=== PATIENT | male | born 1940 | race Caucasian/White ===

== ENCOUNTER 2018-11-21 16:23 | Emergency (ER) | payer OTHER, SELFPAY ==
[2018-11-21] VITALS (7 sets, daily range): BP systolic 103–122; BP diastolic 65–91; PULSE 83–91; RESP 13–21; O2SAT 95–100; BMI 36.1
--- NOTE | 2018-11-21 17:16 | DI.RAD.S_ITS ---
PROCEDURE: XR CHEST 1V INDICATIONS: Shortness of breath, when lays down TECHNIQUE: One view of the chest was acquired. COMPARISON: [facility], , CHEST 2 VIEW, 01/31/2018, 13:15. FINDINGS: Surgical changes and devices: None. Lungs and pleura: Increased pulmonary vascularity is present. There is trace blunting of the costophrenic angles bilaterally, right greater than left. Mediastinum: Mediastinal contours appear normal. Heart size is normal. Bones and chest wall: No suspicious bony lesions. Overlying soft tissues appear unremarkable. IMPRESSION: Increased vascularity with trace effusions most consistent with edema. Dictated by: Maria D Carrillo M.D. on 11/21/2018 at 17:51 Approved by: Maria D Carrillo M.D. on 11/21/2018 at 17:51
[2018-11-21 17:21] LABS: Add Manual Diff / Slide Review NO; Basophils Absolute Auto 100 /uL (0-100); Basophils Percent Auto 0.9 % (0-2); Eosinophils Absolute Auto 500 /uL (0-450); Eosinophils Percent Auto 5.4 % (2-4); Hematocrit 39.8 % (41-53); Hemoglobin 12.9 g/dL (13.5-17.5); Lymphocytes Absolute Auto 1500 /uL (1100-4500); Lymphocytes Percent Auto 17.6 % (25-40); Mean Corpuscular HGB Conc 32.5 % (30-36); Mean Corpuscular Hemoglobin 25.6 PG (26-34); Mean Corpuscular Volume 78.8 fL (80-100); Monocytes Absolute Auto 800 /uL (0-900); Monocytes Percent Auto 9.5 % (3-14); Neutrophils Absolute Auto 5600 /uL (1500-7000); Neutrophils Percent Auto 66.6 % (50-75); Platelet Count 497 X10^3/uL (150-400); Red Blood Cell Count 5.05 X10^6/uL (4.5-5.9); Red Cell Distribution Width 16.2 % (11.6-14.8); White Blood Cell Count 8.4 X10^3/uL (4.5-11.0)
[2018-11-21 17:26] LABS: HEMOLYSIS < 15 (0-50)
[2018-11-21 17:27] LABS: Alanine Aminotransferase 30 IU/L (21-72); Albumin 3.5 g/dL (3.5-5.0); Albumin Globulin Ratio 1.1 (1.0-2.8); Alkaline Phosphatase 85 U/L (38-126); Aspartate Aminotransferase 20 IU/L (17-59); BUN Creatinine Ratio 17.5 (6-22); Bilirubin Total 1.9 mg/dL (0.2-1.3); Blood Urea Nitrogen 14 mg/dL (9-20); Calcium 8.7 mg/dL (8.4-10.2); Carbon Dioxide 29 mmol/L (22-32); Chloride 97 mmol/L (98-107); Creatine Kinase < 20 U/L (55-170); Estimated Glomerular Filt Rate > 60.0 mL/min (>60); Globulin 3.3 g/dL (1.7-4.1); Glucose 127 mg/dL (80-110); Lipase 29 U/L (23-300); Sodium 137 mmol/L (137-145); Total Protein 6.8 g/dL (6.3-8.2)
[2018-11-21 17:40] LABS: Troponin I < 0.012 ng/mL (0.01-0.034)
[2018-11-21 18:00] LABS: B Type Natriuretic Peptide < 100 (<100)
--- NOTE | 2018-11-21 18:15 | ED.CHESTPAIN ---
HPI - Chest Pain General Chief Complaint: Chest Pain Stated Complaint: SOB Time Seen by Provider: 11/21/18 17:16 Source: patient Mode of arrival: ambulatory Limitations: no limitations History of Present Illness HPI narrative: 78-year-old male here for evaluation of shortness of breath. He states that he has had symptoms for the past month. Does not describe any chest discomfort. States that he has had a productive cough. Does have a history of COPD but is not on home oxygen. He reported that he had an extensive workup in [place] several weeks ago. Is not on any Lasix. No fevers. States that most of his symptoms come with exerting himself. States he cannot climb a flight of stairs without becoming short of breath. He can walk from room to room in his house without any problems. He states that he can walk out to the mailbox without any problems. Sleeps on 1 pillow at night. Related Data Home Medications Medication Instructions Recorded Confirmed albuterol sulfate [Ventolin HFA] 1 puff INHALATION PRN PRN 11/21/18 11/21/18 methotrexate sodium 1 dose PO DIRECTED 11/21/18 11/21/18 prednisone 10 mg PO DAILY 11/21/18 11/21/18 testosterone cypionate 200 mg IM QMONTH 11/21/18 11/21/18 [Depo-Testosterone] Previous Rx's Medication Instructions Recorded albuterol sulfate 3 ml INH Q6H PRN #100 ea 01/31/18 fluticasone [Flovent HFA] 1 puff INH BID #1 inh 01/31/18 furosemide 20 mg PO DAILY #14 tab 11/21/18 Allergies Allergy/AdvReac Type Severity Reaction Status Date / Time cephalexin [From KEFLEX] Allergy Intermediate Nausea, Verified 11/21/18 16:45 Vomiting, and Stomach Cramps Review of Systems Constitutional Denies fever(s) and Denies headache(s) ENT Ears, Nose, Mouth, and Throat: Denies headache(s) Cardiovascular Denies chest pain, Denies rapid heart rate, Denies palpitations, Reports dyspnea, Reports dyspnea on exertion and Denies orthopnea Respiratory Reports chest congestion, Reports dyspnea, Reports dyspnea on exertion and Denies wheezing Gastrointestinal Gastrointestinal: Denies abdominal pain Genitourinary Denies dysuria Musculoskeletal Denies myalgias and Denies arthralgias Integumentary/Breasts Denies rash Neurologic Denies headache(s) Endocrine Denies palpitations Hematologic/Lymphatic Comments: Not on anticoagulation Allergic/Immunologic Denies wheezing PFSH Medical History COPD (chronic obstructive pulmonary disease) (Acute) Surgical History Status post cholecystectomy Social History Smoking Status: Former smoker Exam Initial Vital Signs Initial Vital Signs: Vital Signs Pulse Rate 91 H 11/21/18 16:39 Respiratory Rate 21 11/21/18 16:39 Blood Pressure 116/91 H 11/21/18 16:39 Pulse Oximetry 95 11/21/18 16:39 Const General: cooperative, healthy appearing, comfortable, well developed, well groomed and No acute distress Orientation: alert, awake and oriented x3 Resp Effort & Inspection: normal respiratory effort Auscultation: clear to auscultation bilaterally Cardio Rate: regular rate Rhythm: regular rhythm GI Inspection: non-distended Palpation: soft Skin Lesions: no lesions Rashes: no rashes Neuro General: alert, awake and oriented x3 Cognition: normal cognition Speech: speech normal Motor: muscle tone normal throughout Extrem General: normal to inspection and capillary refill normal Psych Appearance: grossly normal and well kempt Course Orders Ordered: ED Orders 11/21/18 18:53 CT angio chest PE protocol Stat Vital Signs - 8 hr 11/21/18 19:00 11/21/18 19:30 Pulse Rate 83 84 Respiratory Rate 14 15 Blood Pressure [Right Arm] 122/67 112/65 Pulse Oximetry 96 96 MDM - Chest Pain Lab Data Attestation: I reviewed the patient's lab results. Result diagrams: 11/21/18 16:54 11/21/18 16:54 Lab Results 11/21/18 11/21/18 Range/Units 16:54 16:54 WBC 8.4 (4.5-11.0) X10^3/uL RBC 5.05 (4.5-5.9) X10^6/uL Hgb 12.9 L (13.5-17.5) g/dL Hct 39.8 L (41-53) % MCV 78.8 L (80-100) fL MCH 25.6 L (26-34) PG MCHC 32.5 (30-36) % RDW 16.2 H (11.6-14.8) % Plt Count 497 H (150-400) X10^3/uL Neut % (Auto) 66.6 (50-75) % Lymph % (Auto) 17.6 L (25-40) % Elliott % (Auto) 9.5 (3-14) % Eos % (Auto) 5.4 H (2-4) % Baso % (Auto) 0.9 (0-2) % Neut # (Auto) 5600 (0732-4619) /uL Lymph # (Auto) 1500 (2430-4422) /uL Elliott # (Auto) 800 (0-900) /uL Eos # (Auto) 500 H (0-450) /uL Baso # (Auto) 100 (0-100) /uL Sodium 137 (137-145) mmol/L Potassium 4.0 (3.4-5.1) mmol/L Chloride 97 L (98-107) mmol/L Carbon Dioxide 29 (22-32) mmol/L BUN 14 (9-20) mg/dL Creatinine 0.80 (0.66-1.25) mg/dL Estimated GFR > 60.0 (>60) mL/min BUN/Creatinine Ratio 17.5 (6-22) Glucose 127 H (80-110) mg/dL Calcium 8.7 (8.4-10.2) mg/dL Total Bilirubin 1.9 H (0.2-1.3) mg/dL AST 20 (17-59) IU/L ALT 30 (21-72) IU/L Alkaline Phosphatase 85 (38-126) U/L Total Creatine Kinase < 20 L (55-170) U/L CK-MB (CK-2) TNP CK-MB (CK-2) Rel Index TNP Troponin I < 0.012 (0.01-0.034) ng/mL B-Natriuretic Peptide < 100 (<100) Total Protein 6.8 (6.3-8.2) g/dL Albumin 3.5 (3.5-5.0) g/dL Globulin 3.3 (1.7-4.1) g/dL Albumin/Globulin Ratio 1.1 (1.0-2.8) Lipase 29 (23-300) U/L Imaging Data Chest x-ray: Radiologist's impression: PROCEDURE: XR CHEST 1V INDICATIONS: Shortness of breath, when lays down TECHNIQUE: One view of the chest was acquired. COMPARISON: [facility], CR, CHEST 2 VIEW, 01/31/2018, 13:15. FINDINGS: Surgical changes and devices: None. Lungs and pleura: Increased pulmonary vascularity is present. There is trace blunting of the costophrenic angles bilaterally, right greater than left. Mediastinum: Mediastinal contours appear normal. Heart size is normal. Bones and chest wall: No suspicious bony lesions. Overlying soft tissues appear unremarkable. IMPRESSION: Increased vascularity with trace effusions most consistent with edema. Dictated by: Maria D Carrillo M.D. on 11/21/2018 at 17:51 Approved by: Maria D Carrillo M.D. on 11/21/2018 at 17:51 CT scan - chest: Radiologist's impression: ROCEDURE: CT ANGIO CHEST PE PROTOCOL INDICATIONS: Chest pain, shortness of breath, tachycardia TECHNIQUE: After the administration of intravenous contrast, 2 mm thick sections acquired from the pulmonary apices to the posterior costophrenic angles. 3-dimensional maximum intensity projection (MIP) coronal and sagittal reformats were then acquired through the thorax. For radiation dose reduction, the following was used: automated exposure control, adjustment of mA and/or kV according to patient size. COMPARISON: [facility], CT, THORAX WITHOUT CONTRAST, 11/15/2012, 7:50. FINDINGS: Image quality: Excellent. Pulmonary arteries: Pulmonary arteries are normal in size, and demonstrate no intraluminal filling defects to suggest central pulmonary embolism. Lungs and pleura: Minimal right effusion with dependent changes. Mediastinum: Heart size is normal, without pericardial effusion. Right anterior paratracheal lymph node is measured at 12 mm, compared to 8 mm in 2013. Thoracic aorta is normal in caliber and enhancement. Esophagus is normal in caliber, without hiatal hernia. Bones and chest wall: No suspicious bony lesions. Ribs and thoracic spine appear intact throughout. Thyroid gland is unremarkable. No axillary or supraclavicular adenopathy. Abdomen: Visualized upper abdominal solid organs appear normal in the early arterial phase of enhancement. IMPRESSION: 1. No pulmonary embolus. 2. Minimal effusion with dependent changes in the right lower lobe. 3. Mild distal esophageal thickening with hiatal hernia. Recommend correlation any potential symptoms of esophagitis. Dictated by: Maria D Carrillo M.D. on 11/21/2018 at 19:17 Approved by: Maria D Carrillo M.D. on 11/21/2018 at 19:20 ECG Data Attestation: I personally reviewed and interpreted this ECG as follows: Prior ECG tracings: not available for review Interpretation: Sinus rhythm Ventricular rate of 91 Normal QRS Normal QTC Normal axis No ST T wave changes MDM Narrative Medical decision making narrative: Chest x-ray is unremarkable. CT scan of chest is unremarkable. Patient has been having symptoms over the past month. His troponin was negative. There is some concern about potential fluid overload. Chest x-ray does show some signs of potential edema. He does have some lower extremity swelling is also having a productive cough. Clinically is not in heart failure. Doubt ACS given his history and physical exam and presentation and lab results. Will send him home with a course of Lasix see if this does not improve his symptoms. Will have him call his primary care doctor for a follow-up. He was given return precautions. He expressed understanding and agreement with plan. Discharge Plan Departure Patient Disposition: Home Clinical Impression: Atypical chest pain, Shortness of breath Discharge Date/Time: 11/21/18 19:45 Interventions: ED Discharge Assessment Last Done: 11/21/18 20:13 Instructions: DI for Atypical Chest Pain, DI for Shortness of Breath Activity Restrictions/Additional Instructions: Recommend you take the Lasix as directed. Call your primary care doctor tomorrow to schedule a follow-up visit. Return to the emergency department for any new or worsening symptoms Prescriptions: New furosemide 20 mg tablet 20 mg PO DAILY Qty: 14 RF: 0 No Action albuterol sulfate 2.5 MG/3 ML solution for nebulization 3 ml INH Q6H PRNQty: 100 RF: 0 fluticasone [Flovent HFA] 12 GM HFA aerosol inhaler 1 puff INH BID Qty: 1 RF: 2 albuterol sulfate [Ventolin HFA] 90 mcg/actuation HFA aerosol inhaler 1 puff Inhalation PRN PRN (Reason: Shortness Of Breath) RF: 0 methotrexate sodium 2.5 mg tablet 1 dose PO DIRECTED RF: 0 prednisone 10 mg tablet 10 mg PO DAILY RF: 0 testosterone cypionate [Depo-Testosterone] 200 mg/mL oil 200 mg IM QMONTH RF: 0
--- NOTE | 2018-11-21 18:53 | DI.CT.S_ITS ---
PROCEDURE: CT ANGIO CHEST PE PROTOCOL INDICATIONS: Chest pain, shortness of breath, tachycardia TECHNIQUE: After the administration of intravenous contrast, 2 mm thick sections acquired from the pulmonary apices to the posterior costophrenic angles. 3-dimensional maximum intensity projection (MIP) coronal and sagittal reformats were then acquired through the thorax. For radiation dose reduction, the following was used: automated exposure control, adjustment of mA and/or kV according to patient size. COMPARISON: [facility], CT, THORAX WITHOUT CONTRAST, 11/15/2012, 7:50. FINDINGS: Image quality: Excellent. Pulmonary arteries: Pulmonary arteries are normal in size, and demonstrate no intraluminal filling defects to suggest central pulmonary embolism. Lungs and pleura: Minimal right effusion with dependent changes. Mediastinum: Heart size is normal, without pericardial effusion. Right anterior paratracheal lymph node is measured at 12 mm, compared to 8 mm in 2013. Thoracic aorta is normal in caliber and enhancement. Esophagus is normal in caliber, without hiatal hernia. Bones and chest wall: No suspicious bony lesions. Ribs and thoracic spine appear intact throughout. Thyroid gland is unremarkable. No axillary or supraclavicular adenopathy. Abdomen: Visualized upper abdominal solid organs appear normal in the early arterial phase of enhancement. IMPRESSION: 1. No pulmonary embolus. 2. Minimal effusion with dependent changes in the right lower lobe. 3. Mild distal esophageal thickening with hiatal hernia. Recommend correlation any potential symptoms of esophagitis. Dictated by: Maria D Carrillo M.D. on 11/21/2018 at 19:17 Approved by: Maria D Carrillo M.D. on 11/21/2018 at 19:20
== END 2018-11-21 19:45 | disposition home or self-care (01) ==
PROVIDERS: Emergency Medicine; Emergency Provider Emergency Medicine; PCP Family Medicine
DX: R07.89 Other chest pain (principal); R06.02 Shortness of breath
CPT/HCPCS: 36591; 71045; 71275; 80053; 82550; 83690; 83880; 84484; 85025; 99284; 99285; Q9967

== ENCOUNTER 2019-02-15 08:11 | Day surgery (SDC) | payer OTHER, SELFPAY ==
--- NOTE | 2019-02-11 09:52 | PM.PREOP ---
Pre-operative Note Interval Note History & Physical reviewed/Exam performed by Physician: Yes Changes to H&P: No
--- NOTE | 2019-02-11 09:52 | PM.OP.1 ---
Operative Date/Time/Diagnoses Date of procedure: 02/15/19 Time of procedure: 09:45 Procedure & Clinicians Procedure: Preoperative diagnoses: 1. Complex surgery with use of capsular dye. 2. Mature or advanced nuclear sclerotic and cortical cataract with poor visibility of the anterior capsule increasing surgical risks of complications. 3. Steroid dependent bronchitis recently. 4. Ptyergium previously removed with corneal scarring. Postoperative diagnoses: 1. Complex surgery with use of capsular dye and placement of a posterior chamber intraocular lens implant. Surgeon: Beverly Choudhury MD Complications: none Specimen: None Implant: [id number]+21.0 Blood loss: None Anesthesia: Retrobulbar with monitored standby. Description of procedure: Dictated by: Beverly Choudhury MD Copy to: [facility] Post operative diagnoses: 1. Cataract removed with use of capsular dye with placement of a posterior chamber intraocular lens. Procedure: Phacoemulsification with posterior chamber intraocular lens implant Surgeon: Beverly Choudhury MD Blood loss: None Anesthesia: Retrobulbar with monitored standby Description of procedure: Patient has presented with decreased vision due to cataract which is affecting activities of daily living. The patient wants surgery to improve vision. He has a mature cataract requiring capsular dye to improve red reflex visibility. He has previously previously postponed to health issues his in family. The patient was taken to the operating room and given IV sedation. A retrobulbar block consisting of 6 cc of 2% xylocaine without epinephrine mixed half and half with 0.5% Marcaine with 1 cc of hyaluronidase added is placed between the medial and lateral 1/3 of the inferior orbital rim. Lid akinesia is obtain with 1% xylocaine with epinephrine infiltrated along the lid margin. The eye is manually massaged for 30 sec, prepped using Betadine solution, and draped in the usual sterile fashion. Temporal approach was made, a 1 mm side-port incision was performed 90 degrees from the planned corneal wound. Phenylephrine 1.5% mixed with 1% xylocaine 0.2 cc was placed into the anterior chamber. An air bubble was placed and Visudyne dye was placed to improve visibility of the anterior capsule. The dye was irrigated out to reduce bubbles. Viscoat followed by Healon was then placed. A 2.6 mm clear incision with a 2.6 mm blade was placed. A 360 degree capsulorrhexis style capsulotomy was then performed with a cystitome needle on a Healon. Hydrodelineation and hydrodissection were performed. The phacoemulsification unit is introduced, and sculpting used to groove the central lens. It is then removed in chopping mode. Epi nucleus is removed with epinuclear mode and irrigation aspiration was used to remove the peripheral cortex. The posterior capsule is polished. The intraocular lens is selected, inspected, power confirmed, and placed in the posterior chamber. The pupil was constricted with Miostat. The wound was stromally hydrated and tested for leaks, there was none and was left sutureless. Vigamox 0.1 cc was placed into the anterior chamber. Kenalog 0.2 cc was placed in the superior subconjunctival space. A drop of antibiotic and was placed and the eye was patched and shielded. The patient was stable and returned to the recovery room in excellent condition. Dictated by: Beverly Choudhury MD Copy to: [facility]
[2019-02-15 08:53] VITALS: BP 130/80; PULSE 81; RESP 16; TEMP 36.3; O2SAT 98
[2019-02-15 08:54] VITALS: BMI 43.0
[2019-02-15] MEDS: PROPARACAINE 0.5% OPHTH SOL 2 DROPS EYE-OP (08:55)
[2019-02-15] MEDS: CATARACT EYE COMPOUND (10 DROPS/SYRINGE) 3 DROPS EYE-OP (09:00)
--- NOTE | 2019-02-15 09:39 | SUR.OPER ---
Supine on eye stretcher, head on extension cradle secured with tape. Arms tucked at sides with blanket. Pillow under knees.
[2019-02-15] MEDS: PHENYLEPHRINE/LIDOCAINE VIAL (OR) 0.2 ML EYE-OP (10:25)
[2019-02-15] MEDS: TRIAMCINOLONE 50 MG/5 ML VIAL INJ (10:26)
[2019-02-15] MEDS: MOXIFLOXACIN OPHTH DROPS 3 ML BOTTLE 2 DROPS INJ (10:26)
[2019-02-15] MEDS: CHONDROIDTIN/SOD HYALURONATE 1.05 ML SYRINGE INTRAOCULA (10:27)
[2019-02-15] MEDS: BALANCED SALT IRRIG SOLN NO.2 15 ML IRR (10:27)
[2019-02-15] MEDS: NEOMYCIN/POLY/DEX OPHTH OINT 1 APPLIC EYE-RIGHT (10:28)
[2019-02-15] MEDS: HYALURONATE SODIUM 10 MG/ML SYRINGE INJ (10:28)
[2019-02-15] MEDS: CARBACHOL 1.5 ML VIAL INJ (10:28)
[2019-02-15] MEDS: TRYPAN BLUE 0.5 ML SYRINGE INJ (10:29)
[2019-02-15] MEDS: OFLOXACIN 0.3% OPHTH 5 ML 2 DROPS EYE-RIGHT (10:29)
[2019-02-15] MEDS: BALANCED SALT IRRIG SOLN NO.2 500 ML, EPINEPHrine 1 MG IRR (10:30)
[2019-02-15] MEDS: LIDOCAINE 1% W/EPI INJ 20 ML INJ (10:30)
[2019-02-15] MEDS: LIDOCAINE 2% 4 ML, BUPIVACAINE 0.5% (PF) 4 ML, HYALURONIDASE 150 UNIT INJ (10:31)
[2019-02-15 11:02] VITALS: BP 123/72; PULSE 67; RESP 15; TEMP 36.5; O2SAT 94
== END 2019-02-15 11:15 | disposition home or self-care (01) ==
LOC: OR 08:12
PROVIDERS: PCP Student in an Organized Health Care Education/Training Program; Visit Provider Ophthalmology
PROC: (CPT 66982; principal; 2019-02-15 09:45)
DX: H25.811 Combined forms of age-related cataract, right eye (principal)
CPT/HCPCS: 66982; J0171; J2704; J3301; J3470

== ENCOUNTER 2019-04-05 13:43 | Day surgery (SDC) | payer OTHER, SELFPAY ==
--- NOTE | 2019-02-25 12:12 | PM.PREOP ---
Pre-operative Note Interval Note History & Physical reviewed/Exam performed by Physician: Yes Changes to H&P: No
--- NOTE | 2019-02-25 12:12 | PM.OP.1 ---
Procedure & Clinicians Procedure: Preoperative diagnoses: 1. Complex surgery with use of capsular dye. 2. Mature or advanced nuclear sclerotic and cortical cataract with poor visibility of the anterior capsule increasing surgical risks of complications. 3. Corneal dystrophy. Postoperative diagnoses: 1. Complex surgery with use of capsular dye and placement of a posterior chamber intraocular lens implant. Surgeon: Beverly Choudhury MD Complications: none Specimen: None Implant: [id number]+21.0 Blood loss: None Anesthesia: Retrobulbar with monitored standby. Description of procedure: Dictated by: Beverly Choudhury MD Copy to: [facility] Post operative diagnoses: 1. Cataract removed with use of capsular dye with placement of a posterior chamber intraocular lens. Procedure: Phacoemulsification with posterior chamber intraocular lens implant Surgeon: Beverly Choudhury MD Blood loss: None Anesthesia: Retrobulbar with monitored standby Description of procedure: Patient has presented with decreased vision due to cataract which is affecting activities of daily living. The patient wants surgery to improve vision. The patient was taken to the operating room and given IV sedation. A retrobulbar block consisting of 6 cc of 2% xylocaine without epinephrine mixed half and half with 0.5% Marcaine with 1 cc of hyaluronidase added is placed between the medial and lateral 1/3 of the inferior orbital rim. Lid akinesia is obtain with 1% xylocaine with epinephrine infiltrated along the lid margin. The eye is manually massaged for 30 sec, prepped using Betadine solution, and draped in the usual sterile fashion. Temporal approach was made, a 1 mm side-port incision was performed 90 degrees from the planned corneal wound. Phenylephrine 1.5% mixed with 1% xylocaine 0.2 cc was placed into the anterior chamber. An air bubble was placed and Visudyne dye was placed to improve visibility of the anterior capsule. The dye was irrigated out to reduce bubbles. Viscoat followed by Rodolfo was then placed. A 2.6 mm clear incision with a 2.6 mm blade was placed. A 360 degree capsulorrhexis style capsulotomy was then performed with a cystitome needle on a Pressgramon. Hydrodelineation and hydrodissection were performed. The phacoemulsification unit is introduced, and sculpting used to groove the central lens. It is then removed in chopping mode. Epi nucleus is removed with epinuclear mode and irrigation aspiration was used to remove the peripheral cortex. The posterior capsule is polished. The intraocular lens is selected, inspected, power confirmed, and placed in the posterior chamber. The pupil was constricted with Miostat. The wound was stromally hydrated and tested for leaks, there was none and was left sutureless. Vigamox 0.1 cc was placed into the anterior chamber. Kenalog 0.2 cc was placed in the superior subconjunctival space. A drop of antibiotic and was placed and the eye was patched and shielded. The patient was stable and returned to the recovery room in excellent condition. Dictated by: Beverly Choudhury MD Copy to: [facility]
--- NOTE | 2019-04-02 12:14 | PM.PREOP ---
Pre-operative Note Interval Note History & Physical reviewed/Exam performed by Physician: Yes Changes to H&P: No
--- NOTE | 2019-04-02 12:19 | P.OP_ITS ---
Operative Date/Time/Diagnoses Date of procedure: 04/05/19 Time of procedure: 15:15 Procedure & Clinicians Procedure: Preoperative diagnoses: 1. Complex left surgery with use of capsular dye and a MiLOOP. 2. Mature or advanced nuclear sclerotic and cortical cataract with poor visibility of the anterior capsule increasing surgical risks of complications. 3. Corneal dystrophy. Postoperative diagnoses: 1. Complex surgery with use of capsular dye and placement of a posterior chamber intraocular lens implant with use of MiLOOP.. Surgeon: Beverly Choudhury MD Complications: none Specimen: None Implant: [id number]+21.0 Blood loss: None Anesthesia: Retrobulbar with monitored standby. Description of procedure: Dictated by: Beverly Choudhury MD Copy to: [facility] Post operative diagnoses: 1. Cataract removed with use of capsular dye and MiLOOP with placement of a posterior chamber intraocular lens. Procedure: Phacoemulsification with posterior chamber intraocular lens implant Surgeon: Beverly Choudhury MD Blood loss: None Anesthesia: Retrobulbar with monitored standby Description of procedure: Patient has presented with decreased vision due to cataract which is affecting activities of daily living. The patient wants chatterjee rgery to improve vision. The patient was taken to the operating room and given IV sedation. A retrobulbar block consisting of 6 cc of 2% xylocaine without epinephrine mixed half and half with 0.5% Marcaine with 1 cc of hyaluronidase added is placed between the medial and lateral 1/3 of the inferior orbital rim. Lid akinesia is obtain with 1% xylocaine with epinephrine infiltrated along the lid margin. The eye is manually massaged for 30 sec, prepped using Betadine solution, and draped in the usual sterile fashion. Temporal approach was made, a 1 mm side-port incision was performed 90 degrees from the planned corneal wound. Phenylephrine 1.5% mixed with 1% xylocaine 0.2 cc was placed into the anterior chamber. An air bubble was placed and Visudyne dye was placed to improve visibility of the anterior capsule. The dye was irrigated out to reduce bubbles. Viscoat followed by Healon was then placed. A 2.6 mm clear incision with a 2.6 mm blade was placed. A 360 degree capsulorrhexis style capsulotomy was then performed with a cystitome needle on a Healon. Hydrodelineation and hydrodissection were performed. The MiLOOP device was inspected and placed in the anterior chamber in the neutral position.It was then hooked around the lens nucleus under the capsulorrhexis to the right side and rotated into position. The lens nucleus was then hem-dissected, rotated, dissected again and the device then removed from the. The phacoemulsification unit is introduced and used to emulsify the central lens. It is then removed in chopping mode. Epi nucleus is removed with epinuclear mode and irrigation aspiration was used to remove the peripheral cortex. The posterior capsule is polished. The intraocular lens is selected, inspected, power confirmed, and placed in the posterior chamber. The pupil was constricted with Miostat. The wound was stromally hydrated and tested for leaks, there was none and was left sutureless. Vigamox 0.1 cc was placed into the anterior chamber. Kenalog 0.2 cc was placed in the superior subconjunctival space. A drop of antibiotic and was placed and the eye was patched and shielded. The patient was stable and returned to the recovery room in excellent condition. Dictated by: Beverly Choudhury MD Copy to: [facility]
[2019-04-05] MEDS: PROPARACAINE 0.5% OPHTH SOL 2 DROPS EYE-OP (15:05)
[2019-04-05 15:08] VITALS: BMI 27.3
[2019-04-05] MEDS: CATARACT EYE COMPOUND (10 DROPS/SYRINGE) 3 DROPS EYE-OP (15:15)
[2019-04-05 15:26] VITALS: BP 133/81; PULSE 70; RESP 12; TEMP 36.6; O2SAT 99
[2019-04-05] MEDS: LIDOCAINE 1% W/EPI INJ 20 ML INJ (16:39)
[2019-04-05] MEDS: LIDOCAINE 2% 4 ML, BUPIVACAINE 0.5% (PF) 4 ML, HYALURONIDASE 150 UNIT INJ (16:39)
[2019-04-05] MEDS: TRIAMCINOLONE 50 MG/5 ML VIAL INJ (16:40)
[2019-04-05] MEDS: MOXIFLOXACIN OPHTH DROPS 3 ML BOTTLE 2 DROPS INJ (16:40)
[2019-04-05] MEDS: PHENYLEPHRINE/LIDOCAINE VIAL (OR) 0.2 ML EYE-OP (16:40)
[2019-04-05] MEDS: CARBACHOL 1.5 ML VIAL INJ (16:41)
[2019-04-05] MEDS: HYALURONATE SODIUM 10 MG/ML SYRINGE INJ (16:41)
[2019-04-05] MEDS: TRYPAN BLUE 0.5 ML SYRINGE INJ (16:41)
[2019-04-05] MEDS: BALANCED SALT IRRIG SOLN NO.2 15 ML IRR (16:41)
[2019-04-05] MEDS: NEOMYCIN/POLY/DEX OPHTH OINT 1 APPLIC EYE-LEFT (16:41)
[2019-04-05] MEDS: OFLOXACIN 0.3% OPHTH 5 ML 2 DROPS EYE-LEFT (16:41)
[2019-04-05] MEDS: CHONDROIDTIN/SOD HYALURONATE 1.05 ML SYRINGE INTRAOCULA (16:41)
[2019-04-05] MEDS: BALANCED SALT IRRIG SOLN NO.2 500 ML, EPINEPHrine 1 MG IRR (16:42)
[2019-04-05 17:15] VITALS: BP 131/80; PULSE 70; RESP 16; TEMP 36.3; O2SAT 99
== END 2019-04-05 17:25 | disposition home or self-care (01) ==
LOC: OR 13:45
PROVIDERS: PCP Student in an Organized Health Care Education/Training Program; Visit Provider Ophthalmology
PROC: (CPT 66982; principal; 2019-04-05 15:15)
DX: H25.812 Combined forms of age-related cataract, left eye (principal); H18.50 Unspecified hereditary corneal dystrophies
CPT/HCPCS: 66982; J0171; J2704; J3301; J3470

== ENCOUNTER → 2021-04-16 09:12 | Outpatient (CLI) | payer OTHER, SELFPAY ==
[2021-04-16 10:30] LABS: COVID19 -Nasal RAPID Negative (Negative)
--- NOTE | 2021-04-23 11:46 | PM.PFT.1 ---
Pulmonary Function Test Referral & Results Date Patient Seen: 04/16/21 Requesting provider: Mitchell Buchanan Results: The spirometry demonstrates an FVC of 2.57 L which is 65% of predicted. The FEV1 was measured at 1.54 L which is 55% of predicted. The FEV1/FVC ratio was 60 which is 83% of predicted. Following the administration of bronchodilator there was a 10% improvement in FEV1 and a 35% improvement in FEF 25-75%. Lung volumes show an SVC of 2.98 L which is 69% of predicted. The diffusing capacity was measured at 21.68 which is 69% of predicted. No hemoglobin value was provided, so no correction for potential anemia could be made, if appropriate. The maximum voluntary ventilation was reduced Interpretation: This study demonstrates moderately severe obstructive lung disease based on reduction FEV1. There is some limited evidence of benefit following bronchodilator, based on improvement although mild in FEV1 and FEF 25-75% There is also a mild reduction in lung volumes suggesting restrictive lung disease as well There is also reduction diffusing capacity suggesting element of disease at the capillary alveolar level Clinical correlation suggested
== END ==
PROVIDERS: PCP Internal Medicine; Referring Provider Internal Medicine; Visit Provider Internal Medicine
DX: R06.02 Shortness of breath (principal); Z79.899 Other long term (current) drug therapy; Z20.822 Contact with and (suspected) exposure to COVID-19; Z87.891 Personal history of nicotine dependence
CPT/HCPCS: 87635; 94060; 94726; 94729; C9803

== ENCOUNTER → 2021-06-10 11:29 | Outpatient (CLI) | payer OTHER, SELFPAY ==
[2021-06-14 19:39] LABS: Percent Free Testosterone 3.32 % (1.50-4.20); Testosterone Free 6.26 ng/dL (5.00-21.00); Testosterone Total 188.6 ng/dL (264.0-916.0)
== END ==
PROVIDERS: PCP Internal Medicine; Referring Provider Internal Medicine; Visit Provider Internal Medicine
DX: E29.1 Testicular hypofunction (principal)
CPT/HCPCS: 36415; 84402; 84403

== ENCOUNTER → 2021-08-26 12:43 | Outpatient (CLI) | payer OTHER, SELFPAY ==
[2021-08-26 13:14] LABS: COVID19 -Nasal RAPID Negative (Negative)
== END ==
PROVIDERS: PCP Internal Medicine; Referring Provider Nurse Practitioner Family; Visit Provider Nurse Practitioner Family
DX: R05.9 Cough, unspecified (principal); R06.02 Shortness of breath
CPT/HCPCS: 87635

== ENCOUNTER → 2021-08-26 13:15 | Outpatient (CLI) | payer OTHER, SELFPAY ==
--- NOTE | 2021-08-26 13:16 | DI.RAD.S_ITS ---
PROCEDURE: XR CHEST 2V INDICATIONS: copd exacerbation TECHNIQUE: 2 views of the chest were acquired. COMPARISON: [facility], CR, XR CHEST 1V, 11/21/2018, 17:39. FINDINGS: Surgical changes and devices: None. Lungs and pleura: Lungs are clear. Chronic diffuse interstitial prominence. No pleural effusions or pneumothorax. Chronic blunting of the right lateral costophrenic angle. Mediastinum: Mediastinal contours are normal. Heart size is normal. Aorta is tortuous and unfolded. Bones and chest wall: No suspicious bony abnormalities. Soft tissues appear unremarkable. IMPRESSION: Chronic interstitial prominence. No evidence acute pulmonary process. Dictated by: Riccardo Gimenez M.D. on 08/26/2021 at 15:00 Approved by: Riccardo Gimenez M.D. on 08/26/2021 at 15:13
== END ==
PROVIDERS: PCP Internal Medicine; Referring Provider Nurse Practitioner Family; Visit Provider Nurse Practitioner Family
DX: J44.1 Chronic obstructive pulmonary disease with (acute) exacerbation (principal); R05.9 Cough, unspecified; R06.02 Shortness of breath
CPT/HCPCS: 71046; 87635

== ENCOUNTER → 2021-09-10 15:22 | Outpatient (CLI) | payer OTHER, SELFPAY ==
--- NOTE | 2021-09-10 15:22 | DI.ECHO.S_ITS ---
[facility]---------+ [facility] +---------+ : : [address] : : : : [id number] : : : : Phone: [phone]+ Echocardiogram Report + + :Name: KURTIS PIERCE Study Date: 09/10/2021 Height: 69 in : :[facility] ReadingLocation: Weight: 217 lb : : Gender: Male BSA: 2.1 m2 : :: 1940 Age: 81 yrs BP: 107/73 mmHg: :Reason For Study: CARDIOMYOPATHY : :Ordering Physician: AMEENA, : :MAYLIN Performed By: Etelvina Wagner : :Referring: MAYLIN SILVERIO : + + Interpretation Summary 1) Normal left ventricular thickness, size, wall motion, and systolic function (EF 55-60%). 2) Mildly enlarged right ventricle with normal function. 3) There is mild to moderate tricuspid regurgitation. 4) The right ventricular systolic pressure is estimated to be at least 42 mmHg based on an estimated right atrial pressure of 8 mm Hg. 5) No prior Echo available for comparison. Procedure: A two-dimensional transthoracic echocardiogram with color flow and Doppler was performed. The study quality was technically adequate. There is no prior echocardiogram noted for this patient. The patient was in sinus rhythm with heart rates between 76-85 bpm during the exam. Left Ventricle: The left ventricle is normal in size and wall thickness. The ejection fraction is estimated to be 55-60%. Left ventricular systolic function appears normal without focal wall motion abnormalities. Right Ventricle: The right ventricle is mildly dilated. The right ventricular systolic function is normal. Atria: The left atrial size is normal. Right atrial size is normal. There is no Doppler evidence for an interatrial shunt. Mitral Valve: There is mild mitral annular calcification. The mitral valve leaflets are mildly calcified. There is mild mitral regurgitation. Aortic Valve: The aortic valve is trileaflet. The aortic valve opens well. There is no aortic valve stenosis. No aortic regurgitation is present. Tricuspid Valve: The tricuspid valve leaflets are thin and pliable. There is mild to moderate tricuspid regurgitation. The right ventricular systolic pressure is estimated to be at least 42 mmHg based on an estimated right atrial pressure of 8 mm Hg. Pulmonic Valve: The pulmonic valve leaflets are thin and pliable; valve motion is normal. There is mild pulmonic regurgitation. Great Vessels: The aortic root is normal size. The ascending aorta could not be visualized. The IVC is of normal diameter and collapses less than 50% with a sniff. This suggests a right atrial pressure of 8 mm Hg. Pericardium/ Pleura There is no pericardial effusion. There is no pleural effusion. MMode/2D Measurements & Calculations LVIDd: 5.2 cm LVOT diam: 2.0 cm LVIDs: 3.5 cm Ao root diam: 3.7 cm FS: 32.5 % asc Aorta Diam: 3.1 cm IVSd: 1.2 cm LVPWd: 0.99 cm LV maradiaga. diameter/BSA (cm/m^2): 2.4 LV sys. diameter/BSA (cm/m^2): 1.6 LA A2 area: 21.5 cm2 RA long axis: 5.3 cm LA A4 area: 17.3 cm2 RA area: 14.2 cm2 LA length (vol): 5.1 cm RA vol: 32.5 ml LA vol: 61.4 ml RA : 15.2 ml/m2 LA vol index: 28.7 ml/m2 IVC diam: 2.0 cm RVD1 (basal): 4.1 cm TAPSE: 1.9 cm Doppler Measurements & Calculations Ao V2 max: 127.4 cm/sec LVOT Max Bennett: 83.0 cm/sec Ao V2 mean: 85.2 cm/sec LV V1 max P.8 mmHg Ao max P.5 mmHg LV V1 VTI: 17.7 cm Ao mean P.2 mmHg EMILY(I,D): 2.5 cm2 Ao V2 VTI: 22.4 cm EMILY(V,D): 2.0 cm2 sev ratio: 0.79 EMILY indexed to BSA (cm^2/m^2): 1.1 MV E max bennett: 72.1 cm/sec TR max bennett: 290.9 cm/sec MV A max bennett: 72.5 cm/sec TR max P.8 mmHg MV E/A: 0.99 PA V2 max: 88.0 cm/sec Med Peak E' Bennett: 4.6 cm/sec PA V2 mean: 58.5 cm/sec E/E' med: 15.7 PA mean P.5 mmHg Lat Peak E' Bennett: 12.3 cm/sec PA pr(Accel): 55.0 mmHg E/E' lat: 5.9 E/e' average: 10.8 MV dec time: 0.23 sec SV(LVOT): 54.9 ml Reading Physician:04:25 PM
== END ==
PROVIDERS: PCP Internal Medicine; Referring Provider Internal Medicine Cardiovascular Disease; Visit Provider Internal Medicine Cardiovascular Disease
DX: I42.9 Cardiomyopathy, unspecified (principal); I08.1 Rheumatic disorders of both mitral and tricuspid valves
CPT/HCPCS: 93306

== ENCOUNTER → 2021-12-01 10:31 | Outpatient (CLI) | payer OTHER, SELFPAY ==
[2021-12-01 11:28] LABS: BUN Creatinine Ratio 10.8 (6-22); Blood Urea Nitrogen 8 mg/dL (9-20); Calcium 8.2 mg/dL (8.4-10.2); Carbon Dioxide 31 mmol/L (22-32); Chloride 105 mmol/L (98-107); Estimated Glomerular Filt Rate > 60.0 mL/min (>60); Glucose 85 mg/dL (80-110); HEMOLYSIS < 15 (0-50); Magnesium 1.2 mg/dL (1.6-2.3); Potassium 3.2 mmol/L (3.4-5.1); Sodium 138 mmol/L (137-145)
== END ==
PROVIDERS: PCP Internal Medicine; Referring Provider Internal Medicine; Visit Provider Internal Medicine
DX: I10 Essential (primary) hypertension (principal)
CPT/HCPCS: 36415; 80048; 83735

== ENCOUNTER → 2022-02-23 14:37 | Outpatient (CLI) | payer OTHER, SELFPAY ==
[2022-02-23 16:43] LABS: BUN Creatinine Ratio 12.2 (6-22); Blood Urea Nitrogen 9 mg/dL (9-20); Calcium 7.7 mg/dL (8.4-10.2); Carbon Dioxide 27 mmol/L (22-32); Chloride 107 mmol/L (98-107); Estimated Glomerular Filt Rate > 60 mL/min (>60); Glucose 97 mg/dL (80-110); HEMOLYSIS < 15 (0-50); Magnesium 1.4 mg/dL (1.6-2.3); Potassium 3.4 mmol/L (3.4-5.1); Sodium 137 mmol/L (137-145)
== END ==
PROVIDERS: PCP Internal Medicine; Referring Provider Internal Medicine Cardiovascular Disease; Visit Provider Internal Medicine Cardiovascular Disease
DX: I48.19 Other persistent atrial fibrillation (principal)
CPT/HCPCS: 36415; 80048; 83735

== ENCOUNTER → 2022-06-19 12:36 | Outpatient (CLI) | payer OTHER, SELFPAY ==
[2022-06-19 13:59] LABS: Add Manual Diff / Slide Review NO; Basophils Absolute Auto 0 /uL (0-100); Basophils Percent Auto 0.6 % (0-2); Eosinophils Absolute Auto 300 /uL (0-450); Eosinophils Percent Auto 4.1 % (2-4); Hematocrit 32.8 % (41-53); Hemoglobin 10.8 g/dL (13.5-17.5); Lymphocytes Absolute Auto 1800 /uL (1100-4500); Lymphocytes Percent Auto 26.8 % (25-40); Mean Corpuscular HGB Conc 33.1 % (30-36); Mean Corpuscular Volume 84.5 fL (80-100); Monocytes Absolute Auto 100 /uL (0-900); Neutrophils Absolute Auto 4500 /uL (1500-7000); Neutrophils Percent Auto 66.5 % (50-75); Platelet Count 403 X10^3/uL (150-400); Red Blood Cell Count 3.88 X10^6/uL (4.5-5.9); White Blood Cell Count 6.8 X10^3/uL (4.5-11.0)
[2022-06-19 14:44] LABS: Erythrocyte Sedimentation Rate 31 MM/HR (0-15)
[2022-06-19 15:43] LABS: Alanine Aminotransferase 36 IU/L (<50); Albumin Globulin Ratio 1.2 (1.0-2.8); Alkaline Phosphatase 65 U/L (38-126); Aspartate Aminotransferase 61 IU/L (17-59); BUN Creatinine Ratio 20.8 (6-22); Blood Urea Nitrogen 16 mg/dL (9-20); C-Reactive Protein Quant 2.2 mg/dL (<1.0); Calcium 8.2 mg/dL (8.4-10.2); Carbon Dioxide 31 mmol/L (22-32); Chloride 103 mmol/L (98-107); Estimated Glomerular Filt Rate > 60 mL/min (>60); Globulin 2.6 g/dL (1.7-4.1); Glucose 81 mg/dL (80-110); HEMOLYSIS < 15 (0-50); Potassium 4.4 mmol/L (3.4-5.1); Sodium 136 mmol/L (137-145); Total Protein 5.6 g/dL (6.3-8.2)
[2022-06-25 18:23] LABS: Vitamin D 25 Hydroxy (D3) 17.8 ng/mL (30.0-100.0)
== END ==
PROVIDERS: PCP Internal Medicine; Referring Provider Internal Medicine Rheumatology; Visit Provider Internal Medicine Rheumatology
DX: M05.79 Rheumatoid arthritis with rheumatoid factor of multiple sites without organ or systems involvement (principal); M81.8 Other osteoporosis without current pathological fracture
CPT/HCPCS: 36415; 80053; 82306; 83520; 85025; 85651; 86140

== ENCOUNTER → 2022-07-02 16:05 | Outpatient (CLI) | payer OTHER, SELFPAY ==
[2022-07-02 16:51] LABS: HEMOLYSIS < 15 (0-50); Iron 30 ug/dL (49-181)
[2022-07-02 16:53] LABS: Lactate Dehydrogenase 381 U/L (313-618)
[2022-07-02 17:03] LABS: Percent Iron Saturation 11 % (20-50); Total Iron Binding Capacity 280 ug/dL (261-462); Transferrin 200 mg/dL (206-381)
[2022-07-02 17:23] LABS: TSH w/ Reflex to FT4 0.62 uIU/mL (0.47-4.68)
[2022-07-02 17:26] LABS: Reticulocyte Count, Percent 1.2 % (0.9-2.6)
[2022-07-02 17:27] LABS: Red Blood Cell Count 3.93 X10^6/uL (4.5-5.9)
[2022-07-02 17:28] LABS: Ferritin 130 ng/mL (18-464)
[2022-07-02 17:41] LABS: Hematocrit 33.1 % (41-53); Mean Corpuscular HGB Conc 33.4 % (30-36); Mean Corpuscular Hemoglobin 28.1 PG (26-34); Mean Corpuscular Volume 84.2 fL (80-100); Platelet Count 415 X10^3/uL (150-400); Red Cell Distribution Width 16.9 % (11.6-14.8); White Blood Cell Count 7.1 X10^3/uL (4.5-11.0)
[2022-07-02 17:59] LABS: Folate 8.9 ng/mL (2.76-20.0); Vitamin B12 350 pg/mL (239-931)
[2022-07-02 18:55] LABS: Neutrophils Absolute Manual 6390 /uL (3000-5900); Total Cells Counted 100
[2022-07-02 18:56] LABS: RBC Morphology Normal Morphology
[2022-07-03 08:20] LABS: Haptoglobin 215 mg/dL (34-355)
== END ==
PROVIDERS: PCP Internal Medicine; Referring Provider Internal Medicine; Visit Provider Internal Medicine
DX: D64.9 Anemia, unspecified (principal); I10 Essential (primary) hypertension
CPT/HCPCS: 36415; 82607; 82728; 82746; 83010; 83540; 83550; 83615; 84443; 85025; 85045

== ENCOUNTER → 2022-10-21 09:43 | Outpatient (CLI) | payer OTHER, SELFPAY ==
[2022-10-21 10:44] LABS: COVID19 -Nasal RAPID Negative (Negative)
== END ==
PROVIDERS: PCP Internal Medicine; Visit Provider Surgery
DX: Z01.812 Encounter for preprocedural laboratory examination (principal); Z20.822 Contact with and (suspected) exposure to COVID-19
CPT/HCPCS: 87635; C9803

== ENCOUNTER 2022-10-22 13:28 | Day surgery (SDC) | payer OTHER, SELFPAY ==
--- NOTE | 2022-10-22 | PATH_ITS ---
[facility] Accession Number: [id number] . 01 Material submitted: . stomach - ANTRUM . 01 Diagnosis: Antrum, Biopsy: Gastric antral mucosa with mild chronic inflammation. Negative for Helicobacter organisms by immunohistochemistry. Negative for intestinal metaplasia. Negative for dysplasia or malignancy. MRV 10/28/2022 1301 Local . 01 Electronically signed: . Houston Chappell MD, PhD, Pathologist NPI- [id number] . 01 Gross description: . The specimen is received in formalin labeled with the patient's name, , and antrum and consists of two irregular joseph soft tissue fragments, ranging from 0.3 to 0.4 cm in greatest dimension. Submitted entirely in cassette A1. ([id number]) /[facility] 10/23/2022 1715 Local . 01 Microscopic: . An immunohistochemical stain was performed to evaluate for Helicobacter organisms and is negative. The control stain showed appropriate reactivity. . * This test was developed and its performance characteristics determined by [facility]. It has not been cleared or approved by the U.S. Food and Drug Administration. The FDA has determined that such clearance or approval is not necessary. This test is used for clinical purposes. It should not be regarded as investigational or for research. . 01 Pathologist provided ICD-10: D64.9, K29.70 . 01 CPT . 831156, H36842 Specimen Comment: A courtesy copy of this report has been sent to [phone] Performed at: 01 [facility] [address] [place] [address] [address] [facility] [place], [place], [place] [id number] MD Donis Chester MD Phone: [phone]
[2022-10-22] MEDS: LACTATED RINGERS 1,000 ML 42 ML IV (15:49)
[2022-10-22 16:02] VITALS: BP 133/75; PULSE 67; RESP 18; TEMP 36.6; O2SAT 99; BMI 26.6
--- NOTE | 2022-10-22 17:01 | PM.HP.1 ---
History of Present Illness History of Present Illness Date Patient Seen: 10/22/22 Time Patient Seen: 17:01 Chief complaint: COLONOSCOPY & EGD W/POSS BX'S Narrative: Maicol is here for his EGD and colonoscopy. Please see the office note from July for details. Patient History Medical History Atrial fibrillation Cardiomyopathy Chronic fatigue (11/23/17) COPD (chronic obstructive pulmonary disease) Essential hypertension Mild persistent asthma without complication (11/22/15) Peripheral edema Postherpetic neuralgia (05/20/17) Primary osteoarthritis of both knees (11/22/15) Pulmonary nodule Rheumatoid arthritis involving multiple sites (07/28/17) Testosterone deficiency in male Surgical History S/P cataract extraction Status post cholecystectomy Family & Social History Family History Father Asthma Mother Diabetes mellitus Social History: household members spouse lives independently Yes Tobacco & Substance use: Tobacco type cigarettes Smoking Status Former smoker alcohol intake current alcohol intake frequency 3 or more drinks per day Substance Use Type does not use Meds Home Medications and Allergies Home Medications Medication Instructions Recorded Confirmed Type Disabled Parking #1 05/05/21 09/18/22 Rx apixaban 5 mg tablet 5 mg PO BID #180 tabs 05/05/21 10/22/22 Rx losartan 25 mg tablet 25 mg PO DAILY #90 tabs 05/05/21 10/22/22 Rx spacer for inhaled meds #1 ea 05/05/21 09/18/22 Rx methotrexate sodium 2.5 mg tablet 2.5 mg PO DAILY 06/10/21 10/22/22 History albuterol sulfate 2.5 mg/3 mL 2.5 mg (3 mL) continuous 09/29/21 10/22/22 Rx (0.083 %) solution for nebulization nebulization Q6H PRN Dyspnea #90 mL Spacer #1 ea 10/15/21 09/18/22 Rx fluticasone propionate 110 2 puff inhalation BID #2 ea 11/10/21 10/22/22 Rx mcg/actuation HFA aerosol inhaler (Flovent HFA) furosemide 20 mg tablet 20 - 40 mg PO DAILY #180 tabs 12/01/21 10/22/22 Rx magnesium oxide 500 mg tablet 500 mg PO DAILY #90 tabs 12/01/21 10/22/22 Rx potassium chloride 20 mEq 20 meq PO BID #180 tabs 12/01/21 10/22/22 Rx tablet,extended release spironolactone 25 mg tablet 25 mg PO DAILY 03/02/22 10/22/22 History testosterone cypionate 200 mg/mL 300 mg (1.5 mL) IM Q4W #10 mL 05/22/22 10/22/22 Rx intramuscular oil (Depo-Testosterone) alendronate 70 mg tablet 70 mg PO QWEEK 06/19/22 10/22/22 History meloxicam 7.5 mg tablet 7.5 mg PO DAILY PRN back pain #30 06/19/22 10/22/22 Rx tabs sodium sul 1.479 gram-potas ch See Rx Instructions PO PER PKG DIR 07/23/22 10/22/22 Rx 0.188 gram-magnes sul 0.225 gram #24 tabs tablet (Sutab) albuterol sulfate 90 mcg/actuation 2 inh inhalation Q4-6H PRN 09/18/22 10/22/22 Rx aerosol inhaler (Ventolin HFA) shortness of breath or wheezing #25.5 grams metoprolol succinate 100 mg 100 mg PO DAILY 09/18/22 10/22/22 History tablet,extended release 24 hr prednisone 10 mg tablet 10 mg PO DAILY #20 tabs 09/18/22 10/22/22 Rx sildenafil 100 mg tablet 50 - 100 mg PO DAILY PRN sexual 09/18/22 10/22/22 Rx activity #10 tabs Exam Vital Signs (past 8 hours): - 10/22/22 16:02 Temperature 97.8 F Pulse Rate 67 Respiratory Rate 18 Blood Pressure 133/75 Pulse Oximetry 99 Oxygen Delivery Method Room Air Oxygen Delivery Method Room Air Const General: No acute distress Assessment & Plan Assessment and plan (1) Anemia: Qualifiers: Anemia type: unspecified type Qualified Code(s): D64.9 - Anemia, unspecified Status: Acute Plan We reviewed the risks and benefits of EGD and colonoscopy and he would like to proceed. Time Spent With Patient Critical Care time: I spent a total of [] minutes of critical care time on this patient's care today; this time is exclusive of procedural time.
--- NOTE | 2022-10-22 17:41 | P.OP.EGD&C_ITS ---
Operative Date/Time/Diagnoses Date of procedure: 10/22/22 Time of procedure: 17:41 Pre-op diagnosis: Anemia Post-op diagnosis: same Procedure & Clinicians Study performed: EGD and colonoscopy Same procedure as scheduled: Yes Surgeon: Lalo Richardson Procedure Notes Procedure in detail: Surgeon: Lalo Richardson MD Anesthesia: Dr. Melo Procedure in detail: A timeout was performed. A bite blocked was placed and monitors were attached to the patient. The patient was positioned in a left la teral decubitus position. Sedation was administered by Dr. Melo. Once the patient was sedated the endoscope was inserted through the bite block and passed through the esophagus and stomach and into the duodenum. The duodenum appeared normal. The duodenal bulb appeared normal. We then withdrew the scope into the stomach. There was some mild antritis and random biopsies were taken from the antrum. The endoscope was retroflexed and no abnormalities were seen. The endoscope was straightned and withdrawn into the esophagus. No further abnormalities were seen. Findings: Mild antritis Next we repositioned the patient for a colonoscopy. A digital rectal exam was performed and was normal. The colonoscope was inserted and advanced to the cecum. The appendiceal orifice was identified and photographed. The scope was slowly withdrawn over greater than 6 minutes. No abnormalities were seen. The scope was retroflexed in the rectum and some dilated hemorrhoidal veins were noted but no abnormalities were seen. Findings: Normal colon EBL: 0 Scope withdrawal time: 6 minutes Sedation minutes: 25 minutes Post-procedure Disposition: PACU
[2022-10-22 17:47] VITALS: BP 95/60; PULSE 67; RESP 24; TEMP 36.2; O2SAT 97
[2022-10-22 17:51] VITALS: BP 110/67; PULSE 60; RESP 18; O2SAT 97
[2022-10-22 17:56] VITALS: BP 124/77; PULSE 58; RESP 11; O2SAT 97
[2022-10-22 18:07] VITALS: BP 144/70; PULSE 61; RESP 12; O2SAT 97
== END 2022-10-22 18:16 | disposition home or self-care (01) ==
PROVIDERS: PCP Internal Medicine; Referring Provider Surgery; Visit Provider Surgery
PROC: 0DJ08ZZ Inspection of Upper Intestinal Tract, Via Natural or Artificial Opening Endoscopic (ICD-10-PCS; CPT 43235; principal; 2022-10-22 15:15)
PROC: 0DJD8ZZ Inspection of Lower Intestinal Tract, Via Natural or Artificial Opening Endoscopic (ICD-10-PCS; CPT 45378; 2022-10-22 15:15)
DX: D64.9 Anemia, unspecified (principal); K29.50 Unspecified chronic gastritis without bleeding
CPT/HCPCS: 43239; 45378

== ENCOUNTER 2023-05-04 07:51 | Day surgery (SDC) | payer OTHER, SELFPAY ==
[2023-04-26 11:10] VITALS: BMI 28.9
[2023-05-04 08:20] VITALS: BP 144/82; PULSE 20; RESP 16; TEMP 36.7; O2SAT 98; BMI 28.9
[2023-05-04] MEDS: LACTATED RINGERS 1,000 ML 42 ML IV (08:35)
[2023-05-04] MEDS: ALBUTEROL/IPRATROPIUM 3 ML AMPUL INH (08:35)
--- NOTE | 2023-05-04 08:48 | PM.PREOP ---
Pre-operative Note COVID-19 COVID-19 status: Not tested Interval Note History & Physical reviewed/Exam performed by Physician: Yes Changes to H&P: No ASA Class (for procedural sedation): III
[2023-05-04] MEDS: CEFAZOLIN 2 GM/100 ML PREMIX 100 ML IV (09:30)
--- NOTE | 2023-05-04 09:51 | SUR.OPER ---
Supine on padded OR bed, head on pillow, arms padded and tucked at sides, legs uncrossed, safety belt at thigh, tape over blanket over lower legs .
[2023-05-04] MEDS: BUPIVACAINE 0.5% (PF) 30 ML, EPINEPHrine 0.15 MG INJ (10:04)
[2023-05-04] MEDS: LIDOCAINE 1% 20 ML INJ (10:05)
--- NOTE | 2023-05-04 11:29 | PM.OP.1 ---
Operative Date/Time/Diagnoses Date of procedure: 05/04/23 Time of procedure: 11:29 Pre-op diagnosis: Bilateral inguinal hernia Post-op diagnosis: same Procedure & Clinicians Procedure: Laparoscopic bilateral inguinal hernia repair with mesh Same procedure as scheduled: Yes Surgeon: Lalo Richardson Senior Technical Support Analyst: Dillan Langley Anesthesia Type: General Operative Notes Procedure in detail: The patient was given preoperative antibiotics. The patient was brought to the operating room, placed on the table in the supine position with the arms tucked and general anesthesia was induced. The abdomen was prepped and draped in the usual fashion. A time-out was performed. A 1 cm supraumbilical incision was created and dissection was carried down to the fascia. The fascia was scored transversely with cautery. A Peon clamp was used to silva the peritoneum. The Kodi port was placed and the abdomen was insufflated to 15 mmHg. The camera was inserted, there was no evidence of any injury from the entry. 5 mm ports were placed under direct vision in the mid left and mid right abdomen. The patient was positioned in steep Trendelenburg. Inspection demonstrated a large right direct defect and a small left direct defect. We started on the right side. We created a right peritoneal flap. The peritoneum was dissected off the right cord structures. A large Bard mesh was brought in and placed over the defect with the medial edge against Raymond's ligament. The direct space and the indirect space were both covered by the mesh with plenty of overlap. We then closed the peritoneal flap with a running 3-0 barbed suture. Next we turned our attention to the left side. The peritoneum was dissected off the left cord structures demonstrating a medium-sized direct defect. A large left Bard mesh was brought in and placed over the defect with the medial edge against Raymond's ligament. We then closed the peritoneal flap with a running 3-0 barbed suture. We took one last look around the abdomen and saw no other abnormalities. The suture was removed and accounted for. The 5 mm ports were removed under direct vision. The abdomen was desufflated. The Kodi port was removed. Additional local was injected into the fascia and the infraumbilical fascial incision was closed with 2 interrupted 0 Vicryl sutures. The skin incisions were closed with 4 Monocryl, Steri-Strips and Band-Aids. EBL: 10 mL Post-operative Condition: stable Disposition: PACU
[2023-05-04 11:34] VITALS: BP 136/75; PULSE 71; RESP 22; TEMP 36.9; O2SAT 96
[2023-05-04 11:37] VITALS: BP 138/76; PULSE 72; RESP 13; TEMP 36.9; O2SAT 96
[2023-05-04] MEDS: ONDANSETRON 4 MG/2 ML INJ IV (11:40)
[2023-05-04 11:42] VITALS: BP 138/76; PULSE 69; RESP 15; TEMP 37; O2SAT 96
[2023-05-04 11:49] VITALS: BP 145/81; PULSE 67; RESP 12; TEMP 36.9; O2SAT 96
[2023-05-04 11:54] VITALS: BP 124/75; PULSE 67; RESP 12; TEMP 36.9; O2SAT 96
[2023-05-04] MEDS: OXYCODONE IR 5 MG TABLET PO (12:03)
== END 2023-05-04 12:28 | disposition home or self-care (01) ==
PROVIDERS: PCP Internal Medicine; Referring Provider Surgery; Visit Provider Surgery
PROC: 0YQ64ZZ Repair Left Inguinal Region, Percutaneous Endoscopic Approach (ICD-10-PCS; CPT 49650; principal; 2023-05-04 09:45)
DX: K40.20 Bilateral inguinal hernia, without obstruction or gangrene, not specified as recurrent (principal)
CPT/HCPCS: 49650; J0171; J0690; J1100; J2405; J2704; J3010

== ENCOUNTER → 2023-06-24 07:54 | Outpatient (CLI) | payer OTHER, SELFPAY ==
--- NOTE | 2023-06-24 | DI.ECHO.S_ITS ---
[facility]---------+ [facility] +---------+ : : [address] : : : : [id number] : : : : Phone: [phone]---------+ Echocardiogram Report + + :Name: KURTIS PIERCE Study Date: 06/24/2023 Height: 69 in : :[facility] ReadingLocation: Weight: 186 lb : : Gender: Male BSA: 2.0 m2 : :: 1940 Age: 83 yrs BP: 122/69 mmHg: :Reason For Study: Cardiomyopathy : :Ordering Physician: AMEENA, : :MAYLIN Performed By: Naheed Hedrick : :Referring: MAYLIN SILVERIO : + + Interpretation Summary 1) Normal left ventricular thickness, size, wall motion, and systolic function (EF 55-60%). 2) The right ventricle is normal in size and function. 3) There is mild to moderate tricuspid regurgitation. 4) The right ventricular systolic pressure is estimated to be at least 34 mmHg based on an estimated right atrial pressure of 3 mm Hg. 5) Compared to the Echo done 09/10/2021, no significant change. Procedure: A two-dimensional transthoracic echocardiogram with color flow and Doppler was performed. The study quality was technically adequate. Comparison is made with the echocardiogram of 09/10/2021. The patient was in normal sinus rhythm during the exam. Left Ventricle: The left ventricle is normal in size. Left ventricular wall thickness is normal. The ejection fraction is estimated to be 55-60%. Left ventricular systolic function appears normal without focal wall motion abnormalities. Diastolic parameters suggest a relaxation abnormality of the left ventricle, consistent with probable normal filling pressures. Right Ventricle: The right ventricle is normal in size and function. Atria: The left atrium is severely dilated. Right atrial size is normal. There is no Doppler evidence for an interatrial shunt. Mitral Valve: The mitral valve leaflets appear mildly thickened, but open well. There is no mitral valve stenosis. There is trace mitral regurgitation. Aortic Valve: The aortic valve is trileaflet. The aortic valve opens well. There is mild aortic valve sclerosis. There is no aortic valve stenosis. No aortic regurgitation is present. Tricuspid Valve: The tricuspid valve is normal. There is no tricuspid stenosis. There is mild to moderate tricuspid regurgitation. The right ventricular systolic pressure is estimated to be at least 34 mmHg based on an estimated right atrial pressure of 3 mm Hg. Pulmonic Valve: The pulmonic valve is not well visualized. There is no pulmonic valvular stenosis. There is trace pulmonic regurgitation. Great Vessels: The aortic root is normal size. The ascending aorta is normal in size. The pulmonary artery is normal size. The IVC is of normal diameter and collapses greater than 50% with a sniff. This suggests a low right atrial pressure of 3 mm Hg. Pericardium/ Pleura There is no pericardial effusion. There is no pleural effusion. MMode/2D Measurements & Calculations LVIDd: 4.7 cm LVOT diam: 2.0 cm LVIDs: 3.8 cm Ao root diam: 3.2 cm FS: 19.1 % asc Aorta Diam: 3.4 cm IVSd: 1.1 cm LVPWd: 1.0 cm LV maradiaga. diameter/BSA (cm/m^2): 2.3 LV sys. diameter/BSA (cm/m^2): 1.9 LA A2 area: 22.3 cm2 RA long axis: 5.7 cm LA A4 area: 24.8 cm2 RA area: 18.1 cm2 LA length (vol): 5.8 cm RA vol: 49.0 ml LA vol: 80.9 ml RA : 24.5 ml/m2 LA vol index: 40.4 ml/m2 RVD1 (basal): 3.5 cm LVLs ap4: 5.8 cm LVLd ap2: 7.0 cm TAPSE_phl: 2.3 cm LVLs ap2: 5.4 cm Doppler Measurements & Calculations Ao V2 max: 150.8 cm/sec LVOT Max Bennett: 105.2 cm/sec Ao V2 mean: 105.8 cm/sec LV V1 max P.4 mmHg Ao max P.0 mmHg LV V1 VTI: 22.2 cm Ao mean P.0 mmHg EMILY(I,D): 2.1 cm2 Ao V2 VTI: 33.2 cm EMILY(V,D): 2.2 cm2 sev ratio: 0.67 EMILY indexed to BSA (cm^2/m^2): 1.0 MV E max bennett: 109.0 cm/sec TR max bennett: 278.2 cm/sec MV A max bennett: 78.1 cm/sec TR max P.0 mmHg MV E/A: 1.4 PA V2 max: 96.0 cm/sec Med Peak E' Bennett: 7.1 cm/sec PA V2 mean: 66.1 cm/sec E/E' med: 15.4 PA mean P.0 mmHg Lat Peak E' Bennett: 13.0 cm/sec PA pr(Accel): 38.5 mmHg E/E' lat: 8.4 E/e' average: 11.9 MV dec time: 0.18 sec SV(LVOT): 69.7 ml AV VR_phl: 0.70 EMILY(VTI)/BSA_phl: 1.1 Reading Physician:12:12 PM
== END ==
PROVIDERS: PCP Internal Medicine; Referring Provider Internal Medicine Cardiovascular Disease; Visit Provider Internal Medicine Cardiovascular Disease
DX: I08.2 Rheumatic disorders of both aortic and tricuspid valves (principal); I42.9 Cardiomyopathy, unspecified
CPT/HCPCS: 93306

== ENCOUNTER 2023-08-02 14:00 | Emergency (ER) | payer OTHER, SELFPAY ==
[2023-08-02 14:23] VITALS: BP 139/75; PULSE 110; RESP 12; TEMP 36.2; O2SAT 97; BMI 31.0
--- NOTE | 2023-08-02 14:27 | DI.RAD.S_ITS ---
PROCEDURE: XR RIBS RT MIN 3V W CXR 1V INDICATIONS: felt crunch on right side. Pain SOB. Wednesday TECHNIQUE: 2 views of the right ribs were acquired, along with a single view chest. COMPARISON: None. FINDINGS: Surgical changes and devices: None. Bones and chest wall: Minimally displaced right posterior lateral 3rd or 4th rib fracture is seen best seen on oblique view. No other fracture No suspicious bony lesions. Overlying soft tissues appear unremarkable. Lungs and pleura: No pleural effusions or pneumothorax. Contusion involving lateral periphery of right upper to midlung field is seen. Mediastinum: Mediastinal contours appear normal. Heart size is normal. IMPRESSION: Minimally displaced right posterior lateral 3rd or 4th rib fracture with adjacent right upper lobe contusion. No pleural effusion or pneumothorax. Dictated by: Clifford Garcia M.D. on 08/02/2023 at 15:29 Approved by: Clifford Garcia M.D. on 08/02/2023 at 15:31
--- NOTE | 2023-08-02 16:31 | DI.CT.S_ITS ---
PROCEDURE: CT CHEST WO CON INDICATIONS: rib fractures TECHNIQUE: Noncontrast 5 mm thick sections acquired from the pulmonary apices to the posterior costophrenic angles. 1 mm lung window, 5 mm thick coronal and sagittal and 7 mm axial MIP reformats were then acquired. For radiation dose reduction, the following was used: automated exposure control, adjustment of mA and/or kV according to patient size. COMPARISON: [facility], CT, CT ANGIO CHEST, 07/08/2022, 15:49. [facility], CT, CT CHEST WITHOUT CONTRAST, 07/21/2021, 16:54. [facility], CR, XR RIBS RT MIN 3V W CXR 1V, 08/02/2023, 14:41. [facility], CT, CT ANGIO CHEST PE, 01/07/2021, 7:19. FINDINGS: Image quality: Excellent. Lungs and pleura: Mild areas of patchy opacity can be seen throughout the lungs, which is overall worst involving the left upper lobe posteriorly, adjacent to the oblique fissure, as on series 3, image 102. No pleural effusions or pneumothorax. Central and peripheral airways are patent and normal in caliber. Mediastinum: Heart size is normal. No pericardial effusion. Mild coronary artery calcification is seen. No mediastinal adenopathy by size criteria. Thoracic aorta and central pulmonary arteries are normal in size. Esophagus is normal in caliber. There is a small hiatal hernia. Bones and chest wall: In this patient with this given history, scrutiny is given to right-sided rib fractures. No displaced rib fractures are seen on either side. levels of anterior wedge deformity seen, including vertebral plana at the T8 level. These fractures are unchanged compared to the 07/08/2022 examination. No new fractures are seen. Accentuated thoracic kyphosis is seen. No suspicious bony lesions. No axillary or supraclavicular adenopathy by size criteria. Thyroid gland demonstrates no significant noncontrast abnormality. Abdomen: Calcified granulomas can be seen within the spleen. Cholecystectomy clips are seen. The visualized portions of the upper abdominal structures are otherwise unremarkable for imaging technique. IMPRESSION: Right-sided rib fractures are not confirmed by CT. No rib fractures can be seen elsewhere. Mild areas of patchy infiltrate can be seen, which is worst involving the left upper lobe. Infection is suspected. Please consider a follow-up noncontrast chest CT in 6-12 weeks to assure resolution. Additional findings: Stable thoracic spine anterior wedge deformities, with T8 vertebral plana Mild coronary artery calcification Small hiatal hernia Prior granulomatous exposure. Cholecystectomy Dictated by: Terry Jiang M.D. on 08/02/2023 at 16:04 Approved by: Terry Jiang M.D. on 08/02/2023 at 16:10
[2023-08-02 17:23] VITALS: BP 108/63; PULSE 86; RESP 20; O2SAT 98
--- NOTE | 2023-08-02 17:25 | PC.NURSE ---
Wednesday pt was leaning over in motorized grocery cart to cotton picker something he dropped. States I felt a crunch and a pop. Points to right side lower ribs. Pain increased with inspiration. History of COPD/Afib.
[2023-08-02 17:30] VITALS: PULSE 89; O2SAT 97
--- NOTE | 2023-08-02 17:51 | ED.CHESTPAIN ---
HPI - Chest Pain General Chief Complaint: Chest Pain Stated Complaint: R rib inj, SOB take thinners Time Seen by Provider: 08/02/23 17:27 Source: patient Mode of arrival: Ambulatory Limitations: no limitations History of Present Illness HPI narrative: 83-year-old male who is here for evaluation of injury to his right left-sided ribs. He states he was sitting in a chair. He bent over to pick something up off the ground where he stated that he heard and felt cracking on his right side. He states this occurred several days ago. Since that time he is had discomfort with taking big deep breaths. No fevers. He does have history of COPD. Not on home oxygen. He does take blood thinners. No other injuries from the event. Related Data Home Medications Medication Instructions Recorded Confirmed methotrexate sodium 2.5 mg tablet 2.5 mg PO DAILY 06/10/21 07/19/23 spironolactone 25 mg tablet 25 mg PO DAILY 03/02/22 07/19/23 alendronate 70 mg tablet 70 mg PO QWEEK 06/19/22 07/19/23 metoprolol succinate 100 mg 100 mg PO DAILY 09/18/22 07/19/23 tablet,extended release 24 hr gabapentin 100 mg capsule 100 mg PO 3XD 07/19/23 07/19/23 Previous Rx's Medication Instructions Recorded Disabled Parking #1 ea 05/05/21 apixaban 5 mg tablet 5 mg PO BID #180 tabs 05/05/21 losartan 25 mg tablet 25 mg PO DAILY #90 tabs 05/05/21 spacer for inhaled meds #1 ea 05/05/21 Spacer #1 ea 10/15/21 magnesium oxide 500 mg tablet 500 mg PO DAILY #90 tabs 12/01/21 albuterol sulfate 90 mcg/actuation 2 inh inhalation Q4-6H PRN 09/18/22 aerosol inhaler (Ventolin HFA) shortness of breath or wheezing #25.5 grams sildenafil 100 mg tablet 50 - 100 mg PO DAILY PRN sexual 03/22/23 activity #10 tabs albuterol sulfate 2.5 mg/3 mL 2.5 mg (3 mL) continuous 07/19/23 (0.083 %) solution for nebulization nebulization Q6H PRN Dyspnea #90 mL fluticasone fur. 100 mcg-umeclid 1 inh inhalation DAILY #60 ea 07/19/23 62.5 mcg-vilant 25 mcg inhalat.powder (Trelegy Ellipta) prednisone 20 mg tablet 40 mg PO DAILY #60 tabs 07/19/23 testosterone cypionate 200 mg/mL 300 mg (1.5 mL) IM Q4W #10 mL 07/19/23 intramuscular oil (Depo-Testosterone) hydrocodone 5 mg-acetaminophen 325 1 tab PO Q4-6H PRN pain #14 tabs 08/02/23 mg tablet Allergies Allergy/AdvReac Type Severity Reaction Status Date / Time No Known Drug Allergies Allergy Verified 08/02/23 14:27 Review of Systems Constitutional Constitutional: Reports system reviewed and no additional complaints, except as documented Cardiovascular Cardiovascular: Reports system reviewed and no additional complaints, except as documented Respiratory Respiratory: Reports system reviewed and no additional complaints, except as documented Integumentary/Breasts Skin/Breast: Reports system reviewed and no additional complaints, except as documented Hematologic/Lymphatic On Anticoagulants: Yes Patient History Medical History Atrial fibrillation Cardiomyopathy Chronic fatigue (11/23/17) COPD (chronic obstructive pulmonary disease) Essential hypertension History of COVID-19 (10/2020) Mild persistent asthma without complication (11/22/15) Peripheral edema Postherpetic neuralgia (05/20/17) Primary osteoarthritis of both knees (11/22/15) Pulmonary nodule Rheumatoid arthritis involving multiple sites (07/28/17) Right inguinal hernia Testosterone deficiency in male Surgical History Hx of colonoscopy (10/22/22) Hx of knee surgery (10/2015) S/P cataract extraction Status post cholecystectomy Family History Father Asthma Mother Diabetes mellitus Social History marital status: household members: spouse lives independently: Yes occupational status: previously employed Smoking Status: Former smoker alcohol intake: current substance use type: does not use Smoking Status: Former smoker alcohol intake frequency: 3 or more drinks per day Substance Use Type: does not use Exam Initial Vital Signs Initial Vital Signs: Vital Signs Temperature 97.1 F L 08/02/23 14:23 Pulse Rate 110 H 08/02/23 14:23 Respiratory Rate 12 08/02/23 14:23 Blood Pressure 139/75 08/02/23 14:23 Pulse Oximetry 97 08/02/23 14:23 Oxygen Delivery Method Room Air 08/02/23 14:23 Chest Other: Discomfort right-sided lower ribs Resp Other: No respiratory distress but does have wheezing. Not hypoxic. Cardio Rate: regular rate Rhythm: regular rhythm Neuro General: patient alert, patient awake and moves all extremities Course Orders Ordered: ED Orders 08/02/23 14:27 XR ribs RT min 3V w CXR1V Stat 08/02/23 16:31 CT chest wo con Stat Discontinued Medications Hydrocodone Bitart/Acetaminophen (Hydrocodone/Acet 5/325 Tablet) 1 tab PO NOW ONE Stop: 08/02/23 18:00 Last Admin: 08/02/23 18:07 Dose: 1 tab Documented By: NAHUM Vital Signs Vital signs: Vital Signs - 8 hr 08/02/23 14:23 08/02/23 17:23 08/02/23 17:30 Temperature 97.1 F L Pulse Rate 110 H 86 89 Respiratory Rate 12 20 Blood Pressure 139/75 108/63 Pulse Oximetry 97 98 97 Oxygen Delivery Method Room Air Room Air Room Air 08/02/23 18:00 08/02/23 18:19 Temperature Pulse Rate 73 73 Respiratory Rate 16 Blood Pressure 119/65 Pulse Oximetry 97 Oxygen Delivery Method Room Air MDM - Chest Pain Imaging Data Chest x-ray: Radiologist's Impression: PROCEDURE:? XR RIBS RT MIN 3V W CXR 1V ? INDICATIONS:? felt crunch on right side. Pain SOB. Wednesday ? TECHNIQUE:? 2 views of the right ribs were acquired, along with a single view chest.? ? COMPARISON:? None. ? FINDINGS:? ? Surgical changes and devices:? None.? ? Bones and chest wall:? Minimally displaced right posterior lateral 3rd or 4th rib fracture is seen best seen on oblique view.? No other fracture No suspicious bony lesions.? Overlying soft tissues appear unremarkable.? ? Lungs and pleura:? No pleural effusions or pneumothorax.? Contusion involving lateral periphery of right upper to midlung field is seen. ? Mediastinum:? Mediastinal contours appear normal.? Heart size is normal.? ? IMPRESSION:? Minimally displaced right posterior lateral 3rd or 4th rib fracture with adjacent right upper lobe contusion.? No pleural effusion or pneumothorax.? CT scan - chest: Radiologist's Impression: PROCEDURE:? CT CHEST WO CON ? INDICATIONS:? rib fractures ? TECHNIQUE: Noncontrast 5 mm thick sections acquired from the pulmonary apices to the posterior costophrenic angles.? 1 mm lung window, 5 mm thick coronal and sagittal and 7 mm axial MIP reformats were then acquired.? For radiation dose reduction, the following was used:? automated exposure control, adjustment of mA and/or kV according to patient size.? ? COMPARISON:? [facility], CT, CT ANGIO CHEST, 07/08/2022, 15:49.? [facility], CT, CT CHEST WITHOUT CONTRAST, 07/21/2021, 16:54.? [facility], CR, XR RIBS RT MIN 3V W CXR 1V, 08/02/2023, 14:41.? [facility], CT, CT ANGIO CHEST PE, 01/07/2021, 7:19. ? FINDINGS:? Image quality:? Excellent.? ? Lungs and pleura:? Mild areas of patchy opacity can be seen throughout the lungs, which is overall worst involving the left upper lobe posteriorly, adjacent to the oblique fissure, as on series 3, image 102.? No pleural effusions or pneumothorax.? Central and peripheral airways are patent and normal in caliber.? ? Mediastinum:? Heart size is normal.? No pericardial effusion.? Mild coronary artery calcification is seen.? No mediastinal adenopathy by size criteria.? Thoracic aorta and central pulmonary arteries are normal in size.? Esophagus is normal in caliber.? There is a small hiatal hernia.? ? Bones and chest wall:? In this patient with this given history, scrutiny is given to right-sided rib fractures.? No displaced rib fractures are seen on either side. ? levels of anterior wedge deformity seen, including vertebral plana at the T8 level.? These fractures are unchanged compared to the 07/08/2022 examination.? No new fractures are seen.? Accentuated thoracic kyphosis is seen. ? No suspicious bony lesions.? No axillary or supraclavicular adenopathy by size criteria.? Thyroid gland demonstrates no significant noncontrast abnormality.? ? Abdomen:? Calcified granulomas can be seen within the spleen. Cholecystectomy clips are seen.? The visualized portions of the upper abdominal structures are otherwise unremarkable for imaging technique. ? ? IMPRESSION:? Right-sided rib fractures are not confirmed by CT.? No rib fractures can be seen elsewhere. ? Mild areas of patchy infiltrate can be seen, which is worst involving the left upper lobe.? Infection is suspected.? Please consider a follow-up noncontrast chest CT in 6-12 weeks to assure resolution. ? Additional findings:? Stable thoracic spine anterior wedge deformities, with T8 vertebral plana Mild coronary artery calcification Small hiatal hernia Prior granulomatous exposure.? Cholecystectomy MDM Narrative Medical decision making narrative: Patient does have what appears to be a rib fracture and potentially pulmonary contusion on the chest x-ray. Given his age and the potential for pulmonary contusion to CT scan was ordered. There were no rib fractures or pulmonary contusion noted on the CT scan. I did discuss this with the patient. He is wheezing but does have history of COPD. He is home nebulizers. He is not hypoxic. I discussed the findings of the CT scan and the x-ray with the patient. There was no indication for antibiotics. No indication for admission in the hospital. Will send home with pain control. He was given return precautions. He expressed understanding and agreement. Discharge Plan Departure Patient Disposition: Home Clinical Impression: Contusion of rib on right side Instructions: DI for Rib Contusion Activity Restrictions/Additional Instructions: There were no fractures noted on the x-rays in the underlying lung is relatively unremarkable. I do recommend that you use the pain medicine as needed. Be sure that you are occasionally taking deep breaths. Return to the emergency department for new or worsening symptoms. Prescriptions: New hydrocodone-acetaminophen 5-325 mg tablet 1 tab PO Q4-6H PRN (Reason: pain) Qty: 14 0RF No Action (DME) Spacer See Rx Instructions .Route .MEDSUPPLY Qty: 1 0RF Rx Instructions: As directed, use with Metered Dose Inhaler magnesium oxide 500 mg tablet 500 mg PO DAILY Qty: 90 3RF (DME) Disabled Parking See Rx Instructions .ROUTE .MEDSUPPLY Qty: 1 0RF Rx Instructions: Patient qualifies for disabled parking as per the attached form. apixaban 5 mg tablet 5 mg PO BID Qty: 180 1RF losartan 25 mg tablet 25 mg PO DAILY Qty: 90 1RF (DME) spacer for inhaled meds See Rx Instructions .Route .MEDSUPPLY Qty: 1 0RF Rx Instructions: As directed spironolactone 25 mg tablet 25 mg PO DAILY alendronate 70 mg tablet 70 mg PO QWEEK sildenafil 100 mg tablet 50 - 100 mg PO DAILY PRN (Reason: sexual activity) Qty: 10 4RF Rx Instructions: administer 30 minutes to 4 hours before activity gabapentin 100 mg capsule 100 mg PO 3XD Trelegy Ellipta 100-62.5-25 mcg blister with device 1 inh inhalation DAILY Qty: 60 3RF testosterone cypionate [Depo-Testosterone] 200 mg/mL oil 300 mg IM Q4W Qty: 10 2RF albuterol sulfate 2.5 mg /3 mL (0.083 %) solution for nebulization 2.5 mg continuous nebulization Q6H PRN (Reason: Dyspnea) Qty: 90 1RF prednisone 20 mg tablet 40 mg PO DAILY Qty: 60 0RF Rx Instructions: or as directed by physician methotrexate sodium 2.5 mg tablet 2.5 mg PO DAILY metoprolol succinate 100 mg tablet extended release 24 hr 100 mg PO DAILY albuterol sulfate [Ventolin HFA] 90 mcg/actuation HFA aerosol inhaler 2 inh inhalation Q4-6H PRN (Reason: shortness of breath or wheezing) Qty: 25.5 3RF Referrals: Mitchell Buchanan MD [Primary Care Provider] - Stand Alone Forms: Patient Portal/API
[2023-08-02 18:00] VITALS: PULSE 73
[2023-08-02] MEDS: HYDROCODONE/ACET 5/325 TABLET 1 TAB PO (18:07)
[2023-08-02 18:19] VITALS: BP 119/65; PULSE 73; RESP 16; O2SAT 97
== END 2023-08-02 18:20 | disposition home or self-care (01) ==
PROVIDERS: Emergency Provider Emergency Medicine; PCP Internal Medicine
DX: S20.211A Contusion of right front wall of thorax, initial encounter (principal); X58.XXXA Exposure to other specified factors, initial encounter; Z79.899 Other long term (current) drug therapy
CPT/HCPCS: 71101; 71250; 99284

== ENCOUNTER 2023-08-17 16:21 | Inpatient (IN) | payer MEDICARE, OTHER, SELFPAY ==
[2023-08-17] VITALS (10 sets, daily range): BP systolic 109–153; BP diastolic 73–77; PULSE 82–119; RESP 14–22; TEMP 36.3–36.6; O2SAT 95–99; BMI 32.5
--- NOTE | 2023-08-17 16:45 | DI.RAD.S_ITS ---
PROCEDURE: XR CHEST 1V INDICATIONS: Shortness of breath TECHNIQUE: One view of the chest was acquired. COMPARISON: [facility], CR, XR CHEST 2V, 08/26/2021, 13:19. FINDINGS: Surgical changes and devices: Dental appliance. Lungs and pleura: Low lung volumes. Chronic patchy left lower and right lateral mid lung opacities. No new dense consolidation, effusion, or pneumothorax. Mediastinum: Stable cardiomediastinal contour given low lung volumes. This includes tortuous and probably ectatic thoracic aorta. Bones and chest wall: No suspicious bony lesions. Overlying soft tissues appear unremarkable. IMPRESSION: No acute cardiopulmonary disease. Dictated by: Conchita Escamilla M.D. on 08/17/2023 at 17:41 Approved by: Conchita Escamilla M.D. on 08/17/2023 at 17:42
[2023-08-17 17:22] LABS: INR 1.2 (0.9-1.3); Prothrombin Time 13.9 SECONDS (10.1-12.7)
[2023-08-17 17:31] LABS: Add Manual Diff / Slide Review NO; Basophils Absolute Auto 0 /uL (0-100); Basophils Percent Auto 0.2 % (0-2); Eosinophils Absolute Auto 0 /uL (0-450); Eosinophils Percent Auto 0.1 % (2-4); Hematocrit 40.5 % (41-53); Hemoglobin 13.3 g/dL (13.5-17.5); Lymphocytes Absolute Auto 700 /uL (1100-4500); Lymphocytes Percent Auto 7.1 % (25-40); Mean Corpuscular HGB Conc 32.8 % (30-36); Mean Corpuscular Hemoglobin 27.4 PG (26-34); Mean Corpuscular Volume 83.6 fL (80-100); Monocytes Absolute Auto 200 /uL (0-900); Monocytes Percent Auto 2.4 % (3-14); Neutrophils Absolute Auto 9200 /uL (1500-7000); Neutrophils Percent Auto 90.2 % (50-75); Platelet Count 247 X10^3/uL (150-400); Red Blood Cell Count 4.84 X10^6/uL (4.5-5.9); White Blood Cell Count 10.2 X10^3/uL (4.5-11.0)
[2023-08-17 17:42] LABS: Alanine Aminotransferase 43 IU/L (<50); Albumin 3.6 g/dL (3.5-5.0); Albumin Globulin Ratio 1.3 (1.0-2.8); Alkaline Phosphatase 87 U/L (38-126); Aspartate Aminotransferase 28 IU/L (17-59); BUN Creatinine Ratio 29.6 (6-22); Bilirubin Total 1.5 mg/dL (0.2-1.3); Blood Urea Nitrogen 24 mg/dL (9-20); Calcium 8.8 mg/dL (8.4-10.2); Carbon Dioxide 28 mmol/L (22-32); Chloride 95 mmol/L (98-107); Estimated Glomerular Filt Rate > 60 mL/min (>60); Globulin 2.8 g/dL (1.7-4.1); Glucose 172 mg/dL (80-110); HEMOLYSIS 26 (0-50); Potassium 4.3 mmol/L (3.4-5.1); Sodium 134 mmol/L (137-145); Total Protein 6.4 g/dL (6.3-8.2)
[2023-08-17 17:43] LABS: Lactate (Lactic Acid) 4.4 mmol/L (0.7-2.1)
[2023-08-17 17:53] LABS: NT-proBNP (BNP-Adult 18+) 1760 pg/mL (<450); Troponin I < 0.012 ng/mL (0.01-0.034)
[2023-08-17] MEDS: SODIUM CHLORIDE 0.9% 1,000 ML 1000 ML IV (18:00)
--- NOTE | 2023-08-17 18:02 | ED.EXTPRO ---
HPI - Extremity Problem General Chief complaint: Extremity Problem,Nontraumatic Stated complaint: leg and feet swelling, hard knot RLQ Time Seen by Provider: 08/17/23 18:02 Source: patient Mode of arrival: Ambulatory History of Present Illness HPI Narrative: This is an 83-year-old male with history of atrial fibrillation on Eliquis, COPD, rheumatoid arthritis, hypertension, dyslipidemia with complaint of lower extremity leg swelling that is significantly worse than anything he is had before as well as redness, swelling and pain in the right inguinal and abdominal area approximately 2 months after a hernia repair in that area. Patient denies fevers or chills. He has noted increasing shortness of breath, he states no chest pain or pressure, no nausea or vomiting he states he is stooling fine states he is having difficulty with urination he is able to dribble out small amounts and feels like he eventually empties his bladder but has difficulty he is noted that issue since he had his hernia repair. He had bilateral inguinal hernia repair. He is noticed a rash increasing over the past 2 or 3 days initially just in the crease of the pannus and now extending down towards the leg. Patient states he has had swelling in his legs but not to this degree. He states other surgeries are partial knee surgery bilateral hernia repair at the same time no prior cardiac stents or interventions. No known drug allergies. Quit tobacco 50 years ago, 1 alcoholic drinks monthly, no recreational drugs. His primary care is Dr. Buchanan. His director of product development is Dr. Silverio. He does note Dr. Slater stopped some of his water pills recently but states he is had a lot of medication adjustments he is not sure what all of them are. Related Data Home Medications Medication Instructions Recorded Confirmed methotrexate sodium 2.5 mg tablet 2.5 mg PO DAILY 06/10/21 08/17/23 spironolactone 25 mg tablet 25 mg PO DAILY 03/02/22 07/19/23 alendronate 70 mg tablet 70 mg PO QWEEK 06/19/22 08/17/23 metoprolol succinate 100 mg 100 mg PO DAILY 09/18/22 08/17/23 tablet,extended release 24 hr gabapentin 100 mg capsule 100 mg PO 3XD PRN Back Pain 07/19/23 08/17/23 hydrocodone 5 mg-acetaminophen 325 1 tab PO Q6H PRN pain 08/17/23 08/17/23 mg tablet magnesium oxide 500 mg tablet 400 mg PO BID 08/17/23 08/17/23 Previous Rx's Medication Instructions Recorded Disabled Parking #1 ea 05/05/21 apixaban 5 mg tablet 5 mg PO BID #180 tabs 05/05/21 losartan 25 mg tablet 25 mg PO DAILY #90 tabs 05/05/21 spacer for inhaled meds #1 ea 05/05/21 Spacer #1 ea 10/15/21 albuterol sulfate 90 mcg/actuation 2 inh inhalation Q4-6H PRN 09/18/22 aerosol inhaler (Ventolin HFA) shortness of breath or wheezing #25.5 grams sildenafil 100 mg tablet 50 - 100 mg (0.5 - 1 x 100 mg) PO 03/22/23 DAILY PRN sexual activity #10 tabs albuterol sulfate 2.5 mg/3 mL 2.5 mg (3 mL) continuous 07/19/23 (0.083 %) solution for nebulization nebulization Q6H PRN Dyspnea #90 mL fluticasone fur. 100 mcg-umeclid 1 inh inhalation DAILY #60 ea 07/19/23 62.5 mcg-vilant 25 mcg inhalat.powder (Trelegy Ellipta) prednisone 20 mg tablet 40 mg (2 x 20 mg) PO DAILY #60 tabs 07/19/23 testosterone cypionate 200 mg/mL 300 mg (1.5 mL) IM Q4W #10 mL 07/19/23 intramuscular oil (Depo-Testosterone) Allergies Allergy/AdvReac Type Severity Reaction Status Date / Time No Known Drug Allergies Allergy Verified 08/17/23 21:15 Review of Systems Review of Systems ROS Unobtainable: All systems reviewed & are unremarkable except as noted in HPI and below Patient History Medical History History of COVID-19 (10/2020) Right inguinal hernia Peripheral edema Testosterone deficiency in male Pulmonary nodule Cardiomyopathy Essential hypertension Atrial fibrillation COPD (chronic obstructive pulmonary disease) Chronic fatigue (11/23/17) Rheumatoid arthritis involving multiple sites (07/28/17) Postherpetic neuralgia (05/20/17) Primary osteoarthritis of both knees (11/22/15) Mild persistent asthma without complication (11/22/15) Surgical History Hx of knee surgery (10/2015) Hx of colonoscopy (10/22/22) S/P cataract extraction Status post cholecystectomy Family History Father Asthma Mother Diabetes mellitus Social History marital status: household members: spouse lives independently: Yes occupational status: previously employed Smoking Status: Former smoker alcohol intake: current substance use type: does not use Smoking Status: Former smoker alcohol intake frequency: 3 or more drinks per day Substance Use Type: does not use Exam Narrative Exam Narrative: GENERAL: Alert and oriented x three, elderly male in mild distress. HEENT: Head normocephalic, atraumatic, EOMI, pupils reactive, face symmetric, moist mucous membranes NECK: Supple, full range of motion CARDIOVASCULAR: Regular rate and rhythm without murmurs, rubs or gallops. No JVD. Patient has 2+ pitting edema bilateral lower extremities. RESPIRATORY: Breath sounds equal bilaterally, no crackles, rales or rhonchi. Patient has some mild wheezes bilateral bases. No tachypnea accessory muscle use. ABDOMEN: Soft, mild abdominal tenderness on the right, patient has more fullness on the right lower quadrant and he has erythema extending from the upper pannus across the pannus bilaterally and down over the right thigh. Measures approximately 10 cm in size. No fullness or palpable mass or hernia is appreciated. Normoactive bowel sounds all 4 quadrants. No guarding or rebound, rigidity, no mass : No CVA tenderness EXTREMITIES: Normal range of motion, no clubbing or edema. Neurovascularly intact NEUROLOGICAL: Cranial nerves II through XII grossly intact. Moving all extremities SKIN: Warm, dry, no petechiae, no rashes or lesions. Initial Vital Signs Initial Vital Signs: Vital Signs Temperature 97.8 F 08/17/23 16:39 Pulse Rate 118 H 08/17/23 16:39 Respiratory Rate 20 08/17/23 16:39 Blood Pressure 153/77 H 08/17/23 16:39 Pulse Oximetry 98 08/17/23 16:39 Oxygen Delivery Method Room Air 08/17/23 16:39 Course Orders Ordered: ED Orders 08/17/23 19:50 UA Complete [Urinalysis and Microscopic] Stat Acetaminophen (Acetaminophen 325 Mg Tablet) 650 mg PO Q6H PRN PRN Reason: Fever/Mild Pain (1-3) Hydrocodone Bitart/Acetaminophen (Hydrocodone/Acet 5/325 Tablet) 1 tab PO Q6HR PRN PRN Reason: Pain, Moderate (4-6) Last Admin: 08/18/23 00:25 Dose: 1 tab Documented By: STEPHEN Albuterol (Albuterol 2.5 Mg/3 Ml Neb (Adult)) 2.5 mg INH [id number] PRN PRN Reason: Dyspnea Clindamycin Phosphate (Cleocin) 900 mg in 50 mls @ 50 mls/hr IV Q8H JOMAR Magnesium Oxide (Magnesium Oxide 400 Mg Tablet) 400 mg PO BID JOMAR Nystatin (Nystatin Cream 30 Gm) 1 applic TOP TID JOMAR Last Admin: 08/18/23 00:00 Dose: Not Given Documented By: STEPHEN Discontinued Medications Albuterol (Albuterol 2.5 Mg/3 Ml Neb (Adult)) 2.5 mg INH RTQ4HR PRN PRN Reason: Shortness Of Breath Furosemide (Furosemide 20 Mg/2 Ml Vial) 20 mg IV NOW ONE Stop: 08/17/23 23:24 Last Admin: 08/17/23 23:59 Dose: 20 mg Documented By: STEPHEN Sodium Chloride (Normal Saline 0.9%) 1,000 mls @ 1,000 mls/hr IV BOLUS ONE Stop: 08/17/23 18:45 Last Infusion: 08/17/23 18:43 Dose: Infused Documented By: Admin: 08/17/23 18:00 Dose: 1,000 mls/hr Documented By: DAMARIS Clindamycin Phosphate (Cleocin) 900 mg in 50 mls @ 50 mls/hr IV NOW ONE Stop: 08/17/23 19:20 Last Infusion: 08/17/23 20:25 Dose: Infused Documented By: Admin: 08/17/23 18:49 Dose: 50 mls/hr Documented By: DAMARIS Vital Signs Vital signs: Vital Signs - 8 hr 08/17/23 16:39 08/17/23 18:50 08/17/23 18:51 Temperature 97.8 F Pulse Rate 118 H 83 85 Pulse Rate [Bilateral Posterior Tibial] Respiratory Rate 20 Blood Pressure 153/77 H Pulse Oximetry 98 97 95 Oxygen Delivery Method Room Air 08/17/23 18:51 08/17/23 19:00 08/17/23 19:00 Temperature Pulse Rate 96 H Pulse Rate [Bilateral Posterior Tibial] 82 Respiratory Rate 14 Blood Pressure 115/74 Pulse Oximetry 95 Oxygen Delivery Method Room Air 08/17/23 19:00 08/17/23 19:30 08/17/23 19:30 Temperature Pulse Rate 90 Pulse Rate [Bilateral Posterior Tibial] Respiratory Rate Blood Pressure 115/73 109/73 Pulse Oximetry 99 Oxygen Delivery Method Room Air 08/17/23 20:00 Temperature Pulse Rate 119 H Pulse Rate [Bilateral Posterior Tibial] Respiratory Rate 22 Blood Pressure Pulse Oximetry 97 Oxygen Delivery Method Room Air MDM - Extremity (Nontraumatic) Lab Data 08/17/23 17:04 08/17/23 17:04 Labs: Lab Results 08/17/23 08/17/23 08/17/23 Range/Units 17:04 19:30 19:50 WBC 10.2 (4.5-11.0) X10^3/uL RBC 4.84 (4.5-5.9) X10^6/uL Hgb 13.3 L (13.5-17.5) g/dL Hct 40.5 L (41-53) % MCV 83.6 (80-100) fL MCH 27.4 (26-34) PG MCHC 32.8 (30-36) % RDW 18.0 H (11.6-14.8) % Plt Count 247 (150-400) X10^3/uL Neut % (Auto) 90.2 H (50-75) % Lymph % (Auto) 7.1 L (25-40) % [place] % (Auto) 2.4 L (3-14) % Eos % (Auto) 0.1 L (2-4) % Baso % (Auto) 0.2 (0-2) % Neut # (Auto) 9200 H (1756-5166) /uL Lymph # (Auto) 700 L (0735-4709) /uL [place] # (Auto) 200 (0-900) /uL Eos # (Auto) 0 (0-450) /uL Baso # (Auto) 0 (0-100) /uL PT 13.9 H (10.1-12.7) SECONDS INR 1.2 (0.9-1.3) Sodium 134 L (137-145) mmol/L Potassium 4.3 (3.4-5.1) mmol/L Chloride 95 L (98-107) mmol/L Carbon Dioxide 28 (22-32) mmol/L BUN 24 H (9-20) mg/dL Creatinine 0.81 (0.66-1.25) mg/dL Estimated GFR > 60 (>60) mL/min BUN/Creatinine Ratio 29.6 H (6-22) Glucose 172 H (80-110) mg/dL Lactate 4.4 H* 2.3 H (0.7-2.1) mmol/L Calcium 8.8 (8.4-10.2) mg/dL Total Bilirubin 1.5 H (0.2-1.3) mg/dL AST 28 (17-59) IU/L ALT 43 (<50) IU/L Alkaline Phosphatase 87 (38-126) U/L Troponin I < 0.012 (0.01-0.034) ng/mL NT-Pro-B Natriuret Pep 1760 H (<450) pg/mL Total Protein 6.4 (6.3-8.2) g/dL Albumin 3.6 (3.5-5.0) g/dL Globulin 2.8 (1.7-4.1) g/dL Albumin/Globulin Ratio 1.3 (1.0-2.8) Procalcitonin 0.05 (<0.5) ng/mL Urine Color Yellow Urine Appearance Clear Urine pH 6.5 (4.5-8.0) Ur Specific [place] 1.010 (1.000-1.035) Urine Protein Negative (Negative) Urine Glucose (UA) Negative (Negative) g/dL Urine Ketones Negative (NEGATIVE) Urine Occult Blood Negative (Negative) Urine Nitrate Negative (Negative) Urine Bilirubin Negative (NEGATIVE) Urine Urobilinogen 0.2 (0.2) E.U./dL Ur Leukocyte Esterase Negative (NEGATIVE) Urine RBC 0-1/hpf (0-5/HPF) Urine WBC None seen (0-5/HPF) Ur Squamous Epith Cells 0-1 /hpf (0-5/HPF) Urine Bacteria None seen (None) Ur Culture Indicated? Cult not indicated Imaging Data Chest x-ray: Radiologist's Impression: Blayne Hopkins?(Don)??83??M??1940 ? Allergy/Adv: No Known Drug Allergies (More??) Close Abdomen/Pelvis CT 08/17/23 Chest X-Ray (Signed) Conchita Escamilla - 08/17/[address] (Signed) Terry Jiang - 08/02/23 Ribs X-Ray (Signed) Clifford Garcia - 08/02/23 Echocardiogram Ultrasound (Signed) Ronan Silverio - 06/24/23 Echocardiogram Ultrasound (Signed) Ronan Silverio - 09/10/21 Chest X-Ray (Signed) Cezar Gimenezderic - 08/26/21 DI Result CC 05/08/21 PFT Result 04/16/21 Chest CTA (Signed) Carrillo,Maria D - 11/21/18 Chest X-Ray (Signed) Carrillo,Maria D - 11/21/18 Launch?Image [address] [address] XRay Report Signed Patient: Blayne Hopkins MR#: [id number] : 1940 Acct:[id number] Age/Sex: 83 / M Date of Service: 08/17/23 Loc: ED Accession Number: [id number] Procedure: XR chest 1V Ordering Provider: Michael Randolph MD PROCEDURE: XR CHEST 1V INDICATIONS: Shortness of breath TECHNIQUE: One view of the chest was acquired. COMPARISON: [facility], , XR CHEST 2V, 08/26/2021, 13:19. FINDINGS: Surgical changes and devices: Dental appliance. Lungs and pleura: Low lung volumes. Chronic patchy left lower and right lateral mid lung opacities. No new dense consolidation, effusion, or pneumothorax. Mediastinum: Stable cardiomediastinal contour given low lung volumes. This includes tortuous and probably ectatic thoracic aorta. Bones and chest wall: No suspicious bony lesions. Overlying soft tissues appear unremarkable. IMPRESSION: No acute cardiopulmonary disease. Dictated by: Conchita Escamilla M.D. on 08/17/2023 at 17:41 Approved by: Conchita Escamilla M.D. on 08/17/2023 at 17:42 CT scan - abdomen/pelvis: Radiologist's Impression: Close Abdomen/Pelvis CT (Signed) Conchita Escamilla 08/17/23 Chest X-Ray (Signed) Hieu Escamillaistin - 08/17/23 Launch?[address] [address] [address] Scan Report Signed Patient: Blayne Hopkins MR#: [id number] : 1940 Acct:[id number] Age/Sex: 83 / M Date of Service: 08/17/23 Loc: ED Accession Number: [id number] Procedure: CT abdomen pelvis w con Ordering Provider: Michael Randolph MD PROCEDURE: CT ABDOMEN PELVIS W CON INDICATIONS: recent , hernia surgery, hard enlarged area, bilat edema TECHNIQUE: After the administration of intravenous contrast, axial sections acquired from the lung bases to the pubic symphysis. Coronal and sagittal reformats were performed. For radiation dose reduction, the following was used: automated exposure control, adjustment of mA and/or kV according to patient size. COMPARISON: None. FINDINGS: Image quality: Excellent. Lung bases: Minor bibasilar fibrotic changes and platelike right mid lung atelectasis. Heart: Mild cardiomegaly. ABDOMEN: Liver: No mass. Gallbladder: Surgically absent. Biliary ducts: Nondilated. Pancreas: Within normal limits. No ductal dilatation. Spleen: Normal size. Several calcified granulomas. Adrenal Glands: No nodules. Kidneys and Ureters: Symmetric enhancement. No nephrolithiasis or hydronephrosis. No hydroureter. Stomach and Bowel: The stomach contains ingested material. There are several air-fluid filled duodenal diverticula arising from the 2nd and 3rd portions. Small bowel loops are normal caliber. There is mild wall thickening of the distal ileum circumferentially. The appendix is not seen. Peritoneum: No abnormal intraperitoneal fluid. No free air. Ventral Wall: Tiny fat containing umbilical hernia. Abdominal Nodes: No retroperitoneal or mesenteric adenopathy by size criteria. Vessels: Aorta and inferior vena cava are normal in size. Heavy abdominal aortic atherosclerotic calcification. PELVIS: Pelvic Organs: Normal size prostate gland and seminal vesicles. Bladder: Normal. Pelvic Nodes: No enlarged lymph nodes or suspicious pelvic masses. Miscellaneous: No inguinal hernias. There is skin thickening and moderate subcutaneous edema over the pannus. No underlying subcutaneous fluid collections. Bones: There is a severe compression fracture of T8, previously present. There are no acute bone abnormalities. IMPRESSION: 1. Tiny fat containing umbilical hernia. No evidence of inflammation. 2. Cellulitis and subcutaneous edema pelvic the lower abdominal pannus. No evidence of underlying hematoma or recurrent inguinal hernia. 3. Incidental note of segmental distal ileal wall thickening. Correlate with history of inflammatory bowel disease. Dictated by: Conchita Escamilla M.D. on 08/17/2023 at 19:43 Approved by: Conchita Escamilla M.D. on 08/17/2023 at 19:51 ECG Data Attestation EKG: I personally reviewed and interpreted this ECG as follows: Prior ECG tracings: available for review Interpretation: AFib with rate of 112 QRS is 72 QTC [address]. No acute ST elevation or depression noted. No acute ST segment changes. MDM Narrative Medical decision making narrative: 83-year-old male with sudden worsening of lower extremity swelling, patient has some changes consistent with CHF but BNP is mildly elevated. He is not having any tachypnea or respiratory distress. He also notes a hard knot in his right lower quadrant is a month or 2 out from inguinal hernia repair. He has pretty significant cellulitis in that area tracking across with his pannus and down onto his leg. Patient states it has been worsening over the last several days. He does not meet septic criteria but has been tachycardic he does have atrial fibrillation, he is not been hypotensive he does not have an elevated white count but does have positive procalcitonin. Troponin is negative. Electrolytes are appropriate renal functions appropriate BUN 24, lactate was 4.4 came down to 2.3 with a small fluid bolus bilirubin slightly elevated at 1.5. Discussed with patient admission for possible CHF exacerbation as well as cellulitis of the right groin and the wound appears intact on examination. Patient was covered dose of clindamycin for MRSA coverage. Spoke with Dr. Leroy, accepts for admission. CHF with cellulitic component. Patient does not quite meet septic criteria but was tachycardic, does have a positive procalcitonin. Did not give a 30 cc/kilos bolus as patient has clear CHF changes physically on examination with quite a bit of swelling in his extremities. Held off on Lasix at this time while continuing to monitor. Discharge Plan Departure Patient Disposition: Admitted As Inpatient Clinical Impression: Cellulitis of groin, right, CHF (congestive heart failure) Admit Date/Time: 10/10/23 20:26 Admit Provider: Keira Leroy
--- NOTE | 2023-08-17 18:05 | DI.CT.S_ITS ---
PROCEDURE: CT ABDOMEN PELVIS W CON INDICATIONS: recent , hernia surgery, hard enlarged area, bilat edema TECHNIQUE: After the administration of intravenous contrast, axial sections acquired from the lung bases to the pubic symphysis. Coronal and sagittal reformats were performed. For radiation dose reduction, the following was used: automated exposure control, adjustment of mA and/or kV according to patient size. COMPARISON: None. FINDINGS: Image quality: Excellent. Lung bases: Minor bibasilar fibrotic changes and platelike right mid lung atelectasis. Heart: Mild cardiomegaly. ABDOMEN: Liver: No mass. Gallbladder: Surgically absent. Biliary ducts: Nondilated. Pancreas: Within normal limits. No ductal dilatation. Spleen: Normal size. Several calcified granulomas. Adrenal Glands: No nodules. Kidneys and Ureters: Symmetric enhancement. No nephrolithiasis or hydronephrosis. No hydroureter. Stomach and Bowel: The stomach contains ingested material. There are several air-fluid filled duodenal diverticula arising from the 2nd and 3rd portions. Small bowel loops are normal caliber. There is mild wall thickening of the distal ileum circumferentially. The appendix is not seen. Peritoneum: No abnormal intraperitoneal fluid. No free air. Ventral Wall: Tiny fat containing umbilical hernia. Abdominal Nodes: No retroperitoneal or mesenteric adenopathy by size criteria. Vessels: Aorta and inferior vena cava are normal in size. Heavy abdominal aortic atherosclerotic calcification. PELVIS: Pelvic Organs: Normal size prostate gland and seminal vesicles. Bladder: Normal. Pelvic Nodes: No enlarged lymph nodes or suspicious pelvic masses. Miscellaneous: No inguinal hernias. There is skin thickening and moderate subcutaneous edema over the pannus. No underlying subcutaneous fluid collections. Bones: There is a severe compression fracture of T8, previously present. There are no acute bone abnormalities. IMPRESSION: 1. Tiny fat containing umbilical hernia. No evidence of inflammation. 2. Cellulitis and subcutaneous edema pelvic the lower abdominal pannus. No evidence of underlying hematoma or recurrent inguinal hernia. 3. Incidental note of segmental distal ileal wall thickening. Correlate with history of inflammatory bowel disease. Dictated by: Conchita Escamilla M.D. on 08/17/2023 at 19:43 Approved by: Conchita Escamilla M.D. on 08/17/2023 at 19:51
[2023-08-17 18:23] LABS: Procalcitonin 0.05 ng/mL (<0.5)
[2023-08-17] MEDS: CLINDAMYCIN 900 MG/50 ML PIGGYBACK 50 MG IV (18:49)
--- NOTE | 2023-08-17 19:01 | PC.NURSE ---
Pt w/ recent hernia surgery. Now c/o right groin swelling and pain. Exam reveals ++ redness / warmth, cellulitis like areas. Bilateral lower extremity edema, new for patient. BS clear and equal. denies sob. Able to speak in full sentences.
[2023-08-17 19:10] LABS: Reflexed Lactate in 2 Hours Y
[2023-08-17 19:51] LABS: Lactate 2HR (Lactic Acid Rflx) 2.3 mmol/L (0.7-2.1)
[2023-08-17 20:09] LABS: Appearance Urine UA CLEAR; Bilirubin Urine UA NEGATIVE (NEGATIVE); Color Urine UA YELLOW; Glucose Urine UA NEGATIVE (Negative); Ketones Urine UA NEGATIVE (NEGATIVE); Leukocyte Esterase Urine UA NEGATIVE (NEGATIVE); Nitrite Urine UA NEGATIVE (Negative); Occult Blood Urine UA NEGATIVE (Negative); Protein Urine UA NEGATIVE (Negative); Urobilinogen Urine UA 0.2 E.U./dL (0.2); pH Urine UA 6.5 (4.5-8.0)
[2023-08-17 20:16] LABS: Bacteria Urine None Seen; RBC Urine 0-1/HPF (0-5/HPF); Squamous Epithelial Cell Urine 0-1 /HPF (0-5/HPF); WBC Urine None Seen (0-5/HPF)
[2023-08-17 20:17] LABS: Culture Indicated Urine Cult Not Indicated
[2023-08-17] MEDS: FUROSEMIDE 20 MG/2 ML VIAL IV (23:59)
[2023-08-18] MEDS: HYDROCODONE/ACET 5/325 TABLET 1 TAB PO ×3 (00:25→19:16)
--- NOTE | 2023-08-18 03:08 | PC.ADMIT ---
[email or web address] [facility] Admission Note: Patient admitted to AC unit from ED at 21:27 via wheelchair. Alert and oriented x 4, able to make needs known. Patient oriented to room and shown how to use call light. Bed in low and locked position, call light within reach, bed alarm on. The patient,Blayne Hopkins,83 y/o, was given written information regarding hospital policies, unit procedures and contact persons. Patient's smoking status: Former smoker. Vital Signs - 8 hr 08/17/23 19:30 08/17/23 19:30 08/17/23 20:00 Temperature Pulse Rate 90 119 H Respiratory Rate 22 Blood Pressure 109/73 Pulse Oximetry 99 97 Oxygen Delivery Method Room Air Room Air 08/17/23 20:30 08/17/23 20:36 08/17/23 21:00 Temperature Pulse Rate 116 H 112 H Respiratory Rate 22 22 Blood Pressure Pulse Oximetry 96 96 Oxygen Delivery Method Room Air Room Air 08/17/23 21:19 08/17/23 21:50 Temperature 97.3 F L Pulse Rate 104 H Respiratory Rate 18 Blood Pressure 111/77 111/75 Pulse Oximetry 98 Oxygen Delivery Method
[2023-08-18] MEDS: CLINDAMYCIN 900 MG/50 ML PIGGYBACK 50 MG IV ×3 (04:57→20:42)
[2023-08-18 06:23] LABS: Add Manual Diff / Slide Review NO; Basophils Absolute Auto 100 /uL (0-100); Basophils Percent Auto 0.7 % (0-2); Eosinophils Absolute Auto 200 /uL (0-450); Eosinophils Percent Auto 2.4 % (2-4); Hematocrit 37.3 % (41-53); Hemoglobin 12.3 g/dL (13.5-17.5); Lymphocytes Absolute Auto 2100 /uL (1100-4500); Lymphocytes Percent Auto 23.6 % (25-40); Mean Corpuscular HGB Conc 33.1 % (30-36); Mean Corpuscular Hemoglobin 27.3 PG (26-34); Mean Corpuscular Volume 82.6 fL (80-100); Monocytes Absolute Auto 800 /uL (0-900); Neutrophils Absolute Auto 5800 /uL (1500-7000); Neutrophils Percent Auto 64.3 % (50-75); Platelet Count 280 X10^3/uL (150-400); Red Blood Cell Count 4.52 X10^6/uL (4.5-5.9); Red Cell Distribution Width 17.8 % (11.6-14.8); White Blood Cell Count 8.9 X10^3/uL (4.5-11.0)
[2023-08-18 06:46] LABS: NT-proBNP (BNP-Adult 18+) 2430 pg/mL (<450)
[2023-08-18 06:52] LABS: Alanine Aminotransferase 37 IU/L (<50); Albumin Globulin Ratio 1.3 (1.0-2.8); Alkaline Phosphatase 76 U/L (38-126); Aspartate Aminotransferase 21 IU/L (17-59); BUN Creatinine Ratio 32.9 (6-22); Blood Urea Nitrogen 24 mg/dL (9-20); Calcium 8.6 mg/dL (8.4-10.2); Carbon Dioxide 30 mmol/L (22-32); Chloride 100 mmol/L (98-107); Estimated Glomerular Filt Rate > 60 mL/min (>60); Globulin 2.3 g/dL (1.7-4.1); Glucose 99 mg/dL (80-110); HEMOLYSIS 18 (0-50); Sodium 134 mmol/L (137-145); Total Protein 5.3 g/dL (6.3-8.2)
[2023-08-18 07:53] VITALS: BP 112/76; PULSE 77; RESP 18; TEMP 36.4; O2SAT 94
--- NOTE | 2023-08-18 07:56 | PM.HP.1 ---
History of Present Illness History of Present Illness Date Patient Seen: 08/18/23 Time Patient Seen: 07:56 Chief complaint: leg and feet swelling, hard knot RLQ Narrative: 83-year-old male with a history of congestive heart failure chronic COPD atrial fibrillation on anticoagulation hypertension rheumatoid arthritis and recent hernia repair. Patient has BMI of 32 and he is obese and has a pannus on his abdomen. Patient has noticed increasing redness and hardness to his lower abdomen and pannus area over the last week or so. Progressively got worse painful and swollen. He is also had increasing lower extremity edema and swelling for the past few months but has progressively gotten worse he says his feet look like elephant feet. Patient states she is also noticed some difficulty with breathing over the past few weeks. He has been seeing Dr. Buchanan and had an appointment where he is diagnosed with COPD exacerbation started on steroids and an antibiotic. Says usually that helps can kick things but this case it really did not do much. He does have a history of atrial fibrillation cardiomyopathy heart failure. Patient's BNP is elevated here in the hospital echocardiogram early this year shows normal systolic ejection fraction. Patient was evaluated in the emergency department had CT scan done laboratory testing and an x-ray. Was diagnosed with cellulitis lower extremity edema he had an elevated lactate normal white blood cell count normal procalcitonin. Patient on exam says he is doing well. He has been up to the bathroom he says he has been urinating a lot. He is complaining of significant lower extremity edema. He also is complaining of redness to his abdomen with the significant tenderness. He has not had fevers his vital signs have been stable overnight. [facility] Medical History History of COVID-19 (10/2020) Right inguinal hernia Peripheral edema Testosterone deficiency in male Pulmonary nodule Cardiomyopathy Essential hypertension Atrial fibrillation COPD (chronic obstructive pulmonary disease) Chronic fatigue (11/23/17) Rheumatoid arthritis involving multiple sites (07/28/17) Postherpetic neuralgia (05/20/17) Primary osteoarthritis of both knees (11/22/15) Mild persistent asthma without complication (11/22/15) Surgical History Hx of knee surgery (10/2015) Hx of colonoscopy (10/22/22) S/P cataract extraction Status post cholecystectomy Family History Father Asthma Mother Diabetes mellitus Social History marital status: household members: spouse lives independently: Yes occupational status: previously employed Smoking Status: Former smoker alcohol intake: current substance use type: does not use Meds Home Medications and Allergies Home Medications Medication Instructions Recorded Confirmed Type Disabled Parking #1 ea 05/05/21 08/18/23 Rx apixaban 5 mg tablet 5 mg PO BID #180 tabs 05/05/21 08/17/23 Rx losartan 25 mg tablet 25 mg PO DAILY #90 tabs 05/05/21 08/17/23 Rx spacer for inhaled meds #1 ea 05/05/21 08/18/23 Rx methotrexate sodium 2.5 mg tablet 2.5 mg PO DAILY 06/10/21 08/17/23 History Spacer #1 ea 10/15/21 08/18/23 Rx spironolactone 25 mg tablet 25 mg PO DAILY 03/02/22 08/18/23 History alendronate 70 mg tablet 70 mg PO QWEEK 06/19/22 08/17/23 History albuterol sulfate 90 mcg/actuation 2 inh inhalation Q4-6H PRN 09/18/22 08/17/23 Rx aerosol inhaler (Ventolin HFA) shortness of breath or wheezing #25.5 grams metoprolol succinate 100 mg 100 mg PO DAILY 09/18/22 08/17/23 History tablet,extended release 24 hr sildenafil 100 mg tablet 50 - 100 mg (0.5 - 1 x 100 mg) PO 03/22/23 08/18/23 Rx DAILY PRN sexual activity #10 tabs albuterol sulfate 2.5 mg/3 mL 2.5 mg (3 mL) continuous 07/19/23 08/17/23 Rx (0.083 %) solution for nebulization nebulization Q6H PRN Dyspnea #90 mL fluticasone fur. 100 mcg-umeclid 1 inh inhalation DAILY #60 ea 07/19/23 08/18/23 Rx 62.5 mcg-vilant 25 mcg inhalat.powder (Trelegy Ellipta) gabapentin 100 mg capsule 100 mg PO 3XD PRN Back Pain 07/19/23 08/17/23 History prednisone 20 mg tablet 40 mg (2 x 20 mg) PO DAILY #60 tabs 07/19/23 08/17/23 Rx testosterone cypionate 200 mg/mL 300 mg (1.5 mL) IM Q4W #10 mL 07/19/23 08/18/23 Rx intramuscular oil (Depo-Testosterone) hydrocodone 5 mg-acetaminophen 325 1 tab PO Q6H PRN pain 08/17/23 08/17/23 History mg tablet magnesium oxide 500 mg tablet 400 mg PO BID 08/17/23 08/17/23 History Allergies Allergy/AdvReac Type Severity Reaction Status Date / Time No Known Drug Allergies Allergy Verified 08/17/23 21:15 Exam Vital Signs (past 8 hours): - 08/18/23 07:53 Temperature 97.6 F Pulse Rate 77 Respiratory Rate 18 Blood Pressure 112/76 Pulse Oximetry 94 Oxygen Flow Rate 0 Oxygen Delivery Method Room Air Oxygen Flow Rate 0 Narrative Exam Narrative: Gen.: Alert no apparent distress good historian HEENT: Pupils equal round and reactive or mucosa is moist neck is supple Cardio: S1-S2 irregular rate and rhythm no appreciable murmurs Respiratory: Lungs show bilateral inspiratory and expiratory wheezes normal respiratory effort some crackles Abdomen: Soft some lower abdominal tenderness some redness and cellulitis at the lower border of the abdomen where his pannus over folds Extremities: 3+ lower extremity edema warm dry perfused Objective Labs 08/18/23 06:08 08/18/23 06:08 Labs: Laboratory Results - last 24 hr 08/17/23 08/17/23 08/17/23 17:04 19:30 19:50 WBC 10.2 RBC 4.84 Hgb 13.3 L Hct 40.5 L MCV 83.6 MCH 27.4 MCHC 32.8 RDW 18.0 H Plt Count 247 Neut % (Auto) 90.2 H Lymph % (Auto) 7.1 L [place] % (Auto) 2.4 L Eos % (Auto) 0.1 L Baso % (Auto) 0.2 Neut # (Auto) 9200 H Lymph # (Auto) 700 L [place] # (Auto) 200 Eos # (Auto) 0 Baso # (Auto) 0 PT 13.9 H INR 1.2 Sodium 134 L Potassium 4.3 Chloride 95 L Carbon Dioxide 28 BUN 24 H Creatinine 0.81 Estimated GFR > 60 BUN/Creatinine Ratio 29.6 H Glucose 172 H Lactate 4.4 H* 2.3 H Calcium 8.8 Total Bilirubin 1.5 H AST 28 ALT 43 Alkaline Phosphatase 87 Troponin I < 0.012 NT-Pro-B Natriuret Pep 1760 H Total Protein 6.4 Albumin 3.6 Globulin 2.8 Albumin/Globulin Ratio 1.3 Procalcitonin 0.05 Urine Color Yellow Urine Appearance Clear Urine pH 6.5 Ur Specific [place] 1.010 Urine Protein Negative Urine Glucose (UA) Negative Urine Ketones Negative Urine Occult Blood Negative Urine Nitrate Negative Urine Bilirubin Negative Urine Urobilinogen 0.2 Ur Leukocyte Esterase Negative Urine RBC 0-1/hpf Urine WBC None seen Ur Squamous Epith Cells 0-1 /hpf Urine Bacteria None seen Ur Culture Indicated? Cult not indicated 08/18/23 06:08 WBC 8.9 RBC 4.52 Hgb 12.3 L Hct 37.3 L MCV 82.6 MCH 27.3 MCHC 33.1 RDW 17.8 H Plt Count 280 Neut % (Auto) 64.3 D Lymph % (Auto) 23.6 L [place] % (Auto) 9.0 Eos % (Auto) 2.4 Baso % (Auto) 0.7 Neut # (Auto) 5800 Lymph # (Auto) 2100 [place] # (Auto) 800 Eos # (Auto) 200 Baso # (Auto) 100 PT INR Sodium 134 L Potassium 4.0 Chloride 100 Carbon Dioxide 30 BUN 24 H Creatinine 0.73 Estimated GFR > 60 BUN/Creatinine Ratio 32.9 H Glucose 99 Lactate Calcium 8.6 Total Bilirubin 1.0 AST 21 ALT 37 Alkaline Phosphatase 76 Troponin I NT-Pro-B Natriuret Pep 2430 H Total Protein 5.3 L Albumin 3.0 L Globulin 2.3 Albumin/Globulin Ratio 1.3 Procalcitonin Urine Color Urine Appearance Urine pH Ur Specific [place] Urine Protein Urine Glucose (UA) Urine Ketones Urine Occult Blood Urine Nitrate Urine Bilirubin Urine Urobilinogen Ur Leukocyte Esterase Urine RBC Urine WBC Ur Squamous Epith Cells Urine Bacteria Ur Culture Indicated? Assessment & Plan Assessment and plan (1) CHF (congestive heart failure): Status: Acute (2) Cellulitis of groin, right: Status: Acute Plan Cellulitis of his right groin. Patient has significant cellulitis of his lower abdominal pannus area will go ahead and cover him with ongoing antibiotics with clindamycin to cover staph and strep. He also probably has fungal related infection as well and we will provide topical antifungal medication his white blood cell count is stable his lactic acid is decreasing. There is no signs of abscess formation on CT scan. And will monitor clinically. Remote history of inguinal hernia I do not think this is contributing factor of this. Acute systolic congestive heart failure. Patient has a history of cardiomyopathy and heart failure with recent normal echocardiogram patient has elevated BNP significant lower extremity edema as well as crackles on lung exam. I think patient is in heart failure. Will go ahead and continue working on diuresis in fact increase his Lasix to 40 mg 3 times a day to work on his edema and swelling and see if this helps with his respiratory status will monitor closely his kidney function and electrolytes and provide potassium replacement. COPD with exacerbation. Patient has a combination history of COPD he was treated for this as the outpatient. He is on oral steroids and finished some antibiotics. These did not seem to help much. I think he probably also has a small component of COPD going on but we will continue with his prednisone taper and IV antibiotics for his cellulitis. I think his respiratory distress and wheezing is more related to heart failure. Atrial fibrillation. Patient's EKG shows he is in atrial fibrillation we will continue with his anticoagulation beta-jena for pulse control. Monitor closely his blood pressure. Hypertension. Patient is on metoprolol and Cozaar we will continue to monitor. Rheumatoid arthritis. Patient on methotrexate on tapering doses of prednisone. I do not think he needs stress dose steroids at this point. DVT prophylaxis patient on chronic anticoagulation Code status full code
[2023-08-18 08:43] VITALS: BP 112/56
[2023-08-18] MEDS: METOPROLOL ER 50 MG TABLET PO (08:43)
[2023-08-18] MEDS: SPIRONOLACTONE 25 MG TABLET PO (08:43)
[2023-08-18] MEDS: predniSONE 20 MG TABLET 40 MG PO (08:43)
[2023-08-18] MEDS: FUROSEMIDE 40 MG/4 ML VIAL IV ×2 (08:43→20:41)
[2023-08-18] MEDS: MAGNESIUM OXIDE 400 MG TABLET PO ×2 (08:44→20:42)
[2023-08-18] MEDS: NYSTATIN CREAM 30 GM 1 APPLIC TOP ×2 (08:44→20:53)
[2023-08-18] MEDS: ALBUTEROL 2.5 MG/3 ML NEB (ADULT) INH (09:16)
--- NOTE | 2023-08-18 10:22 | CM.DPC ---
DCP Cont: Case received, EMR reviewed and met with patient. Introduced self and role. Was able to obtain information regarding patient's baseline activity status prior to hospitalization. DCP assessment completed with information currently available. Patient is an 83 year old male who admitted yesterday evening to the care of the hospitalist team. PCP: Dr. Buchanan. Payer: confirmed: [employer]. Patient came to the hospital via private vehicle secondary to having increased leg swelling, LE Edema. Notes indicate that paient had a recent repair of hernia, also had abdominal swelling. Patient has history of atrial fibrillation, COPD. Patient was also complaining of increased shortness of breath. Patient also has history of CHF, cardiomyopathy. Patient was admitted for 'cellulitis of right groun, acute systolic congestive heart failure. Met with patient in his room. He is alert and oriented, sitting up in bed having breakfast. Confirmed that he resides in [place] with spouse, Tianna. At his baseline, he is independent and drives. P: DCP to continue to follow for any needs. Patient should be able to go home when deemed medically stable. Ana María Harden RN/Log Truck [employer]
--- NOTE | 2023-08-18 13:52 | PM.PN.1 ---
Subjective Subjective Date Patient Seen: 08/19/23 Time Patient Seen: 08:06 Interval history: Patient seen and evaluated this morning. Reviewed vital signs and overnight care. Says he did well. Been eating well. He is up ambulatory back and forth to the bathroom. Still having great urinary output. Had 5+ L yesterday morning alone. Has had improvement of his lower extremity edema as well as improvement of his breathing. Patient feels like his cellulitis of his skin is improved. He says it is less painful tender significantly less swollen. Exam Vital Signs (past 8 hours): - 08/18/23 07:53 08/18/23 08:43 08/18/23 09:18 Temperature 97.6 F Pulse Rate 77 Respiratory Rate 18 Blood Pressure 112/76 112/56 L Pulse Oximetry 94 Oxygen Delivery Method Room Air Oxygen Flow Rate 0 Oxygen Delivery Method Room Air Oxygen Flow Rate 0 Narrative Exam Narrative: Gen.: Alert good historian HEENT: Pupils equal round and reactive or mucosa is moist neck is supple Cardio: S1-S2 irregular rate and rhythm Respiratory: Lungs show decreased breath sounds at lung bases improved aeration from yesterday. Less rhonchi and crackles. Less respiratory effort Abdomen: Patient's abdomen is soft. Patient has a abdominal wall cellulitis is improving. There is less swelling tenderness patient still has a considerable amount of intertrigo Extremities: Patient has 3+ lower extremity edema. Patient does not have with weeping of his lower extremities and does not have sores. There is improved signed of lessening edema with wrinkles in his skin. Objective Labs 08/19/23 06:31 08/19/23 06:31 Labs: Laboratory Results - last 24 hr 08/17/23 08/17/23 08/17/23 17:04 19:30 19:50 WBC 10.2 RBC 4.84 Hgb 13.3 L Hct 40.5 L MCV 83.6 MCH 27.4 MCHC 32.8 RDW 18.0 H Plt Count 247 Neut % (Auto) 90.2 H Lymph % (Auto) 7.1 L [place] % (Auto) 2.4 L Eos % (Auto) 0.1 L Baso % (Auto) 0.2 Neut # (Auto) 9200 H Lymph # (Auto) 700 L [place] # (Auto) 200 Eos # (Auto) 0 Baso # (Auto) 0 PT 13.9 H INR 1.2 Sodium 134 L Potassium 4.3 Chloride 95 L Carbon Dioxide 28 BUN 24 H Creatinine 0.81 Estimated GFR > 60 BUN/Creatinine Ratio 29.6 H Glucose 172 H Lactate 4.4 H* 2.3 H Calcium 8.8 Total Bilirubin 1.5 H AST 28 ALT 43 Alkaline Phosphatase 87 Troponin I < 0.012 NT-Pro-B Natriuret Pep 1760 H Total Protein 6.4 Albumin 3.6 Globulin 2.8 Albumin/Globulin Ratio 1.3 Procalcitonin 0.05 Urine Color Yellow Urine Appearance Clear Urine pH 6.5 Ur Specific [place] 1.010 Urine Protein Negative Urine Glucose (UA) Negative Urine Ketones Negative Urine Occult Blood Negative Urine Nitrate Negative Urine Bilirubin Negative Urine Urobilinogen 0.2 Ur Leukocyte Esterase Negative Urine RBC 0-1/hpf Urine WBC None seen Ur Squamous Epith Cells 0-1 /hpf Urine Bacteria None seen Ur Culture Indicated? Cult not indicated 08/18/23 06:08 WBC 8.9 RBC 4.52 Hgb 12.3 L Hct 37.3 L MCV 82.6 MCH 27.3 MCHC 33.1 RDW 17.8 H Plt Count 280 Neut % (Auto) 64.3 D Lymph % (Auto) 23.6 L [place] % (Auto) 9.0 Eos % (Auto) 2.4 Baso % (Auto) 0.7 Neut # (Auto) 5800 Lymph # (Auto) 2100 [place] # (Auto) 800 Eos # (Auto) 200 Baso # (Auto) 100 PT INR Sodium 134 L Potassium 4.0 Chloride 100 Carbon Dioxide 30 BUN 24 H Creatinine 0.73 Estimated GFR > 60 BUN/Creatinine Ratio 32.9 H Glucose 99 Lactate Calcium 8.6 Total Bilirubin 1.0 AST 21 ALT 37 Alkaline Phosphatase 76 Troponin I NT-Pro-B Natriuret Pep 2430 H Total Protein 5.3 L Albumin 3.0 L Globulin 2.3 Albumin/Globulin Ratio 1.3 Procalcitonin Urine Color Urine Appearance Urine pH Ur Specific [place] Urine Protein Urine Glucose (UA) Urine Ketones Urine Occult Blood Urine Nitrate Urine Bilirubin Urine Urobilinogen Ur Leukocyte Esterase Urine RBC Urine WBC Ur Squamous Epith Cells Urine Bacteria Ur Culture Indicated? [facility] Medical History History of COVID-19 (10/2020) Right inguinal hernia Peripheral edema Testosterone deficiency in male Pulmonary nodule Cardiomyopathy Essential hypertension Atrial fibrillation COPD (chronic obstructive pulmonary disease) Chronic fatigue (11/23/17) Rheumatoid arthritis involving multiple sites (07/28/17) Postherpetic neuralgia (05/20/17) Primary osteoarthritis of both knees (11/22/15) Mild persistent asthma without complication (11/22/15) Surgical History Hx of knee surgery (10/2015) Hx of colonoscopy (10/22/22) S/P cataract extraction Status post cholecystectomy Family History Father Asthma Mother Diabetes mellitus Social History marital status: household members: spouse lives independently: Yes occupational status: previously employed Smoking Status: Former smoker alcohol intake: current substance use type: does not use Assessment & Plan Assessment and plan (1) CHF (congestive heart failure): Status: Acute (2) Cellulitis of groin, right: Status: Acute Plan Cellulitis of his groin and abdominal wall. Patient is on clindamycin. Significantly reduction of redness swelling and tenderness. Still has signs of significant fungal infection in his skin fold. Will continue with IV clindamycin for 24 more hours and nystatin topically. Acute systolic congestive heart failure. Patient had good urine output 5+ L more in the morning. Will continue with IV diuresis today with IV Lasix. Monitor closely his electrolytes. Transition to oral Lasix tomorrow. I think he still has opportunity for improved diuresis. COPD with exacerbation. Patient was on outpatient steroids will continue to taper this down. As I think a lot of his respiratory symptoms are more due to heart failure than COPD. Atrial fibrillation. Heart rates well controlled. Continue with current anticoagulation. Hypertension. Patient's blood pressure is stable. Rheumatoid arthritis. Patient on methotrexate this is currently on hold DVT prophylaxis patient on chronic anticoagulation Code status full code Disposition and plan. Twenty-four more hours of IV antibiotics 24 more hours of IV diuresis. Monitoring electrolytes. Work with Physical therapy today. Discharge home tomorrow with oral antibiotics and oral Lasix.
[2023-08-18] MEDS: APIXABAN 5 MG TABLET PO ×2 (15:13→20:42)
[2023-08-18] MEDS: POTASSIUM CHLORIDE 20 MEQ TAB PO (15:41)
[2023-08-18 15:46] VITALS: BP 104/66; PULSE 62; RESP 18; TEMP 36.6; O2SAT 94
[2023-08-18] MEDS: PANTOPRAZOLE DR 20 MG TABLET PO (16:07)
[2023-08-18 21:38] VITALS: BP 113/67; PULSE 57; RESP 18; TEMP 36.3; O2SAT 96
[2023-08-19] MEDS: CLINDAMYCIN 900 MG/50 ML PIGGYBACK 50 MG IV ×3 (04:44→21:25)
[2023-08-19] MEDS: PANTOPRAZOLE DR 20 MG TABLET PO (06:06)
[2023-08-19 06:57] LABS: Add Manual Diff / Slide Review NO; Basophils Absolute Auto 0 /uL (0-100); Basophils Percent Auto 0.5 % (0-2); Eosinophils Absolute Auto 100 /uL (0-450); Eosinophils Percent Auto 1.5 % (2-4); Hematocrit 38.9 % (41-53); Hemoglobin 12.9 g/dL (13.5-17.5); Lymphocytes Absolute Auto 1900 /uL (1100-4500); Lymphocytes Percent Auto 20.3 % (25-40); Mean Corpuscular Hemoglobin 27.7 PG (26-34); Mean Corpuscular Volume 83.9 fL (80-100); Monocytes Absolute Auto 800 /uL (0-900); Monocytes Percent Auto 9.1 % (3-14); Neutrophils Absolute Auto 6400 /uL (1500-7000); Neutrophils Percent Auto 68.6 % (50-75); Platelet Count 256 X10^3/uL (150-400); Red Blood Cell Count 4.64 X10^6/uL (4.5-5.9); Red Cell Distribution Width 17.9 % (11.6-14.8); White Blood Cell Count 9.3 X10^3/uL (4.5-11.0)
[2023-08-19 07:07] LABS: BUN Creatinine Ratio 31.8 (6-22); Blood Urea Nitrogen 28 mg/dL (9-20); Calcium 8.8 mg/dL (8.4-10.2); Carbon Dioxide 29 mmol/L (22-32); Chloride 96 mmol/L (98-107); Estimated Glomerular Filt Rate > 60 mL/min (>60); Glucose 114 mg/dL (80-110); HEMOLYSIS 34 (0-50); Sodium 132 mmol/L (137-145)
[2023-08-19 09:42] VITALS: BP 113/67
[2023-08-19] MEDS: APIXABAN 5 MG TABLET PO ×2 (09:42→21:25)
[2023-08-19] MEDS: predniSONE 20 MG TABLET PO (09:42)
[2023-08-19] MEDS: SPIRONOLACTONE 25 MG TABLET PO (09:42)
[2023-08-19] MEDS: METOPROLOL ER 50 MG TABLET PO (09:42)
[2023-08-19] MEDS: FUROSEMIDE 40 MG/4 ML VIAL IV ×2 (09:43→17:01)
[2023-08-19] MEDS: MAGNESIUM OXIDE 400 MG TABLET PO ×2 (09:44→21:25)
[2023-08-19] MEDS: NYSTATIN CREAM 30 GM 1 APPLIC TOP ×3 (09:54→22:51)
[2023-08-19 10:26] VITALS: BP 120/68
[2023-08-19 12:00] VITALS: BP 113/55; PULSE 64; RESP 18; TEMP 35.8; O2SAT 96
[2023-08-19] MEDS: HYDROCODONE/ACET 5/325 TABLET 1 TAB PO ×2 (13:51→19:29)
--- NOTE | 2023-08-19 17:50 | PC.NURSE ---
Pt resting quietly thru out shift. Denies disconfort. HL intact/patent RFA Received IV lasix today as per orders. Abdomen appears less reddened Call light w/in reach, pt calls appropriately for needs. COntinue w/plan of care.
[2023-08-19 18:23] VITALS: BP 115/63; PULSE 68; RESP 18; TEMP 36; O2SAT 96
[2023-08-19 21:30] VITALS: BP 124/79; PULSE 63; RESP 18; TEMP 36.3; O2SAT 98
[2023-08-20] MEDS: CLINDAMYCIN 900 MG in SODIUM CHLORIDE 0.9% 50 ML 100 MG IV (04:56)
[2023-08-20 06:00] VITALS: BP 112/71; PULSE 55; RESP 18; TEMP 36.6; O2SAT 96
[2023-08-20] MEDS: PANTOPRAZOLE DR 20 MG TABLET PO (06:16)
[2023-08-20 07:48] LABS: Add Manual Diff / Slide Review NO; BUN Creatinine Ratio 39.3 (6-22); Basophils Absolute Auto 100 /uL (0-100); Basophils Percent Auto 0.6 % (0-2); Blood Urea Nitrogen 35 mg/dL (9-20); Calcium 8.8 mg/dL (8.4-10.2); Carbon Dioxide 31 mmol/L (22-32); Chloride 93 mmol/L (98-107); Eosinophils Absolute Auto 300 /uL (0-450); Eosinophils Percent Auto 2.7 % (2-4); Estimated Glomerular Filt Rate > 60 mL/min (>60); Glucose 82 mg/dL (80-110); HEMOLYSIS < 15 (0-50); Hematocrit 38.8 % (41-53); Lymphocytes Absolute Auto 2600 /uL (1100-4500); Lymphocytes Percent Auto 25.7 % (25-40); Mean Corpuscular HGB Conc 33.5 % (30-36); Mean Corpuscular Hemoglobin 27.7 PG (26-34); Mean Corpuscular Volume 82.6 fL (80-100); Monocytes Absolute Auto 900 /uL (0-900); Monocytes Percent Auto 8.9 % (3-14); Neutrophils Absolute Auto 6200 /uL (1500-7000); Neutrophils Percent Auto 62.1 % (50-75); Platelet Count 294 X10^3/uL (150-400); Red Blood Cell Count 4.69 X10^6/uL (4.5-5.9); Red Cell Distribution Width 17.3 % (11.6-14.8); Sodium 131 mmol/L (137-145)
[2023-08-20] MEDS: SPIRONOLACTONE 25 MG TABLET PO (08:56)
[2023-08-20] MEDS: MAGNESIUM OXIDE 400 MG TABLET PO (08:56)
[2023-08-20] MEDS: POTASSIUM CHLORIDE 20 MEQ TAB PO (08:57)
[2023-08-20] MEDS: ACETAMINOPHEN 325 MG TABLET 650 MG PO (08:57)
[2023-08-20] MEDS: METOPROLOL ER 50 MG TABLET PO (08:57)
[2023-08-20] MEDS: predniSONE 20 MG TABLET PO (08:57)
[2023-08-20] MEDS: NYSTATIN CREAM 30 GM 1 APPLIC TOP (08:57)
[2023-08-20] MEDS: APIXABAN 5 MG TABLET PO (08:57)
--- NOTE | 2023-08-20 09:34 | PM.DS.1 ---
History of Present Illness History of Present Illness Chief complaint: leg and feet swelling, hard knot RLQ Narrative: 83-year-old male with a history of congestive heart failure chronic COPD atrial fibrillation on anticoagulation hypertension rheumatoid arthritis and recent hernia repair. Patient has BMI of 32 and he is obese and has a pannus on his abdomen. Patient has noticed increasing redness and hardness to his lower abdomen and pannus area over the last week or so. Progressively got worse painful and swollen. He is also had increasing lower extremity edema and swelling for the past few months but has progressively gotten worse he says his feet look like elephant feet. Patient states she is also noticed some difficulty with breathing over the past few weeks. He has been seeing Dr. Buchanan and had an appointment where he is diagnosed with COPD exacerbation started on steroids and an antibiotic. Says usually that helps can kick things but this case it really did not do much. He does have a history of atrial fibrillation cardiomyopathy heart failure. Patient's BNP is elevated here in the hospital echocardiogram early this year shows normal systolic ejection fraction. Patient was evaluated in the emergency department had CT scan done laboratory testing and an x-ray. Was diagnosed with cellulitis lower extremity edema he had an elevated lactate normal white blood cell count normal procalcitonin. Patient on exam says he is doing well. He has been up to the bathroom he says he has been urinating a lot. He is complaining of significant lower extremity edema. He also is complaining of redness to his abdomen with the significant tenderness. He has not had fevers his vital signs have been stable overnight. Discharge Providers Provider Date of admission: 08/17/23 20:26 Discharge Date: 08/20/23 Primary care physician: Mitchell Buchanan MD Discharge provider: Jj Ellison MD Summary Hospital Course Discharge Diagnosis: Patient admitted with Cellulitis of his groin and abdominal wall. Patient started on IV clindamycin patient had significant improvement of cellulitis over the 1st 48 hours. With decreasing redness swelling pain and tenderness. He was also given nystatin cream topically as he has intertrigo. This also improved. At the time of discharge white blood cell count was stable he was afebrile. Cellulitis was significantly improved. He will be discharged home with topical nystatin as well as oral clindamycin. He will follow up with Dr. Buchanan in 1 week. Acute systolic congestive heart failure. Patient with known history of cardiomyopathy systolic congestive heart failure. Patient showed signs of significant fluid overload. With respiratory compromise. Patient had an elevated BNP. During his hospital stay had IV diuresis had great urinary output. At the time of discharge his breathing was significantly bread better. Lower extremity edema had gone from 3+ to 1+. He will be discharged home with his spironolactone and 40 mg of Lasix daily with a follow-up in [address] Buchanan COPD with exacerbation. Patient was treated outpatient with oral antibiotics and steroids. His oral antibiotics were stopped. Will go ahead and continue tapering his steroids down as I think it is more of a component of heart failure than COPD at this point. Atrial fibrillation. Heart rate well controlled. Continue with his ongoing anticoagulation at home Hypertension. Patient's blood pressure is stable. Restart blood pressure medication Rheumatoid arthritis. Patient will continue with his home rheumatoid arthritis medication methotrexate Exam Vital Signs (past 8 hours): - 08/20/23 06:00 Temperature 97.9 F Pulse Rate 55 L Respiratory Rate 18 Blood Pressure 112/71 Pulse Oximetry 96 Oxygen Flow Rate 0 Oxygen Delivery Method Room Air Oxygen Flow Rate 0 Narrative Exam Narrative: Gen.: Alert good historian HEENT: Pupils equal round and reactive or mucosa is moist Cardio: S1-S2 irregular rate and rhythm Respiratory: Lung Sounds less wheezing no rhonchi decreased breath sounds at bases normal respiratory effort Abdomen: Obese no tenderness redness in his pannus areas improved significantly. Extremities: 1+ edema to his knees warm dry perfused Objective Labs 08/20/23 07:05 08/20/23 07:05 Labs: Laboratory Results - last 24 hr 08/20/23 07:05 WBC 10.0 RBC 4.69 Hgb 13.0 L Hct 38.8 L MCV 82.6 MCH 27.7 MCHC 33.5 RDW 17.3 H Plt Count 294 Neut % (Auto) 62.1 Lymph % (Auto) 25.7 [place] % (Auto) 8.9 Eos % (Auto) 2.7 Baso % (Auto) 0.6 Neut # (Auto) 6200 Lymph # (Auto) 2600 [place] # (Auto) 900 Eos # (Auto) 300 Baso # (Auto) 100 Sodium 131 L Potassium 4.0 Chloride 93 L Carbon Dioxide 31 BUN 35 H Creatinine 0.89 Estimated GFR > 60 BUN/Creatinine Ratio 39.3 H Glucose 82 Calcium 8.8 PFSH Medical History History of COVID-19 (10/2020) Right inguinal hernia Peripheral edema Testosterone deficiency in male Pulmonary nodule Cardiomyopathy Essential hypertension Atrial fibrillation COPD (chronic obstructive pulmonary disease) Chronic fatigue (11/23/17) Rheumatoid arthritis involving multiple sites (07/28/17) Postherpetic neuralgia (05/20/17) Primary osteoarthritis of both knees (11/22/15) Mild persistent asthma without complication (11/22/15) Surgical History Hx of knee surgery (10/2015) Hx of colonoscopy (10/22/22) S/P cataract extraction Status post cholecystectomy Family History Father Asthma Mother Diabetes mellitus Social History marital status: household members: spouse lives independently: Yes occupational status: previously employed Smoking Status: Former smoker alcohol intake: current substance use type: does not use Discharge Plan Discharge Plan Patient Disposition: Home Provider Discharge Comment: Follow-up Dr. Buchanan in 1 week Discharge orders & Medications Prescriptions: New nystatin 100,000 unit/gram cream 1 applic topical BID Qty: 30 1RF clindamycin HCl 300 mg capsule 300 mg PO Q8H Qty: 21 0RF furosemide [Lasix] 40 mg tablet 40 mg PO DAILY Qty: 30 0RF Continued (DME) Spacer See Rx Instructions .Route .MEDSUPPLY Qty: 1 0RF Rx Instructions: As directed, use with Metered Dose Inhaler (DME) Disabled Parking See Rx Instructions .ROUTE .MEDSUPPLY Qty: 1 0RF Rx Instructions: Patient qualifies for disabled parking as per the attached form. apixaban 5 mg tablet 5 mg PO BID Qty: 180 1RF losartan 25 mg tablet 25 mg PO DAILY Qty: 90 1RF (DME) spacer for inhaled meds See Rx Instructions .Route .MEDSUPPLY Qty: 1 0RF Rx Instructions: As directed spironolactone 25 mg tablet 25 mg PO DAILY alendronate 70 mg tablet 70 mg PO QWEEK sildenafil 100 mg tablet 50 - 100 mg PO DAILY PRN (Reason: sexual activity) Qty: 10 4RF Rx Instructions: administer 30 minutes to 4 hours before activity gabapentin 100 mg capsule 100 mg PO 3XD PRN (Reason: Back Pain) Trelegy Ellipta 100-62.5-25 mcg blister with device 1 inh inhalation DAILY Qty: 60 3RF testosterone cypionate [Depo-Testosterone] 200 mg/mL oil 300 mg IM Q4W Qty: 10 2RF albuterol sulfate 2.5 mg /3 mL (0.083 %) solution for nebulization 2.5 mg continuous nebulization Q6H PRN (Reason: Dyspnea) Qty: 90 1RF prednisone 20 mg tablet 40 mg PO DAILY Qty: 60 0RF Rx Instructions: or as directed by physician methotrexate sodium 2.5 mg tablet 2.5 mg PO DAILY metoprolol succinate 100 mg tablet extended release 24 hr 100 mg PO DAILY albuterol sulfate [Ventolin HFA] 90 mcg/actuation HFA aerosol inhaler 2 inh inhalation Q4-6H PRN (Reason: shortness of breath or wheezing) Qty: 25.5 3RF hydrocodone-acetaminophen 5-325 mg tablet 1 tab PO Q6H PRN (Reason: pain) magnesium oxide 500 mg tablet 400 mg PO BID Follow up/Referrals: Mitchell Buchanan MD [Primary Care Provider] - Visit Report/Discharge Packet Stand Alone Forms: Patient Portal/API, Stroke Signs & Symptoms Discharge Data Primary Care Provider: Mitchell Buchanan
[2023-08-20] MEDS: FUROSEMIDE 40 MG/4 ML VIAL IV (09:44)
[2023-08-20 10:24] VITALS: PULSE 65
--- NOTE | 2023-08-20 10:49 | PC.NURSE ---
Day shift: Pt left unit at approx 1045 via WC with this editorial writer. Pt's family member is taking him home. Paperwork signed and all questions answered. Pt has all personal belongings. scripts sent electronic to Pt's pharmacy.
== END 2023-08-20 10:52 | disposition home or self-care (01) | DRG 291 ==
LOC: ED 18:02 → AC 20:27
PROVIDERS: Emergency Medicine; Admitting Provider Family Medicine; Emergency Provider Emergency Medicine; PCP Internal Medicine; Referring Provider Emergency Medicine; Visit Provider Family Medicine
DX: I11.0 Hypertensive heart disease with heart failure (principal); I50.21 Acute systolic (congestive) heart failure; J44.1 Chronic obstructive pulmonary disease with (acute) exacerbation; L03.314 Cellulitis of groin; I48.91 Unspecified atrial fibrillation; M06.9 Rheumatoid arthritis, unspecified; Z79.52 Long term (current) use of systemic steroids; Z87.891 Personal history of nicotine dependence; Z79.01 Long term (current) use of anticoagulants
CPT/HCPCS: 36415; 71045; 74177; 80048; 80053; 81001; 83605; 83880; 84145; 84484; 85025; 85610; 87040; 93005; 94640; 96365; 96366; 99285; J0736; J1940; J7613; J8610

== ENCOUNTER → 2023-09-02 09:40 | Outpatient (CLI) | payer OTHER, SELFPAY ==
[2023-08-17 21:39] VITALS: BMI 32.5
[2023-09-02 10:30] LABS: BUN Creatinine Ratio 27.2 (6-22); Blood Urea Nitrogen 25 mg/dL (9-20); Calcium 8.4 mg/dL (8.4-10.2); Carbon Dioxide 29 mmol/L (22-32); Chloride 103 mmol/L (98-107); Estimated Glomerular Filt Rate > 60 mL/min (>60); Glucose 89 mg/dL (80-110); HEMOLYSIS < 15 (0-50); Potassium 4.3 mmol/L (3.4-5.1); Sodium 136 mmol/L (137-145)
[2023-09-02 10:36] LABS: NT-proBNP (BNP-Adult 18+) 2460 pg/mL (<450)
== END ==
PROVIDERS: PCP Internal Medicine; Referring Provider Internal Medicine; Visit Provider Internal Medicine
DX: I50.9 Heart failure, unspecified (principal); I10 Essential (primary) hypertension; E83.42 Hypomagnesemia
CPT/HCPCS: 36415; 80048; 83735; 83880

== ENCOUNTER → 2023-11-30 11:39 | Outpatient (CLI) | payer OTHER, SELFPAY ==
[2023-08-17 21:39] VITALS: BMI 32.5
[2023-11-30 13:37] LABS: BUN Creatinine Ratio 19.8 (6-22); Blood Urea Nitrogen 19 mg/dL (9-20); Calcium 9.2 mg/dL (8.4-10.2); Carbon Dioxide 29 mmol/L (22-32); Chloride 100 mmol/L (98-107); Estimated Glomerular Filt Rate > 60 mL/min (>60); Glucose 96 mg/dL (80-110); HEMOLYSIS < 15 (0-50); Potassium 4.5 mmol/L (3.4-5.1); Sodium 134 mmol/L (137-145)
[2023-12-07 08:48] LABS: Percent Free Testosterone 2.07 % (1.50-4.20); Testosterone Free 3.61 ng/dL (5.00-21.00); Testosterone Total 174.2 ng/dL (264.0-916.0)
== END ==
PROVIDERS: PCP Internal Medicine; Referring Provider Internal Medicine; Visit Provider Internal Medicine
DX: I10 Essential (primary) hypertension (principal); E29.1 Testicular hypofunction
CPT/HCPCS: 36415; 80048; 84402; 84403

== ENCOUNTER → 2024-02-07 13:08 | Outpatient (CLI) | payer OTHER, SELFPAY ==
[2024-01-17 16:44] VITALS: BMI 32.5
== END ==
PROVIDERS: PCP Internal Medicine; Referring Provider Internal Medicine; Visit Provider Internal Medicine
DX: J44.9 Chronic obstructive pulmonary disease, unspecified (principal); Z87.891 Personal history of nicotine dependence
CPT/HCPCS: 94060; 94726; 94729

== ENCOUNTER 2024-03-17 14:46 | Emergency (ER) | payer OTHER, SELFPAY ==
[2024-03-03 11:52] VITALS: BMI 32.5
[2024-03-17] VITALS (11 sets, daily range): BP systolic 119–161; BP diastolic 58–93; PULSE 80–120; RESP 12–25; TEMP 37.2; O2SAT 95–100; BMI 29.5
--- NOTE | 2024-03-17 15:17 | DI.RAD.S_ITS ---
PROCEDURE: XR CHEST 1V INDICATIONS: chest pain TECHNIQUE: One view of the chest was acquired. COMPARISON: [facility], CR, XR CHEST 1V, 08/17/2023, 16:57. [facility], CR, XR CHEST 2V, 08/26/2021, 13:19. FINDINGS: Surgical changes and devices: None. Lungs and pleura: Lungs are clear except for mild lateral right midlung chronic lung scarring.. No pleural effusions or pneumothorax. Mediastinum: Mediastinal contours appear normal. Heart size is normal. Bones and chest wall: No suspicious bony lesions. Overlying soft tissues appear unremarkable. IMPRESSION: No acute cardiopulmonary abnormality is seen. Mild right lateral mid lung scarring. Dictated by: Dc Cyr M.D. on 03/17/2024 at 16:11 Approved by: Dc Cyr M.D. on 03/17/2024 at 16:12
[2024-03-17 16:00] LABS: Add Manual Diff / Slide Review NO; Basophils Absolute Auto 100 /uL (0-100); Eosinophils Absolute Auto 300 /uL (0-450); Eosinophils Percent Auto 3.8 % (2-4); Hematocrit 38.5 % (41-53); Hemoglobin 12.8 g/dL (13.5-17.5); Lymphocytes Absolute Auto 1700 /uL (1100-4500); Lymphocytes Percent Auto 24.2 % (25-40); Mean Corpuscular HGB Conc 33.1 % (30-36); Mean Corpuscular Hemoglobin 26.4 PG (26-34); Mean Corpuscular Volume 79.7 fL (80-100); Monocytes Absolute Auto 700 /uL (0-900); Monocytes Percent Auto 9.3 % (3-14); Neutrophils Absolute Auto 4500 /uL (1500-7000); Neutrophils Percent Auto 61.7 % (50-75); Platelet Count 270 X10^3/uL (150-400); Red Blood Cell Count 4.83 X10^6/uL (4.5-5.9); Red Cell Distribution Width 18.7 % (11.6-14.8); White Blood Cell Count 7.2 X10^3/uL (4.5-11.0)
--- NOTE | 2024-03-17 16:01 | ED.CHESTPAIN ---
HPI - Chest Pain General Chief Complaint: Chest Pain Stated Complaint: bloating, feet swelling, chest pain Time Seen by Provider: 03/17/24 15:22 Source: patient Mode of arrival: Ambulatory Limitations: no limitations History of Present Illness HPI narrative: 83-year-old male with history of COPD, congestive heart failure presents for evaluation of 3 days of bilateral lower extremity swelling and lower abdominal swelling. He states that he is full of fluid and his water pills are no longer working. He reports compliance with spironolactone and furosemide. He reports compliance with decrease salt intake and has been watching his fluid intake. He reports left arm pain from his elbow to his wrist that is atraumatic in nature. Related Data Home Medications Medication Instructions Recorded Confirmed methotrexate sodium 2.5 mg tablet 2.5 mg PO DAILY 06/10/21 03/07/24 spironolactone 25 mg tablet 25 mg PO DAILY 03/02/22 03/07/24 alendronate 70 mg tablet 70 mg PO QWEEK 06/19/22 03/07/24 metoprolol succinate 100 mg 100 mg PO DAILY 09/18/22 03/07/24 tablet,extended release 24 hr gabapentin 100 mg capsule 100 mg PO 3XD PRN Back Pain 07/19/23 03/07/24 magnesium oxide 400 mg PO BID 08/17/23 03/07/24 Previous Rx's Medication Instructions Recorded Disabled Parking #1 ea 05/05/21 apixaban 5 mg tablet 5 mg PO BID #180 tabs 05/05/21 losartan 25 mg tablet 25 mg PO DAILY #90 tabs 05/05/21 Spacer #1 ea 10/15/21 testosterone cypionate 200 mg/mL 300 mg (1.5 mL) IM Q4W #10 mL 07/19/23 intramuscular oil (Depo-Testosterone) nystatin 100,000 unit/gram topical 1 applic topical BID #30 grams 08/20/23 cream spacer for inhaled meds #1 ea 09/02/23 albuterol sulfate 90 mcg/actuation 2 inh inhalation Q4-6H PRN 09/28/23 aerosol inhaler (Ventolin HFA) shortness of breath or wheezing #25.5 grams furosemide 40 mg tablet (Lasix) 40 mg PO DAILY #90 tabs 09/28/23 sildenafil 100 mg tablet 50 - 100 mg (0.5 - 1 x 100 mg) PO 12/21/23 DAILY PRN sexual activity #10 tabs albuterol sulfate 2.5 mg/3 mL 2.5 mg (3 mL) continuous 02/11/24 (0.083 %) solution for nebulization nebulization Q6H PRN Dyspnea #90 mL prednisone 20 mg tablet 20 mg PO DAILY #60 tabs 02/29/24 tiotropium 2.5 mcg-olodaterol 2.5 2 puff inhalation DAILY #4 grams 03/07/24 mcg/actuation mist for inhalation (Stiolto Respimat) furosemide 20 mg tablet 60 mg (3 x 20 mg) PO DAILY #60 tabs 03/17/24 Allergies Allergy/AdvReac Type Severity Reaction Status Date / Time No Known Drug Allergies Allergy Verified 03/07/24 15:59 Review of Systems Review of Systems Narrative: See HPI Patient History Medical History Chronic heart failure with preserved ejection fraction History of COVID-19 (10/2020) Right inguinal hernia Peripheral edema Testosterone deficiency in male Pulmonary nodule Cardiomyopathy Essential hypertension Atrial fibrillation COPD (chronic obstructive pulmonary disease) Chronic fatigue (11/23/17) Rheumatoid arthritis involving multiple sites (07/28/17) Postherpetic neuralgia (05/20/17) Primary osteoarthritis of both knees (11/22/15) Mild persistent asthma without complication (11/22/15) Surgical History Hx of knee surgery (10/2015) Hx of colonoscopy (10/22/22) S/P cataract extraction Status post cholecystectomy Family History Father Asthma Mother Diabetes mellitus Social History marital status: household members: spouse lives independently: Yes occupational status: previously employed Smoking Status: Former smoker alcohol intake: current substance use type: does not use Smoking Status: Former smoker alcohol intake frequency: a few times a month Substance Use Type: does not use Exam Initial Vital Signs Initial Vital Signs: Vital Signs Temperature 99.0 F 03/17/24 15:11 Pulse Rate 91 H 03/17/24 15:11 Respiratory Rate 22 03/17/24 15:11 Blood Pressure 122/66 03/17/24 15:11 Pulse Oximetry 98 03/17/24 15:11 Oxygen Delivery Method Room Air 03/17/24 15:11 Const: Awake, alert, no acute distress Cardiac: regular rate, regular rhythm RESP: unlabored, soft expiratory wheezing upper lung gómez GI: Soft, minimal anasarca present MSK: Atraumatic, 2+ pitting edema to knees bilaterally Skin: Warm, Dry, intact, no rashes Neuro: AO x3, CN II-XII grossly intact, moves all extremities Course Orders Ordered: Discontinued Medications Albuterol/Ipratropium (Albuterol/Ipratropium 3 Ml Ampul) 9 ml INH NOW ONE Stop: 03/17/24 16:01 Last Admin: 03/17/24 16:19 Dose: 9 ml Documented By: ELISHA Furosemide 60 mg/ Sodium (Chloride) 56 mls @ 112 mls/hr IV NOW ONE Stop: 03/17/24 16:01 Last Infusion: 03/17/24 16:45 Dose: Infused Documented By: Admin: 03/17/24 16:11 Dose: 112 mls/hr Documented By: OCHOA Methylprednisolone (Methylprednisolone 125 Mg/2 Ml Vial) 125 mg IV NOW ONE Stop: 03/17/24 16:01 Last Admin: 03/17/24 16:10 Dose: 125 mg Documented By: OCHOA Vital Signs Vital signs: Vital Signs - 8 hr 03/17/24 15:11 03/17/24 15:55 03/17/24 16:00 Temperature 99.0 F Pulse Rate 91 H 84 82 Respiratory Rate 22 21 16 Blood Pressure 122/66 Pulse Oximetry 98 99 100 Oxygen Delivery Method Room Air 03/17/24 16:00 03/17/24 16:19 03/17/24 16:30 Temperature Pulse Rate 80 81 Respiratory Rate 22 24 Blood Pressure 124/75 Pulse Oximetry 95 100 Oxygen Delivery Method Room Air 03/17/24 16:31 03/17/24 16:31 03/17/24 17:00 Temperature Pulse Rate 85 120 H Respiratory Rate 12 21 Blood Pressure 132/58 L Pulse Oximetry 100 96 Oxygen Delivery Method 03/17/24 17:01 03/17/24 17:01 03/17/24 17:30 Temperature Pulse Rate 109 H 107 H Respiratory Rate 24 25 H Blood Pressure 125/73 Pulse Oximetry 96 97 Oxygen Delivery Method 03/17/24 17:30 03/17/24 18:00 03/17/24 18:01 Temperature Pulse Rate 114 H Respiratory Rate 23 Blood Pressure 119/83 161/93 H Pulse Oximetry 96 Oxygen Delivery Method 03/17/24 18:01 Temperature Pulse Rate 109 H Respiratory Rate 20 Blood Pressure Pulse Oximetry 97 Oxygen Delivery Method MDM - Chest Pain Differential Diagnosis Differential diagnosis: Likely fracture of rib, pneumothorax and stable angina Lab Data 03/17/24 15:45 03/17/24 15:45 Labs: Lab Results 03/17/24 Range/Units 15:45 WBC 7.2 (4.5-11.0) X10^3/uL RBC 4.83 (4.5-5.9) X10^6/uL Hgb 12.8 L (13.5-17.5) g/dL Hct 38.5 L (41-53) % MCV 79.7 L (80-100) fL MCH 26.4 (26-34) PG MCHC 33.1 (30-36) % RDW 18.7 H (11.6-14.8) % Plt Count 270 (150-400) X10^3/uL Neut % (Auto) 61.7 (50-75) % Lymph % (Auto) 24.2 L (25-40) % [place] % (Auto) 9.3 (3-14) % Eos % (Auto) 3.8 (2-4) % Baso % (Auto) 1.0 (0-2) % Neut # (Auto) 4500 (9799-8033) /uL Lymph # (Auto) 1700 (4028-9151) /uL [place] # (Auto) 700 (0-900) /uL Eos # (Auto) 300 (0-450) /uL Baso # (Auto) 100 (0-100) /uL PT 15.0 H (9.4-12.5) SECONDS INR 1.3 (0.9-1.3) APTT 41 H (25.1-36.5) SECONDS Sodium 138 (137-145) mmol/L Potassium 3.7 (3.4-5.1) mmol/L Chloride 103 (98-107) mmol/L Carbon Dioxide 30 (22-32) mmol/L BUN 18 (9-20) mg/dL Creatinine 0.93 (0.66-1.25) mg/dL Estimated GFR > 60 (>60) mL/min BUN/Creatinine Ratio 19.4 (6-22) Glucose 106 (80-110) mg/dL Calcium 8.4 (8.4-10.2) mg/dL Magnesium 1.7 (1.6-2.3) mg/dL Total Bilirubin 1.6 H (0.2-1.3) mg/dL AST 24 (17-59) IU/L ALT 25 (<50) IU/L Alkaline Phosphatase 73 (38-126) U/L Total Creatine Kinase 55 (55-170) U/L Troponin I < 0.012 (0.01-0.034) ng/mL NT-Pro-B Natriuret Pep 2430 H (<450) pg/mL Total Protein 6.6 (6.3-8.2) g/dL Albumin 3.8 (3.5-5.0) g/dL Globulin 2.8 (1.7-4.1) g/dL Albumin/Globulin Ratio 1.4 (1.0-2.8) Lipase 111 (23-300) U/L Imaging Data Chest x-ray: Radiologist's Impression: PROCEDURE: XR CHEST 1V INDICATIONS: chest pain TECHNIQUE: One view of the chest was acquired. COMPARISON: [facility], , XR CHEST 1V, 08/17/2023, 16:57. [facility], CR, XR CHEST 2V, 08/26/2021, 13:19. FINDINGS: Surgical changes and devices: None. Lungs and pleura: Lungs are clear except for mild lateral right midlung chronic lung scarring.. No pleural effusions or pneumothorax. Mediastinum: Mediastinal contours appear normal. Heart size is normal. Bones and chest wall: No suspicious bony lesions. Overlying soft tissues appear unremarkable. IMPRESSION: No acute cardiopulmonary abnormality is seen. Mild right lateral mid lung scarring. Dictated by: Dc Cyr M.D. on 03/17/2024 at 16:11 Approved by: Dc Cyr M.D. on 03/17/2024 at 16:12 MDM Narrative Medical decision making narrative: Bilateral lower extremity edema up to lower abdomen concerning for volume retention. Patient reports compliance with his prescribed therapies. Patient has history of COPD and has wheezing bilaterally, but is not complaining of shortness of breath and saturations are stable on room air. Patient offered a breathing treatment, which he accepted. Laboratory work is reviewed, WBC count 7.2, hemoglobin 12.8, platelets 270, sodium 138, potassium 3.7, creatinine 0.93, troponin undetectable, BNP 2430. Chest x-ray negative for acute findings. Patient was given IV Lasix with initiation of diuresis. Discussed case with patient's primary care doctor, Dr. Buchanan, who will see the patient in clinic next week. Agrees with increasing Lasix dose and will be able to follow up in clinic. Patient requested refill of Lasix, which was sent to pharmacy of choice. He was eager to go home and happy that he does not have stay in the hospital. Discharge Plan Departure Patient Disposition: Home Clinical Impression: Cardiac volume overload Instructions: DI for Heart Failure Activity Restrictions/Additional Instructions: I recommend increasing her Lasix to 60 mg daily over the weekend. Continue to monitor your salt and fluid intake. Dr. Buchanan says that he can see you in the clinic next week, please make sure to call and ensure that you have an appointment. Prescriptions: New furosemide 20 mg tablet 60 mg PO DAILY Qty: 60 0RF Rx Instructions: take 60mg daily for 1 week, then go back to 40mg daily unless otherwise specified by your primary doctor No Action (DME) Spacer See Rx Instructions .Route .MEDSUPPLY Qty: 1 0RF Rx Instructions: As directed, use with Metered Dose Inhaler sildenafil 100 mg tablet 50 - 100 mg PO DAILY PRN (Reason: sexual activity) Qty: 10 4RF Rx Instructions: administer 30 minutes to 4 hours before activity albuterol sulfate 2.5 mg /3 mL (0.083 %) solution for nebulization 2.5 mg continuous nebulization Q6H PRN (Reason: Dyspnea) Qty: 90 1RF (DME) Disabled Parking See Rx Instructions .ROUTE .MEDSUPPLY Qty: 1 0RF Rx Instructions: Patient qualifies for disabled parking as per the attached form. apixaban 5 mg tablet 5 mg PO BID Qty: 180 1RF losartan 25 mg tablet 25 mg PO DAILY Qty: 90 1RF spironolactone 25 mg tablet 25 mg PO DAILY alendronate 70 mg tablet 70 mg PO QWEEK gabapentin 100 mg capsule 100 mg PO 3XD PRN (Reason: Back Pain) testosterone cypionate [Depo-Testosterone] 200 mg/mL oil 300 mg IM Q4W Qty: 10 2RF (DME) spacer for inhaled meds See Rx Instructions .Route .MEDSUPPLY Qty: 1 0RF Rx Instructions: As directed prednisone 20 mg tablet 20 mg PO DAILY Qty: 60 0RF Rx Instructions: 20mg BID methotrexate sodium 2.5 mg tablet 2.5 mg PO DAILY metoprolol succinate 100 mg tablet extended release 24 hr 100 mg PO DAILY albuterol sulfate [Ventolin HFA] 90 mcg/actuation HFA aerosol inhaler 2 inh inhalation Q4-6H PRN (Reason: shortness of breath or wheezing) Qty: 25.5 3RF furosemide [Lasix] 40 mg tablet 40 mg PO DAILY Qty: 90 3RF magnesium oxide 500 mg tablet 400 mg PO BID nystatin 100,000 unit/gram cream 1 applic topical BID Qty: 30 1RF Stiolto Respimat 2.5-2.5 mcg/actuation mist 2 puff inhalation DAILY Qty: 4 3RF Referrals: Mitchell Buchanan MD [Primary Care Provider] - Stand Alone Forms: Patient Portal/API
[2024-03-17 16:08] LABS: INR 1.3 (0.9-1.3)
[2024-03-17 16:10] LABS: PTT Partial Thromboplastin Tim 41 SECONDS (25.1-36.5)
[2024-03-17] MEDS: methylPREDNISolone 125 MG/2 ML VIAL IV (16:10)
[2024-03-17] MEDS: FUROSEMIDE 60 MG in SODIUM CHLORIDE 0.9% 50 ML 112 MG IV (16:11)
[2024-03-17 16:13] LABS: Alanine Aminotransferase 25 IU/L (<50); Albumin 3.8 g/dL (3.5-5.0); Albumin Globulin Ratio 1.4 (1.0-2.8); Alkaline Phosphatase 73 U/L (38-126); Aspartate Aminotransferase 24 IU/L (17-59); BUN Creatinine Ratio 19.4 (6-22); Bilirubin Total 1.6 mg/dL (0.2-1.3); Blood Urea Nitrogen 18 mg/dL (9-20); Calcium 8.4 mg/dL (8.4-10.2); Carbon Dioxide 30 mmol/L (22-32); Chloride 103 mmol/L (98-107); Creatine Kinase 55 U/L (55-170); Estimated Glomerular Filt Rate > 60 mL/min (>60); Globulin 2.8 g/dL (1.7-4.1); Glucose 106 mg/dL (80-110); HEMOLYSIS < 15 (0-50); Lipase 111 U/L (23-300); Magnesium 1.7 mg/dL (1.6-2.3); Potassium 3.7 mmol/L (3.4-5.1); Sodium 138 mmol/L (137-145); Total Protein 6.6 g/dL (6.3-8.2)
[2024-03-17] MEDS: ALBUTEROL/IPRATROPIUM 3 ML AMPUL 9 ML INH (16:19)
[2024-03-17 16:24] LABS: Troponin I < 0.012 ng/mL (0.01-0.034)
--- NOTE | 2024-03-17 16:59 | RT ---
pt iraida neb tx well, on room air. Duoneb given x 3, pt states improvment noted.
[2024-03-17 17:17] LABS: NT-proBNP (BNP-Adult 18+) 2430 pg/mL (<450)
== END 2024-03-17 18:29 | disposition home or self-care (01) ==
PROVIDERS: Emergency Provider Emergency Medicine; PCP Internal Medicine
DX: E87.79 Other fluid overload (principal); R19.00 Intra-abdominal and pelvic swelling, mass and lump, unspecified site; R07.9 Chest pain, unspecified; Z79.01 Long term (current) use of anticoagulants
CPT/HCPCS: 71045; 80053; 82550; 83690; 83735; 83880; 84484; 85025; 85610; 85730; 93005; 93010; 94640; 96365; 96375; 99284; J1940; J2919

== ENCOUNTER → 2024-03-23 10:40 | Outpatient (CLI) | payer OTHER, SELFPAY ==
[2024-03-03 11:52] VITALS: BMI 32.5
[2024-03-24 13:59] LABS: BUN Creatinine Ratio 22.9 (6-22); Blood Urea Nitrogen 19 mg/dL (9-20); Calcium 8.6 mg/dL (8.4-10.2); Carbon Dioxide 27 mmol/L (22-32); Chloride 102 mmol/L (98-107); Estimated Glomerular Filt Rate > 60 mL/min (>60); Glucose 60 mg/dL (80-110); HEMOLYSIS < 15 (0-50); Magnesium 1.6 mg/dL (1.6-2.3); Potassium 3.2 mmol/L (3.4-5.1); Sodium 139 mmol/L (137-145)
== END ==
PROVIDERS: PCP Internal Medicine; Referring Provider Internal Medicine; Visit Provider Internal Medicine
DX: I11.0 Hypertensive heart disease with heart failure (principal); I50.32 Chronic diastolic (congestive) heart failure
CPT/HCPCS: 36415; 80048; 83735

== ENCOUNTER 2024-04-14 13:35 | Inpatient (IN) | payer OTHER, SELFPAY ==
[2024-03-03 11:52] VITALS: BMI 32.5
[2024-04-14] VITALS (15 sets, daily range): BP systolic 100–137; BP diastolic 57–95; PULSE 83–151; RESP 21–33; TEMP 36.3–36.5; O2SAT 93–100; BMI 31.1
--- NOTE | 2024-04-14 13:46 | DI.RAD.S_ITS ---
PROCEDURE: XR CHEST 1V INDICATIONS: chest pain TECHNIQUE: One view of the chest was acquired. COMPARISON: [facility], CR, XR CHEST 1 VIEW, 07/08/2022, 14:10. [facility], CR, XR CHEST 1V, 08/17/2023, 16:57. [facility], CR, XR CHEST 1V, 03/17/2024, 15:21. FINDINGS: Surgical changes and devices: None. Lungs and pleura: Mild blunting of the right costophrenic angle suggestive of a small pleural effusion. Stable curvilinear density of the right mid lung zone compatible with scarring/atelectasis. Minimal streaky left lower lung zone opacity favored to represent atelectasis. No dense consolidation seen. No pneumothorax. Mediastinum: Mediastinal contours appear normal. Heart size is normal. Bones and chest wall: No suspicious bony lesions. Overlying soft tissues appear unremarkable. IMPRESSION: Suspected small right pleural effusion. No focal consolidation seen. Redemonstration of curvilinear opacities of the right mid lung zone and left lower lung zone likely representing scarring/atelectasis. Dictated by: Chuck Stephen M.D. on 04/14/2024 at 14:50 Approved by: Chuck Stephen M.D. on 04/14/2024 at 14:52
[2024-04-14 14:12] LABS: Add Manual Diff / Slide Review NO; Basophils Absolute Auto 0 /uL (0-100); Basophils Percent Auto 0.3 % (0-2); Eosinophils Absolute Auto 0 /uL (0-450); Hematocrit 37.6 % (41-53); Hemoglobin 12.4 g/dL (13.5-17.5); Lymphocytes Absolute Auto 800 /uL (1100-4500); Lymphocytes Percent Auto 7.9 % (25-40); Mean Corpuscular HGB Conc 32.9 % (30-36); Mean Corpuscular Volume 79.2 fL (80-100); Monocytes Absolute Auto 400 /uL (0-900); Neutrophils Absolute Auto 8900 /uL (1500-7000); Neutrophils Percent Auto 87.8 % (50-75); Platelet Count 332 X10^3/uL (150-400); Red Blood Cell Count 4.75 X10^6/uL (4.5-5.9); Red Cell Distribution Width 17.2 % (11.6-14.8); White Blood Cell Count 10.1 X10^3/uL (4.5-11.0)
[2024-04-14 14:20] LABS: INR 1.3 (0.9-1.3); Prothrombin Time 15.3 SECONDS (9.4-12.5)
[2024-04-14 14:23] LABS: PTT Partial Thromboplastin Tim 35 SECONDS (25.1-36.5)
[2024-04-14 14:24] LABS: Lactate (Lactic Acid) 2.3 mmol/L (0.7-2.1)
[2024-04-14 14:25] LABS: Alanine Aminotransferase 31 IU/L (<50); Albumin Globulin Ratio 1.3 (1.0-2.8); Alkaline Phosphatase 83 U/L (38-126); Aspartate Aminotransferase 34 IU/L (17-59); BUN Creatinine Ratio 33.7 (6-22); Bilirubin Total 1.2 mg/dL (0.2-1.3); Blood Urea Nitrogen 30 mg/dL (9-20); Calcium 8.8 mg/dL (8.4-10.2); Carbon Dioxide 24 mmol/L (22-32); Chloride 105 mmol/L (98-107); Creatine Kinase 41 U/L (55-170); Estimated Glomerular Filt Rate > 60 mL/min (>60); Glucose 151 mg/dL (80-110); HEMOLYSIS < 15 (0-50); Lipase 88 U/L (23-300); Magnesium 1.9 mg/dL (1.6-2.3); Potassium 4.3 mmol/L (3.4-5.1); Sodium 136 mmol/L (137-145)
[2024-04-14 14:37] LABS: Troponin I < 0.012 ng/mL (0.01-0.034)
--- NOTE | 2024-04-14 15:28 | ED.ARRPALP ---
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 Silverio for a scheduled appointment, who contacted us here in the emergency department, noting patient had atrial fibrillation with RVR, in context of suspected COPD exacerbation, and likely needed to be admitted. He denies chest pain, he is aware that his heart is going fast, he has not usually using oxygen at home. He feels some increased shortness of breath, still feels quite wheezy. PCP Buchanan Related Data Home Medications Medication Instructions Recorded Confirmed methotrexate sodium 2.5 mg tablet 2.5 mg PO DAILY 06/10/21 04/14/24 spironolactone 25 mg tablet 25 mg PO DAILY 03/02/22 04/14/24 alendronate 70 mg tablet 70 mg PO QWEEK 06/19/22 04/14/24 metoprolol succinate 100 mg 100 mg PO DAILY 09/18/22 04/14/24 tablet,extended release 24 hr gabapentin 100 mg capsule 100 mg PO 3XD PRN Back Pain 07/19/23 04/14/24 magnesium oxide 400 mg PO BID 08/17/23 04/14/24 Previous Rx's Medication Instructions Recorded Disabled Parking #1 ea 05/05/21 apixaban 5 mg tablet 5 mg PO BID #180 tabs 05/05/21 losartan 25 mg tablet 25 mg PO DAILY #90 tabs 05/05/21 Spacer #1 ea 10/15/21 testosterone cypionate 200 mg/mL 300 mg (1.5 mL) IM Q4W #10 mL 07/19/23 intramuscular oil (Depo-Testosterone) nystatin 100,000 unit/gram topical 1 applic topical BID #30 grams 08/20/23 cream spacer for inhaled meds #1 ea 09/02/23 furosemide 40 mg tablet (Lasix) 40 mg PO DAILY #90 tabs 09/28/23 albuterol sulfate 2.5 mg/3 mL 2.5 mg (3 mL) continuous 02/11/24 (0.083 %) solution for nebulization nebulization Q6H PRN Dyspnea #90 mL prednisone 20 mg tablet 20 mg PO DAILY #60 tabs 02/29/24 tiotropium 2.5 mcg-olodaterol 2.5 2 puff inhalation DAILY #4 grams 03/07/24 mcg/actuation mist for inhalation (Stiolto Respimat) furosemide 20 mg tablet 60 mg (3 x 20 mg) PO DAILY #60 tabs 03/17/24 sildenafil 100 mg tablet 50 - 100 mg (0.5 - 1 x 100 mg) PO 03/23/24 DAILY PRN sexual activity #10 tabs potassium chloride 20 mEq 20 meq PO DAILY #90 tabs 03/24/24 tablet,extended release albuterol sulfate 90 mcg/actuation 2 inh inhalation Q4-6H PRN 04/11/24 aerosol inhaler (Ventolin HFA) shortness of breath or wheezing #25.5 grams azithromycin 500 mg tablet 500 mg PO DAILY 3 days #3 tabs 04/11/24 prednisone 20 mg tablet 40 mg (2 x 20 mg) PO DAILY #10 tabs 04/11/24 Allergies Allergy/AdvReac Type Severity Reaction Status Date / Time No Known Drug Allergies Allergy Verified 04/14/24 13:45 Review of Systems Review of Systems Narrative: as per HPI Patient History Medical History Chronic heart failure with preserved ejection fraction History of COVID-19 (10/2020) Right inguinal hernia Peripheral edema Testosterone deficiency in male Pulmonary nodule Cardiomyopathy Essential hypertension Atrial fibrillation COPD (chronic obstructive pulmonary disease) Chronic fatigue (11/23/17) Rheumatoid arthritis involving multiple sites (07/28/17) Postherpetic neuralgia (05/20/17) Primary osteoarthritis of both knees (11/22/15) Mild persistent asthma without complication (11/22/15) Surgical History Hx of knee surgery (10/2015) Hx of colonoscopy (10/22/22) S/P cataract extraction Status post cholecystectomy Family History Father Asthma Mother Diabetes mellitus Social History marital status: household members: spouse lives independently: Yes occupational status: previously employed Smoking Status: Former smoker alcohol intake: current substance use type: does not use Smoking Status: Former smoker alcohol intake frequency: a few times a month Substance Use Type: does not use Exam Narrative Exam Narrative: GENERAL: Well-developed patient, in mild to moderate respiratory distress. HEAD: Atraumatic. Normocephalic. EYES: Pupils equal round and reactive. Extraocular motions intact. No scleral icterus. No injection or drainage. ENT: Nose without bleeding, purulent drainage. Throat without erythema, tonsillar hypertrophy or exudate. Airway patent. NECK: Trachea midline. Non tender CARDIOVASCULAR: Fast rate irregular rhythm, without murmurs, gallops, or rubs. RESPIRATORY: Wheezes bilateral, some intercostal retractions, however speaks in nearly full sentences. No rales, or rhonchi. GASTROINTESTINAL: Abdomen soft, non-tender, nondistended. EXTREMITIES: No edema or joint tenderness. BACK: Nontender without deformity or crepitance. No flank tenderness. NEURO: AOx3. SKIN: No rash or erythema of visible areas Initial Vital Signs Initial Vital Signs: Vital Signs Temperature 97.7 F 04/14/24 13:40 Pulse Rate 151 H 04/14/24 13:40 Respiratory Rate 28 H 04/14/24 13:40 Blood Pressure 137/95 H 04/14/24 13:40 Pulse Oximetry 99 04/14/24 13:40 Oxygen Delivery Method Room Air 04/14/24 13:40 Course Orders Ordered: Acetaminophen (Acetaminophen 325 Mg Tablet) 650 mg PO Q6H PRN PRN Reason: Fever/Mild Pain (1-3) Albuterol (Albuterol 2.5 Mg/3 Ml Neb (Adult)) 2.5 mg INH [id number] PRN PRN Reason: Dyspnea Albuterol/Ipratropium (Albuterol/Ipratropium 3 Ml Ampul) 3 ml INH [id number] JOMAR Last Admin: 04/16/24 19:04 Dose: 3 ml Documented By: Admin: 04/16/24 16:45 Dose: Not Given Documented By: Admin: 04/16/24 13:25 Dose: Not Given Documented By: Admin: 04/16/24 07:59 Dose: 3 ml Documented By: Admin: 04/15/24 19:43 Dose: 3 ml Documented By: Admin: 04/15/24 19:43 Dose: 3 ml Documented By: Admin: 04/15/24 19:40 Dose: Not Given Documented By: Admin: 04/14/24 19:17 Dose: 3 ml Documented By: JUDIE Albuterol/Ipratropium (Albuterol/Ipratropium 3 Ml Ampul) 3 ml INH Q2H PRN PRN Reason: Shortness Of Breath Last Admin: 04/16/24 13:24 Dose: 3 ml Documented By: JUDIE Apixaban (Apixaban 5 Mg Tablet) 5 mg PO BID [facility] Last Admin: 04/16/24 09:07 Dose: 5 mg Documented By: Admin: 04/15/24 20:43 Dose: 5 mg Documented By: Admin: 04/15/24 09:00 Dose: 5 mg Documented By: Admin: 04/14/24 21:00 Dose: 5 mg Documented By: Diltiazem HCl (Diltiazem Cd 120 Mg Cap) 120 mg PO DAILY JOMAR Last Admin: 04/16/24 09:07 Dose: 120 mg Documented By: Admin: 04/15/24 11:52 Dose: 120 mg Documented By: Furosemide (Furosemide 40 Mg Tablet) 40 mg PO DAILY JOMAR Last Admin: 04/16/24 09:07 Dose: 40 mg Documented By: Admin: 04/15/24 09:00 Dose: 40 mg Documented By: MS Hydroxyzine HCl (Hydroxyzine Hcl 25 Mg Tablet) 25 mg PO Q6H PRN PRN Reason: Anxiety DILTIAZEM (Diltiazem 125 Mg/125 Ml-D5w) 125 mg in 125 mls @ 5 mls/hr IV TITRATE JOMAR; Protocol Last Titration: 04/15/24 13:30 Dose: 0 mg/hr, 0 mls/hr Documented By: Titration: 04/15/24 12:36 Dose: 2.5 mg/hr, 2.5 mls/hr Documented By: Titration: 04/14/24 16:42 Dose: 5 mg/hr, 5 mls/hr Documented By: Admin: 04/14/24 16:01 Dose: 5 mg/hr, 5 mls/hr Documented By: OCHOA Dextrose (D10w) 100 mls @ 999 mls/hr IV PRN PRN PRN Reason: Hypoglycemia Ceftriaxone Sodium 1,000 mg/ (Sodium Chloride) 100 mls @ 200 mls/hr IV Q24H [facility] Stop: 04/21/24 12:44 Last Infusion: 04/16/24 14:30 Dose: Infused Documented By: Admin: 04/16/24 13:15 Dose: 200 mls/hr Documented By: MIGUEL Azithromycin 500 mg/ Dextrose 250 mls @ 250 mls/hr IV Q24H [facility] Stop: 04/19/24 13:59 Last Admin: 04/16/24 14:55 Dose: 250 mls/hr Documented By: MIGUEL Insulin Human Lispro (Insulin Lispro 100 Unit/Ml 3ml Vial) 0 unit SUBCUT [facility]; Protocol Last Admin: 04/16/24 17:21 Dose: 3 unit Documented By: MIGUEL Co-signed By: JFEF Loperamide HCl (Loperamide 2 Mg Capsule) 2 mg PO QID PRN PRN Reason: Diarrhea Lorazepam (Lorazepam 0.5 Mg Tablet) 0.5 mg PO Q6HR PRN PRN Reason: Anxiety Losartan Potassium (Losartan 25 Mg Tablet) 25 mg PO DAILY [facility] Last Admin: 04/16/24 09:08 Dose: Not Given Documented By: Admin: 04/15/24 09:00 Dose: 25 mg Documented By: Magnesium Oxide (Magnesium Oxide 400 Mg Tablet) 400 mg PO BID [facility] Last Admin: 04/16/24 09:07 Dose: 400 mg Documented By: Admin: 04/15/24 20:43 Dose: 400 mg Documented By: Admin: 04/15/24 09:00 Dose: 400 mg Documented By: Admin: 04/14/24 21:00 Dose: 400 mg Documented By: Methylprednisolone (Methylprednisolone 125 Mg/2 Ml Vial) 80 mg IV Q8H [facility] Last Admin: 04/16/24 17:22 Dose: 80 mg Documented By: Admin: 04/16/24 09:07 Dose: 80 mg Documented By: Admin: 04/16/24 01:12 Dose: 80 mg Documented By: Admin: 04/15/24 17:23 Dose: 80 mg Documented By: Admin: 04/15/24 09:00 Dose: 80 mg Documented By: Admin: 04/15/24 00:45 Dose: 80 mg Documented By: Admin: 04/14/24 17:30 Dose: 80 mg Documented By: RUBENS Metoprolol Succinate (Metoprolol Er 50 Mg Tablet) 100 mg PO DAILY [facility] Last Admin: 04/16/24 09:25 Dose: Not Given Documented By: Admin: 04/15/24 09:00 Dose: 100 mg Documented By: Naloxone HCl (Naloxone 0.4 Mg/Ml Vial) 0.2 mg IV Q2MIN PRN PRN Reason: Opiate Reversal Oxycodone HCl (Oxycodone Ir 5 Mg Tablet) 5 mg PO Q3H PRN PRN Reason: Pain, Moderate (4-6) Pantoprazole Sodium (Pantoprazole Dr 40 Mg Tablet) 40 mg PO 0700 [facility] Last Admin: 04/16/24 06:39 Dose: 40 mg Documented By: Admin: 04/15/24 07:00 Dose: 40 mg Documented By: Potassium Chloride (Potassium Chloride 20 Meq Tab) 20 meq PO DAILY [facility] Last Admin: 04/16/24 09:07 Dose: 20 meq Documented By: Admin: 04/15/24 09:00 Dose: 20 meq Documented By: Discontinued Medications Albuterol/Ipratropium (Albuterol/Ipratropium 3 Ml Ampul) 3 ml INH NOW ONE Stop: 04/14/24 15:42 Last Admin: 04/14/24 16:20 Dose: 3 ml Documented By: JUDIE Diltiazem HCl (Diltiazem 25 Mg/5 Ml Sdv) 20 mg IV NOW ONE Stop: 04/14/24 15:34 Last Admin: 04/14/24 16:02 Dose: 20 mg Documented By: OCHOA Methylprednisolone (Methylprednisolone 125 Mg/2 Ml Vial) 125 mg IV NOW ONE Stop: 04/14/24 15:42 Last Admin: 04/14/24 16:04 Dose: 125 mg Documented By: OCHOA Vital Signs Vital signs: Vital Signs - 8 hr 04/14/24 13:40 04/14/24 14:50 04/14/24 14:53 Temperature 97.7 F Pulse Rate 151 H 143 H Respiratory Rate 28 H 23 Blood Pressure 137/95 H 123/82 Pulse Oximetry 99 93 Oxygen Delivery Method Room Air 04/14/24 14:53 04/14/24 15:00 04/14/24 15:00 Temperature Pulse Rate 133 H 139 H Respiratory Rate 24 21 Blood Pressure 120/60 Pulse Oximetry 100 98 Oxygen Delivery Method MDM - Arrhythmia/Palpitations Lab Data Attestation: I reviewed the patient's lab results. 04/16/24 10:23 04/16/24 10:23 Labs: Lab Results 04/14/24 04/14/24 Range/Units 13:55 15:52 WBC 10.1 (4.5-11.0) X10^3/uL RBC 4.75 (4.5-5.9) X10^6/uL Hgb 12.4 L (13.5-17.5) g/dL Hct 37.6 L (41-53) % MCV 79.2 L (80-100) fL MCH 26.0 (26-34) PG MCHC 32.9 (30-36) % RDW 17.2 H (11.6-14.8) % Plt Count 332 (150-400) X10^3/uL Neut % (Auto) 87.8 H (50-75) % Lymph % (Auto) 7.9 L (25-40) % [place] % (Auto) 4.0 (3-14) % Eos % (Auto) 0.0 L (2-4) % Baso % (Auto) 0.3 (0-2) % Neut # (Auto) 8900 H (3177-0781) /uL Lymph # (Auto) 800 L (7516-5112) /uL [place] # (Auto) 400 (0-900) /uL Eos # (Auto) 0 (0-450) /uL Baso # (Auto) 0 (0-100) /uL PT 15.3 H (9.4-12.5) SECONDS INR 1.3 (0.9-1.3) APTT 35 (25.1-36.5) SECONDS Sodium 136 L (137-145) mmol/L Potassium 4.3 (3.4-5.1) mmol/L Chloride 105 (98-107) mmol/L Carbon Dioxide 24 (22-32) mmol/L BUN 30 H (9-20) mg/dL Creatinine 0.89 (0.66-1.25) mg/dL Estimated GFR > 60 (>60) mL/min BUN/Creatinine Ratio 33.7 H (6-22) Glucose 151 H (80-110) mg/dL Lactate 2.3 H 3.2 H (0.7-2.1) mmol/L Calcium 8.8 (8.4-10.2) mg/dL Magnesium 1.9 (1.6-2.3) mg/dL Total Bilirubin 1.2 (0.2-1.3) mg/dL AST 34 (17-59) IU/L ALT 31 (<50) IU/L Alkaline Phosphatase 83 (38-126) U/L Total Creatine Kinase 41 L (55-170) U/L Troponin I < 0.012 (0.01-0.034) ng/mL Total Protein 7.0 (6.3-8.2) g/dL Albumin 4.0 (3.5-5.0) g/dL Globulin 3.0 (1.7-4.1) g/dL Albumin/Globulin Ratio 1.3 (1.0-2.8) Lipase 88 (23-300) U/L Imaging Data Chest x-ray: Radiologist's Impresson: [place] [address] XRay Report Signed Patient: Blayne Hopkins MR#: [id number] : 1940 Acct:[id number] Age/Sex: 84 / M Date of Service: 04/14/24 Loc: ED Accession Number: [id number] Procedure: XR chest 1V Ordering Provider: Rajesh Rhodes MD PROCEDURE: XR CHEST 1V INDICATIONS: chest pain TECHNIQUE: One view of the chest was acquired. COMPARISON: [facility], CR, XR CHEST 1 VIEW, 07/08/2022, 14:10. [facility], CR, XR CHEST 1V, 08/17/2023, 16:57. [facility], CR, XR CHEST 1V, 03/17/2024, 15:21. FINDINGS: Surgical changes and devices: None. Lungs and pleura: Mild blunting of the right costophrenic angle suggestive of a small pleural effusion. Stable curvilinear density of the right mid lung zone compatible with scarring/atelectasis. Minimal streaky left lower lung zone opacity favored to represent atelectasis. No dense consolidation seen. No pneumothorax. Mediastinum: Mediastinal contours appear normal. Heart size is normal. Bones and chest wall: No suspicious bony lesions. Overlying soft tissues appear unremarkable. IMPRESSION: Suspected small right pleural effusion. No focal consolidation seen. Redemonstration of curvilinear opacities of the right mid lung zone and left lower lung zone likely representing scarring/atelectasis. Dictated by: Chuck Stephen M.D. on 04/14/2024 at 14:50 Approved by: Chuck Stephen M.D. on 04/14/2024 at 14:52 ECG Data Interpretation: Atrial fibrillation with rapid ventricular response 113, no obvious ST segment elevation or depression changes. QRS 82, QTC 444. 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 On monitor he is in atrial fibrillation with ventricular response ranging from 110-140 range. He has some respiratory distress, wheezing on exam. We will rate control with IV diltiazem bolus and then infusion. Then we will give Solu-Medrol 125 mg IV, SVN Atrovent, IV magnesium. Chest x-ray read as possible atelectasis, small pleural effusion noted, no mentioned definite infiltrate. PCP Dewayne, consider admission. We will discuss with PCP Case discussed with Dr. Buchanan, accepts patient for admission to ICU Critical Care Time Critical Care Time Critical Care Time: Yes Total Critical Care Time: 35 Attestation: The high probability of a clinically significant, sudden or life threatening deterioration of the [cardiopulmonary] system(s) required my full and direct attention, intervention and personal management. The aggregate critical care time was [35] minutes. This time is in addition to time spent performing reported procedures but includes the following: [x] Data Review and interpretation [x] Patient assessment and monitoring of vital signs [x] Documentation [x] Medication orders and management Discharge Plan Departure Patient Disposition: Admitted As Inpatient Clinical Impression: Dyspnea, Atrial fibrillation with rapid ventricular response, COPD exacerbation Admit Date/Time: 04/14/24 16:02 Admit Provider: Mitchell Buchanan
[2024-04-14 15:43] LABS: Reflexed Lactate in 2 Hours Y
[2024-04-14] MEDS: DILTIAZEM 125 MG/125 ML PIGGYBACK IV (16:01)
[2024-04-14] MEDS: dilTIAZem 25 MG/5 ML SDV 20 MG IV (16:02)
[2024-04-14] MEDS: methylPREDNISolone 125 MG/2 ML VIAL IV (16:04)
[2024-04-14 16:20] LABS: Lactate 2HR (Lactic Acid Rflx) 3.2 mmol/L (0.7-2.1)
[2024-04-14] MEDS: ALBUTEROL/IPRATROPIUM 3 ML AMPUL INH ×2 (16:20→19:17)
--- NOTE | 2024-04-14 16:46 | PM.HP.1 ---
History of Present Illness History of Present Illness Date Patient Seen: 04/14/24 Time Patient Seen: 16:46 Chief complaint: Afib, SOB sent by head of human resources Narrative: 84-year-old male with known severe COPD as well as chronic atrial fibrillation admitted with a COPD exacerbation and rapid ventricular response to his atrial fibrillation Patient was at an appointment with his head of human resources today where he was found to be tachycardic and quite dyspneic when wheezy. Cardiology recommended he be evaluated in the ER. He had been seen earlier in the week by his psychiatric attendant who acknowledged his burgeoning COPD exacerbation put him on 3 days of azithromycin and some prednisone. Patient was not improved with that he has been increasingly short of breath wheezy finding it difficult to complete sentences etcetera He is done this multiple times usually responds nicely to steroid therapy Patient has been taking all his medication without fail Patient also with a history of volume overload and congestive heart failure presenting much like this but often with hypoxia as well. No evidence of volume overload on ER evaluation today Patient was admitted for treatment of his COPD as well as efforts to help rate control his atrial fibrillation FORMERLY [facility], [facility]–1983 Medical History Chronic heart failure with preserved ejection fraction History of COVID-19 (10/2020) Right inguinal hernia Peripheral edema Testosterone deficiency in male Pulmonary nodule Cardiomyopathy Essential hypertension Atrial fibrillation COPD (chronic obstructive pulmonary disease) Chronic fatigue (11/23/17) Rheumatoid arthritis involving multiple sites (07/28/17) Postherpetic neuralgia (05/20/17) Primary osteoarthritis of both knees (11/22/15) Mild persistent asthma without complication (11/22/15) Surgical History Hx of knee surgery (10/2015) Hx of colonoscopy (10/22/22) S/P cataract extraction Status post cholecystectomy Family History Father Asthma Mother Diabetes mellitus Social History marital status: household members: spouse lives independently: Yes occupational status: previously employed Smoking Status: Former smoker alcohol intake: current substance use type: does not use Meds Home Medications and Allergies Home Medications Medication Instructions Recorded Confirmed Type Disabled Parking #1 ea 05/05/21 04/11/24 Rx apixaban 5 mg tablet 5 mg PO BID #180 tabs 05/05/21 04/11/24 Rx losartan 25 mg tablet 25 mg PO DAILY #90 tabs 05/05/21 04/11/24 Rx methotrexate sodium 2.5 mg tablet 2.5 mg PO DAILY 06/10/21 04/11/24 History Spacer #1 ea 10/15/21 04/11/24 Rx spironolactone 25 mg tablet 25 mg PO DAILY 03/02/22 04/11/24 History alendronate 70 mg tablet 70 mg PO QWEEK 06/19/22 04/11/24 History metoprolol succinate 100 mg 100 mg PO DAILY 09/18/22 04/11/24 History tablet,extended release 24 hr gabapentin 100 mg capsule 100 mg PO 3XD PRN Back Pain 07/19/23 04/11/24 History testosterone cypionate 200 mg/mL 300 mg (1.5 mL) IM Q4W #10 mL 07/19/23 04/11/24 Rx intramuscular oil (Depo-Testosterone) magnesium oxide 400 mg PO BID 08/17/23 04/11/24 History nystatin 100,000 unit/gram topical 1 applic topical BID #30 grams 08/20/23 04/11/24 Rx cream spacer for inhaled meds #1 ea 09/02/23 04/11/24 Rx furosemide 40 mg tablet (Lasix) 40 mg PO DAILY #90 tabs 09/28/23 04/11/24 Rx albuterol sulfate 2.5 mg/3 mL 2.5 mg (3 mL) continuous 02/11/24 04/11/24 Rx (0.083 %) solution for nebulization nebulization Q6H PRN Dyspnea #90 mL prednisone 20 mg tablet 20 mg PO DAILY #60 tabs 02/29/24 04/11/24 Rx tiotropium 2.5 mcg-olodaterol 2.5 2 puff inhalation DAILY #4 grams 03/07/24 04/11/24 Rx mcg/actuation mist for inhalation (Stiolto Respimat) furosemide 20 mg tablet 60 mg (3 x 20 mg) PO DAILY #60 tabs 03/17/24 04/11/24 Rx sildenafil 100 mg tablet 50 - 100 mg (0.5 - 1 x 100 mg) PO 03/23/24 04/11/24 Rx DAILY PRN sexual activity #10 tabs potassium chloride 20 mEq 20 meq PO DAILY #90 tabs 03/24/24 04/11/24 Rx tablet,extended release albuterol sulfate 90 mcg/actuation 2 inh inhalation Q4-6H PRN 04/11/24 04/11/24 Rx aerosol inhaler (Ventolin HFA) shortness of breath or wheezing #25.5 grams azithromycin 500 mg tablet 500 mg PO DAILY 3 days #3 tabs 04/11/24 04/11/24 Rx prednisone 20 mg tablet 40 mg (2 x 20 mg) PO DAILY #10 tabs 04/11/24 04/11/24 Rx Allergies Allergy/AdvReac Type Severity Reaction Status Date / Time No Known Drug Allergies Allergy Verified 04/14/24 13:45 Review of Systems Review of Systems ROS: Yes All systems reviewed with the patient and are negative except as otherwise documented Exam Vital Signs (past 8 hours): - 04/14/24 13:40 04/14/24 14:50 04/14/24 14:53 Temperature 97.7 F Pulse Rate 151 H 143 H Respiratory Rate 28 H 23 Blood Pressure 137/95 H 123/82 Pulse Oximetry 99 93 Oxygen Delivery Method Room Air 04/14/24 14:53 04/14/24 15:00 04/14/24 15:00 Temperature Pulse Rate 133 H 139 H Respiratory Rate 24 21 Blood Pressure 120/60 Pulse Oximetry 100 98 Oxygen Delivery Method 04/14/24 15:30 04/14/24 15:30 04/14/24 16:00 Temperature Pulse Rate 135 H Respiratory Rate 25 H Blood Pressure 114/82 110/74 Pulse Oximetry 99 Oxygen Delivery Method 04/14/24 16:00 04/14/24 16:02 04/14/24 16:30 Temperature Pulse Rate 131 H 112 H 91 H Respiratory Rate 25 H 26 H Blood Pressure 110/74 Pulse Oximetry 98 99 Oxygen Delivery Method 04/14/24 16:30 Temperature Pulse Rate Respiratory Rate Blood Pressure 100/59 L Pulse Oximetry Oxygen Delivery Method Oxygen Delivery Method Room Air Narrative Exam Narrative: Elderly male appears obviously dyspneic sitting in hospital bed in the ICU HEENT-unremarkable Neck-no lymphadenopathy Lungs-diminished breath sounds with prolonged end expiratory wheezing, no fine crackles, although very coarse crackles that clear with coughing are present throughout Heart-tachycardic and irregular Abdomen-benign although minimally obese limiting exam. Positive bowel tones Extremities-no cyanosis clubbing or edema Objective Labs 04/14/24 13:55 04/14/24 13:55 Labs: Laboratory Results - last 24 hr 04/14/24 04/14/24 13:55 15:52 WBC 10.1 RBC 4.75 Hgb 12.4 L Hct 37.6 L MCV 79.2 L MCH 26.0 MCHC 32.9 RDW 17.2 H Plt Count 332 Neut % (Auto) 87.8 H Lymph % (Auto) 7.9 L Cory[place] % (Auto) 4.0 Eos % (Auto) 0.0 L Baso % (Auto) 0.3 Neut # (Auto) 8900 H Lymph # (Auto) 800 L [place] # (Auto) 400 Eos # (Auto) 0 Baso # (Auto) 0 PT 15.3 H INR 1.3 APTT 35 Sodium 136 L Potassium 4.3 Chloride 105 Carbon Dioxide 24 BUN 30 H Creatinine 0.89 Estimated GFR > 60 BUN/Creatinine Ratio 33.7 H Glucose 151 H Lactate 2.3 H 3.2 H Calcium 8.8 Magnesium 1.9 Total Bilirubin 1.2 AST 34 ALT 31 Alkaline Phosphatase 83 Total Creatine Kinase 41 L Troponin I < 0.012 Total Protein 7.0 Albumin 4.0 Globulin 3.0 Albumin/Globulin Ratio 1.3 Lipase 88 Assessment & Plan Assessment & Plan narrative: 1. COPD exacerbation-patient has already completed an outpatient course of antibiotic therapy no evidence of infiltrate on his chest x-ray. He will need frequent nebulizer treatments as well as parental steroids. Minimal oxygen if necessary for hypoxia which is not present at this time. Patient should continue his outpatient inhaler as well. No evidence of volume overload I do not believe that is an etiology for his respiratory distress. 2. Atrial fibrillation with rapid ventricular response-patient is chronically in atrial fibrillation in his chronically anticoagulated. He is on metoprolol which is usually sufficient for controlling his heart rate. I believe his tachycardia currently is related to his respiratory disease and probably will if anything be only minimally improved with IV diltiazem. More effective treatment would be aggressive treatment of his respiratory issues as above. Continue his Eliquis as well as his metoprolol for now as well. I do not believe his metoprolol as a contributing factor for his COPD exacerbation. He has been on this for quite some time not had difficulty with his breathing 3. Chronic heart failure with preserved ejection fraction (ejection fraction 55-60% in June 2023 on ECHO)-no evidence of active heart failure at this time. Continue monitor for evidence of worsening or acute exacerbation that would benefit from additional diuretic therapy. Continue patient's home doses of his diuretics however. 4. Anemia-patient chronically anemic with microcytosis. No recent evaluation for iron-deficiency I will add that to his labs for this hospitalization as well. He has previously been low but that was in 2021. His overall hemoglobin hematocrit is stable but likely needs to resume oral iron replacement therapy which he was discontinued some time ago 5. Rheumatoid arthritis-patient chronically on methotrexate. Will hold for now but likely resume upon discharge from hospital 6. Code status-patient requests full code in the event of a sudden cardiac or respiratory arrest which is not anticipated 7. VTE prophylaxis-patient chronically anticoagulated for his atrial fibrillation. No additional prophylaxis indicated [facility] PROFEE Charge Codes Initial inpatient/observation care: 27594
[2024-04-14] MEDS: methylPREDNISolone 125 MG/2 ML VIAL 80 MG IV (17:30)
--- NOTE | 2024-04-14 17:58 | PC.ADMIT ---
[email or web address] [facility] Admission Note: The patient,Blayne Hopkins,84 y/o, was given written information regarding hospital policies, unit procedures and contact persons. Patient's smoking status: Former smoker. Vital Signs - 8 hr 04/14/24 13:40 04/14/24 14:50 04/14/24 14:53 Temperature 97.7 F Pulse Rate 151 H 143 H Respiratory Rate 28 H 23 Blood Pressure 137/95 H 123/82 Pulse Oximetry 99 93 Oxygen Delivery Method Room Air 04/14/24 14:53 04/14/24 15:00 04/14/24 15:00 Temperature Pulse Rate 133 H 139 H Respiratory Rate 24 21 Blood Pressure 120/60 Pulse Oximetry 100 98 Oxygen Delivery Method 04/14/24 15:30 04/14/24 15:30 04/14/24 16:00 Temperature Pulse Rate 135 H Respiratory Rate 25 H Blood Pressure 114/82 110/74 Pulse Oximetry 99 Oxygen Delivery Method 04/14/24 16:00 04/14/24 16:02 04/14/24 16:07 Temperature Pulse Rate 131 H 112 H Respiratory Rate 25 H Blood Pressure 110/74 Pulse Oximetry 98 Oxygen Delivery Method Room Air 04/14/24 16:30 04/14/24 16:30 04/14/24 16:53 Temperature 97.4 F L Pulse Rate 91 H Respiratory Rate 26 H Blood Pressure 100/59 L Pulse Oximetry 99 Oxygen Delivery Method 04/14/24 17:02 Temperature Pulse Rate 85 Respiratory Rate 28 H Blood Pressure Pulse Oximetry 98 Oxygen Delivery Method Pt arrived via gurney from ED, able to ambulate to bed with minimal distress, assisted in getting into to gown and connected to monitoring equipment, tele showed A-Fib RVR with a rate from 110-85, Dilt gtt infusing as ordered, RR 25-45 with mild difficulty when coughing and speaking in long sentences. Pt oriented to room and call light system, Dr Buchanan at bedside, no further needs at this time
[2024-04-14 18:02] LABS: COVID-19 CEPHEID 4-PLEX PCR Negative (Negative); Influenza A - CEPHEID Flu A NEGATIVE (NEGATIVE); Influenza B - CEPHEID Flu B NEGATIVE (NEGATIVE); Respiratory Syncytial Virus Negative (Negative)
[2024-04-14 18:21] LABS: MRSA (Nasal) PCR NOT DETECTED (Not Detect)
[2024-04-14] MEDS: APIXABAN 5 MG TABLET PO (21:00)
[2024-04-14] MEDS: MAGNESIUM OXIDE 400 MG TABLET PO (21:00)
[2024-04-15] MEDS: methylPREDNISolone 125 MG/2 ML VIAL 80 MG IV ×3 (00:45→17:23)
[2024-04-15 07:00] VITALS: O2SAT 95
[2024-04-15] MEDS: PANTOPRAZOLE DR 40 MG TABLET PO (07:00)
[2024-04-15] MEDS: MAGNESIUM OXIDE 400 MG TABLET PO ×2 (09:00→20:43)
[2024-04-15] MEDS: LOSARTAN 25 MG TABLET PO (09:00)
[2024-04-15] MEDS: POTASSIUM CHLORIDE 20 MEQ TAB PO (09:00)
[2024-04-15] MEDS: METOPROLOL ER 50 MG TABLET 100 MG PO (09:00)
[2024-04-15] MEDS: APIXABAN 5 MG TABLET PO ×2 (09:00→20:43)
[2024-04-15] MEDS: FUROSEMIDE 40 MG TABLET PO (09:00)
[2024-04-15] MEDS: dilTIAZem CD 120 MG CAP PO (11:52)
--- NOTE | 2024-04-15 15:55 | PC.NURSE ---
From 04/14/24 1900 to 04/15/24 1600 see downtime charting notes scanned into chart
--- NOTE | 2024-04-15 15:58 | CM.DANOTE ---
DCP: Case received, EMR reviewed and met with patient. Introduced self and role. Was able to obtain information regarding patient's baseline activity status prior to admission. Patient is an 84 year old male who admitted yesterday afternoon to the care of the hospitalist team. PCP: Dr. Buchanan. Payer: confirmed: [employer]. 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 He was also noted to be dyspneic. Patient was encouraged to come to the ER. Was admitted for atrial fibrillation. Met with patient in his room. He is pleasant, alert. Confirmed that he resides in [place] with his spouse. He has a son that lives local, and grand son. 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 At his baseline, he is independent. He worries about his heart rate, continued to want to see the monitor. P: DCP to continue to follow. Patient should be able to go home when deemed medically stable. Ana María Harden RN/Churn Operator Margarine Discharge Planning/Care Management Advanced directive, confirm from FAMILY Start: 04/14/24 17:26 Freq: Q24H Status: Active Protocol: Document 04/14/24 17:26 MS (Rec: 04/14/24 17:39 MS [id number]) Advance Directive, confirm on record Time 17:38 Person contacted Patient Copy received No CM Discharge Assessment Start: 04/15/24 15:57 Freq: Status: Active Protocol: Document 04/15/24 15:57 VM (Rec: 04/15/24 15:58 VM [id number]) Discharge Planning Assessment Assigned Washer Carcass Ana María Harden RN/Churn Operator Margarine Advance Directives? Yes Advance Directives on File No History Provided By Patient,Medical Record Prior Living Arrangements House Household Members spouse Type of transporation used prior to Drives own vehicle admit Independent with ADL's Yes Is patient alert and oriented? Yes Caregiver for Another No Barriers to Discharge No Discharge Plan Home Transportation Arrangement Spouse Referrals Initiated None needed Whiteboard Updated in Patient Room with Yes name and ext. # of Washer Carcass Review Status In Process Next Review Type Continued Stay Review
[2024-04-15 16:00] VITALS: BP 113/64; PULSE 93; RESP 20; TEMP 36.8; O2SAT 95
[2024-04-15 17:00] VITALS: BP 101/64; PULSE 87; RESP 35; TEMP 36.4; O2SAT 98
[2024-04-15 17:48] LABS: BUN Creatinine Ratio 33.7 (6-22); Blood Urea Nitrogen 28 mg/dL (9-20); Calcium 8.7 mg/dL (8.4-10.2); Carbon Dioxide 25 mmol/L (22-32); Chloride 103 mmol/L (98-107); Estimated Glomerular Filt Rate > 60 mL/min (>60); Glucose 198 mg/dL (80-110); HEMOLYSIS < 15 (0-50); Iron 55 ug/dL (49-181); Percent Iron Saturation 16 % (20-50); Potassium 4.4 mmol/L (3.4-5.1); Sodium 135 mmol/L (137-145); Total Iron Binding Capacity 351 ug/dL (261-462); Transferrin 260 mg/dL (206-381)
[2024-04-15] MEDS: ALBUTEROL/IPRATROPIUM 3 ML AMPUL INH ×2 (19:43)
[2024-04-15 20:30] VITALS: BP 119/61; PULSE 82; RESP 18; TEMP 37; O2SAT 94
[2024-04-16] VITALS (14 sets, daily range): BP systolic 101–125; BP diastolic 52–71; PULSE 84–108; RESP 16–26; TEMP 36.4–36.7; O2SAT 95–98
[2024-04-16] MEDS: methylPREDNISolone 125 MG/2 ML VIAL 80 MG IV ×3 (01:12→17:22)
[2024-04-16] MEDS: PANTOPRAZOLE DR 40 MG TABLET PO (06:39)
[2024-04-16] MEDS: ALBUTEROL/IPRATROPIUM 3 ML AMPUL INH ×3 (07:59→19:04)
[2024-04-16] MEDS: MAGNESIUM OXIDE 400 MG TABLET PO ×2 (09:07→20:52)
[2024-04-16] MEDS: FUROSEMIDE 40 MG TABLET PO (09:07)
[2024-04-16] MEDS: APIXABAN 5 MG TABLET PO ×2 (09:07→20:52)
[2024-04-16] MEDS: POTASSIUM CHLORIDE 20 MEQ TAB PO (09:07)
[2024-04-16] MEDS: dilTIAZem CD 120 MG CAP PO (09:07)
--- NOTE | 2024-04-16 09:37 | DI.RAD.S_ITS ---
PROCEDURE: XR CHEST 1V INDICATIONS: Chest pressure TECHNIQUE: One view of the chest was acquired. COMPARISON: [facility], CR, XR CHEST 1V, 03/17/2024, 15:21. [facility], CR, XR CHEST 1V, 08/17/2023, 16:57. [facility], CR, XR CHEST 1V, 04/14/2024, 14:04. FINDINGS: Surgical changes and devices: None. Lungs and pleura: An incomplete inspiratory result is noted, causing a crowded appearance to the lung markings. No pneumothorax or significant pleural effusions are seen. Likely atelectasis can be seen within the right mid lung. Mediastinum: The cardiac contours are within normal limits. The aorta demonstrates calcification and tortuosity. Bones and chest wall: No suspicious bony lesions. Age-appropriate bony degenerative changes are seen. Overlying soft tissues appear unremarkable. IMPRESSION: Low lung volumes, without a radu acute abnormality seen by plain film. Likely atelectasis again seen within the right mid lung. Dictated by: Terry Jiang M.D. on 04/16/2024 at 9:22 Approved by: Terry Jiang M.D. on 04/16/2024 at 9:23
--- NOTE | 2024-04-16 09:39 | PC.NURSE ---
Day shit: Pt A&Ox4. Pt ambulated to BR, steady on feet, VSS. Tolerated breakfast. BP 101/51, metoprolol held per provider. 0930, pt called, stated chest pressure 6/10, lightheadedness, dizziness. Pt diaphoretic, BP remains marginal. EKG obtained, RA 98%, pupils normal, no physical deficits appreciated. Provider notified. New orders received. Care ongoing, will continue to monitor.
[2024-04-16 10:31] LABS: Add Manual Diff / Slide Review NO; Basophils Absolute Auto 0 /uL (0-100); Basophils Percent Auto 0.1 % (0-2); Eosinophils Absolute Auto 0 /uL (0-450); Eosinophils Percent Auto 0.1 % (2-4); Hematocrit 37.4 % (41-53); Hemoglobin 12.2 g/dL (13.5-17.5); Lymphocytes Absolute Auto 600 /uL (1100-4500); Lymphocytes Percent Auto 3.5 % (25-40); Mean Corpuscular HGB Conc 32.5 % (30-36); Mean Corpuscular Hemoglobin 25.9 PG (26-34); Mean Corpuscular Volume 79.8 fL (80-100); Monocytes Absolute Auto 400 /uL (0-900); Monocytes Percent Auto 2.2 % (3-14); Neutrophils Absolute Auto 15500 /uL (1500-7000); Neutrophils Percent Auto 94.1 % (50-75); Platelet Count 320 X10^3/uL (150-400); Red Blood Cell Count 4.69 X10^6/uL (4.5-5.9); Red Cell Distribution Width 17.6 % (11.6-14.8); White Blood Cell Count 16.5 X10^3/uL (4.5-11.0)
--- NOTE | 2024-04-16 10:50 | DI.ECHO.S_ITS ---
[place] [facility]---------+ [facility] : : [address] : : [place] : : [id number] : : Phone: [phone] Echocardiogram Report + + :Name: KURTIS PIERCE Study Date: 04/16/2024 Height: 69 in : :[facility] ReadingLocation: Weight: 214 lb: : Gender: Male BSA: 2.1 m2 : :: 1940 Age: 84 yrs BP: 98/69 mmHg: :Reason For Study: AFIB RVR : :Ordering Physician: MG, : :NOEMI Performed By: Etelvina Wagner : :Referring: NOEMI HOLLIDAY : + + Interpretation Summary The patient was in atrial fibrillation with heart rates between 88-108 bpm during the exam. The ejection fraction is estimated to be 55-60%. Diastolic function could not be accurately assessed due to atrial fibrillation. The right ventricle is mildly dilated. Right ventricular systolic function is at the lower limits of normal. There is moderate biatrial enlargement. There is mild mitral regurgitation. There is mild to moderate tricuspid regurgitation. The right ventricular systolic pressure is estimated to be at least 33 mmHg based on an estimated right atrial pressure of 8 mm Hg. The ascending aorta is mildly enlarged, 4.1 cm. Compared to the prior study dated 06/24/2023, the right ventricle now appears dilated with borderline reduced function and the atrial fibrillation is new. Procedure: A two-dimensional transthoracic echocardiogram with color flow and Doppler was performed. The study quality was technically adequate. Comparison is made with the echocardiogram of 06/24/2023. The patient was in atrial fibrillation with heart rates between 88-108 bpm during the exam. Left Ventricle: The left ventricle is normal in size. Left ventricular wall thickness is borderline increased. The ejection fraction is estimated to be 55-60%. Diastolic function could not be accurately assessed due to atrial fibrillation. Right Ventricle: The right ventricle is mildly dilated. Right ventricular systolic function is at the lower limits of normal. Atria: There is moderate biatrial enlargement. There is no Doppler evidence for an interatrial shunt. Mitral Valve: The mitral valve leaflets appear mildly thickened, but open well. There is mild mitral annular calcification. There is mild mitral regurgitation. Aortic Valve: The aortic valve opens well. There is no aortic valve stenosis. No aortic regurgitation is present. Tricuspid Valve: The tricuspid valve leaflets are thin and pliable. There is mild to moderate tricuspid regurgitation. The right ventricular systolic pressure is estimated to be at least 33 mmHg based on an estimated right atrial pressure of 8 mm Hg. Pulmonic Valve: The pulmonic valve is not well seen, but is grossly normal. There is no pulmonic valvular regurgitation. Great Vessels: The aortic root is normal size. The ascending aorta is mildly enlarged. The IVC is dilated (diameter is greater than 2.1 cm) yet it collapses greater than 50% with a sniff. This suggests a right atrial pressure of 8 mm Hg. Pericardium/ Pleura There is no pericardial effusion. There is no pleural effusion. MMode/2D Measurements & Calculations LVIDd: 5.1 cm LVOT diam: 2.0 cm LVIDs: 3.7 cm Ao root diam: 3.7 cm FS: 26.7 % asc Aorta Diam: 4.1 cm IVSd: 1.0 cm Ao Arch Diam (Prox Trans): 2.8 cm LVPWd: 1.1 cm LV maradiaga. diameter/BSA (cm/m^2): 2.4 LV sys. diameter/BSA (cm/m^2): 1.8 LA A2 area: 22.8 cm2 RA long axis: 6.5 cm LA A4 area: 25.4 cm2 RA area: 25.8 cm2 LA length (vol): 6.1 cm RA vol: 86.2 ml LA vol: 80.8 ml RA : 40.5 ml/m2 LA vol index: 38.0 ml/m2 IVC diam: 2.7 cm RVD1 (basal): 4.4 cm RVD2 (mid): 3.5 cm TAPSE: 1.6 cm Doppler Measurements & Calculations Ao V2 max: 134.3 cm/sec LVOT Max Bennett: 98.7 cm/sec Ao V2 mean: 98.4 cm/sec LV V1 max P.9 mmHg Ao max P.2 mmHg LV V1 VTI: 18.2 cm Ao mean P.3 mmHg EMILY(I,D): 2.2 cm2 Ao V2 VTI: 26.3 cm EMILY(V,D): 2.3 cm2 sev ratio: 0.69 EMILY indexed to BSA (cm^2/m^2): 1.0 MV E max bennett: 102.7 cm/sec TR max bennett: 250.9 cm/sec MV A max bennett: 0.81 cm/sec TR max P.2 mmHg MV E/A: 127.3 PA V2 max: 80.0 cm/sec Med Peak E' Bennett: 9.0 cm/sec PA V2 mean: 52.0 cm/sec E/E' med: 11.4 PA mean P.2 mmHg Lat Peak E' Bennett: 13.7 cm/sec PA pr(Accel): 49.9 mmHg E/E' lat: 7.5 E/e' average: 9.5 MV dec time: 0.20 sec SV(LVOT): 57.0 ml Reading Physician:03:49 PM
[2024-04-16 11:05] LABS: Lactate (Lactic Acid) 3.6 mmol/L (0.7-2.1)
[2024-04-16 11:06] LABS: BUN Creatinine Ratio 37.7 (6-22); Blood Urea Nitrogen 40 mg/dL (9-20); Calcium 8.8 mg/dL (8.4-10.2); Carbon Dioxide 27 mmol/L (22-32); Chloride 99 mmol/L (98-107); Estimated Glomerular Filt Rate > 60 mL/min (>60); Glucose 318 mg/dL (80-110); HEMOLYSIS 17 (0-50); Sodium 131 mmol/L (137-145)
[2024-04-16 11:13] LABS: Potassium 5.4 mmol/L (3.4-5.1)
[2024-04-16 11:15] LABS: NT-proBNP (BNP-Adult 18+) 1880 pg/mL (<450)
[2024-04-16 11:18] LABS: Troponin I < 0.012 ng/mL (0.01-0.034)
--- NOTE | 2024-04-16 12:20 | CM.DPNOTE ---
DCP Note WASH TANK TENDER reviewed EMR. Per RN report, no new CM/DCP needs. Will continue here for HR monitoring. RN report pt feelings chest pain still. P: Home when medically stable with spouse and additional family. No identified barriers to safe return home. CM team iwll continue to follow as needed. DMITRI Abrams
[2024-04-16 12:30] LABS: Reflexed Lactate in 2 Hours Y
--- NOTE | 2024-04-16 12:31 | P.PN_ITS ---
Subjective Subjective Date Patient Seen: 04/16/24 Interval history: The pt reports still feeling very poorly. This morning he developed a pressure chest pain that did not radiate. It expanded across his entire chest. He was diaphoretic and nauseous at the time. He denied any associated palpitations, however his HR has been highly variable. It has been very gradually improving. He has mild RUQ abdominal pain, but feels this came on after a coughing spell. Exam Vital Signs (past 8 hours): - 04/16/24 06:17 04/16/24 07:00 04/16/24 07:00 Temperature 98.0 F Pulse Rate 93 H Respiratory Rate 16 Blood Pressure 113/70 Pulse Oximetry 96 98 Oxygen Delivery Method Room Air Room Air Oxygen Flow Rate 0 0 04/16/24 07:59 04/16/24 08:00 04/16/24 09:08 Temperature 98.1 F Pulse Rate 86 87 100 H Respiratory Rate 22 16 Blood Pressure 115/67 101/53 L Pulse Oximetry 95 98 Oxygen Delivery Method Room Air Oxygen Flow Rate 0 04/16/24 09:25 04/16/24 10:02 04/16/24 10:45 Temperature Pulse Rate 99 H 91 H Respiratory Rate Blood Pressure 101/52 L 114/70 Pulse Oximetry 97 Oxygen Delivery Method Room Air Oxygen Flow Rate 0 04/16/24 11:45 04/16/24 12:00 Temperature 97.5 F L 97.7 F Pulse Rate 86 85 Respiratory Rate 26 H 18 Blood Pressure 102/56 L 125/71 Pulse Oximetry 98 98 Oxygen Delivery Method Oxygen Flow Rate 0 0 Oxygen Delivery Method Room Air Oxygen Flow Rate 0 Narrative Exam Narrative: Gen: NAD, sitting comfortably in bed, eating lunch, speaking in complete but short sentences CV: irregularly irregular rhythm, normal rate Resp: crackles at end expiration bilaterally, wheezing increased from yesterday but air movement also improved Abd: soft, mild tenderness RUQ no worse with deeper palpation, no guarding/rebound/rigidity Ext: no edema Objective Labs 04/16/24 10:23 04/16/24 10:23 Labs: Laboratory Results - last 24 hr 04/15/24 04/16/24 04:25 10:23 WBC 16.5 H D RBC 4.69 Hgb 12.2 L Hct 37.4 L MCV 79.8 L MCH 25.9 L MCHC 32.5 RDW 17.6 H Plt Count 320 Neut % (Auto) 94.1 H Lymph % (Auto) 3.5 L [place] % (Auto) 2.2 L Eos % (Auto) 0.1 L Baso % (Auto) 0.1 Neut # (Auto) 46331 H Lymph # (Auto) 600 L [place] # (Auto) 400 Eos # (Auto) 0 Baso # (Auto) 0 Sodium 135 L 131 L Potassium 4.4 5.4 H Chloride 103 99 Carbon Dioxide 25 27 BUN 28 H 40 H Creatinine 0.83 1.06 Estimated GFR > 60 > 60 BUN/Creatinine Ratio 33.7 H 37.7 H Glucose 198 H 318 H D Lactate 3.6 H Calcium 8.7 8.8 Magnesium 2.0 Iron 55 TIBC 351 % Saturation 16 L Transferrin 260 Troponin I < 0.012 NT-Pro-B Natriuret Pep 1880 H [facility] Medical History Chronic heart failure with preserved ejection fraction History of COVID-19 (10/2020) Right inguinal hernia Peripheral edema Testosterone deficiency in male Pulmonary nodule Cardiomyopathy Essential hypertension Atrial fibrillation COPD (chronic obstructive pulmonary disease) Chronic fatigue (11/23/17) Rheumatoid arthritis involving multiple sites (07/28/17) Postherpetic neuralgia (05/20/17) Primary osteoarthritis of both knees (11/22/15) Mild persistent asthma without complication (11/22/15) Surgical History Hx of knee surgery (10/2015) Hx of colonoscopy (10/22/22) S/P cataract extraction Status post cholecystectomy Family History Father Asthma Mother Diabetes mellitus Social History marital status: household members: spouse lives independently: Yes occupational status: previously employed Smoking Status: Former smoker alcohol intake: current substance use type: does not use Assessment & Plan Assessment & Plan narrative: 84yo man with atrial fibrillation on chronic anticoagulation, COPD, CHF with preserved EF, anemia, and RA who presented with worsening SOB failing outpatient treatment for COPD exacerbation and atrial fibrillation with RVR. 1) COPD exacerbation: Minimal oxygen requirement in the ED, now on room air. Persistent wheezing, now with crackles at the bases as well. - Continue frequent nebulizers - Continue Solumedrol 80mg q8hr 2) Atrial fibrillation with RVR: Likely precipitated by COPD exacerbation. On Diltiazem drip at admission, now stable on PO medications. Does continue to have HR elevation with any movement/speaking. - Continue Eliquis - Continue Metoprolol 100mg XR (morning dose held due to borderline BP) - Diltiazem 120mg daily 3) Chest pain: EKG without changes and negative troponin. CXR showing atelectasis and low lung volumes, no discrete pneumonia, however WBC count is rising with significant left shift, pt feels breathing is not improving, and now with crackles at bases. Due to this, will treat for likely developing pneumonia. Pt is also quite anxious, potentially contributing to symptoms. - Echo ordered and result pending - Will trial Hydroxyzine for anxiety, if not effective can give Lorazepam - Start Ceftriaxone, Azithromycin - Will need to trend out lactate 4) Hyperglycemia: Pts blood sugar on labs 318. Likely precipitated by Solumedrol. - A1C ordered - ACHS blood sugars, low dose sliding scale coverage 5) CHF with preserved EF: BNP stable - Echo ordered and result pending 6) Anemia: Stable 7) RA: Stable - Continue to hold Methotrexate Code: Full DVT ppx: Eliquis as above Diet: Regular Quality VTE Deep Vein Thrombosis/Pulmonary Embolism Present on Admission: No
[2024-04-16 13:10] LABS: Hemoglobin A1C% w Est Avg Glu 5.7 % (4.0-6.0)
[2024-04-16] MEDS: cefTRIAXone 1,000 MG in SODIUM CHLORIDE 0.9% 100 ML 200 MG IV (13:15)
[2024-04-16 13:27] LABS: Lactate 2HR (Lactic Acid Rflx) 2.8 mmol/L (0.7-2.1)
[2024-04-16 13:58] LABS: Appearance Urine UA CLEAR; Bilirubin Urine UA NEGATIVE (NEGATIVE); Color Urine UA YELLOW; Glucose Urine UA NEGATIVE (Negative); Ketones Urine UA NEGATIVE (NEGATIVE); Leukocyte Esterase Urine UA NEGATIVE (NEGATIVE); Nitrite Urine UA NEGATIVE (Negative); Occult Blood Urine UA NEGATIVE (Negative); Protein Urine UA NEGATIVE (Negative); Specific Gravity Urine UA 1.015 (1.000-1.035); Urobilinogen Urine UA 0.2 E.U./dL (0.2)
[2024-04-16 14:12] LABS: Bacteria Urine None Seen; Culture Indicated Urine Cult Not Indicated; RBC Urine None Seen (0-5/HPF); Squamous Epithelial Cell Urine 1-5 /HPF (0-5/HPF); Urine Volume 10mL (spun); WBC Urine None Seen (0-5/HPF)
[2024-04-16] MEDS: AZITHROMYCIN 500 MG in DEXTROSE 5% IN WATER 250 ML 250 MG IV (14:55)
[2024-04-16] MEDS: INSULIN LISPRO 100 UNIT/ML 3ML VIAL SUBCUT ×2 (17:21→20:52)
[2024-04-17] VITALS (12 sets, daily range): BP systolic 100–144; BP diastolic 62–82; PULSE 81–112; RESP 17–20; TEMP 36.2–37; O2SAT 94–99
[2024-04-17] MEDS: methylPREDNISolone 125 MG/2 ML VIAL 80 MG IV ×4 (00:57→23:59)
[2024-04-17 04:50] LABS: Add Manual Diff / Slide Review NO; Basophils Absolute Auto 0 /uL (0-100); Basophils Percent Auto 0.1 % (0-2); Eosinophils Absolute Auto 0 /uL (0-450); Hematocrit 36.2 % (41-53); Hemoglobin 11.8 g/dL (13.5-17.5); Lymphocytes Absolute Auto 500 /uL (1100-4500); Lymphocytes Percent Auto 2.9 % (25-40); Mean Corpuscular HGB Conc 32.6 % (30-36); Mean Corpuscular Hemoglobin 25.5 PG (26-34); Mean Corpuscular Volume 78.4 fL (80-100); Monocytes Absolute Auto 400 /uL (0-900); Monocytes Percent Auto 2.3 % (3-14); Neutrophils Absolute Auto 15500 /uL (1500-7000); Neutrophils Percent Auto 94.7 % (50-75); Platelet Count 307 X10^3/uL (150-400); Red Blood Cell Count 4.62 X10^6/uL (4.5-5.9); Red Cell Distribution Width 17.2 % (11.6-14.8); White Blood Cell Count 16.4 X10^3/uL (4.5-11.0)
[2024-04-17 05:06] LABS: Alanine Aminotransferase 190 IU/L (<50); Albumin 3.4 g/dL (3.5-5.0); Albumin Globulin Ratio 1.4 (1.0-2.8); Alkaline Phosphatase 88 U/L (38-126); Aspartate Aminotransferase 119 IU/L (17-59); BUN Creatinine Ratio 40.2 (6-22); Bilirubin Total 0.9 mg/dL (0.2-1.3); Blood Urea Nitrogen 47 mg/dL (9-20); Calcium 8.4 mg/dL (8.4-10.2); Carbon Dioxide 27 mmol/L (22-32); Chloride 101 mmol/L (98-107); Estimated Glomerular Filt Rate > 60 mL/min (>60); Globulin 2.5 g/dL (1.7-4.1); Glucose 226 mg/dL (80-110); HEMOLYSIS < 15 (0-50); Lactate (Lactic Acid) 2.1 mmol/L (0.7-2.1); Magnesium 2.1 mg/dL (1.6-2.3); Potassium 4.7 mmol/L (3.4-5.1); Sodium 132 mmol/L (137-145); Total Protein 5.9 g/dL (6.3-8.2)
[2024-04-17 06:23] LABS: Reflexed Lactate in 2 Hours Y
[2024-04-17] MEDS: PANTOPRAZOLE DR 40 MG TABLET PO (06:31)
--- NOTE | 2024-04-17 07:43 | P.PN_ITS ---
Subjective Subjective Date Patient Seen: 04/17/24 Time Patient Seen: 07:44 Interval history: Patient's breathing is improved but only minimally so Atrial fibrillation rate control his slightly better off of IV diltiazem but still tachycardic with any little activity Chest symptoms yesterday but troponin and EKG unremarkable. Echocardiogram shows essentially no change other than the atrial fibrillation which was not present on previous exam, specifically no wall motion abnormalities and normal left ventricular function Blood sugars also elevated, likely secondary to corticosteroids. Hemoglobin A1c was still normal when checked This morning, patient is far better than when I saw him on Wednesday at time of his admission. He was able to speak in full sentences. He says his anxiety is much better he acknowledges he felt like he was coming to his end yesterday. No new complaints or issues Exam Vital Signs (past 8 hours): - 04/17/24 00:00 04/17/24 04:19 Temperature 97.8 F 97.6 F Pulse Rate 112 H 96 H Respiratory Rate 17 17 Blood Pressure 100/62 110/72 Pulse Oximetry 95 98 Oxygen Flow Rate 0 0 Oxygen Delivery Method Room Air Oxygen Flow Rate 0 Objective Labs 04/17/24 04:20 04/17/24 04:20 Labs: Laboratory Results - last 24 hr 04/16/24 04/16/24 04/16/24 10:23 12:45 13:45 WBC 16.5 H D RBC 4.69 Hgb 12.2 L Hct 37.4 L MCV 79.8 L MCH 25.9 L MCHC 32.5 RDW 17.6 H Plt Count 320 Neut % (Auto) 94.1 H Lymph % (Auto) 3.5 L [place] % (Auto) 2.2 L Eos % (Auto) 0.1 L Baso % (Auto) 0.1 Neut # (Auto) 43101 H Lymph # (Auto) 600 L [place] # (Auto) 400 Eos # (Auto) 0 Baso # (Auto) 0 Sodium 131 L Potassium 5.4 H Chloride 99 Carbon Dioxide 27 BUN 40 H Creatinine 1.06 Estimated GFR > 60 BUN/Creatinine Ratio 37.7 H Glucose 318 H D Hemoglobin A1c 5.7 Lactate 3.6 H 2.8 H Calcium 8.8 Magnesium 2.0 Total Bilirubin AST ALT Alkaline Phosphatase Troponin I < 0.012 NT-Pro-B Natriuret Pep 1880 H Total Protein Albumin Globulin Albumin/Globulin Ratio Urine Color Yellow Urine Appearance Clear Urine pH 5.0 Ur Specific [place] 1.015 Urine Protein Negative Urine Glucose (UA) Negative Urine Ketones Negative Urine Occult Blood Negative Urine Nitrate Negative Urine Bilirubin Negative Urine Urobilinogen 0.2 Ur Leukocyte Esterase Negative Urine RBC None seen Urine WBC None seen Ur Squamous Epith Cells 1-5 /hpf Urine Bacteria None seen Ur Culture Indicated? Cult not indicated Vol Urine Centrifuged 10ml (spun) 04/17/24 04:20 WBC 16.4 H RBC 4.62 Hgb 11.8 L Hct 36.2 L MCV 78.4 L MCH 25.5 L MCHC 32.6 RDW 17.2 H Plt Count 307 Neut % (Auto) 94.7 H Lymph % (Auto) 2.9 L [place] % (Auto) 2.3 L Eos % (Auto) 0.0 L Baso % (Auto) 0.1 Neut # (Auto) 39186 H Lymph # (Auto) 500 L [place] # (Auto) 400 Eos # (Auto) 0 Baso # (Auto) 0 Sodium 132 L Potassium 4.7 Chloride 101 Carbon Dioxide 27 BUN 47 H Creatinine 1.17 Estimated GFR > 60 BUN/Creatinine Ratio 40.2 H Glucose 226 H Hemoglobin A1c Lactate 2.1 Calcium 8.4 Magnesium 2.1 Total Bilirubin 0.9 AST 119 H ALT 190 H Alkaline Phosphatase 88 Troponin I NT-Pro-B Natriuret Pep Total Protein 5.9 L Albumin 3.4 L Globulin 2.5 Albumin/Globulin Ratio 1.4 Urine Color Urine Appearance Urine pH Ur Specific [place] Urine Protein Urine Glucose (UA) Urine Ketones Urine Occult Blood Urine Nitrate Urine Bilirubin Urine Urobilinogen Ur Leukocyte Esterase Urine RBC Urine WBC Ur Squamous Epith Cells Urine Bacteria Ur Culture Indicated? Vol Urine Centrifuged [facility] Medical History Chronic heart failure with preserved ejection fraction History of COVID-19 (10/2020) Right inguinal hernia Peripheral edema Testosterone deficiency in male Pulmonary nodule Cardiomyopathy Essential hypertension Atrial fibrillation COPD (chronic obstructive pulmonary disease) Chronic fatigue (11/23/17) Rheumatoid arthritis involving multiple sites (07/28/17) Postherpetic neuralgia (05/20/17) Primary osteoarthritis of both knees (11/22/15) Mild persistent asthma without complication (11/22/15) Surgical History Hx of knee surgery (10/2015) Hx of colonoscopy (10/22/22) S/P cataract extraction Status post cholecystectomy Family History Father Asthma Mother Diabetes mellitus Social History marital status: household members: spouse lives independently: Yes occupational status: previously employed Smoking Status: Former smoker alcohol intake: current substance use type: does not use Assessment & Plan Assessment & Plan narrative: 1. COPD exacerbation-continue with IV steroids nebulizers etcetera. I would also continue with the IV antibiotics. Lactate was elevated now normalized. I think he needs everything we can come up with to try and get his exacerbation of his lung disease to improve. Hopefully he merely needs more time. His improvement over the last 24-36 hours would seem to suggest he has on the right path. I doubt he needs anything change at this time, could consider increasing steroids if not improving but would rather be decreasing steroids if he continues to improve. 2. Atrial fibrillation-I again believe that his AFib will be better controlled once his lung disease is better controlled but for now I think he would benefit from more immediate attempts at controlling his rate. I am going to add digoxin to the other meds which are limited in their effectiveness because of hypotension 3. Chest pain-does not at this point appear to be ischemic in origin. I think controlling his lung disease and atrial fibrillation should help with his chest symptoms. As an outpatient would possibly benefit from evaluation for coronary artery disease 4. Hyperglycemia-continue with insulin coverage. Hopefully he is improving enough that we can begin to decrease his corticosteroids in the near term future (rather than increase because of failure to improve). Carbohydrate consistent diet makes sense as well. 5. Chronic congestive heart failure-appears to be euvolemic at this time. No evidence of volume overload. Echocardiogram reassuring that there has no new changes left ventricular function Quality VTE Deep Vein Thrombosis/Pulmonary Embolism Present on Admission: No I[facility] PROFEE Charge codes Subsequent inpatient/observation care: [id number]
[2024-04-17] MEDS: INSULIN LISPRO 100 UNIT/ML 3ML VIAL SUBCUT ×4 (08:49→21:02)
[2024-04-17] MEDS: DIGOXIN 500 MCG/2 ML AMPUL IV (08:49)
[2024-04-17] MEDS: POTASSIUM CHLORIDE 20 MEQ TAB PO (08:50)
[2024-04-17] MEDS: FUROSEMIDE 40 MG TABLET PO (08:50)
[2024-04-17] MEDS: dilTIAZem CD 120 MG CAP PO (08:50)
[2024-04-17] MEDS: APIXABAN 5 MG TABLET PO ×2 (08:50→21:04)
[2024-04-17] MEDS: MAGNESIUM OXIDE 400 MG TABLET PO ×2 (08:51→21:04)
[2024-04-17] MEDS: ALBUTEROL/IPRATROPIUM 3 ML AMPUL INH ×4 (09:17→16:12)
--- NOTE | 2024-04-17 10:54 | CM.DPC ---
DCP Cont: Per MD, pt making some progress but remains on steroids and IV-Abx and breathing treatments and likely might need another couple of days before stable for discharge. SW confirmed with RN that pt has been independent with mobility in room and no ambulation concerns and no need for PT eval. Supportive family has been bedside visiting and pt confirms his preference is home with family when stable for discharge. DMITRI Hansen
[2024-04-17] MEDS: hydrOXYzine HCL 25 MG TABLET PO (13:28)
[2024-04-17] MEDS: cefTRIAXone 1,000 MG in SODIUM CHLORIDE 0.9% 100 ML 200 MG IV (15:22)
[2024-04-17] MEDS: AZITHROMYCIN 500 MG in DEXTROSE 5% IN WATER 250 ML 250 MG IV (16:19)
[2024-04-17] MEDS: DIGOXIN 0.125 MG TABLET 0.25 MG PO (17:14)
[2024-04-18] VITALS (10 sets, daily range): BP systolic 120–139; BP diastolic 66–83; PULSE 61–98; RESP 17–21; TEMP 35.9–36.5; O2SAT 94–97
[2024-04-18] MEDS: PANTOPRAZOLE DR 40 MG TABLET PO (06:02)
--- NOTE | 2024-04-18 07:24 | P.PN_ITS ---
Subjective Subjective Date Patient Seen: 04/18/24 Time Patient Seen: :24 Interval history: Essentially unremarkable day yesterday. Patient appears clinically stable to maybe slightly improved Heart rate improved overall No new complaints. Anxiety seems to be better controlled. Breathing clearly much better. Exam Vital Signs (past 8 hours): - 04/17/24 23:48 04/18/24 04:00 Temperature 97.1 F L 97.2 F L Pulse Rate 81 98 H Respiratory Rate 18 17 Blood Pressure 122/64 127/74 Pulse Oximetry 95 97 Oxygen Flow Rate 0 0 Oxygen Delivery Method Room Air Oxygen Flow Rate 0 Objective Labs 04/17/24 04:20 04/17/24 04:20 [facility] Medical History Chronic heart failure with preserved ejection fraction History of COVID-19 (10/2020) Right inguinal hernia Peripheral edema Testosterone deficiency in male Pulmonary nodule Cardiomyopathy Essential hypertension Atrial fibrillation COPD (chronic obstructive pulmonary disease) Chronic fatigue (11/23/17) Rheumatoid arthritis involving multiple sites (07/28/17) Postherpetic neuralgia (05/20/17) Primary osteoarthritis of both knees (11/22/15) Mild persistent asthma without complication (11/22/15) Surgical History Hx of knee surgery (10/2015) Hx of colonoscopy (10/22/22) S/P cataract extraction Status post cholecystectomy Family History Father Asthma Mother Diabetes mellitus Social History marital status: household members: spouse lives independently: Yes occupational status: previously employed Smoking Status: Former smoker alcohol intake: current substance use type: does not use Assessment & Plan Assessment & Plan narrative: 1. COPD exacerbation-continue with current treatments including the IV steroids nebulizers and the IV antibiotics. I am going to reduce his steroid dose today 2. Atrial fibrillation-continue with current meds including the digoxin. Plan to check a digoxin level tomorrow morning. Overall rate control is slightly improved unsure whether due to treatment of his underlying lung disease or the digoxin or combination of both. 3. Chest pain-does not at this point appear to be ischemic in origin. I think controlling his lung disease and atrial fibrillation should help with his chest symptoms. As an outpatient would possibly benefit from evaluation for coronary artery disease 4. Hyperglycemia-continue with insulin coverage. Numbers slightly better controlled with higher dose insulin. Will reduce his IV steroids today in effort to help his blood sugar mostly. Respiratory status is definitely improved 5. Chronic congestive heart failure-appears to be euvolemic at this time. No evidence of volume overload. Echocardiogram reassuring that there has no new changes left ventricular function 6. Anxiety-continue current medications which seem to have been helpful as well as treating his lung disease which is clearly been helpful as well. 7. Activity-patient I think would benefit, from a Pulmonary and mental health standpoint, from being up and around and will formally consult Physical therapy as well. Quality VTE Deep Vein Thrombosis/Pulmonary Embolism Present on Admission: No [facility] PROFEE Charge codes Subsequent inpatient/observation care: [id number]
[2024-04-18] MEDS: ALBUTEROL/IPRATROPIUM 3 ML AMPUL INH ×3 (07:26→15:20)
[2024-04-18] MEDS: INSULIN LISPRO 100 UNIT/ML 3ML VIAL SUBCUT ×3 (07:45→17:09)
[2024-04-18] MEDS: dilTIAZem CD 120 MG CAP PO (08:50)
[2024-04-18] MEDS: APIXABAN 5 MG TABLET PO ×2 (08:50→21:01)
[2024-04-18] MEDS: LOSARTAN 25 MG TABLET PO (08:50)
[2024-04-18] MEDS: METOPROLOL ER 50 MG TABLET 100 MG PO (08:50)
[2024-04-18] MEDS: MAGNESIUM OXIDE 400 MG TABLET PO ×2 (08:50→21:00)
[2024-04-18] MEDS: POTASSIUM CHLORIDE 20 MEQ TAB PO (08:50)
[2024-04-18] MEDS: FUROSEMIDE 40 MG TABLET PO (08:50)
--- NOTE | 2024-04-18 09:59 | PT.IIE ---
Current Diagnoses Chronic obstructive pulmonary disease with (acute) exacerbation (04/14/24) Surgical History (Last Reviewed 04/18/24 @ 08:12 by Mitchell Buchanan MD) Hx of colonoscopy (10/22/22) Hx of knee surgery (10/2015) S/P cataract extraction Status post cholecystectomy Medical History (Last Reviewed 04/18/24 @ 08:12 by Mitchell Buchanan MD) Atrial fibrillation Cardiomyopathy Chronic fatigue (11/23/17) Chronic heart failure with preserved ejection fraction COPD (chronic obstructive pulmonary disease) Essential hypertension History of COVID-19 (10/2020) Mild persistent asthma without complication (11/22/15) Peripheral edema Postherpetic neuralgia (05/20/17) Primary osteoarthritis of both knees (11/22/15) Pulmonary nodule Rheumatoid arthritis involving multiple sites (07/28/17) Right inguinal hernia Testosterone deficiency in male Physical Therapy Inpatient Evaluation/Re-Eval M1 PT/OT-IP Prior Functional Status Start: 04/18/24 13:03 Freq: NEEDED Status: Active Protocol: Document 04/18/24 09:59 AB (Rec: 04/18/24 13:17 AB [id number]) Medical Review Prior Functional Status Medical History Reviewed Yes Communication able to make needs known Mobility and Gait pt stated that he was independent with all mobilities and ambulation without AD Social History Household Members spouse Living Arrangements House Number of Floors (Floors) Two Floors Number of Stairs To Enter/Railing? 6 steps without rails to bedroom level but if needed, pt can stay on main level of the house has 6 platform steps to enter to main level of the house Home Environment High Toilet,Tub/Shower,Built- In Shower Seat Home Equipment Hand Held Shower,Grab Bars Near Toilet,Grab Bars In Shower Additional Social History Comment pt stated that spouse has limited abilities to assist him due to her own medical issues M2 PT-IP Current Condition Start: 04/18/24 13:03 Freq: NEEDED Status: Active Protocol: Document 04/18/24 09:59 AB (Rec: 04/18/24 13:17 AB [id number]) Physical Therapy Current Condition Current Condition Evaluation Date 04/18/24 Treatment Diagnosis A-fib; COPD exacerbation; difficulty in walking Onset Date 04/14/24 M3 PT-IP Subjective Start: 04/18/24 13:03 Freq: NEEDED Status: Active Protocol: Document 04/18/24 09:59 AB (Rec: 04/18/24 13:17 AB [id number]) Subjective Physical Therapy Visit Type Type Initial Evaluation Visit Start Time 09:59 Visit Stop Time 10:30 Number of FERMENTER CHAMPAGNE Visits 0 Physical Therapy Visit Comments Patient Comments agreeable to do PT M4 PT-IP Mobility and Gait Start: 04/18/24 13:03 Freq: NEEDED Status: Active Protocol: Document 04/18/24 09:59 AB (Rec: 04/18/24 13:17 AB [id number]) PT-Bed Mobility Assessment Supine to Sit Supine to Sit Independent Sit to Supine Sit to Supine Independent PT-Transfer Assessment Sit to and From Stand Sit to and from Stand Standby Assistance Equipment Transfer Assistive Device Gait Belt,Front Wheeled Walker Orthotic/Prosthetic Devices or Brace: No Transfers Transfer Destination Bed,Chair Transfer Technique ambulated Transfer Ability Level of Assist Standby Assistance,Contact Guard Assistance,Minimal Assistance,1 Person Assistance ,Use of Upper Extremities Comments Mobility Comments pt sitting on the chair. agreeable to do PT. obtained PLOF and home set up. BP in sittin/77. O2 sat at RA : 96-100% HR: 84-104 pt completed sit to stand from chair CGA and ambulated in room using FWW SBA to CGA ~ 30 ft. pt sat on EOB and demonstrated sit<>supine mod I . pt required frequent rest breaks in between tasks with ( +) SOB. O2 sat 94-96% at RA. cued for PLB. pt has A-fib. pt step transfer to chair using FWW SBA. Assessed ambulation without AD. pt completed ~ 25 ft in room without AD CGA to min A and cues. pt presents with an antalgic gait and slower pace. pt sat back on chair. positioned pt on the chair. call light and table placed within reach. informed pt regarding use of FWW at this time and pt agreed . pt stated that he will let his son/daughter borrow one from the senior center/ [facility]. pt declined to do stair climbing training today. Gait Assessment Gait Gait Assistance Required: Standby Assistance,Contact Guard Assist,Minimum Assistance Distance (Feet) 30 Able to Maintain Weight Bearing Status Yes During Gait Assistive Devices Assistive Device None,Gait Belt,Front Wheeled Walker Orthotic/Prosthetic Devices or Brace: No Gait Deviations General Gait Pattern Antalgic,Decreased Stride Length,Decreased Feet Clearance,Step-to Gait Factors Limiting Gait Function Factors Limiting Gait Function Decreased Activity Tolerance, Decreased Sensation,Decreased Strength,Limited Range of Motion,Poor Balance,Poor Safety Awareness,Respiratory Distress PT-Balance Assessment Sitting Balance and Reactions Static Sitting Balance Ability Normal Dynamic Sitting Balance Ability Good Standing Balance and Reactions Static Standing Balance Ability Good Dynamic Standing Balance Ability Fair Device Used FWW M5 PT-IP Objective Assessments Start: 04/18/24 13:03 Freq: NEEDED Status: Active Protocol: Document 04/18/24 09:59 AB (Rec: 04/18/24 13:17 AB [id number]) Orientation Orientation/Cognition Level of Alertness Alert Orientation Name,Place,Situation Language Function Ability Hard of Hearing Safety Awareness Decreased Safety Awareness Memory Description No Deficits Noted Gross Range of Motion Lower Extremity ROM Assessment Within Functional Limits Strength Lower Extremity Strength Assessment Left Impaired Hip 3+/5 Knee 4-/5 Sensation Assessment Sensation Sensation Description Numbness Comments Sensation Comments pt reported B LE neuropathies from the knees to the feet Muscle Tone Muscle Tone WNL Yes M6 PT-IP Treatment Start: 04/18/24 13:03 Freq: NEEDED Status: Active Protocol: Document 04/18/24 09:59 AB (Rec: 04/18/24 13:17 AB [id number]) Physical Therapy Treatment Education Education Provided Safety M7 PT-IP Assessment and Plan Start: 04/18/24 13:03 Freq: NEEDED Status: Active Protocol: Document 04/18/24 09:59 AB (Rec: 04/18/24 13:17 AB [id number]) PT Summary Assessment and Plan Potential Rehabilitation Potential Fair Status of Condition at Evaluation Evolving Summary Impairments Pain,ROM,Strength,Balance, Coordination,Sensation,Tone, Cognition,Bed Mobility, Transfers,Gait,Activity Tolerance Assessment Summary pt is an 84 y/o M who is admitted in the hospital for a -fib and COPD exacerbation. pt requiring SBA to CGA with mobility using FWW and CGa to min A without AD. recommending use of FWW at this time and pt agreed. will continue to assess progress. Goals Transfer Goal Independent,Front Wheeled Walker Gait Goal Independent,Front Wheel Walker Gait Distance 200 Other Goals improve transfers and ambulation using LRAD/without AD ~ 300 ft mod I up/down 6 platform steps using FWW SBA + 6 steps without AD SBA. Days to Meet Goals 10 Frequency of Treatment Frequency Of Treatment Once a Day Treatment Plan Physical Therapy Treatment Plan Bed Mobility Training,Transfer Training,Gait Training, Therapeutic Exercise,Balance Retraining,Discharge Planning, Hot or Cold Pack,Neuromuscular Re-ed,Coordination Retraining Other Recommendations and Next Treatment stair climbing training Focus Precautions Other Precautions O2 sat, HR Recommendations To Nursing Amount of Assist Needed 1 Person Assist Discharge Recommendations PT Discharge Recommendations Home with Assistance, Outpatient PT Other Discharge Recommendations outpt cardiopulmonary rehab Transportation Needs at Discharge Private Vehicle
[2024-04-18] MEDS: AZITHROMYCIN 500 MG in DEXTROSE 5% IN WATER 250 ML 250 MG IV (13:36)
[2024-04-18] MEDS: cefTRIAXone 1,000 MG in SODIUM CHLORIDE 0.9% 100 ML 200 MG IV (16:21)
[2024-04-18] MEDS: FUROSEMIDE 40 MG/4 ML VIAL IV (16:21)
[2024-04-18] MEDS: DIGOXIN 0.125 MG TABLET 0.25 MG PO (17:19)
[2024-04-19] VITALS (20 sets, daily range): BP systolic 96–136; BP diastolic 55–80; PULSE 69–87; RESP 17–19; TEMP 35.6–36.6; O2SAT 93–97
[2024-04-19] MEDS: hydrOXYzine HCL 25 MG TABLET PO (01:26)
[2024-04-19 05:54] LABS: BUN Creatinine Ratio 48.1 (6-22); Blood Urea Nitrogen 50 mg/dL (9-20); Carbon Dioxide 28 mmol/L (22-32); Chloride 100 mmol/L (98-107); Estimated Glomerular Filt Rate > 60 mL/min (>60); Glucose 183 mg/dL (80-110); HEMOLYSIS < 15 (0-50); Magnesium 2.4 mg/dL (1.6-2.3); Potassium 3.9 mmol/L (3.4-5.1); Sodium 133 mmol/L (137-145)
[2024-04-19] MEDS: PANTOPRAZOLE DR 40 MG TABLET PO (06:05)
[2024-04-19 06:14] LABS: Digoxin 0.6 ng/mL (0.8-2.0)
--- NOTE | 2024-04-19 07:51 | PM.PN.1 ---
Subjective Subjective Date Patient Seen: 04/19/24 Time Patient Seen: 07:51 Interval history: Patient is not doing as well over the last 24 hours as he was previously. Yesterday morning he was quite talkative did not seem to have any difficulty breathing. Yesterday afternoon he had increased wheezing seem more congested coarse airway sounds much more prominent present and he did not feel as well. Anxiety certainly a component as when his breathing gets worse he tends to get more anxious which sort of feeds back on the breathing sense etcetera He has no where near as ill as he was upon admission but not quite as good as he was I think Wednesday or so. No new complaints or issues Per nursing staff IV Lasix seem to not only produce a good volume of urine output but seem to make his work of breathing easier/better Overall heart rate much improved very rarely over 100. Labs this morning unremarkable potassium 3.9, digoxin level low at 0.6 Exam Vital Signs (past 8 hours): - 04/19/24 00:00 04/19/24 04:00 Temperature 96.1 F L 97.2 F L Pulse Rate 69 78 Respiratory Rate 19 19 Blood Pressure 120/66 136/80 Pulse Oximetry 96 94 Oxygen Flow Rate 0 0 Oxygen Delivery Method Room Air Oxygen Flow Rate 0 Narrative Exam Narrative: Lungs-coarse airway sounds with very prolonged end expiratory wheezing, airway sounds clear to some extent with coughing Objective Labs 04/17/24 04:20 04/19/24 04:15 Labs: Laboratory Results - last 24 hr 04/19/24 04:15 Sodium 133 L Potassium 3.9 Chloride 100 Carbon Dioxide 28 BUN 50 H Creatinine 1.04 Estimated GFR > 60 BUN/Creatinine Ratio 48.1 H Glucose 183 H Calcium 8.0 L Magnesium 2.4 H Digoxin 0.6 L [facility] Medical History Chronic heart failure with preserved ejection fraction History of COVID-19 (10/2020) Right inguinal hernia Peripheral edema Testosterone deficiency in male Pulmonary nodule Cardiomyopathy Essential hypertension Atrial fibrillation COPD (chronic obstructive pulmonary disease) Chronic fatigue (11/23/17) Rheumatoid arthritis involving multiple sites (07/28/17) Postherpetic neuralgia (05/20/17) Primary osteoarthritis of both knees (11/22/15) Mild persistent asthma without complication (11/22/15) Surgical History Hx of knee surgery (10/2015) Hx of colonoscopy (10/22/22) S/P cataract extraction Status post cholecystectomy Family History Father Asthma Mother Diabetes mellitus Social History marital status: household members: spouse lives independently: Yes occupational status: previously employed Smoking Status: Former smoker alcohol intake: current substance use type: does not use Assessment & Plan Assessment & Plan narrative: 1. COPD exacerbation-continue with current treatments including the IV steroids nebulizers and the IV antibiotics. I considered increasing his steroid dose again as his exam really is consistent with COPD but I think I will leave well enough alone and focused perhaps on a bit more aggressive diuresis, given the observations from nursing staff yesterday 2. Atrial fibrillation-continue with current meds including the digoxin. Rate control much improved. I think that has a good sign that we are making his lung disease better as well. 3. Chest pain/pressure-talking more with patient and him experiencing this more really does seem to be a pressure sense related to his difficulty breathing and certainly does not sound ischemic in nature to me at this point 4. Hyperglycemia-continue with insulin coverage. Numbers slightly better controlled with higher dose insulin. Blood sugars maybe minimally improved with lower dose steroids. Continue to monitor 5. Chronic congestive heart failure-as above seem like patient had a clinical improvement after parental Lasix was given. Will continue with the parental Lasix and overall increase his daily dose slightly. I will also increase his potassium to cover his borderline low potassium and plan to rechecked tomorrow. 6. Anxiety-continue current medications which seem to have been helpful as well as treating his lung disease which is clearly been helpful as well. 7. Activity-patient I think would benefit, from a Pulmonary and mental health standpoint, from being up and around and will formally consult Physical therapy as well. Quality VTE Deep Vein Thrombosis/Pulmonary Embolism Present on Admission: No IH PROFEE Charge codes Subsequent inpatient/observation care: [id number]
[2024-04-19] MEDS: INSULIN LISPRO 100 UNIT/ML 3ML VIAL SUBCUT ×4 (08:14→21:00)
[2024-04-19] MEDS: POTASSIUM CHLORIDE 20 MEQ TAB PO ×2 (08:15→16:49)
[2024-04-19] MEDS: METOPROLOL ER 50 MG TABLET 100 MG PO (08:47)
[2024-04-19] MEDS: LOSARTAN 25 MG TABLET PO (08:47)
[2024-04-19] MEDS: FUROSEMIDE 40 MG/4 ML VIAL IV (08:47)
[2024-04-19] MEDS: MAGNESIUM OXIDE 400 MG TABLET PO ×2 (08:47→20:53)
[2024-04-19] MEDS: APIXABAN 5 MG TABLET PO ×2 (08:47→20:53)
[2024-04-19] MEDS: dilTIAZem CD 120 MG CAP PO (08:48)
--- NOTE | 2024-04-19 12:27 | PT-IP ANOTE ---
checked on pt today and refused PT. stated that he is not feeling well. asked pt if PT can checked back later and stated that he does not want PT for the whole day.
--- NOTE | 2024-04-19 14:04 | CM.DPC ---
DCP Cont. Reviewed EMR and team rounds for status updates. Pt has reportedly not improved to the level of medical stability, and will likely need another 1-2 days prior to being cleared for d/c. Will follow closely for any d/c assistance needs.
--- NOTE | 2024-04-19 14:35 | DIET.CONS2 ---
Dietary Inpatient Consultation Note Admission Date: 04/14/2024 16:02 84 y M admitted for Atrial fibrillation/COPD exacerbation. Nutrition screened for LOS day 5. Chart reviewed. Adequate po intakes, no weight loss noted. A1c of 5.7 on 04/16/24. BG ranges from lower 200s to upper 100s last 24 hours. Noted steroids. No nutritional interventions needed at this time. Will continue to monitor BG. F/u prn. Diet: 04/17/24 Breakfast Carbohydrate Consistent Diet Diet Modifications: Carbohydrate level: Large (4 CHO) Bedtime snack: No Reflex DM orders: No Food Texture: Level 7 - Regular Liquid Consistency: Level 0 - Thin Nutrition Percent Meal Consumed 100% 04/19/24 08:59 Percent Meal Consumed 100% 04/18/24 18:00 Percent Meal Consumed 100% 04/18/24 13:30 Percent Meal Consumed 100% 04/18/24 08:35 Percent Meal Consumed 100% 04/17/24 18:00 Electronically Signed by: Monica Choudhury 04/19/24 14:35 Clinical Dietitian [address] [id number]
[2024-04-19] MEDS: ALBUTEROL/IPRATROPIUM 3 ML AMPUL INH ×2 (15:22→19:34)
[2024-04-19] MEDS: cefTRIAXone 1,000 MG in SODIUM CHLORIDE 0.9% 100 ML 200 MG IV (15:25)
[2024-04-19] MEDS: DIGOXIN 0.125 MG TABLET 0.25 MG PO (16:48)
[2024-04-19] MEDS: FUROSEMIDE 20 MG/2 ML VIAL IV (20:53)
[2024-04-20] VITALS (19 sets, daily range): BP systolic 104–131; BP diastolic 59–88; PULSE 63–86; RESP 17–22; TEMP 35.6–36.5; O2SAT 88–98
[2024-04-20 05:45] LABS: BUN Creatinine Ratio 48.2 (6-22); Blood Urea Nitrogen 55 mg/dL (9-20); Calcium 7.9 mg/dL (8.4-10.2); Carbon Dioxide 29 mmol/L (22-32); Chloride 98 mmol/L (98-107); Estimated Glomerular Filt Rate > 60 mL/min (>60); Glucose 188 mg/dL (80-110); HEMOLYSIS < 15 (0-50); Magnesium 2.6 mg/dL (1.6-2.3); Potassium 4.9 mmol/L (3.4-5.1); Sodium 132 mmol/L (137-145)
[2024-04-20] MEDS: PANTOPRAZOLE DR 40 MG TABLET PO (06:07)
[2024-04-20] MEDS: ALBUTEROL/IPRATROPIUM 3 ML AMPUL INH ×4 (08:09→19:26)
--- NOTE | 2024-04-20 08:10 | P.PN_ITS ---
Subjective Subjective Date Patient Seen: 04/20/24 Time Patient Seen: 08:11 Interval history: Patient reports feeling better this morning. He declined physical therapy yesterday was feeling too fatigued after shower etcetera. Also was declining to do some of the scheduled nebulizer treatments. Overall though feels better. Less anxiety slept better Heart rate definitely much improved in the 70s and 80s still in atrial fibrillation on telemetry. Oxygen saturation remains nice and normal 94+% Lab work this morning shows electrolytes okay although magnesium just a wee bit elevated Blood sugars still 170-200+ or so, despite having decrease the IV steroids Exam Vital Signs (past 8 hours): - 04/20/24 04:00 04/20/24 04:08 04/20/24 04:09 Temperature 96.1 F L Pulse Rate 74 63 Respiratory Rate 18 Blood Pressure 113/65 113/65 Pulse Oximetry 96 95 Oxygen Delivery Method Oxygen Flow Rate 0 04/20/24 04:09 04/20/24 07:00 04/20/24 07:00 Temperature Pulse Rate 74 Respiratory Rate Blood Pressure Pulse Oximetry 97 94 Oxygen Delivery Method Room Air Room Air Oxygen Flow Rate 0 04/20/24 07:36 04/20/24 07:36 04/20/24 08:00 Temperature 97.5 F L Pulse Rate 78 Respiratory Rate Blood Pressure 120/74 Pulse Oximetry 94 Oxygen Delivery Method Oxygen Flow Rate Oxygen Delivery Method Room Air Oxygen Flow Rate 0 Narrative Exam Narrative: Lungs-prolonged expiratory phase with wheezing, no crackles, minimally improved but definitely improved over yesterday Objective Labs 04/17/24 04:20 04/20/24 04:15 Labs: Laboratory Results - last 24 hr 04/20/24 04:15 Sodium 132 L Potassium 4.9 Chloride 98 Carbon Dioxide 29 BUN 55 H Creatinine 1.14 Estimated GFR > 60 BUN/Creatinine Ratio 48.2 H Glucose 188 H Calcium 7.9 L Magnesium 2.6 H [facility] Medical History Chronic heart failure with preserved ejection fraction History of COVID-19 (10/2020) Right inguinal hernia Peripheral edema Testosterone deficiency in male Pulmonary nodule Cardiomyopathy Essential hypertension Atrial fibrillation COPD (chronic obstructive pulmonary disease) Chronic fatigue (11/23/17) Rheumatoid arthritis involving multiple sites (07/28/17) Postherpetic neuralgia (05/20/17) Primary osteoarthritis of both knees (11/22/15) Mild persistent asthma without complication (11/22/15) Surgical History Hx of knee surgery (10/2015) Hx of colonoscopy (10/22/22) S/P cataract extraction Status post cholecystectomy Family History Father Asthma Mother Diabetes mellitus Social History marital status: household members: spouse lives independently: Yes occupational status: previously employed Smoking Status: Former smoker alcohol intake: current substance use type: does not use Assessment & Plan Assessment & Plan narrative: 1. COPD exacerbation-continue with current treatments including the IV steroids nebulizers and the IV antibiotics. No reason to make any changes today. Patient encouraged to take the nebulizer treatments on a scheduled basis and he says he will. Patient also encouraged to increase activity which I think will help with his lung disease as well. 2. Atrial fibrillation-continue with current meds including the digoxin. Rate control much improved. I think that has a good sign that we are making his lung disease better as well. 3. Chest pain/pressure-talking more with patient and him experiencing this more really does seem to be a pressure sense related to his difficulty breathing and certainly does not sound ischemic in nature to me at this point 4. Hyperglycemia-continue with insulin coverage. Will increase insulin coverage given the persistence of his hyperglycemia 5. Chronic congestive heart failure-continue with the parental Lasix. Electrolytes okay today. Back off on magnesium oral replacement. Plan to recheck labs in 48 hours 6. Anxiety-continue current medications which seem to have been helpful as well as treating his lung disease which is clearly been helpful as well. 7. Activity-patient I think would benefit, from a Pulmonary and mental health standpoint, from being up and around and he was admonished to cooperate with physical therapy as I think the more he does physically the sooner he will be able to go home Quality VTE Deep Vein Thrombosis/Pulmonary Embolism Present on Admission: No IH PROFEE Charge codes Subsequent inpatient/observation care: [id number]
[2024-04-20] MEDS: INSULIN LISPRO 100 UNIT/ML 3ML VIAL SUBCUT ×3 (08:20→17:30)
[2024-04-20] MEDS: LOSARTAN 25 MG TABLET PO (08:21)
[2024-04-20] MEDS: POTASSIUM CHLORIDE 20 MEQ TAB PO ×2 (08:21→17:18)
[2024-04-20] MEDS: METOPROLOL ER 50 MG TABLET 100 MG PO (08:21)
[2024-04-20] MEDS: dilTIAZem CD 120 MG CAP PO (08:21)
[2024-04-20] MEDS: MAGNESIUM OXIDE 400 MG TABLET PO (08:21)
[2024-04-20] MEDS: APIXABAN 5 MG TABLET PO ×2 (08:21→21:00)
[2024-04-20] MEDS: FUROSEMIDE 40 MG/4 ML VIAL IV (08:21)
--- NOTE | 2024-04-20 11:57 | CM.DPC ---
DCP Cont. Reviewed EMR and team rounds for status updates. Pt will likely need another day inpt for continued stablization, he is improving and feeling better, but not quite ready to d/c today. Monitor for likely d/c on Wednesday.
--- NOTE | 2024-04-20 15:30 | PT.IPTN ---
Current Diagnoses Chronic obstructive pulmonary disease with (acute) exacerbation (04/14/24) Physical Therapy Treatment Note M2 PT-IP Current Condition Start: 04/18/24 13:03 Freq: NEEDED Status: Active Protocol: Document 04/18/24 09:59 AB (Rec: 04/18/24 13:17 AB [id number]) Physical Therapy Current Condition Current Condition Evaluation Date 04/18/24 Treatment Diagnosis A-fib; COPD exacerbation; difficulty in walking Onset Date 04/14/24 M3 PT-IP Subjective Start: 04/18/24 13:03 Freq: NEEDED Status: Active Protocol: Document 04/20/24 16:24 TS (Rec: 04/20/24 16:34 TS [id number]) Subjective Physical Therapy Visit Type Type Treatment Note Visit Start Time 15:30 Visit Stop Time 15:59 Number of STOREROOM KEEPER Visits 1 Physical Therapy Visit Comments Patient Comments Pt found resting in chair, is agreeable to PT. M4 PT-IP Mobility and Gait Start: 04/18/24 13:03 Freq: NEEDED Status: Active Protocol: Document 04/20/24 16:24 TS (Rec: 04/20/24 16:34 TS [id number]) PT-Transfer Assessment Sit to and From Stand Sit to and from Stand Standby Assistance Equipment Transfer Assistive Device None,Gait Belt Orthotic/Prosthetic Devices or Brace: No Comments Mobility Comments STS from chair SBA with no AD. pt ambulated ~300'SBA with no AD, he is unsteady and requires some support from rails at times. He performed steps x24 with single rail, pt attempted no rails but could not complete. pt ambulate back to room, was left with respiratory. Gait Assessment Gait Gait Assistance Required: Standby Assistance Distance (Feet) 300 Able to Maintain Weight Bearing Status Yes During Gait Assistive Devices Assistive Device None,Gait Belt Orthotic/Prosthetic Devices or Brace: No Gait Deviations General Gait Pattern Antalgic,Decreased Stride Length,Decreased Feet Clearance,Step-to Gait Factors Limiting Gait Function Factors Limiting Gait Function Decreased Activity Tolerance, Decreased Sensation,Decreased Strength,Limited Range of Motion,Poor Balance,Poor Safety Awareness,Respiratory Distress Stair Climbing Assessment Evaluation Level of Assist On Stairs Standby Assistance Devices Stair Climbing Assistive Devices Right Railing Technique/Endurance Stair Climbing Direction Ascend and Descend Stair Climbing Technique Step to Step Number of Steps Climbed 12 Stair Climbing Set # Repetitions (reps) 2 PT-Balance Assessment Sitting Balance and Reactions Static Sitting Balance Ability Normal Dynamic Sitting Balance Ability Good Standing Balance and Reactions Static Standing Balance Ability Good Dynamic Standing Balance Ability Fair Device Used FWW M5 PT-IP Objective Assessments Start: 04/18/24 13:03 Freq: NEEDED Status: Active Protocol: Document 04/18/24 09:59 AB (Rec: 04/18/24 13:17 AB [id number]) Orientation Orientation/Cognition Level of Alertness Alert Orientation Name,Place,Situation Language Function Ability Hard of Hearing Safety Awareness Decreased Safety Awareness Memory Description No Deficits Noted Gross Range of Motion Lower Extremity ROM Assessment Within Functional Limits Strength Lower Extremity Strength Assessment Left Impaired Hip 3+/5 Knee 4-/5 Sensation Assessment Sensation Sensation Description Numbness Comments Sensation Comments pt reported B LE neuropathies from the knees to the feet Muscle Tone Muscle Tone WNL Yes M6 PT-IP Treatment Start: 04/18/24 13:03 Freq: NEEDED Status: Active Protocol: Document 04/20/24 16:24 TS (Rec: 04/20/24 16:34 TS [id number]) Physical Therapy Treatment Education Education Provided Safety M7 PT-IP Assessment and Plan Start: 04/18/24 13:03 Freq: NEEDED Status: Active Protocol: Document 04/20/24 16:24 TS (Rec: 04/20/24 16:34 TS [id number]) PT Summary Assessment and Plan Potential Rehabilitation Potential Fair Summary Impairments Pain,ROM,Strength,Balance, Coordination,Sensation,Tone, Cognition,Bed Mobility, Transfers,Gait,Activity Tolerance Progress Towards Goals Progressing Toward Goals Assessment Summary Maicol is making good progress with his mobility. He is SBA for STS with no AD. He progressed his gait to ~300' SBA with no AD. He performed stairs x24 with some SOB, Spo2 remained in low to mid 90's throughout mobility on RA. PT is recommending Home with assist. Goals Transfer Goal Independent,Front Wheeled Walker Gait Goal Independent,Front Wheel Walker Gait Distance 200 Other Goals improve transfers and ambulation using LRAD/without AD ~ 300 ft mod I up/down 6 platform steps using FWW SBA + 6 steps without AD SBA. Days to Meet Goals 10 Frequency of Treatment Frequency Of Treatment Once a Day Treatment Plan Physical Therapy Treatment Plan Bed Mobility Training,Transfer Training,Gait Training, Therapeutic Exercise,Balance Retraining,Discharge Planning, Hot or Cold Pack,Neuromuscular Re-ed,Coordination Retraining Precautions Other Precautions O2 sat, HR Recommendations To Nursing Amount of Assist Needed Standby Assistance Discharge Recommendations PT Discharge Recommendations Home with Assistance, Outpatient PT Other Discharge Recommendations outpt cardiopulmonary rehab Transportation Needs at Discharge Private Vehicle
[2024-04-20] MEDS: cefTRIAXone 1,000 MG in SODIUM CHLORIDE 0.9% 100 ML 200 MG IV (17:18)
[2024-04-20] MEDS: DIGOXIN 0.125 MG TABLET 0.25 MG PO (17:24)
[2024-04-20] MEDS: FUROSEMIDE 20 MG/2 ML VIAL IV (21:00)
[2024-04-21] VITALS (17 sets, daily range): BP systolic 107–125; BP diastolic 54–72; PULSE 71–105; RESP 16–20; TEMP 35.8–37; O2SAT 93–98
--- NOTE | 2024-04-21 07:17 | PM.PN.1 ---
Subjective Subjective Date Patient Seen: 04/21/24 Time Patient Seen: 07:17 Interval history: Patient is overall stable. Heart rate remains better controlled on the digoxin plus the diltiazem plus the metoprolol. Respiratory status seems stable to improved. Was up with physical therapy yesterday seems to have increased his stamina little bit. Did not really become overly hypoxic with activity. Heart rate remained adequately controlled Patient reports doing okay overall. Feeling better for awhile and feels like he gets a little worse than little better Exam Vital Signs (past 8 hours): - 04/21/24 00:00 04/21/24 05:00 Temperature 98.0 F 98.6 F Pulse Rate 80 77 Respiratory Rate 18 18 Blood Pressure 115/72 119/68 Pulse Oximetry 96 97 Oxygen Flow Rate 0 0 Oxygen Delivery Method Room Air Oxygen Flow Rate 0 Objective Labs 04/17/24 04:20 04/20/24 04:15 [facility] Medical History Chronic heart failure with preserved ejection fraction History of COVID-19 (10/2020) Right inguinal hernia Peripheral edema Testosterone deficiency in male Pulmonary nodule Cardiomyopathy Essential hypertension Atrial fibrillation COPD (chronic obstructive pulmonary disease) Chronic fatigue (11/23/17) Rheumatoid arthritis involving multiple sites (07/28/17) Postherpetic neuralgia (05/20/17) Primary osteoarthritis of both knees (11/22/15) Mild persistent asthma without complication (11/22/15) Surgical History Hx of knee surgery (10/2015) Hx of colonoscopy (10/22/22) S/P cataract extraction Status post cholecystectomy Family History Father Asthma Mother Diabetes mellitus Social History marital status: household members: spouse lives independently: Yes occupational status: previously employed Smoking Status: Former smoker alcohol intake: current substance use type: does not use Assessment & Plan Assessment & Plan narrative: 1. COPD exacerbation-continue with current treatments including the IV steroids nebulizers and the IV antibiotics. No reason to make any changes today. 2. Atrial fibrillation-continue with current meds including the digoxin. Rate control much improved. Plan to repeat labs including digit level tomorrow 3. Hyperglycemia-continue with insulin coverage. Still borderline control at best. 4. Chronic congestive heart failure-continue with the parental Lasix. Will reduce the IV Lasix a little bit starting today. Recheck electrolytes and renal function tomorrow. Has had reasonably good urine output. 5. Anxiety-continue current medications which seem to have been helpful as well as treating his lung disease which is clearly been helpful as well. 6. Activity-patient benefitting from physical therapy. Need to increase activity. Seems to be improving however 7. Disposition-patient likely okay to go home with home health services, probably needs another 48-72 hours in the hospital. Will need to have his corticosteroids converted back to oral steroids and his diuretics converted back to oral diuretics. This maybe possible to do tomorrow, Wednesday. Quality VTE Deep Vein Thrombosis/Pulmonary Embolism Present on Admission: No PROFEE Charge codes Subsequent inpatient/observation care: [id number]
[2024-04-21] MEDS: ALBUTEROL/IPRATROPIUM 3 ML AMPUL INH ×4 (07:45→19:42)
[2024-04-21] MEDS: INSULIN LISPRO 100 UNIT/ML 3ML VIAL SUBCUT ×4 (08:07→21:08)
[2024-04-21] MEDS: LOSARTAN 25 MG TABLET PO (08:10)
[2024-04-21] MEDS: POTASSIUM CHLORIDE 20 MEQ TAB PO ×2 (08:10→16:26)
[2024-04-21] MEDS: APIXABAN 5 MG TABLET PO ×2 (08:11→21:11)
[2024-04-21] MEDS: MAGNESIUM OXIDE 400 MG TABLET PO (08:11)
[2024-04-21] MEDS: dilTIAZem CD 120 MG CAP PO (08:11)
[2024-04-21] MEDS: FUROSEMIDE 40 MG/4 ML VIAL IV (08:11)
[2024-04-21] MEDS: PANTOPRAZOLE DR 40 MG TABLET PO (08:11)
[2024-04-21] MEDS: METOPROLOL ER 50 MG TABLET 100 MG PO (08:11)
--- NOTE | 2024-04-21 10:02 | PT.IPTN ---
Current Diagnoses Chronic obstructive pulmonary disease with (acute) exacerbation (04/14/24) Physical Therapy Treatment Note M2 PT-IP Current Condition Start: 04/18/24 13:03 Freq: NEEDED Status: Active Protocol: Document 04/18/24 09:59 AB (Rec: 04/18/24 13:17 AB [id number]) Physical Therapy Current Condition Current Condition Evaluation Date 04/18/24 Treatment Diagnosis A-fib; COPD exacerbation; difficulty in walking Onset Date 04/14/24 M3 PT-IP Subjective Start: 04/18/24 13:03 Freq: NEEDED Status: Active Protocol: Document 04/21/24 10:25 TS (Rec: 04/21/24 10:33 TS [id number]) Subjective Physical Therapy Visit Type Type Treatment Note Visit Start Time 10:02 Visit Stop Time 10:25 Number of ROOF BOLTER Visits 2 Physical Therapy Visit Comments Patient Comments Pt found resting in chair, is agreeable to PT. M4 PT-IP Mobility and Gait Start: 04/18/24 13:03 Freq: NEEDED Status: Active Protocol: Document 04/21/24 10:25 TS (Rec: 04/21/24 10:33 TS [id number]) PT-Transfer Assessment Sit to and From Stand Sit to and from Stand Standby Assistance Equipment Transfer Assistive Device None,Gait Belt Orthotic/Prosthetic Devices or Brace: No Comments Mobility Comments STS from chair SBA with BUE support pushing from arms of chair. He ambulated ~250'SBA with no AD, had some SOB, required sitting rest break to recover ~2mins. He performed stairs x12 ascending/ descending SBA with B handrail support, again pt has some SOB. Pt ambulated back to room , was left in chair, all needs met. Gait Assessment Gait Gait Assistance Required: Standby Assistance Distance (Feet) 280 Able to Maintain Weight Bearing Status Yes During Gait Assistive Devices Assistive Device None,Gait Belt Orthotic/Prosthetic Devices or Brace: No Gait Deviations General Gait Pattern Antalgic,Decreased Stride Length,Decreased Feet Clearance,Step-to Gait Factors Limiting Gait Function Factors Limiting Gait Function Decreased Activity Tolerance, Decreased Sensation,Decreased Strength,Limited Range of Motion,Poor Balance,Poor Safety Awareness,Respiratory Distress Stair Climbing Assessment Evaluation Level of Assist On Stairs Standby Assistance Devices Stair Climbing Assistive Devices Left Railing,Right Railing Technique/Endurance Stair Climbing Direction Ascend and Descend Stair Climbing Technique Step to Step Number of Steps Climbed 12 Stair Climbing Set # Repetitions (reps) 2 PT-Balance Assessment Sitting Balance and Reactions Static Sitting Balance Ability Normal Dynamic Sitting Balance Ability Good Standing Balance and Reactions Static Standing Balance Ability Good Dynamic Standing Balance Ability Fair Device Used FWW M5 PT-IP Objective Assessments Start: 04/18/24 13:03 Freq: NEEDED Status: Active Protocol: Document 04/18/24 09:59 AB (Rec: 04/18/24 13:17 AB [id number]) Orientation Orientation/Cognition Level of Alertness Alert Orientation Name,Place,Situation Language Function Ability Hard of Hearing Safety Awareness Decreased Safety Awareness Memory Description No Deficits Noted Gross Range of Motion Lower Extremity ROM Assessment Within Functional Limits Strength Lower Extremity Strength Assessment Left Impaired Hip 3+/5 Knee 4-/5 Sensation Assessment Sensation Sensation Description Numbness Comments Sensation Comments pt reported B LE neuropathies from the knees to the feet Muscle Tone Muscle Tone WNL Yes M6 PT-IP Treatment Start: 04/18/24 13:03 Freq: NEEDED Status: Active Protocol: Document 04/21/24 10:25 TS (Rec: 04/21/24 10:33 TS [id number]) Physical Therapy Treatment Education Education Provided Safety M7 PT-IP Assessment and Plan Start: 04/18/24 13:03 Freq: NEEDED Status: Active Protocol: Document 04/21/24 10:25 TS (Rec: 04/21/24 10:33 TS [id number]) PT Summary Assessment and Plan Potential Rehabilitation Potential Fair Summary Impairments Pain,ROM,Strength,Balance, Coordination,Sensation,Tone, Cognition,Bed Mobility, Transfers,Gait,Activity Tolerance Progress Towards Goals Progressing Toward Goals Assessment Summary Maicol continues to make progress with his mobility. He continues to ambulate longer distances of ~250'SBA with no AD. He continues to have some SOB, requires ~2mins to recover. He continues to perform stairs x24 with B handrails and SBA. He has some SOB with stairs and requires extra time to recover. PT continues to recommend Home with assist. Goals Transfer Goal Independent,Front Wheeled Walker Gait Goal Independent,Front Wheel Walker Gait Distance 200 Other Goals improve transfers and ambulation using LRAD/without AD ~ 300 ft mod I up/down 6 platform steps using FWW SBA + 6 steps without AD SBA. Days to Meet Goals 10 Frequency of Treatment Frequency Of Treatment Once a Day Treatment Plan Physical Therapy Treatment Plan Bed Mobility Training,Transfer Training,Gait Training, Therapeutic Exercise,Balance Retraining,Discharge Planning, Hot or Cold Pack,Neuromuscular Re-ed,Coordination Retraining Precautions Other Precautions O2 sat, HR Recommendations To Nursing Amount of Assist Needed Standby Assistance Discharge Recommendations PT Discharge Recommendations Home with Assistance, Outpatient PT Other Discharge Recommendations outpt cardiopulmonary rehab Transportation Needs at Discharge Private Vehicle
--- NOTE | 2024-04-21 10:14 | CM.DPC ---
DCP Continued: Reviewed EMR and team rounds for pt?s medical status. Per Provider note, pt could be medically cleared to dc tomorrow, 04/22, with home health services. DCP sent referral to [facility] to review for RN/PT services, pending acceptance. Plan: Anticipating dc with spouse to transport tomorrow, 04/22. [facility] pending acceptance for home health services. CM Team will continue to follow for coordination of discharge plans. MICHAEL Lackey
[2024-04-21] MEDS: cefTRIAXone 1,000 MG in SODIUM CHLORIDE 0.9% 100 ML 200 MG IV (16:26)
[2024-04-21] MEDS: DIGOXIN 0.125 MG TABLET 0.25 MG PO (16:50)
[2024-04-22] VITALS (10 sets, daily range): BP systolic 96–114; BP diastolic 57–74; PULSE 72–84; RESP 16–18; TEMP 36.1–36.6; O2SAT 93–97
[2024-04-22] MEDS: SODIUM CHLORIDE 0.9% FLUSH 10 ML IV (00:02)
[2024-04-22] MEDS: PANTOPRAZOLE DR 40 MG TABLET PO (06:22)
[2024-04-22 06:47] LABS: BUN Creatinine Ratio 76.4 (6-22); Blood Urea Nitrogen 68 mg/dL (9-20); Calcium 8.1 mg/dL (8.4-10.2); Carbon Dioxide 28 mmol/L (22-32); Chloride 96 mmol/L (98-107); Estimated Glomerular Filt Rate > 60 mL/min (>60); Glucose 165 mg/dL (80-110); HEMOLYSIS 49 (0-50); Magnesium 2.7 mg/dL (1.6-2.3); Potassium 4.9 mmol/L (3.4-5.1); Sodium 128 mmol/L (137-145)
[2024-04-22] MEDS: ALBUTEROL/IPRATROPIUM 3 ML AMPUL INH ×4 (07:13→19:40)
[2024-04-22 07:37] LABS: Digoxin 1.1 ng/mL (0.8-2.0)
[2024-04-22] MEDS: METOPROLOL ER 50 MG TABLET 100 MG PO (09:17)
[2024-04-22] MEDS: POTASSIUM CHLORIDE 20 MEQ TAB PO ×2 (09:19→17:29)
[2024-04-22] MEDS: FUROSEMIDE 40 MG/4 ML VIAL IV (09:22)
[2024-04-22] MEDS: MAGNESIUM OXIDE 400 MG TABLET PO (09:22)
[2024-04-22] MEDS: dilTIAZem CD 120 MG CAP PO (09:25)
[2024-04-22] MEDS: APIXABAN 5 MG TABLET PO ×2 (09:25→20:44)
[2024-04-22] MEDS: LOSARTAN 25 MG TABLET PO (09:26)
--- NOTE | 2024-04-22 09:52 | PM.PN.1 ---
Subjective Subjective Date Patient Seen: 04/22/24 Time Patient Seen: 10:15 Interval history: Maicol is resting comfortably in bedside chair this morning. Hemodynamically stable overnight. Heart rate remains adequately controlled. He does note new swelling of lower extremities and right arm that was not present over previous few days. Respiratory status stable but without significant improvement compared to yesterday. Able to easily ambulate within the room to and from chair/bathroom/bed. However he does report getting easily winded when he walks longer distances with physical therapy. Overall in good spirits, but wants to make sure he is fully recovered before discharging home. Exam Vital Signs (past 8 hours): - 04/22/24 03:00 04/22/24 08:00 04/22/24 09:17 Temperature 96.9 F L 97.1 F L Pulse Rate 77 80 Respiratory Rate 18 16 Blood Pressure 114/70 104/71 104/74 Pulse Oximetry 97 95 Oxygen Flow Rate 0 0 04/22/24 09:26 Temperature Pulse Rate Respiratory Rate Blood Pressure 104/64 Pulse Oximetry Oxygen Flow Rate Fraction of Inspired Oxygen 21 SaO2/FiO2 Ratio 466 Oxygen Delivery Method Room Air Oxygen Flow Rate 0 Narrative Exam Narrative: General: Pleasant, NAD HEENT: NC/AT, EOMI, moist membranes CV: Irregular rhythm, normal S1-S2, no m/g/r Resp: Good air movement, prolonged expiratory phase with mild wheezing, no crackles, comfortable WOB Abd: Soft, NTND, +BS Ext: 1+ pitting edema to shins bilaterally Skin: No rash or lesions noted Neuro: A&O x3, moves all extremities, no focal deficits Objective Labs 04/17/24 04:20 04/22/24 05:58 Labs: Laboratory Results - last 24 hr 04/22/24 05:58 Sodium 128 L Potassium 4.9 Chloride 96 L Carbon Dioxide 28 BUN 68 H Creatinine 0.89 Estimated GFR > 60 BUN/Creatinine Ratio 76.4 H Glucose 165 H Calcium 8.1 L Magnesium 2.7 H Digoxin 1.1 PFSH Medical History Chronic heart failure with preserved ejection fraction History of COVID-19 (10/2020) Right inguinal hernia Peripheral edema Testosterone deficiency in male Pulmonary nodule Cardiomyopathy Essential hypertension Atrial fibrillation COPD (chronic obstructive pulmonary disease) Chronic fatigue (11/23/17) Rheumatoid arthritis involving multiple sites (07/28/17) Postherpetic neuralgia (05/20/17) Primary osteoarthritis of both knees (11/22/15) Mild persistent asthma without complication (11/22/15) Surgical History Hx of knee surgery (10/2015) Hx of colonoscopy (10/22/22) S/P cataract extraction Status post cholecystectomy Family History Father Asthma Mother Diabetes mellitus Social History marital status: household members: spouse lives independently: Yes occupational status: previously employed Smoking Status: Former smoker alcohol intake: current substance use type: does not use Assessment & Plan Assessment & Plan narrative: # COPD exacerbation: Stable without significant improvement over recent days -S/p Azithro (04/16-), ceftriaxone (04/16-) -Continue methylprednisolone 40 mg IV b.i.d., plan transition to p.o. steroids tomorrow -Scheduled Duonebs, albuterol as needed # Atrial fibrillation: Rate control adequate, digoxin level appropriate -Rate control w/digoxin, diltiazem, metoprolol -Apixaban # Chronic congestive heart failure -Continue Lasix given new edema, monitor for volume depletion given elevated BUN/Cr -Strict I's & O's -Trend BMP # Hyponatremia: Likely intravascular volume depletion given aggressive diuresis -Monitor # Hyperglycemia: Steroid induced, improving with insulin coverage -SSI q.a.c. # Anxiety -Hydroxyzine, lorazepam prn # Activity -Benefitting from PT, continue daily strengthening exercises Diet: Carb consistent DVT ppx: Apixaban b.i.d. Code: Full PCP: Dewayne Dispo: Likely home with home health in 2-3 days. Plan converting steroids and diuretics to p.o. tomorrow. Time Spent With Patient Time with patient: less than 30 minutes Quality VTE Deep Vein Thrombosis/Pulmonary Embolism Present on Admission: No IH PROFEE Charge codes Subsequent inpatient/observation care: [id number]
--- NOTE | 2024-04-22 11:23 | PT.IPTN ---
Current Diagnoses Chronic obstructive pulmonary disease with (acute) exacerbation (04/14/24) Physical Therapy Treatment Note M2 PT-IP Current Condition Start: 04/18/24 13:03 Freq: NEEDED Status: Active Protocol: Document 04/18/24 09:59 AB (Rec: 04/18/24 13:17 AB [id number]) Physical Therapy Current Condition Current Condition Evaluation Date 04/18/24 Treatment Diagnosis A-fib; COPD exacerbation; difficulty in walking Onset Date 04/14/24 M3 PT-IP Subjective Start: 04/18/24 13:03 Freq: NEEDED Status: Active Protocol: Document 04/22/24 12:12 TS (Rec: 04/22/24 12:18 TS [id number]) Subjective Physical Therapy Visit Type Type Treatment Note Visit Start Time 11:23 Visit Stop Time 11:43 Number of SCREEN AND CYCLONE REPAIRER Visits 3 Physical Therapy Visit Comments Patient Comments Pt found resting in chair, reports LE's are more swollen today and having a harder breathing. Pt is agreeable to PT. M4 PT-IP Mobility and Gait Start: 04/18/24 13:03 Freq: NEEDED Status: Active Protocol: Document 04/22/24 12:12 TS (Rec: 04/22/24 12:18 TS [id number]) PT-Transfer Assessment Sit to and From Stand Sit to and from Stand Standby Assistance Equipment Transfer Assistive Device None,Gait Belt Orthotic/Prosthetic Devices or Brace: No Comments Mobility Comments STS from chair SBA with no AD. Pt ambulated ~250 with no AD, has some SOB, required seated rest break, Spo2 96% on RA. STS again from chair SBA. He ambulated another ~250'SBA with no AD, continues to have SOB, spo2 95%. Pt was left in chair, all needs met. Gait Assessment Gait Gait Assistance Required: Standby Assistance Distance (Feet) 500 Able to Maintain Weight Bearing Status Yes During Gait Assistive Devices Assistive Device None,Gait Belt Orthotic/Prosthetic Devices or Brace: No Gait Deviations General Gait Pattern Antalgic,Decreased Stride Length,Decreased Feet Clearance,Step-to Gait Factors Limiting Gait Function Factors Limiting Gait Function Decreased Activity Tolerance, Decreased Sensation,Decreased Strength,Limited Range of Motion,Poor Balance,Poor Safety Awareness,Respiratory Distress PT-Balance Assessment Sitting Balance and Reactions Static Sitting Balance Ability Normal Dynamic Sitting Balance Ability Good Standing Balance and Reactions Static Standing Balance Ability Good Dynamic Standing Balance Ability Fair Device Used FWW M5 PT-IP Objective Assessments Start: 04/18/24 13:03 Freq: NEEDED Status: Active Protocol: Document 04/18/24 09:59 AB (Rec: 04/18/24 13:17 AB [id number]) Orientation Orientation/Cognition Level of Alertness Alert Orientation Name,Place,Situation Language Function Ability Hard of Hearing Safety Awareness Decreased Safety Awareness Memory Description No Deficits Noted Gross Range of Motion Lower Extremity ROM Assessment Within Functional Limits Strength Lower Extremity Strength Assessment Left Impaired Hip 3+/5 Knee 4-/5 Sensation Assessment Sensation Sensation Description Numbness Comments Sensation Comments pt reported B LE neuropathies from the knees to the feet Muscle Tone Muscle Tone WNL Yes M6 PT-IP Treatment Start: 04/18/24 13:03 Freq: NEEDED Status: Active Protocol: Document 04/22/24 12:12 TS (Rec: 04/22/24 12:18 TS [id number]) Physical Therapy Treatment Education Education Provided Safety M7 PT-IP Assessment and Plan Start: 04/18/24 13:03 Freq: NEEDED Status: Active Protocol: Document 04/22/24 12:12 TS (Rec: 04/22/24 12:18 TS [id number]) PT Summary Assessment and Plan Potential Rehabilitation Potential Fair Summary Impairments Pain,ROM,Strength,Balance, Coordination,Sensation,Tone, Cognition,Bed Mobility, Transfers,Gait,Activity Tolerance Progress Towards Goals Progressing Toward Goals Assessment Summary Maicol continues to do well with his mobility. He is SBA for STS with no AD. He progressed his gait to ~250'x2 with no AD . He is unsteady at times but has no LOB. He has some SOB with gait, Spo2 remained stable throughout session. PT continues to recommend home with assist. Goals Transfer Goal Independent,Front Wheeled Walker Gait Goal Independent,Front Wheel Walker Gait Distance 200 Other Goals improve transfers and ambulation using LRAD/without AD ~ 300 ft mod I up/down 6 platform steps using FWW SBA + 6 steps without AD SBA. Frequency of Treatment Frequency Of Treatment Once a Day Treatment Plan Physical Therapy Treatment Plan Bed Mobility Training,Transfer Training,Gait Training, Therapeutic Exercise,Balance Retraining,Discharge Planning, Hot or Cold Pack,Neuromuscular Re-ed,Coordination Retraining Precautions Other Precautions O2 sat, HR Recommendations To Nursing Amount of Assist Needed Standby Assistance Discharge Recommendations PT Discharge Recommendations Home with Assistance, Outpatient PT Other Discharge Recommendations outpt cardiopulmonary rehab Transportation Needs at Discharge Private Vehicle
[2024-04-22] MEDS: FUROSEMIDE 40 MG TABLET PO (12:26)
[2024-04-22] MEDS: INSULIN LISPRO 100 UNIT/ML 3ML VIAL SUBCUT ×2 (12:28→22:25)
--- NOTE | 2024-04-22 14:50 | CM.DPC ---
DCP HH planning: Per MD, pt making improvements and likely switching IV to PO today vs tomorrow and then likely home in 1-2 days. Per FALAFEL CART COOK, pt continues to ambulate well and recommending home with HH. BRITTANY called [facility] and confirmed they have the referral and have accepted pt. [facility] just needs the F2F, HH orders, and d/c summ at discharge. DMITRI Hansen
[2024-04-22] MEDS: DIGOXIN 0.125 MG TABLET 0.25 MG PO (17:29)
--- NOTE | 2024-04-22 20:21 | EKG_ITS ---
[facility] [address] [place] [address] Test Date: 2024-04-22 Pat Name: Blayne Hopkins Department: [facility] Room: 205 Gender: Male Architecture Manager: : 1940 Requested By: Order Number: [id number] Reading MD: Mitchell Buchanan MD Measurements Intervals [place] Rate: 73 P: MT: QRS: 5 QRSD: 76 T: -34 QT: 340 QTc: 374 Interpretive Statements Poor data quality, interpretation may be adversely affected Atrial fibrillation Electronically Signed On 04-23-2024 12:04:59 PDT by Mitchell Buchanan MD
[2024-04-22 21:40] LABS: Creatine Kinase 58 U/L (55-170)
[2024-04-22 21:53] LABS: Troponin I < 0.012 ng/mL (0.01-0.034)
[2024-04-23] VITALS (10 sets, daily range): BP systolic 102–124; BP diastolic 59–75; PULSE 72–89; RESP 16–18; TEMP 36.2–36.6; O2SAT 94–100
--- NOTE | 2024-04-23 | DI.RAD.S_ITS ---
PROCEDURE: XR CHEST 2V INDICATIONS: CHF, SOB, pedal edema TECHNIQUE: 2 views of the chest were acquired. COMPARISON: [facility], CR, XR CHEST 1V, 04/16/2024, 10:00. [facility], CR, XR CHEST 1V, 04/14/2024, 14:04. FINDINGS: Surgical changes and devices: None. Lungs and pleura: Low lung volumes. Mildly prominent interstitium. No dense airspace disease or drainable pleural effusion. A new area of scarring again seen at the right mid lung. Mediastinum: Heart size is within normal limits. Cardiomediastinal contours are unchanged. There is probable tortuosity of the aorta. Bones and chest wall: Degenerative changes. IMPRESSION: Low lung volumes. No dense consolidation. Mildly prominent interstitium, possibly edema given provided history. Consider future imaging surveillance to assess for resolution. Possible scarring again seen right mid lung. Dictated by: Aidan Madsen M.D. on 04/23/2024 at 17:48 Approved by: Aidan Madsen M.D. on 04/23/2024 at 17:49
[2024-04-23] MEDS: SODIUM CHLORIDE 0.9% FLUSH 10 ML IV ×3 (00:59→20:35)
--- NOTE | 2024-04-23 04:52 | PC.NURSE ---
19:30-Patient reported increasing chest pain to center of chest, no radiating, mild SOB. VSS. Notified DR. Morton , received order for EKG and labs. Pt on tele with reading of afib (60-99). Trop negative.
[2024-04-23] MEDS: PANTOPRAZOLE DR 40 MG TABLET PO (06:10)
[2024-04-23 07:13] LABS: BUN Creatinine Ratio 66.3 (6-22); Blood Urea Nitrogen 65 mg/dL (9-20); Calcium 7.9 mg/dL (8.4-10.2); Carbon Dioxide 30 mmol/L (22-32); Chloride 95 mmol/L (98-107); Estimated Glomerular Filt Rate > 60 mL/min (>60); Glucose 183 mg/dL (80-110); HEMOLYSIS < 15 (0-50); Magnesium 2.6 mg/dL (1.6-2.3); Potassium 4.9 mmol/L (3.4-5.1); Sodium 128 mmol/L (137-145)
[2024-04-23] MEDS: ALBUTEROL/IPRATROPIUM 3 ML AMPUL INH ×4 (07:42→19:09)
[2024-04-23] MEDS: POTASSIUM CHLORIDE 20 MEQ TAB PO ×2 (08:31→17:19)
[2024-04-23] MEDS: predniSONE 20 MG TABLET 60 MG PO (08:32)
[2024-04-23] MEDS: MAGNESIUM OXIDE 400 MG TABLET PO (08:32)
[2024-04-23] MEDS: APIXABAN 5 MG TABLET PO ×2 (08:32→20:34)
[2024-04-23] MEDS: FUROSEMIDE 40 MG TABLET PO (08:36)
[2024-04-23] MEDS: dilTIAZem CD 120 MG CAP PO (08:36)
[2024-04-23] MEDS: METOPROLOL ER 50 MG TABLET 100 MG PO (08:37)
[2024-04-23] MEDS: LOSARTAN 25 MG TABLET PO (08:37)
[2024-04-23] MEDS: INSULIN LISPRO 100 UNIT/ML 3ML VIAL SUBCUT ×4 (08:40→21:17)
--- NOTE | 2024-04-23 11:27 | PT-IP ANOTE ---
Pt not feeling well today, reports SOB, dizziness and increased swelling of BLE. Pt refuses PT, feeling like he needs to rest. RN aware.
--- NOTE | 2024-04-23 11:35 | CM.DPC ---
DCP Cont. Reviewed EMR and team rounds for status updates. Per Dr. Buchanan, he is converting pt's steroids and diuretics to p.o today, new lower extremity swelling and fatigue today. Likely 1-more day before medically stable for home d/c. [facility] accepts and will follow.
--- NOTE | 2024-04-23 11:37 | PM.PN.1 ---
Subjective Subjective Date Patient Seen: 04/23/24 Time Patient Seen: 10:00 Interval history: Resting comfortably in bed. Reports feeling more short of breath today and legs are definitely feeling tight/swollen. Was ambulating to bathroom last night when he felt lightheaded and required assistance from nursing staff. Also complained of some central chest discomfort. ECG obtained demonstrate atrial fibrillation with no ischemic changes, troponin was negative. Family coming to visit him in hospital for father's day. Exam Vital Signs (past 8 hours): - 04/23/24 05:00 04/23/24 07:00 04/23/24 07:00 Temperature 97.9 F Pulse Rate 72 Respiratory Rate 18 Blood Pressure 115/65 Pulse Oximetry 97 95 Oxygen Delivery Method Room Air Room Air Oxygen Flow Rate 0 Fraction of Inspired Oxygen 04/23/24 07:42 04/23/24 09:00 Temperature 97.3 F L Pulse Rate 78 84 Respiratory Rate 18 16 Blood Pressure 117/63 Pulse Oximetry 94 95 Oxygen Delivery Method Room Air Oxygen Flow Rate 0 Fraction of Inspired Oxygen 21 Fraction of Inspired Oxygen 21 SaO2/FiO2 Ratio 447 Oxygen Delivery Method Room Air Oxygen Flow Rate 0 Narrative Exam Narrative: General: Pleasant, NAD HEENT: NC/AT, EOMI, moist membranes CV: Irregular rhythm, normal S1-S2, no m/g/r Resp: Good air movement, prolonged expiratory phase with mild wheezing, mild crackles in LLL, comfortable WOB Abd: Soft, NTND, +BS Ext: 1+ pitting edema to shins bilaterally Skin: No rash or lesions noted Neuro: A&O x3, moves all extremities, no focal deficits Objective ECG Impression: Atrial fibrillation, rate controlled 73 beats per minute, no ischemic changes noted Labs 04/17/24 04:20 04/23/24 06:33 Labs: Laboratory Results - last 24 hr 04/22/24 04/23/24 21:18 06:33 Sodium 128 L Potassium 4.9 Chloride 95 L Carbon Dioxide 30 BUN 65 H Creatinine 0.98 Estimated GFR > 60 BUN/Creatinine Ratio 66.3 H Glucose 183 H Calcium 7.9 L Magnesium 2.6 H Total Creatine Kinase 58 Troponin I < 0.012 [facility] Medical History Chronic heart failure with preserved ejection fraction History of COVID-19 (10/2020) Right inguinal hernia Peripheral edema Testosterone deficiency in male Pulmonary nodule Cardiomyopathy Essential hypertension Atrial fibrillation COPD (chronic obstructive pulmonary disease) Chronic fatigue (11/23/17) Rheumatoid arthritis involving multiple sites (07/28/17) Postherpetic neuralgia (05/20/17) Primary osteoarthritis of both knees (11/22/15) Mild persistent asthma without complication (11/22/15) Surgical History Hx of knee surgery (10/2015) Hx of colonoscopy (10/22/22) S/P cataract extraction Status post cholecystectomy Family History Father Asthma Mother Diabetes mellitus Social History marital status: household members: spouse lives independently: Yes occupational status: previously employed Smoking Status: Former smoker alcohol intake: current substance use type: does not use Assessment & Plan Assessment and plan (1) COPD exacerbation: Status: Acute (2) Chronic heart failure with preserved ejection fraction: Status: Chronic (3) Peripheral edema: Status: Chronic (4) Atrial fibrillation with rapid ventricular response: Status: Acute (5) Hyponatremia: Status: Acute (6) Hyperglycemia: Status: Acute Assessment & Plan narrative: # COPD exacerbation: Stable without significant improvement over recent days -S/p Azithro (04/16-), ceftriaxone (04/16-) -Transitioned to p.o. prednisone, consider rapid dose taper given pedal edema -Scheduled Duonebs, albuterol as needed # Chronic congestive heart failure # Pedal edema -Weight +15lb since admit with worsening edema likely due to high-dose steroids, convert back to IV Lasix for better bioavailability and monitor for volume depletion given elevated BUN/Cr -CXR pending -Strict I's & O's -Trend BMP # Atrial fibrillation: Rate control adequate, digoxin level appropriate -Rate control w/digoxin, diltiazem, metoprolol -Apixaban # Hyponatremia: Likely intravascular volume depletion given aggressive diuresis -Monitor # Hyperglycemia: Steroid induced, improving with insulin coverage -SSI q.a.c. # Anxiety -Hydroxyzine, lorazepam prn # Activity -Benefitting from PT, continue daily strengthening exercises Diet: Carb consistent DVT ppx: Apixaban b.i.d. Code: Full PCP: Dewayne Dispo: Likely home with home health in 1-2 days. Time Spent With Patient Time with patient: less than 30 minutes Quality VTE Deep Vein Thrombosis/Pulmonary Embolism Present on Admission: No IH PROFEE Charge codes Subsequent inpatient/observation care: [id number]
[2024-04-23] MEDS: FUROSEMIDE 40 MG/4 ML VIAL IV ×2 (14:27→20:34)
--- NOTE | 2024-04-23 15:58 | PC.NURSE ---
pt reports drinking a lot of water. my mouth is just so dry from all these diuretics. As pt has low NA+ level, pt encouraged to only drink water if feeling thirsty but otherwise use mouth swabs (provided) to moisten mouth. Pt agreeable to the same and encouraged to notify RN if still feeling like his mouth is dry.
[2024-04-23] MEDS: DIGOXIN 0.125 MG TABLET 0.25 MG PO (17:19)
[2024-04-24] VITALS (11 sets, daily range): BP systolic 91–130; BP diastolic 54–65; PULSE 52–82; RESP 16–22; TEMP 35.9–36.6; O2SAT 93–98
[2024-04-24] MEDS: PANTOPRAZOLE DR 40 MG TABLET PO (06:03)
[2024-04-24] MEDS: ALBUTEROL/IPRATROPIUM 3 ML AMPUL INH ×4 (07:41→23:17)
[2024-04-24] MEDS: INSULIN LISPRO 100 UNIT/ML 3ML VIAL SUBCUT ×3 (08:11→18:14)
[2024-04-24] MEDS: FUROSEMIDE 40 MG/4 ML VIAL IV ×2 (08:13→21:04)
[2024-04-24] MEDS: POTASSIUM CHLORIDE 20 MEQ TAB PO ×2 (08:13→18:12)
[2024-04-24] MEDS: APIXABAN 5 MG TABLET PO ×2 (08:13→21:04)
[2024-04-24] MEDS: dilTIAZem CD 120 MG CAP PO (08:13)
[2024-04-24] MEDS: METOPROLOL ER 50 MG TABLET 100 MG PO (08:13)
[2024-04-24] MEDS: LOSARTAN 25 MG TABLET PO (08:13)
[2024-04-24] MEDS: SODIUM CHLORIDE 0.9% FLUSH 10 ML IV ×2 (08:14→21:04)
[2024-04-24] MEDS: predniSONE 20 MG TABLET 40 MG PO (08:14)
--- NOTE | 2024-04-24 08:27 | P.PN_ITS ---
Subjective Subjective Date Patient Seen: 04/24/24 Time Patient Seen: 08:27 Interval history: Patient had good couple of days over the weekend was up walking felt like things were going well In the last 24+ hours has developed significant swelling of bilateral lower extremities bilateral upper extremities. For instance his ID band on his wrist on the right side became sort of stuck unable to swivel around his wrist. Breathing is okay but is finding he gets more short of breath with more activity Had 4 L out an urine yesterday. Receiving parental furosemide Exam Vital Signs (past 8 hours): - 04/24/24 03:22 04/24/24 07:41 04/24/24 08:00 Temperature 97.9 F 96.8 F L Pulse Rate 80 82 68 Respiratory Rate 18 18 16 Blood Pressure 130/65 100/59 L Pulse Oximetry 98 98 96 Oxygen Delivery Method Room Air Oxygen Flow Rate 0 0 Fraction of Inspired Oxygen 21 04/24/24 08:13 04/24/24 08:13 Temperature Pulse Rate 82 Respiratory Rate Blood Pressure 130/65 130/65 Pulse Oximetry Oxygen Delivery Method Oxygen Flow Rate Fraction of Inspired Oxygen Fraction of Inspired Oxygen 21 SaO2/FiO2 Ratio 466 Oxygen Delivery Method Room Air Oxygen Flow Rate 0 Objective Labs 04/17/24 04:20 04/23/24 06:33 [facility] Medical History Chronic heart failure with preserved ejection fraction History of COVID-19 (10/2020) Right inguinal hernia Peripheral edema Testosterone deficiency in male Pulmonary nodule Cardiomyopathy Essential hypertension Atrial fibrillation COPD (chronic obstructive pulmonary disease) Chronic fatigue (11/23/17) Rheumatoid arthritis involving multiple sites (07/28/17) Postherpetic neuralgia (05/20/17) Primary osteoarthritis of both knees (11/22/15) Mild persistent asthma without complication (11/22/15) Surgical History Hx of knee surgery (10/2015) Hx of colonoscopy (10/22/22) S/P cataract extraction Status post cholecystectomy Family History Father Asthma Mother Diabetes mellitus Social History marital status: household members: spouse lives independently: Yes occupational status: previously employed Smoking Status: Former smoker alcohol intake: current substance use type: does not use Assessment & Plan Assessment & Plan narrative: 1. COPD exacerbation-continue with current treatments. Continue with oral steroids at current dose which will likely be his discharge dose. 2. Atrial fibrillation-continue with current meds including the digoxin. Rate control remains much improved. Last did level acceptable 3. Hyperglycemia-continue with insulin coverage. Blood sugar control overall better with the oral steroids. Still not perfect as he had 1 number over 300 yesterday 4. Chronic congestive heart failure-continue with the parental Lasix. Unclear as to why he would begin to collect fluid again other than the steroids. I am going to repeat chest x-ray today and consider ultrasound right arm looking for clot, which seems quite unlikely given he continues on Eliquis 5. Anxiety-continue current medications which seem to have been helpful as well as treating his lung disease which is clearly been helpful as well. 6. Activity-patient benefitting from physical therapy. Patient needs to be cooperative with physical therapy on a daily basis which he continues to not be. 7. Disposition-patient likely okay to go home with home health services, probably needs another 24-48 hours in the hospital. Quality VTE Deep Vein Thrombosis/Pulmonary Embolism Present on Admission: No IH PROFEE Charge codes Subsequent inpatient/observation care: [id number]
--- NOTE | 2024-04-24 08:32 | DI.RAD.S_ITS ---
PROCEDURE: XR CHEST 1V INDICATIONS: CHF TECHNIQUE: One view of the chest was acquired. COMPARISON: [facility], CR, XR CHEST 1 VIEW, 07/08/2022, 14:10. [facility], CR, XR CHEST 1V, 03/17/2024, 15:21. [facility], CR, XR CHEST 2V, 04/23/2024, 11:57. FINDINGS: Surgical changes and devices: None. Lungs and pleura: Linear opacity overlying the right mid lung. Unchanged trace costophrenic angle blunting. Mediastinum: Mediastinal contours appear normal. Heart size is normal. Bones and chest wall: No suspicious bony lesions. Overlying soft tissues appear unremarkable. IMPRESSION: Unchanged costophrenic angle blunting possibly related to scarring versus minimal effusions. Unchanged linear opacity overlying the right mid lung, likely scarring. Dictated by: Maria D Carrillo M.D. on 04/24/2024 at 8:56 Approved by: Maria D Carrillo M.D. on 04/24/2024 at 8:57
--- NOTE | 2024-04-24 09:34 | CM.DPNOTE ---
Addendum entered by DMITRI Abrams 04/24/24 14:28: RAIL CAR MECHANIC met with pt in room. Gave copy of [facility]. Appreciative. deny and additional CM needs at this time. SL Original Note: DCP note RAIL CAR MECHANIC reviewed EMR. Per Dewayne note, wants to keep pt another 24-48hrs due to swelling in extremities. continues to be SOB with activity. RAIL CAR MECHANIC updated Alyx at [facility] pt will be here another day or so. WILBERT Will scanned order/f2f into chat in anticipation of dc. P: dc home with spouse to transport when medically stable. [facility] to follow. CM team will continue to follow as needed. DMITRI Abrams
--- NOTE | 2024-04-24 11:56 | PC.NURSE ---
Transfer: Report called to admitting nurse Debra. Reviewed hospital course. Pt required 2 units of blood, h/h has been checked for several days and has remained stable. She has a hip abduction brace set at 70 degress flexion and 0 (zero) degrees extention. She is to wear the brace at all times. Has an aquacel dressing on. Has not had a bm, usually takes miralax daily but this had accidentally been omitted. She got a dose today. They will cont to work on this. She already has a appt scheduled post op in 2 weeks. Questions answered. Pt transfered to facility using there van.
--- NOTE | 2024-04-24 17:08 | PT.IPTN ---
Addendum entered and electronically signed by Angeli Lincoln PT 04/24/24 17:09: PT provides direct superv to SPT during treatment Original Note: Current Diagnoses Hypo-osmolality and hyponatremia (04/14/24) Unspecified atrial fibrillation (04/14/24) Chronic diastolic (congestive) heart failure (04/14/24) Chronic obstructive pulmonary disease with (acute) exacerbation (04/14/24) Edema, unspecified (04/14/24) Hyperglycemia, unspecified (04/14/24) Physical Therapy Treatment Note M2 PT-IP Current Condition Start: 04/18/24 13:03 Freq: NEEDED Status: Active Protocol: Document 04/18/24 09:59 AB (Rec: 04/18/24 13:17 AB [id number]) Physical Therapy Current Condition Current Condition Evaluation Date 04/18/24 Treatment Diagnosis A-fib; COPD exacerbation; difficulty in walking Onset Date 04/14/24 M3 PT-IP Subjective Start: 04/18/24 13:03 Freq: NEEDED Status: Active Protocol: Document 04/24/24 16:00 JG (Rec: 04/24/24 16:44 [id number]) Subjective Physical Therapy Visit Type Type Treatment Note Visit Start Time 16:00 Visit Stop Time 16:24 Number of VOLLEYBALL ASSISTANT COACH Visits 0 Physical Therapy Visit Comments Patient Comments Pt said that he was feeling good today and that he had some mild pain in his LE if you put pressure on it. Therapy Pain Assessment Pain When Pain Assessed At Rest Pain Present Pain Present Pain Reported Location Bilateral Lower Leg Scale Used Numeric (0 - 10) Description Throbbing Pain Behaviors Holding Area Pain Management Techniques Distraction M4 PT-IP Mobility and Gait Start: 04/18/24 13:03 Freq: NEEDED Status: Active Protocol: Document 04/24/24 16:00 JG (Rec: 04/24/24 16:44 [id number]) PT-Bed Mobility Assessment Supine to Sit Supine to Sit Independent,Head of Bed Elevated,Bedrails Sit to Supine Sit to Supine Independent,Head of Bed Elevated,Bedrails Scooting Scooting to Edge of Bed Independent Scooting Up and Down in Bed Standby Assistance PT-Transfer Assessment Sit to and From Stand Sit to and from Stand Contact Guard Assistance Equipment Transfer Assistive Device Bed Rail,Gait Belt,Front Wheeled Walker Orthotic/Prosthetic Devices or Brace: No Transfers Transfer Destination Bed Transfer Technique Ambulation Transfer Ability Level of Assist Standby Assistance Comments Mobility Comments Increased effort and time as well as rail use for bed mobility and pt has trouble scooting up in bed Gait Assessment Gait Gait Assistance Required: Standby Assistance Distance (Feet) 150 Able to Maintain Weight Bearing Status Yes During Gait Assistive Devices Assistive Device Gait Belt,Front Wheeled Walker Orthotic/Prosthetic Devices or Brace: No Gait Deviations General Gait Pattern Decreased Feet Clearance Factors Limiting Gait Function Factors Limiting Gait Function Decreased Activity Tolerance, Decreased Strength,Limited Range of Motion,Pain,Poor Balance,Poor Safety Awareness Comments Gait Comments Pt tolerated gait well today. Pt ambulated 150'x2 and demonstrated a step to gait pattern at first and progressed to a step through gait pattern. Pt demonstrated increased ER on R side. O2 sats are 96% in hook lying and 94% after 150' gait with RW on RA. Dyspnea Scale 1/4 Stair Climbing Assessment Evaluation Level of Assist On Stairs Maximal Assistance Devices Stair Climbing Assistive Devices Right Railing Technique/Endurance Stair Climbing Direction Ascend Stair Climbing Technique Step to Step Number of Steps Climbed 0 Stair Climbing Set # Repetitions (reps) 0 Comments Stair Climbing Comments Right LE buckling when he went to step up first step. Pt loss balance and needed max assist by SPT to help maintain balance. Pt bumped L toe during loss of balance and toe was assessed by nursing, SPT and PT and all deemed no injury. Pt agrees. PT-Balance Assessment Sitting Balance and Reactions Static Sitting Balance Ability Good Dynamic Sitting Balance Ability Good Standing Balance and Reactions Static Standing Balance Ability Good Dynamic Standing Balance Ability Fair Device Used FWW M5 PT-IP Objective Assessments Start: 04/18/24 13:03 Freq: NEEDED Status: Active Protocol: Document 04/18/24 09:59 AB (Rec: 04/18/24 13:17 AB [id number]) Orientation Orientation/Cognition Level of Alertness Alert Orientation Name,Place,Situation Language Function Ability Hard of Hearing Safety Awareness Decreased Safety Awareness Memory Description No Deficits Noted Gross Range of Motion Lower Extremity ROM Assessment Within Functional Limits Strength Lower Extremity Strength Assessment Left Impaired Hip 3+/5 Knee 4-/5 Sensation Assessment Sensation Sensation Description Numbness Comments Sensation Comments pt reported B LE neuropathies from the knees to the feet Muscle Tone Muscle Tone WNL Yes M6 PT-IP Treatment Start: 04/18/24 13:03 Freq: NEEDED Status: Active Protocol: Document 04/24/24 16:00 JG (Rec: 04/24/24 16:44 JG [id number]) Physical Therapy Treatment Exercises Exercises Ankle Pumps,Heel Slides Education Education Provided Safety M7 PT-IP Assessment and Plan Start: 04/18/24 13:03 Freq: NEEDED Status: Active Protocol: Document 04/24/24 16:00 JG (Rec: 04/24/24 16:44 J [id number]) PT Summary Assessment and Plan Potential Rehabilitation Potential Fair Summary Impairments Pain,ROM,Strength,Balance, Coordination,Sensation,Bed Mobility,Transfers,Gait, Activity Tolerance Progress Towards Goals Progressing Toward Goals Assessment Summary Gait and bed mobility appear similar to previous treatments . Attempted to progress to step training and pt's right leg buckled with both hands on right rail. This is a barrier to home mobility. PT goal for steps appears different than pt report today and con't to discuss with pt and be mindful of potential buckle with stepping. HR in 70-80s today with mobility. Goals Transfer Goal Independent,Front Wheeled Walker Gait Goal Independent,Front Wheel Walker Gait Distance 200 Other Goals improve transfers and ambulation using LRAD/without AD ~ 300 ft mod I up/down 6 platform steps using FWW SBA + 6 steps without AD SBA. Frequency of Treatment Frequency Of Treatment Once a Day Treatment Plan Physical Therapy Treatment Plan Bed Mobility Training,Transfer Training,Gait Training, Therapeutic Exercise,Balance Retraining,Discharge Planning, Coordination Retraining Other Recommendations and Next Treatment Focus on stair training using Focus R railing, consider marching in place first Precautions Other Precautions 02 sat, HR Weight Bearing Status Weight Bearing Status Weight Bear as Tolerated Recommendations To Nursing Amount of Assist Needed Standby Assistance Discharge Recommendations PT Discharge Recommendations Home vs SNF Other Discharge Recommendations No way pt can tolerate outpatient cardiac rehab. Pt would not be able to get up on equipment. Transportation Needs at Discharge Private Vehicle
[2024-04-24] MEDS: ACETAMINOPHEN 325 MG TABLET 650 MG PO (19:55)
[2024-04-25] VITALS (10 sets, daily range): BP systolic 90–109; BP diastolic 54–61; PULSE 65–85; RESP 16–20; TEMP 36.4–36.7; O2SAT 93–98
[2024-04-25] MEDS: ACETAMINOPHEN 325 MG TABLET 650 MG PO (03:25)
--- NOTE | 2024-04-25 04:59 | PC.NURSE ---
Declined to discontinue & change right upper arm saline locked IV. States will wait until my doctor see me this morning, he might switch me to oral diuretic. Site clear no erythema noted, will report to day RN.
[2024-04-25] MEDS: PANTOPRAZOLE DR 40 MG TABLET PO (06:24)
[2024-04-25] MEDS: ALBUTEROL/IPRATROPIUM 3 ML AMPUL INH ×2 (07:57→11:47)
--- NOTE | 2024-04-25 08:19 | PM.PN.1 ---
Subjective Subjective Date Patient Seen: 04/25/24 Time Patient Seen: 08:19 Interval history: Patient up with physical therapy yesterday. Able to ambulate without any real significant dyspnea. Still pretty weak with no stamina however. Swelling still present he does not think it is any better at all in either lower extremity or in his right hand. Still painful and uncomfortable because of the swelling in his feet and legs Hoping to go home but really does not think he is ready as yet today Exam Vital Signs (past 8 hours): - 04/25/24 05:00 Temperature 97.5 F L Pulse Rate 65 Respiratory Rate 20 Blood Pressure 99/61 Pulse Oximetry 96 Oxygen Flow Rate 0 Fraction of Inspired Oxygen 21 SaO2/FiO2 Ratio 452 Oxygen Delivery Method Room Air Oxygen Flow Rate 0 Narrative Exam Narrative: 2-3+ pitting edema pretibially bilaterally, 1+ at right wrist, 0 trace left wrist Objective Labs 04/17/24 04:20 04/23/24 06:33 [facility] Medical History Chronic heart failure with preserved ejection fraction History of COVID-19 (10/2020) Right inguinal hernia Peripheral edema Testosterone deficiency in male Pulmonary nodule Cardiomyopathy Essential hypertension Atrial fibrillation COPD (chronic obstructive pulmonary disease) Chronic fatigue (11/23/17) Rheumatoid arthritis involving multiple sites (07/28/17) Postherpetic neuralgia (05/20/17) Primary osteoarthritis of both knees (11/22/15) Mild persistent asthma without complication (11/22/15) Surgical History Hx of knee surgery (10/2015) Hx of colonoscopy (10/22/22) S/P cataract extraction Status post cholecystectomy Family History Father Asthma Mother Diabetes mellitus Social History marital status: household members: spouse lives independently: Yes occupational status: previously employed Smoking Status: Former smoker alcohol intake: current substance use type: does not use Assessment & Plan Assessment & Plan narrative: 1. COPD exacerbation-continue with current treatments. Continue with oral steroids at current dose which will likely be his discharge dose. 2. Atrial fibrillation-continue with current meds including the digoxin. Rate control remains much improved. Last dig level acceptable 3. Hyperglycemia-continue with insulin coverage. Blood sugar control overall better with the oral steroids. Will likely need an oral hypoglycemic upon discharge 4. Chronic congestive heart failure-continue with the parental Lasix. Chest x-ray yesterday did not show pulmonary edema like previous. Patient with swelling of both lower extremities and least the right upper extremity unlikely to be related to clot either in the subclavian area or more distally for the lower extremities. In addition patient on anticoagulation so clot seem super unlikely and therefore I am not planning to undertake evaluation for that at this time I will increase his furosemide and give him a single dose of metolazone this morning with plans to repeat electrolytes tomorrow. Hopefully if we can begin to get this swelling to diminish she can be discharged home sooner rather than later 5. Anxiety-continue current medications which seem to have been helpful as well as treating his lung disease which is clearly been helpful as well. 6. Activity-patient benefitting from physical therapy. Continue physical therapy 7. Disposition-patient likely okay to go home with home health services, probably needs another 24-48 hours in the hospital. However if we are not making progress would strongly consider discharge to [facility] to continue rehabilitation prior to being able to go home. Quality VTE Deep Vein Thrombosis/Pulmonary Embolism Present on Admission: No [facility] PROFEE Charge codes Subsequent inpatient/observation care: 97227
[2024-04-25] MEDS: FUROSEMIDE 40 MG/4 ML VIAL 80 MG IV ×2 (08:50→21:15)
[2024-04-25] MEDS: POTASSIUM CHLORIDE 20 MEQ TAB PO ×2 (08:51→16:22)
[2024-04-25] MEDS: LOSARTAN 25 MG TABLET PO (08:51)
[2024-04-25] MEDS: metOLazone 2.5 MG TABLET PO (08:51)
[2024-04-25] MEDS: METOPROLOL ER 50 MG TABLET 100 MG PO (08:51)
[2024-04-25] MEDS: predniSONE 20 MG TABLET 40 MG PO (08:52)
[2024-04-25] MEDS: SODIUM CHLORIDE 0.9% FLUSH 10 ML IV ×2 (08:53→21:15)
[2024-04-25] MEDS: APIXABAN 5 MG TABLET PO ×2 (09:01→21:15)
[2024-04-25] MEDS: dilTIAZem CD 120 MG CAP PO (09:01)
--- NOTE | 2024-04-25 09:15 | PT.IPTN ---
Current Diagnoses Hypo-osmolality and hyponatremia (04/14/24) Unspecified atrial fibrillation (04/14/24) Chronic diastolic (congestive) heart failure (04/14/24) Chronic obstructive pulmonary disease with (acute) exacerbation (04/14/24) Edema, unspecified (04/14/24) Hyperglycemia, unspecified (04/14/24) Physical Therapy Treatment Note M2 PT-IP Current Condition Start: 04/18/24 13:03 Freq: NEEDED Status: Active Protocol: Document 04/18/24 09:59 AB (Rec: 04/18/24 13:17 AB [id number]) Physical Therapy Current Condition Current Condition Evaluation Date 04/18/24 Treatment Diagnosis A-fib; COPD exacerbation; difficulty in walking Onset Date 04/14/24 M3 PT-IP Subjective Start: 04/18/24 13:03 Freq: NEEDED Status: Active Protocol: Document 04/25/24 09:44 TS (Rec: 04/25/24 09:53 TS [id number]) Subjective Physical Therapy Visit Type Type Treatment Note Visit Start Time 09:15 Visit Stop Time 09:42 Number of SLEEPER CUTTER Visits 1 Physical Therapy Visit Comments Patient Comments Pt found resting in bed, reports leaking fluid from arms and torso. He reports slipping yesterday on stairs and is feeling weaker. Pt is agreeable to PT. M4 PT-IP Mobility and Gait Start: 04/18/24 13:03 Freq: NEEDED Status: Active Protocol: Document 04/25/24 09:44 TS (Rec: 04/25/24 09:53 TS [id number]) PT-Bed Mobility Assessment Supine to Sit Supine to Sit Independent,Head of Bed Elevated,Bedrails Sit to Supine Sit to Supine Independent,Head of Bed Elevated,Bedrails Scooting Scooting to Edge of Bed Independent PT-Transfer Assessment Sit to and From Stand Sit to and from Stand Standby Assistance Equipment Transfer Assistive Device Gait Belt,Front Wheeled Walker Orthotic/Prosthetic Devices or Brace: No Comments Mobility Comments Pt performs bed mobility Ind. STS with FWW SBA. Pt ambulated ~100' with no AD, on way back to room pt ambulated ~50'SBA with FWW due to fatigue. He performed stairs x3 ascending/ descending, pt fatigued quickly and requested back to room. Spo2 100 on RA, HR 85, BP 125/78. Pt was left in chair, all needs met. Gait Assessment Gait Gait Assistance Required: Standby Assistance Distance (Feet) 150 Able to Maintain Weight Bearing Status Yes During Gait Assistive Devices Assistive Device None,Gait Belt,Front Wheeled Walker Orthotic/Prosthetic Devices or Brace: No Gait Deviations General Gait Pattern Decreased Feet Clearance Factors Limiting Gait Function Factors Limiting Gait Function Decreased Activity Tolerance, Decreased Strength,Limited Range of Motion,Pain,Poor Balance,Poor Safety Awareness Stair Climbing Assessment Evaluation Level of Assist On Stairs Standby Assistance Devices Stair Climbing Assistive Devices Left Railing,Right Railing Technique/Endurance Number of Steps Climbed 3 PT-Balance Assessment Sitting Balance and Reactions Static Sitting Balance Ability Good Dynamic Sitting Balance Ability Good Standing Balance and Reactions Static Standing Balance Ability Good Dynamic Standing Balance Ability Fair Device Used FWW M5 PT-IP Objective Assessments Start: 04/18/24 13:03 Freq: NEEDED Status: Active Protocol: Document 04/18/24 09:59 AB (Rec: 04/18/24 13:17 AB [id number]) Orientation Orientation/Cognition Level of Alertness Alert Orientation Name,Place,Situation Language Function Ability Hard of Hearing Safety Awareness Decreased Safety Awareness Memory Description No Deficits Noted Gross Range of Motion Lower Extremity ROM Assessment Within Functional Limits Strength Lower Extremity Strength Assessment Left Impaired Hip 3+/5 Knee 4-/5 Sensation Assessment Sensation Sensation Description Numbness Comments Sensation Comments pt reported B LE neuropathies from the knees to the feet Muscle Tone Muscle Tone WNL Yes M6 PT-IP Treatment Start: 04/18/24 13:03 Freq: NEEDED Status: Active Protocol: Document 04/25/24 09:44 TS (Rec: 04/25/24 09:53 TS [id number]) Physical Therapy Treatment Education Education Provided Safety M7 PT-IP Assessment and Plan Start: 04/18/24 13:03 Freq: NEEDED Status: Active Protocol: Document 04/25/24 09:44 TS (Rec: 04/25/24 09:53 TS [id number]) PT Summary Assessment and Plan Potential Rehabilitation Potential Fair Summary Impairments Pain,ROM,Strength,Balance, Coordination,Sensation,Bed Mobility,Transfers,Gait, Activity Tolerance Progress Towards Goals Slow Progress due to Medical Issues,Slow Progress due to Activity Tolerance Assessment Summary Pt is making slow progress with his mobility. He can tolerate half the distance of gait as he could last week. He performing stairs at about 1/ 4 as much due to fatigue. Spo2 remained stable with mobility but continues to have some SOB. PT is recommending Home vs SNF. Pt could benefit from rehab stay to progress activity tolerance before safe d/c home. Goals Transfer Goal Independent,Front Wheeled Walker Gait Goal Independent,Front Wheel Walker Gait Distance 200 Other Goals improve transfers and ambulation using LRAD/without AD ~ 300 ft mod I up/down 6 platform steps using FWW SBA + 6 steps without AD SBA. Frequency of Treatment Frequency Of Treatment Once a Day Treatment Plan Physical Therapy Treatment Plan Bed Mobility Training,Transfer Training,Gait Training, Therapeutic Exercise,Balance Retraining,Discharge Planning, Coordination Retraining Other Recommendations and Next Treatment Focus on stair training using Focus R railing, consider marching in place first Precautions Other Precautions 02 sat, HR Weight Bearing Status Weight Bearing Status Weight Bear as Tolerated Recommendations To Nursing Amount of Assist Needed Standby Assistance Discharge Recommendations PT Discharge Recommendations Home vs SNF Transportation Needs at Discharge Private Vehicle
--- NOTE | 2024-04-25 11:37 | CM.DPNOTE ---
DCP Note TRACK SURFACING MACHINE OPERATOR reviewed EMR. Per PT note from Wednesday, pt was weaker than during initial eval. From DIRECTOR OF PRODUCT DESIGN jessica today, pt could benefit from rehab but reports it would likely still be safe for pt to dc home with HH. Per Dewayne note, extremities remain swollen. Hoping to dc home tomorrow. TRACK SURFACING MACHINE OPERATOR met with pt in room. Pt reports he is not interested in SNF at this time. Hopeful to dc home with HH tomorrow. Denies other CM needs. P: dc home with spouse to transport when medically stable. [facility] to follow for RN/PT. CM team will continue to follow as needed. DMITRI Abrams
[2024-04-25] MEDS: OXYCODONE IR 5 MG TABLET PO ×2 (16:22→21:14)
[2024-04-25] MEDS: DIGOXIN 0.125 MG TABLET 0.25 MG PO (16:25)
[2024-04-25] MEDS: INSULIN LISPRO 100 UNIT/ML 3ML VIAL SUBCUT ×2 (16:59→21:46)
[2024-04-26] VITALS: BP 90/61; PULSE 81; RESP 16; TEMP 36.4; O2SAT 95
[2024-04-26 05:23] VITALS: BP 92/51; PULSE 74; RESP 17; TEMP 36.4; O2SAT 98
[2024-04-26 06:11] LABS: BUN Creatinine Ratio 71.3 (6-22); Blood Urea Nitrogen 62 mg/dL (9-20); Calcium 7.9 mg/dL (8.4-10.2); Carbon Dioxide 39 mmol/L (22-32); Chloride 89 mmol/L (98-107); Estimated Glomerular Filt Rate > 60 mL/min (>60); Glucose 120 mg/dL (80-110); HEMOLYSIS < 15 (0-50); Magnesium 2.1 mg/dL (1.6-2.3); Potassium 3.8 mmol/L (3.4-5.1); Sodium 129 mmol/L (137-145)
[2024-04-26 08:00] VITALS: BP 96/64; PULSE 83; RESP 16; TEMP 36.4; O2SAT 95
--- NOTE | 2024-04-26 08:37 | P.DS_ITS ---
History of Present Illness History of Present Illness Date Patient Seen: 05/10/24 Time Patient Seen: 08:38 Chief complaint: Afib, SOB sent by software technical lead Narrative: 84-year-old male with known severe COPD as well as chronic atrial fibrillation admitted with a COPD exacerbation and rapid ventricular response to his atrial fibrillation Patient was at an appointment with his software technical lead today where he was found to be tachycardic and quite dyspneic when wheezy. Cardiology recommended he be evaluated in the ER. He had been seen earlier in the week by his pit laborer who acknowledged his burgeoning COPD exacerbation put him on 3 days of azithromycin and some prednisone. Patient was not improved with that he has been increasingly short of breath wheezy finding it difficult to complete sentences etcetera He is done this multiple times usually responds nicely to steroid therapy Patient has been taking all his medication without fail Patient also with a history of volume overload and congestive heart failure presenting much like this but often with hypoxia as well. No evidence of volume overload on ER evaluation today Patient was admitted for treatment of his COPD as well as efforts to help rate control his atrial fibrillation Discharge Providers Provider Date of admission: 04/14/24 16:02 Discharge Date: 04/26/24 Primary care physician: Mitchell Buchanan MD Consults: 04/14/24 16:53 Consult to Cardio/Pulmonary Rehabilitation Routine Comment: Physician Instructions: Evaluate and treat 04/18/24 08:11 Consult to Physical Therapy Evaluate & Treat Comment: Physician Instructions: Evaluate and Treat 04/22/24 08:53 Consult to Home Health Routine Comment: COPD, hypoxia, AFIB Reason For Exam: Set up RN/PT for d/c to home when stable Discharge provider: Mitchell Buchanan MD Summary Hospital Course Discharge Diagnosis: 1. Acute COPD exacerbation 2. Acute on chronic congestive heart failure with preserved ejection fraction 3. Hyperglycemia secondary to medication (steroids) 4. Atrial fibrillation with rapid ventricular response 5. Hypotension 6. Lower extremity peripheral edema 7. Upper extremity peripheral edema Hospital Course: Patient was admitted to the hospital with increased dyspnea etcetera. [place] to be primarily a exacerbation of his COPD. He was placed on inhaled bronchodilators via nebulizer etcetera he received parental steroids and also a course of parental antibiotics for possible pneumonia Slowly over time his respiratory status improved significantly to the point where he was able to be switch back to oral corticosteroids and had his frequency of nebulizer treatments reduced. He was never actually hypoxic for this hospitalization just severely dyspneic Patient also presented with atrial fibrillation rapid ventricular response thought to be in part due to his respiratory status but did not fully improve as treatment of his lung disease progress. Therefore he was initially treated with a diltiazem continuous infusion subsequently switched to oral diltiazem. He is struggled with hypotension likely secondary to the combination of diltiazem plus metoprolol. Digoxin was added for rate control given that his rate control was not adequate with the diltiazem and metoprolol alone, which was hampered by the hypotension. With the addition of digoxin his rate control was much improved. Digit levels were checked and were within the therapeutic range. Patient also experienced significant lower extremity and some extent upper extremity edema. No clear etiology for this was discovered although perhaps that will diltiazem was playing a role in this. Did have repeat echocardiography performed which failed to demonstrate any new findings still continues to have normal left ventricular function Over time slowly patient's heart rate remained stable blood pressure was somewhat diminished with aggressive diuresis for his edema but his edema improved. Diltiazem was discontinued because of the hypotension and concerns over the edema as well as the improvement in his ventricular rate with the atrial fibrillation Patient was felt to be stable to go home with the addition of home health services for PT OT etcetera as well as clinical monitoring with RN services Patient completed a course of antibiotics during his hospitalization no further antibiotics are necessary. Patient will continue on oral prednisone 40 mg daily The corticosteroid therapy did induced hyperglycemia requiring insulin for control of his blood sugar. He will be discharged home on low-dose glipizide while he was still taking prednisone in effort to better control his blood sugar etcetera Exam Vital Signs (past 8 hours): - 04/26/24 05:23 Temperature 97.6 F Pulse Rate 74 Respiratory Rate 17 Blood Pressure 92/51 L Pulse Oximetry 98 Fraction of Inspired Oxygen 21 SaO2/FiO2 Ratio 447 Oxygen Delivery Method Room Air Oxygen Flow Rate 0 Objective Labs 04/17/24 04:20 04/26/24 05:35 Labs: Laboratory Results - last 24 hr 04/26/24 05:35 Sodium 129 L Potassium 3.8 Chloride 89 L Carbon Dioxide 39 H BUN 62 H Creatinine 0.87 Estimated GFR > 60 BUN/Creatinine Ratio 71.3 H Glucose 120 H Calcium 7.9 L Magnesium 2.1 [facility] Medical History Chronic heart failure with preserved ejection fraction History of COVID-19 (10/2020) Right inguinal hernia Peripheral edema Testosterone deficiency in male Pulmonary nodule Cardiomyopathy Essential hypertension Atrial fibrillation COPD (chronic obstructive pulmonary disease) Chronic fatigue (11/23/17) Rheumatoid arthritis involving multiple sites (07/28/17) Postherpetic neuralgia (05/20/17) Primary osteoarthritis of both knees (11/22/15) Mild persistent asthma without complication (11/22/15) Surgical History Hx of knee surgery (10/2015) Hx of colonoscopy (10/22/22) S/P cataract extraction Status post cholecystectomy Family History Father Asthma Mother Diabetes mellitus Social History marital status: household members: spouse lives independently: Yes occupational status: previously employed Smoking Status: Former smoker alcohol intake: current substance use type: does not use Discharge Plan Discharge Plan Patient Disposition: Home Health Service Transfer to: [facility] Provider Discharge Comment: Home Health RN services, PT/OT Discharge orders & Medications Prescriptions: New glipizide 5 mg tablet 5 mg PO BID Qty: 60 3RF digoxin 250 mcg (0.25 mg) tablet 250 mcg PO DAILY Qty: 30 5RF Continued (DME) Spacer See Rx Instructions .Route .MEDSUPPLY Qty: 1 0RF Rx Instructions: As directed, use with Metered Dose Inhaler albuterol sulfate 2.5 mg /3 mL (0.083 %) solution for nebulization 2.5 mg continuous nebulization Q6H PRN (Reason: Dyspnea) Qty: 90 1RF potassium chloride 20 mEq tablet extended release 20 meq PO DAILY Qty: 90 3RF (DME) Disabled Parking See Rx Instructions .ROUTE .MEDSUPPLY Qty: 1 0RF Rx Instructions: Patient qualifies for disabled parking as per the attached form. apixaban 5 mg tablet 5 mg PO BID Qty: 180 1RF losartan 25 mg tablet 25 mg PO DAILY Qty: 90 1RF spironolactone 25 mg tablet 25 mg PO DAILY alendronate 70 mg tablet 70 mg PO QWEEK gabapentin 100 mg capsule 100 mg PO 3XD PRN (Reason: Back Pain) testosterone cypionate [Depo-Testosterone] 200 mg/mL oil 300 mg IM Q4W Qty: 10 2RF (DME) spacer for inhaled meds See Rx Instructions .Route .MEDSUPPLY Qty: 1 0RF Rx Instructions: As directed methotrexate sodium 2.5 mg tablet 2.5 mg PO DAILY metoprolol succinate 100 mg tablet extended release 24 hr 100 mg PO DAILY furosemide [Lasix] 40 mg tablet 40 mg PO DAILY Qty: 90 3RF sildenafil 100 mg tablet 50 - 100 mg PO DAILY PRN (Reason: sexual activity) Qty: 10 4RF Rx Instructions: administer 30 minutes to 4 hours before activity magnesium oxide 500 mg tablet 400 mg PO BID nystatin 100,000 unit/gram cream 1 applic topical BID Qty: 30 1RF furosemide 20 mg tablet 60 mg PO DAILY Qty: 60 0RF Rx Instructions: take 60mg daily for 1 week, then go back to 40mg daily unless otherwise specified by your primary doctor Stiolto Respimat 2.5-2.5 mcg/actuation mist 2 puff inhalation DAILY Qty: 4 3RF prednisone 20 mg tablet 40 mg PO DAILY Qty: 10 1RF albuterol sulfate [Ventolin HFA] 90 mcg/actuation HFA aerosol inhaler 2 inh inhalation Q4-6H PRN (Reason: shortness of breath or wheezing) Qty: 25.5 10RF Discontinued azithromycin 500 mg tablet 500 mg PO DAILY 3 Days Qty: 3 1RF Follow up/Referrals: Mitchell Buchanan MD [Primary Care Provider] - 1 Week Diet/Activity/Treatments Diet: Diet as Tolerated and Carb-consistent/Diabetic Visit Report/Discharge Packet Instructions: DI for Heart Failure, DI for Chronic Obstructive Pulmonary Disease, DI for Atrial Fibrillation, How to Prevent Falls Stand Alone Forms: Patient Portal/API, Stroke Signs & Symptoms Discharge Data Primary Care Provider: Mitchell Buchanan Quality VTE Deep Vein Thrombosis/Pulmonary Embolism Present on Admission: No IH PROFEE Charge Codes Discharge inpatient/observation: [id number]
[2024-04-26 08:42] VITALS: BP 96/64
[2024-04-26] MEDS: FUROSEMIDE 40 MG/4 ML VIAL 80 MG IV (08:42)
[2024-04-26] MEDS: APIXABAN 5 MG TABLET PO (08:42)
[2024-04-26] MEDS: POTASSIUM CHLORIDE 20 MEQ TAB PO (08:42)
[2024-04-26] MEDS: METOPROLOL ER 50 MG TABLET 100 MG PO (08:42)
[2024-04-26] MEDS: LOSARTAN 25 MG TABLET PO (08:42)
[2024-04-26] MEDS: predniSONE 20 MG TABLET 40 MG PO (08:43)
[2024-04-26] MEDS: PANTOPRAZOLE DR 40 MG TABLET PO (08:43)
[2024-04-26] MEDS: SODIUM CHLORIDE 0.9% FLUSH 10 ML IV (08:44)
--- NOTE | 2024-04-26 09:33 | PT-IP ANOTE ---
Pt refused to work with PT this morning, pt is to d/c and has no needs.
--- NOTE | 2024-04-26 10:19 | CM.DPNOTE ---
DCP Note BEHAVIORAL CONSULTANT reviewed EMR. Per Dewayne, pt to dc home today with HH to follow. BEHAVIORAL CONSULTANT notified [facility] of pt's discharge today. Alyx from [facility] reports all good to accept, just need normal dc information when available. CC Nicolette agreed to send order, f2f, and dc sum when signed. Per EMBOSSING MACHINE OPERATOR Kong, pt needs a walker for home use. BEHAVIORAL CONSULTANT placed order. BEHAVIORAL CONSULTANT met with pt in room. Walker ready, son on the way to transport home. Remains agreeeable to [facility]. Denies any additional DCP needs. P: dc home today with [facility] to follow for RN/PT. Son to transport. CM team will continue to follow as needed. DMITRI Abrams
--- NOTE | 2024-04-26 11:12 | PC.NURSE ---
Pt is dressed and ready for discharge home with Son. IV has been removed. Went over d/c instructions with Pt-discussed d/c meds, time of last dose, reviewed stroke education, CHF guidelines sheet, elevating lower ext. to reduce swelling, ADA/low sodium diet, and follow up. Pt denied further questions and was taken out via w/c by MECHANICAL ENGINEERING COOP to POV with all belongings.
== END 2024-04-26 11:14 | disposition home health service (06) | DRG 190 ==
LOC: ED 16:03 → AC 16:03 → ICU 16:07 → AC 04-20 16:39
PROVIDERS: Family Medicine; Admitting Provider Internal Medicine; Emergency Provider Emergency Medicine; PCP Internal Medicine; Referring Provider Emergency Medicine; Visit Provider Internal Medicine
DX: J44.1 Chronic obstructive pulmonary disease with (acute) exacerbation (principal); I50.33 Acute on chronic diastolic (congestive) heart failure; J18.9 Pneumonia, unspecified organism; I50.32 Chronic diastolic (congestive) heart failure; I48.91 Unspecified atrial fibrillation; Z79.01 Long term (current) use of anticoagulants; R73.9 Hyperglycemia, unspecified; T38.0X5A Adverse effect of glucocorticoids and synthetic analogues, initial encounter; I95.9 Hypotension, unspecified; F41.9 Anxiety disorder, unspecified; Z87.891 Personal history of nicotine dependence; M06.9 Rheumatoid arthritis, unspecified; D64.9 Anemia, unspecified
CPT/HCPCS: 0241U; 36415; 71045; 71046; 80048; 80053; 80162; 81001; 82550; 82962; 83036; 83540; 83550; 83605; 83690; 83735; 83880; 84484; 85025; 85610; 85730; 87040; 87797; 93005; 93010; 93306; 94640; 94760; 94762; 96365; 96375; 96376; 97116; 97162; 97530; 99223; 99232; 99233; 99238; 99284; 99291; A9270; J0696; J1160; J1815; J1940; J2919

== ENCOUNTER → 2024-05-04 14:57 | Outpatient (CLI) | payer OTHER, SELFPAY ==
[2024-04-14 16:07] VITALS: BMI 31.1
[2024-05-04 16:07] LABS: Add Manual Diff / Slide Review NO; Basophils Absolute Auto 100 /uL (0-100); Basophils Percent Auto 0.6 % (0-2); Eosinophils Absolute Auto 200 /uL (0-450); Eosinophils Percent Auto 1.9 % (2-4); Hematocrit 35.1 % (41-53); Hemoglobin 11.5 g/dL (13.5-17.5); Lymphocytes Absolute Auto 1300 /uL (1100-4500); Mean Corpuscular HGB Conc 32.9 % (30-36); Mean Corpuscular Volume 79.1 fL (80-100); Monocytes Absolute Auto 500 /uL (0-900); Monocytes Percent Auto 6.4 % (3-14); Neutrophils Absolute Auto 6100 /uL (1500-7000); Neutrophils Percent Auto 75.1 % (50-75); Platelet Count 185 X10^3/uL (150-400); Red Blood Cell Count 4.44 X10^6/uL (4.5-5.9); Red Cell Distribution Width 17.3 % (11.6-14.8); White Blood Cell Count 8.2 X10^3/uL (4.5-11.0)
[2024-05-04 16:26] LABS: BUN Creatinine Ratio 22.5 (6-22); Blood Urea Nitrogen 18 mg/dL (9-20); Carbon Dioxide 32 mmol/L (22-32); Chloride 104 mmol/L (98-107); Estimated Glomerular Filt Rate > 60 mL/min (>60); Glucose 104 mg/dL (80-110); HEMOLYSIS < 15 (0-50); Magnesium 1.7 mg/dL (1.6-2.3); Potassium 3.9 mmol/L (3.4-5.1); Sodium 137 mmol/L (137-145)
[2024-05-04 16:29] LABS: Digoxin 0.8 ng/mL (0.8-2.0)
== END ==
PROVIDERS: PCP Internal Medicine; Referring Provider Internal Medicine; Visit Provider Internal Medicine
DX: R73.9 Hyperglycemia, unspecified (principal); I50.32 Chronic diastolic (congestive) heart failure; J44.1 Chronic obstructive pulmonary disease with (acute) exacerbation; J44.9 Chronic obstructive pulmonary disease, unspecified; D64.9 Anemia, unspecified; I48.91 Unspecified atrial fibrillation
CPT/HCPCS: 36415; 80048; 80162; 83735; 85025

== ENCOUNTER → 2024-05-18 15:15 | Outpatient (CLI) | payer OTHER, SELFPAY ==
[2024-04-14 16:07] VITALS: BMI 31.1
[2024-05-18 17:28] LABS: Digoxin 0.5 ng/mL (0.8-2.0)
[2024-05-18 17:32] LABS: BUN Creatinine Ratio 10.1 (6-22); Blood Urea Nitrogen 11 mg/dL (9-20); Calcium 7.9 mg/dL (8.4-10.2); Carbon Dioxide 24 mmol/L (22-32); Chloride 104 mmol/L (98-107); Estimated Glomerular Filt Rate > 60 mL/min (>60); Glucose 79 mg/dL (80-110); HEMOLYSIS < 15 (0-50); Magnesium 1.2 mg/dL (1.6-2.3); Potassium 3.6 mmol/L (3.4-5.1); Sodium 136 mmol/L (137-145)
== END ==
PROVIDERS: PCP Internal Medicine; Referring Provider Internal Medicine; Visit Provider Internal Medicine
DX: I11.0 Hypertensive heart disease with heart failure (principal); I50.32 Chronic diastolic (congestive) heart failure; I42.9 Cardiomyopathy, unspecified; I48.91 Unspecified atrial fibrillation
CPT/HCPCS: 36415; 80048; 80162; 83735

== ENCOUNTER 2024-09-20 17:48 | Emergency (ER) | payer OTHER, SELFPAY ==
[2024-04-14 16:07] VITALS: BMI 31.1
[2024-09-20 18:19] VITALS: BP 112/85; PULSE 94; RESP 22; TEMP 37.3; O2SAT 95; BMI 28.8
--- NOTE | 2024-09-20 18:24 | EKG_ITS ---
[facility] [address] [address] Test Date: 2024-09-20 Pat Name: Blayne Hopkins Department: [facility] Room: Gender: Male [employer] Clerk: COLE : 1940 Requested By: Order Number: [id number] Reading MD: Mitchell Buchanan MD Measurements Intervals [place] Rate: 94 P: OR: QRS: 12 QRSD: 68 T: -9 QT: 376 QTc: 470 Interpretive Statements Atrial fibrillation Electronically Signed On 09-21-2024 7:31:25 PST by Mitchell Buchanan MD
--- NOTE | 2024-09-20 18:24 | DI.RAD.S_ITS ---
PROCEDURE: XR CHEST 1V INDICATIONS: chest pain TECHNIQUE: One view of the chest was acquired. COMPARISON: [facility], CR, XR CHEST 1V, 04/24/2024, 8:33. FINDINGS: Surgical changes and devices: None. Lungs and pleura: Lungs are clear. No pleural effusions or pneumothorax. Mediastinum: Mediastinal contours appear normal. Heart size is normal. Bones and chest wall: No suspicious bony lesions. Overlying soft tissues appear unremarkable. IMPRESSION: No acute cardiopulmonary abnormality is seen. Dictated by: Conchita Escamilla M.D. on 09/20/2024 at 19:20 Approved by: Conchita Escamilla M.D. on 09/20/2024 at 19:20
[2024-09-20 19:02] LABS: Add Manual Diff / Slide Review NO; Basophils Absolute Auto 100 /uL (0-100); Eosinophils Absolute Auto 300 /uL (0-450); Eosinophils Percent Auto 3.3 % (2-4); Hematocrit 42.6 % (41-53); Hemoglobin 13.8 g/dL (13.5-17.5); Lymphocytes Absolute Auto 1700 /uL (1100-4500); Lymphocytes Percent Auto 18.8 % (25-40); Mean Corpuscular HGB Conc 32.5 % (30-36); Mean Corpuscular Hemoglobin 24.4 PG (26-34); Monocytes Absolute Auto 1000 /uL (0-900); Monocytes Percent Auto 11.1 % (3-14); Neutrophils Absolute Auto 6100 /uL (1500-7000); Neutrophils Percent Auto 65.8 % (50-75); Platelet Count 260 X10^3/uL (150-400); Red Blood Cell Count 5.67 X10^6/uL (4.5-5.9); Red Cell Distribution Width 17.5 % (11.6-14.8); White Blood Cell Count 9.3 X10^3/uL (4.5-11.0)
--- NOTE | 2024-09-20 19:09 | ED_ITS ---
HPI - Chest Pain General Chief Complaint: Chest Pain Stated Complaint: chest pains,sent by pcp Time Seen by Provider: 09/20/24 18:31 Source: patient Mode of arrival: Ambulatory Limitations: no limitations History of Present Illness HPI narrative: 84-year-old male with history of COPD, congestive heart failure, atrial fibrillation on Eliquis presents by private vehicle from home for 2-3 days of intermittent chest pains, swelling in his ankles. Patient states that since his arrival to the emergency department he has been symptom-free. He underwent cardioversion at [facility] 2 weeks prior for erratic heart beat. Patient called his personal lines account executive's office today and they referred him to the emergency department for general evaluation. Patient states he has been compliant with his medication changes from his cardioversion. Related Data Home Medications Medication Instructions Recorded Confirmed spironolactone 25 mg tablet 25 mg PO DAILY 03/02/22 09/05/24 gabapentin 100 mg capsule 100 mg PO 3XD PRN Back Pain 07/19/23 09/05/24 magnesium oxide 400 mg PO BID 08/17/23 09/05/24 metoprolol succinate 100 mg 100 mg PO BID 05/18/24 09/05/24 tablet,extended release 24 hr Previous Rx's Medication Instructions Recorded Disabled Parking #1 ea 05/05/21 apixaban 5 mg tablet 5 mg PO BID #180 tabs 05/05/21 losartan 25 mg tablet 25 mg PO DAILY #90 tabs 05/05/21 Spacer #1 ea 10/15/21 nystatin 100,000 unit/gram topical 1 applic topical BID #30 grams 08/20/23 cream spacer for inhaled meds #1 ea 09/02/23 furosemide 20 mg tablet 60 mg (3 x 20 mg) PO DAILY #60 tabs 03/17/24 potassium chloride 20 mEq 20 meq PO DAILY #90 tabs 03/24/24 tablet,extended release albuterol sulfate 90 mcg/actuation 2 inh inhalation Q4-6H PRN 04/11/24 aerosol inhaler (Ventolin HFA) shortness of breath or wheezing #25.5 grams oxycodone-acetaminophen 5 mg-325 See Rx Instructions PO Q4-6H PRN 05/04/24 mg tablet pain #30 tabs testosterone cypionate 200 mg/mL 300 mg (1.5 mL) IM Q4W #10 mL 05/08/24 intramuscular oil (Depo-Testosterone) albuterol sulfate 2.5 mg/3 mL 2.5 mg (3 mL) continuous 08/21/24 (0.083 %) solution for nebulization nebulization Q6H PRN Dyspnea #90 mL tiotropium 2.5 mcg-olodaterol 2.5 2 puff inhalation DAILY #4 grams 08/22/24 mcg/actuation mist for inhalation (Stiolto Respimat) prednisone 20 mg tablet 20 - 40 mg (1 - 2 x 20 mg) PO 09/01/24 DAILY #60 tabs sildenafil 100 mg tablet 50 - 100 mg (0.5 - 1 x 100 mg) PO 09/01/24 DAILY PRN sexual activity #10 tabs fluticasone furoate 100 1 inh inhalation DAILY #30 ea 09/05/24 mcg/actuation blister powder for inhalation Allergies Allergy/AdvReac Type Severity Reaction Status Date / Time No Known Drug Allergies Allergy Verified 09/05/24 11:28 Patient History Medical History Chronic heart failure with preserved ejection fraction History of COVID-19 (10/2020) Right inguinal hernia Peripheral edema Testosterone deficiency in male Pulmonary nodule Cardiomyopathy Essential hypertension Atrial fibrillation COPD (chronic obstructive pulmonary disease) Chronic fatigue (11/23/17) Rheumatoid arthritis involving multiple sites (07/28/17) Postherpetic neuralgia (05/20/17) Primary osteoarthritis of both knees (11/22/15) Mild persistent asthma without complication (11/22/15) Surgical History Hx of knee surgery (10/2015) Hx of colonoscopy (10/22/22) S/P cataract extraction Status post cholecystectomy Family History Father Asthma Mother Diabetes mellitus Social History marital status: household members: spouse lives independently: Yes occupational status: previously employed Smoking Status: Former smoker alcohol intake: current substance use type: does not use Smoking Status: Former smoker alcohol intake frequency: a few times a month Substance Use Type: does not use Exam Initial Vital Signs Initial Vital Signs: Vital Signs Temperature 99.2 F 09/20/24 18:19 Pulse Rate 94 H 09/20/24 18:19 Respiratory Rate 22 09/20/24 18:19 Blood Pressure 112/85 09/20/24 18:19 Pulse Oximetry 95 09/20/24 18:19 Oxygen Delivery Method Room Air 09/20/24 18:19 Const: Awake, alert, no acute distress, nontoxic appearing Cardiac: Irregularly irregular rhythm RESP: unlabored, trace expiratory wheezes all lung gómez, no inspiratory crackles GI: Soft, nontender, nondistended MSK: Trace nonpitting edema to ankles bilaterally, full range of motion, pulses equal Skin: Warm, Dry, intact, no rashes Neuro: AO x3, CN II-XII grossly intact, moves all extremities Course Orders Ordered: ED Orders 09/20/24 18:24 XR chest 1V Stat EKG-12 Lead Stat 09/20/24 18:55 Complete Blood Count AUTO DIFF Stat Comprehensive Metabolic Panel Stat Lipase Stat Magnesium Stat NT-proBNP (BNP-Adult 18+) Stat PTT Partial Thromboplastin Jonathan Stat Prothrombin Time INR Stat Troponin & CK Cardiac Panel Stat Vital Signs Vital signs: Vital Signs - 8 hr 09/20/24 18:19 Temperature 99.2 F Pulse Rate 94 H Respiratory Rate 22 Blood Pressure 112/85 Pulse Oximetry 95 Oxygen Delivery Method Room Air MDM - Chest Pain Differential Diagnosis Differential diagnosis: Likely atypical chest pain, costochondritis and chest pain Lab Data 09/20/24 18:55 09/20/24 18:55 Labs: Lab Results 09/20/24 Range/Units 18:55 WBC 9.3 (4.5-11.0) X10^3/uL RBC 5.67 (4.5-5.9) X10^6/uL Hgb 13.8 (13.5-17.5) g/dL Hct 42.6 (41-53) % MCV 75.0 L (80-100) fL MCH 24.4 L (26-34) PG MCHC 32.5 (30-36) % RDW 17.5 H (11.6-14.8) % Plt Count 260 (150-400) X10^3/uL Neut % (Auto) 65.8 (50-75) % Lymph % (Auto) 18.8 L (25-40) % [place] % (Auto) 11.1 (3-14) % Eos % (Auto) 3.3 (2-4) % Baso % (Auto) 1.0 (0-2) % Neut # (Auto) 6100 (1899-5091) /uL Lymph # (Auto) 1700 (6445-8182) /uL [place] # (Auto) 1000 H (0-900) /uL Eos # (Auto) 300 (0-450) /uL Baso # (Auto) 100 (0-100) /uL PT 14.6 H (9.4-12.5) SECONDS INR 1.3 (0.9-1.3) APTT 36 (25.1-36.5) SECONDS Sodium 134 L (137-145) mmol/L Potassium 4.3 (3.4-5.1) mmol/L Chloride 101 (98-107) mmol/L Carbon Dioxide 30 (22-32) mmol/L BUN 20 (9-20) mg/dL Creatinine 1.05 (0.66-1.25) mg/dL Estimated GFR > 60 (>60) mL/min BUN/Creatinine Ratio 19.0 (6-22) Glucose 103 (80-110) mg/dL Calcium 8.8 (8.4-10.2) mg/dL Magnesium 1.6 (1.6-2.3) mg/dL Total Bilirubin 2.4 H (0.2-1.3) mg/dL AST 22 (17-59) IU/L ALT 24 (<50) IU/L Alkaline Phosphatase 82 (38-126) U/L Total Creatine Kinase 32 L (55-170) U/L Troponin I < 0.012 (0.01-0.034) ng/mL NT-Pro-B Natriuret Pep 6000 H (<450) pg/mL Total Protein 6.4 (6.3-8.2) g/dL Albumin 3.6 (3.5-5.0) g/dL Globulin 2.8 (1.7-4.1) g/dL Albumin/Globulin Ratio 1.3 (1.0-2.8) Lipase 146 (23-300) U/L Imaging Data Chest x-ray: Radiologist's Impression: PROCEDURE: XR CHEST 1V INDICATIONS: chest pain TECHNIQUE: One view of the chest was acquired. COMPARISON: [facility], CR, XR CHEST 1V, 04/24/2024, 8:33. FINDINGS: Surgical changes and devices: None. Lungs and pleura: Lungs are clear. No pleural effusions or pneumothorax. Mediastinum: Mediastinal contours appear normal. Heart size is normal. Bones and chest wall: No suspicious bony lesions. Overlying soft tissues appear unremarkable. IMPRESSION: No acute cardiopulmonary abnormality is seen. Dictated by: Conchita Escamilla M.D. on 09/20/2024 at 19:20 Approved by: Conchita Escamilla M.D. on 09/20/2024 at 19:20 ECG Data Interpretation: Atrial fibrillation at rate of 94 beats per minute. No ST T wave changes, no STEMI MDM Narrative Medical decision making narrative: Well-appearing patient with intermittent chest pains and shortness of breath. Patient told triage nurse that he received a cardioversion on Wednesday, however his paperwork shows that he had his cardioversion much earlier in the month and it has been nearly 2 weeks since his procedure. Patient has trace wheezing on exam. He states that this is consistent with his COPD and he was not feel short of breath or like he needs a breathing treatment. Patient currently in rate controlled atrial fibrillation between 60-80 beats per minute. Laboratory work is reviewed, troponin undetectable, patient does have elevation in BNP consistent with congestive heart failure. Patient's bilirubin is slightly higher than previous value in April of 2024, however his bilirubin seems to have fluctuated over the last several years and this may be related to congestive heart failure. Patient already takes 20 mg of Lasix daily. Patient reassessed, he has been chest pain-free since his arrival to the emergency department. He was relieved to know that his labs and x-ray imaging today are normal. For his ankle swelling he was counseled to increase his Lasix dose for the next 3-5 days and to follow up with his heart doctor. ED return precautions discussed at bedside. Patient expressed understanding of the plan and is in agreement at this time. All questions answered at the time of discharge. Discharge Plan Departure Patient Disposition: Home Clinical Impression: Chest pain, Atrial fibrillation Instructions: DI for Chest Pain Activity Restrictions/Additional Instructions: Your laboratory work and EKG today did not show any signs of heart attack. Your chest x-ray did not show any fluid on your lungs or pneumonia. Continue to take your metoprolol as prescribed by your heart doctor. Since you are having increased leg swelling I recommend increasing your Lasix from 20 mg to 40 mg for the next 3-5 days, then go back to 20 mg per day. Follow up with both your primary care doctor and your personal lines account executive. Prescriptions: No Action (DME) Spacer See Rx Instructions .Route .MEDSUPPLY Qty: 1 0RF Rx Instructions: As directed, use with Metered Dose Inhaler potassium chloride 20 mEq tablet extended release 20 meq PO DAILY Qty: 90 3RF testosterone cypionate [Depo-Testosterone] 200 mg/mL oil 300 mg IM Q4W Qty: 10 2RF albuterol sulfate 2.5 mg /3 mL (0.083 %) solution for nebulization 2.5 mg continuous nebulization Q6H PRN (Reason: Dyspnea) Qty: 90 1RF Stiolto Respimat 2.5-2.5 mcg/actuation mist 2 puff inhalation DAILY Qty: 4 3RF (DME) Disabled Parking See Rx Instructions .ROUTE .MEDSUPPLY Qty: 1 0RF Rx Instructions: Patient qualifies for disabled parking as per the attached form. apixaban 5 mg tablet 5 mg PO BID Qty: 180 1RF losartan 25 mg tablet 25 mg PO DAILY Qty: 90 1RF spironolactone 25 mg tablet 25 mg PO DAILY gabapentin 100 mg capsule 100 mg PO 3XD PRN (Reason: Back Pain) (DME) spacer for inhaled meds See Rx Instructions .Route .MEDSUPPLY Qty: 1 0RF Rx Instructions: As directed metoprolol succinate 100 mg tablet extended release 24 hr 100 mg PO BID oxycodone-acetaminophen 5-325 mg tablet See Rx Instructions PO Q4-6H MDD 4 tabs PRN (Reason: pain) Qty: 30 0RF Rx Instructions: 1-2 TABS PO Q4-6H PRN; prednisone 20 mg tablet 20 - 40 mg PO DAILY Qty: 60 0RF Rx Instructions: 1 tab daily or as directed sildenafil 100 mg tablet 50 - 100 mg PO DAILY PRN (Reason: sexual activity) Qty: 10 4RF Rx Instructions: administer 30 minutes to 4 hours before activity magnesium oxide 500 mg tablet 400 mg PO BID nystatin 100,000 unit/gram cream 1 applic topical BID Qty: 30 1RF furosemide 20 mg tablet 60 mg PO DAILY Qty: 60 0RF Rx Instructions: take 60mg daily for 1 week, then go back to 40mg daily unless otherwise specified by your primary doctor albuterol sulfate [Ventolin HFA] 90 mcg/actuation HFA aerosol inhaler 2 inh inhalation Q4-6H PRN (Reason: shortness of breath or wheezing) Qty: 25.5 10RF fluticasone furoate 100 mcg/actuation blister with device 1 inh inhalation DAILY Qty: 30 3RF Referrals: Mitchell Buchanan MD [Primary Care Provider] - Stand Alone Forms: Patient Portal/API/Survey
[2024-09-20 19:11] LABS: INR 1.3 (0.9-1.3); Prothrombin Time 14.6 SECONDS (9.4-12.5)
[2024-09-20 19:14] LABS: PTT Partial Thromboplastin Tim 36 SECONDS (25.1-36.5)
[2024-09-20 19:15] LABS: Alanine Aminotransferase 24 IU/L (<50); Albumin 3.6 g/dL (3.5-5.0); Albumin Globulin Ratio 1.3 (1.0-2.8); Alkaline Phosphatase 82 U/L (38-126); Aspartate Aminotransferase 22 IU/L (17-59); Bilirubin Total 2.4 mg/dL (0.2-1.3); Blood Urea Nitrogen 20 mg/dL (9-20); Calcium 8.8 mg/dL (8.4-10.2); Carbon Dioxide 30 mmol/L (22-32); Chloride 101 mmol/L (98-107); Creatine Kinase 32 U/L (55-170); Estimated Glomerular Filt Rate > 60 mL/min (>60); Globulin 2.8 g/dL (1.7-4.1); Glucose 103 mg/dL (80-110); HEMOLYSIS 22 (0-50); Lipase 146 U/L (23-300); Magnesium 1.6 mg/dL (1.6-2.3); Potassium 4.3 mmol/L (3.4-5.1); Sodium 134 mmol/L (137-145); Total Protein 6.4 g/dL (6.3-8.2)
[2024-09-20 19:25] LABS: NT-proBNP (BNP-Adult 18+) 6000 pg/mL (<450)
[2024-09-20 19:27] LABS: Troponin I < 0.012 ng/mL (0.01-0.034)
--- NOTE | 2024-09-20 19:50 | PC.NURSE ---
Pt ambulatory to restroom without difficulty or assistance.
[2024-09-20 20:01] VITALS: BP 129/83; PULSE 96; RESP 20; O2SAT 94
[2024-09-20 20:04] VITALS: BP 129/83; PULSE 96; RESP 20; O2SAT 94
== END 2024-09-20 20:07 | disposition home or self-care (01) ==
PROVIDERS: Emergency Provider Emergency Medicine; PCP Internal Medicine
DX: R07.9 Chest pain, unspecified (principal); I48.91 Unspecified atrial fibrillation; Z79.01 Long term (current) use of anticoagulants; I50.9 Heart failure, unspecified; R60.9 Edema, unspecified
CPT/HCPCS: 36415; 71045; 80053; 82550; 83690; 83735; 83880; 84484; 85025; 85610; 85730; 93005; 99284

== ENCOUNTER 2024-11-15 13:42 | Emergency (ER) | payer OTHER, SELFPAY ==
[2024-09-28 12:17] VITALS: BMI 31.1
[2024-11-15 13:48] VITALS: BP 127/72; PULSE 67; RESP 30; TEMP 36.8; O2SAT 98; BMI 31.1
--- NOTE | 2024-11-15 13:52 | DI.RAD.S_ITS ---
PROCEDURE: XR CHEST 1V INDICATIONS: Shortness of breath TECHNIQUE: One view of the chest was acquired. COMPARISON: [facility], CR, XR CHEST 1V, 09/20/2024, 18:27. FINDINGS: Surgical changes and devices: None. Lungs and pleura: Lungs are clear. No pleural effusions or pneumothorax. Mediastinum: Mediastinal contours appear normal. Heart size is normal. Bones and chest wall: No suspicious bony lesions. Overlying soft tissues appear unremarkable. IMPRESSION: No acute cardiopulmonary abnormality is seen. Dictated by: Riccardo Gimenez M.D. on 11/15/2024 at 15:01 Approved by: Riccardo Gimenez M.D. on 11/15/2024 at 15:09
--- NOTE | 2024-11-15 13:52 | EKG_ITS ---
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
[2024-11-15 14:18] LABS: Add Manual Diff / Slide Review NO; Basophils Absolute Auto 0 /uL (0-100); Basophils Percent Auto 0.3 % (0-2); Eosinophils Absolute Auto 100 /uL (0-450); Eosinophils Percent Auto 0.6 % (2-4); Hematocrit 42.4 % (41-53); Lymphocytes Absolute Auto 2000 /uL (1100-4500); Lymphocytes Percent Auto 18.8 % (25-40); Mean Corpuscular HGB Conc 32.9 % (30-36); Mean Corpuscular Hemoglobin 25.8 PG (26-34); Mean Corpuscular Volume 78.3 fL (80-100); Monocytes Absolute Auto 900 /uL (0-900); Monocytes Percent Auto 8.6 % (3-14); Neutrophils Absolute Auto 7600 /uL (1500-7000); Neutrophils Percent Auto 71.7 % (50-75); Platelet Count 316 X10^3/uL (150-400); Red Blood Cell Count 5.42 X10^6/uL (4.5-5.9); Red Cell Distribution Width 22.1 % (11.6-14.8); White Blood Cell Count 10.6 X10^3/uL (4.5-11.0)
[2024-11-15 14:22] LABS: INR 1.1 (0.9-1.3); Prothrombin Time 12.3 SECONDS (9.4-12.5)
--- NOTE | 2024-11-15 14:24 | ED_ITS ---
HPI - SOB/Dyspnea General Chief Complaint: Shortness of Breath/Dyspnea Stated Complaint: Diff Breathing, Back Pain Time Seen by Provider: 11/15/24 13:58 Source: patient Mode of arrival: Ambulatory Limitations: no limitations History of Present Illness HPI Narrative: Patient here for cough cold congestion upper back pain for the past 1 week. After [place] many family members had the same symptoms. Patient does have history of AFib on Eliquis COPD CHF. He does not smoke. Is not on home oxygen. He states his upper back pain hurts every time he coughs. Has had a wet cough. Related Data Home Medications Medication Instructions Recorded Confirmed spironolactone 25 mg tablet 25 mg PO DAILY 03/02/22 10/27/24 gabapentin 100 mg capsule 100 mg PO 3XD PRN Back Pain 07/19/23 10/27/24 magnesium oxide 400 mg PO BID 08/17/23 10/27/24 metoprolol succinate 50 mg 50 mg PO BID 09/29/24 10/27/24 tablet,extended release 24 hr sotalol 80 mg tablet 80 mg PO BID 09/29/24 10/27/24 Previous Rx's Medication Instructions Recorded Disabled Parking #1 ea 05/05/21 apixaban 5 mg tablet 5 mg PO BID #180 tabs 05/05/21 losartan 25 mg tablet 25 mg PO DAILY #90 tabs 05/05/21 Spacer #1 ea 10/15/21 nystatin 100,000 unit/gram topical 1 applic topical BID #30 grams 08/20/23 cream spacer for inhaled meds #1 ea 09/02/23 potassium chloride 20 mEq 20 meq PO DAILY #90 tabs 03/24/24 tablet,extended release oxycodone-acetaminophen 5 mg-325 See Rx Instructions PO Q4-6H PRN 05/04/24 mg tablet pain #30 tabs testosterone cypionate 200 mg/mL 300 mg (1.5 mL) IM Q4W #10 mL 05/08/24 intramuscular oil (Depo-Testosterone) albuterol sulfate 2.5 mg/3 mL 2.5 mg (3 mL) continuous 08/21/24 (0.083 %) solution for nebulization nebulization Q6H PRN Dyspnea #90 mL tiotropium 2.5 mcg-olodaterol 2.5 2 puff inhalation DAILY #4 grams 08/22/24 mcg/actuation mist for inhalation (Stiolto Respimat) fluticasone furoate 100 1 inh inhalation DAILY #30 ea 09/05/24 mcg/actuation blister powder for inhalation furosemide 40 mg tablet (Lasix) 40 mg PO DAILY #90 tabs 09/29/24 albuterol sulfate 90 mcg/actuation 2 inh inhalation Q4-6H PRN 10/04/24 aerosol inhaler (Ventolin HFA) shortness of breath or wheezing #25.5 grams prednisone 20 mg tablet 20 - 40 mg (1 - 2 x 20 mg) PO 10/27/24 DAILY #60 tabs tadalafil (pulm. hypertension) 20 20 mg PO DAILY PRN sexual activity 10/27/24 mg tablet (pulmonary hypertension) #10 tabs sildenafil 100 mg tablet 50 - 100 mg (0.5 - 1 x 100 mg) PO 11/10/24 DAILY PRN sexual activity #10 tabs benzonatate 100 mg capsule 100 mg PO TID PRN cough #20 caps 11/15/24 oxycodone-acetaminophen 5 mg-325 1 tab PO Q4-6H PRN pain #12 tabs 11/15/24 mg tablet (Percocet) Allergies Allergy/AdvReac Type Severity Reaction Status Date / Time No Known Drug Allergies Allergy Verified 10/27/24 11:19 Review of Systems Review of Systems Narrative: GENERAL: Negative chills, fatigue, malaise, fever, sweats. HEENT: Negative sinus pain, ear pain, sore throat RESPIRATORY: Positive dyspnea, cough CARDIOVASCULAR: Negative chest pain, palpitations GASTROINTESTINAL: Negative nausea, vomiting, abdominal pain : Negative dysuria, frequency, hematuria MUSCULOSKELETAL: Positive muscle or bony pain SKIN: Negative rash, skin lesions NEUROLOGIC: Negative weakness, numbness ROS Unobtainable: All systems reviewed & are unremarkable except as noted in HPI and below Patient History Medical History Chronic heart failure with preserved ejection fraction History of COVID-19 (10/2020) Right inguinal hernia Peripheral edema Testosterone deficiency in male Pulmonary nodule Cardiomyopathy Essential hypertension Atrial fibrillation COPD (chronic obstructive pulmonary disease) Chronic fatigue (11/23/17) Rheumatoid arthritis involving multiple sites (07/28/17) Postherpetic neuralgia (05/20/17) Primary osteoarthritis of both knees (11/22/15) Mild persistent asthma without complication (11/22/15) Surgical History Hx of knee surgery (10/2015) Hx of colonoscopy (10/22/22) S/P cataract extraction Status post cholecystectomy Family History Father Asthma Mother Diabetes mellitus Social History marital status: household members: spouse lives independently: Yes occupational status: previously employed Smoking Status: Former smoker alcohol intake: current substance use type: does not use Smoking Status: Former smoker alcohol intake frequency: a few times a month Exam Narrative Exam Narrative: GENERAL: in no distress, not toxic not dyspneic HEAD: Normocephalic. EYES: Pupils equal round ENT: Mucous membranes moist. NECK: Trachea midline. CARDIOVASCULAR: Regular rate and rhythm RESPIRATORY: Patient is speaking full sentences. There is bilateral coarse lung sounds. No wheezing no rhonchi. No respiratory distress. GASTROINTESTINAL: Abdomen soft, non-tender EXTREMITIES: No gross deformities. BACK: No flank tenderness. There is reproducible tenderness of the bilateral scapula and upper parathoracic muscles. No midline tenderness or step-off of the cervical thoracic or lumbar spine NEURO: AOx4. Clear speech SKIN: Warm and dry PSYCH: Not anxious, is cooperative Initial Vital Signs Initial Vital Signs: Vital Signs Temperature 98.3 F 11/15/24 13:48 Pulse Rate 67 11/15/24 13:48 Respiratory Rate 30 H 11/15/24 13:48 Blood Pressure 127/72 11/15/24 13:48 Pulse Oximetry 98 11/15/24 13:48 Oxygen Delivery Method Room Air 11/15/24 13:48 Course Orders Ordered: Discontinued Medications Benzonatate (Benzonatate 100 Mg Capsule) 100 mg PO NOW ONE Stop: 11/15/24 16:37 Last Admin: 11/15/24 16:43 Dose: 100 mg Documented By: OCHOA Oxycodone/Acetaminophen (Oxycodone/Acetaminophen 5/325 Tablet) 1 tab PO NOW ONE Stop: 11/15/24 16:02 Last Admin: 11/15/24 16:04 Dose: 1 tab Documented By: OCHOA Vital Signs Vital signs: Vital Signs - 8 hr 11/15/24 13:48 11/15/24 14:30 11/15/24 14:30 Temperature 98.3 F Pulse Rate 67 83 Respiratory Rate 30 H 28 H Blood Pressure 127/72 116/62 Pulse Oximetry 98 98 Oxygen Delivery Method Room Air 11/15/24 15:00 11/15/24 15:00 Temperature Pulse Rate 79 Respiratory Rate 15 Blood Pressure 97/54 L Pulse Oximetry 97 Oxygen Delivery Method MDM - SOB/Dyspnea Lab Data 11/15/24 14:08 11/15/24 14:08 Labs: Lab Results 11/15/24 11/15/24 Range/Units 14:08 14:27 WBC 10.6 (4.5-11.0) X10^3/uL RBC 5.42 (4.5-5.9) X10^6/uL Hgb 14.0 (13.5-17.5) g/dL Hct 42.4 (41-53) % MCV 78.3 L (80-100) fL MCH 25.8 L (26-34) PG MCHC 32.9 (30-36) % RDW 22.1 H (11.6-14.8) % Plt Count 316 (150-400) X10^3/uL Neut % (Auto) 71.7 (50-75) % Lymph % (Auto) 18.8 L (25-40) % [place] % (Auto) 8.6 (3-14) % Eos % (Auto) 0.6 L (2-4) % Baso % (Auto) 0.3 (0-2) % Neut # (Auto) 7600 H (7219-4574) /uL Lymph # (Auto) 2000 (9473-6680) /uL [place] # (Auto) 900 (0-900) /uL Eos # (Auto) 100 (0-450) /uL Baso # (Auto) 0 (0-100) /uL RBC Morphology See below Anisocytosis 1+ H Ovalocytes 1+ H Schistocytes 1+ H PT 12.3 (9.4-12.5) SECONDS INR 1.1 (0.9-1.3) Sodium 138 (137-145) mmol/L Potassium 3.5 (3.4-5.1) mmol/L Chloride 101 (98-107) mmol/L Carbon Dioxide 33 H (22-32) mmol/L BUN 35 H (9-20) mg/dL Creatinine 0.94 (0.66-1.25) mg/dL Estimated GFR > 60 (>60) mL/min BUN/Creatinine Ratio 37.2 H (6-22) Glucose 121 H (80-110) mg/dL Lactate 1.6 (0.7-2.1) mmol/L Calcium 8.8 (8.4-10.2) mg/dL Total Bilirubin 1.4 H (0.2-1.3) mg/dL AST 32 (17-59) IU/L ALT 39 (<50) IU/L Alkaline Phosphatase 70 (38-126) U/L Troponin I < 0.012 (0.01-0.034) ng/mL NT-Pro-B Natriuret Pep 3850 H (<450) pg/mL Total Protein 6.2 L (6.3-8.2) g/dL Albumin 3.6 (3.5-5.0) g/dL Globulin 2.6 (1.7-4.1) g/dL Albumin/Globulin Ratio 1.4 (1.0-2.8) Chlamy pneumoniae PCR Not detected (Not Detect) Adenovirus (PCR) Not detected (Not Detect) B. pertussis DNA (PCR) Not detected (Not Detect) B.parapertussis DNA PCR Not detected (Not Detecte) Coronavirus OC43 (PCR) Not detected (Not Detect) Coronavirus HKU1 (PCR) Not detected (Not Detect) Coronavirus 229E (PCR) Not detected (Not Detect) SARS-CoV-2 (PCR) Not detected (Not Detecte) Coronavirus NL63 (PCR) Detected H (Not Detect) Human Metapneumovir PCR Not detected (Not Detect) Influenza Type A (PCR) Not detected (Not Detect) Influenza Type B (PCR) Not detected (Not Detect) M. pneumoniae (PCR) Not detected (Not Detect) Parainfluenza 1 (PCR) Not detected (Not Detect) Parainfluenza 2 (PCR) Not detected (Not Detect) Parainfluenza 3 (PCR) Not detected (Not Detect) Parainfluenza 4 (PCR) Not detected (Not Detect) RSV (PCR) Not detected (Not Detect) Entero/Rhino (PCR) Not detected (Not Detect) MDM Narrative Medical decision making narrative: Patient here for cough cold congestion upper back pain for the past 1 week. After [place] many family members had the same symptoms. Patient does have history of AFib on Eliquis COPD CHF. He does not smoke. Is not on home oxygen. He states his upper back pain hurts every time he coughs. Has had a wet cough. After history and exam CBC CMP troponin EKG respiratory panel chest x-ray Percocet for back pain, [facility] Medical records reviewed: No recent visit for this complaint Differential considered: Includes but not limited to pneumonia bronchitis COVID influenza rhinovirus RSV Lab Test results independently reviewed as above. Pertinent findings: WBC 10.6 hemoglobin 14 INR 1.1 sodium 138 potassium 3.5 BUN 35 creatinine 0.94 GFR greater than 60 troponin less than 0.012 BNP 3850, respiratory panel positive coronavirus Independently reviewed EKG atrial fibrillation rate 82 Imaging studies independently reviewed: Chest x-ray no acute finding Consultations: None indicated Treatments: Tessalon Perle Percocet Re-evaluations: 4:40 p.m.. Reviewed results with patient. They are reassuring. Tested positive for coronavirus but not COVID. He states Percocet is only pain medication that helps for his pain. I will prescribe short course. As well as Tessalon Perles. He already has inhaler. Return precautions reviewed. Nontoxic at discharge. He desires discharge home. Back pain is much better. Cough is much better. No dyspnea. Discussion: Appropriate for discharge home exam is reassuring. Return precautions reviewed. Patient not requiring supplemental oxygen. He desires discharge home. Diagnosis: Acute bronchitis/coronavirus Discharge Plan Departure Patient Disposition: Home Clinical Impression: Coronavirus infection Acute bronchitis Qualifiers: Bronchitis organism: other organism Qualified Code(s): J20.8 - Acute bronchitis due to other specified organisms Instructions: DI for Acute Bronchitis, DI for Viral Upper Respiratory Infection -- Adult Activity Restrictions/Additional Instructions: You have tested positive for coronavirus. It is not COVID. No antibiotics are indicated. There is no pneumonia seen on x-ray. Cough medication has been provided as well as short course of pain medication. No driving operating machinery today or when taking prescribed pain medication. Use inhaler 2 puffs every 4 hours as needed for cough. Return if worse if any questions or concerns. Please see your family doctor this week for re-evaluation. Prescriptions: New oxycodone-acetaminophen [Percocet] 5-325 mg tablet 1 tab PO Q4-6H PRN (Reason: pain) Qty: 12 0RF benzonatate 100 mg capsule 100 mg PO TID PRN (Reason: cough) Qty: 20 0RF No Action (DME) Spacer See Rx Instructions .Route .MEDSUPPLY Qty: 1 0RF Rx Instructions: As directed, use with Metered Dose Inhaler potassium chloride 20 mEq tablet extended release 20 meq PO DAILY Qty: 90 3RF testosterone cypionate [Depo-Testosterone] 200 mg/mL oil 300 mg IM Q4W Qty: 10 2RF albuterol sulfate 2.5 mg /3 mL (0.083 %) solution for nebulization 2.5 mg continuous nebulization Q6H PRN (Reason: Dyspnea) Qty: 90 1RF Stiolto Respimat 2.5-2.5 mcg/actuation mist 2 puff inhalation DAILY Qty: 4 3RF albuterol sulfate [Ventolin HFA] 90 mcg/actuation HFA aerosol inhaler 2 inh inhalation Q4-6H PRN (Reason: shortness of breath or wheezing) Qty: 25.5 10RF sildenafil 100 mg tablet 50 - 100 mg PO DAILY PRN (Reason: sexual activity) Qty: 10 4RF Rx Instructions: administer 30 minutes to 4 hours before activity (DME) Disabled Parking See Rx Instructions .ROUTE .MEDSUPPLY Qty: 1 0RF Rx Instructions: Patient qualifies for disabled parking as per the attached form. apixaban 5 mg tablet 5 mg PO BID Qty: 180 1RF losartan 25 mg tablet 25 mg PO DAILY Qty: 90 1RF spironolactone 25 mg tablet 25 mg PO DAILY gabapentin 100 mg capsule 100 mg PO 3XD PRN (Reason: Back Pain) (DME) spacer for inhaled meds See Rx Instructions .Route .MEDSUPPLY Qty: 1 0RF Rx Instructions: As directed prednisone 20 mg tablet 20 - 40 mg PO DAILY Qty: 60 0RF Rx Instructions: 1 tab daily or as directed tadalafil (pulm. hypertension) 20 mg tablet 20 mg PO DAILY PRN (Reason: sexual activity) Qty: 10 0RF Rx Instructions: administer approximately 30min before sexual activity; do not use more than 1 dose per 24hrs furosemide [Lasix] 40 mg tablet 40 mg PO DAILY Qty: 90 3RF sotalol 80 mg tablet 80 mg PO BID metoprolol succinate 50 mg tablet extended release 24 hr 50 mg PO BID oxycodone-acetaminophen 5-325 mg tablet See Rx Instructions PO Q4-6H MDD 4 tabs PRN (Reason: pain) Qty: 30 0RF Rx Instructions: 1-2 TABS PO Q4-6H PRN; magnesium oxide 500 mg tablet 400 mg PO BID nystatin 100,000 unit/gram cream 1 applic topical BID Qty: 30 1RF fluticasone furoate 100 mcg/actuation blister with device 1 inh inhalation DAILY Qty: 30 3RF Referrals: Mitchell Buchanan MD [Primary Care Provider] - Stand Alone Forms: Patient Portal/API/Survey
[2024-11-15 14:26] LABS: Alanine Aminotransferase 39 IU/L (<50); Albumin 3.6 g/dL (3.5-5.0); Albumin Globulin Ratio 1.4 (1.0-2.8); Alkaline Phosphatase 70 U/L (38-126); Aspartate Aminotransferase 32 IU/L (17-59); BUN Creatinine Ratio 37.2 (6-22); Bilirubin Total 1.4 mg/dL (0.2-1.3); Blood Urea Nitrogen 35 mg/dL (9-20); Calcium 8.8 mg/dL (8.4-10.2); Carbon Dioxide 33 mmol/L (22-32); Chloride 101 mmol/L (98-107); Estimated Glomerular Filt Rate > 60 mL/min (>60); Globulin 2.6 g/dL (1.7-4.1); Glucose 121 mg/dL (80-110); HEMOLYSIS < 15 (0-50); Potassium 3.5 mmol/L (3.4-5.1); Sodium 138 mmol/L (137-145); Total Protein 6.2 g/dL (6.3-8.2)
[2024-11-15 14:27] LABS: Lactate (Lactic Acid) 1.6 mmol/L (0.7-2.1)
[2024-11-15 14:30] VITALS: BP 116/62; PULSE 83; RESP 28; O2SAT 98
[2024-11-15 14:33] LABS: Anisocytosis 1+
[2024-11-15 14:36] LABS: Ovalocytes 1+; Schistocytes 1+
[2024-11-15 14:39] LABS: NT-proBNP (BNP-Adult 18+) 3850 pg/mL (<450); Troponin I < 0.012 ng/mL (0.01-0.034)
[2024-11-15 15:00] VITALS: BP 97/54; PULSE 79; RESP 15; O2SAT 97
[2024-11-15 15:20] LABS: Adenovirus Not Detected (Not Detect); B. parapertussis Not Detected (Not Detecte); Bordetella pertussis Not Detected (Not Detect); Chlamydophila pneumoniae Not Detected (Not Detect); Coronavirus 229E Not Detected (Not Detect); Coronavirus HKU1 Not Detected (Not Detect); Coronavirus NL 63 Detected (Not Detect); Coronavirus OC43 Not Detected (Not Detect); Human Metapneumovirus Not Detected (Not Detect); Human Rhinovirus/Enterovirus Not Detected (Not Detect); Influenza A Not Detected (Not Detect); Influenza B Not Detected (Not Detect); Mycoplasma pneumoniae Not Detected (Not Detect); Parainfluenza Virus 1 Not Detected (Not Detect); Parainfluenza Virus 2 Not Detected (Not Detect); Parainfluenza Virus 3 Not Detected (Not Detect); Parainfluenza Virus 4 Not Detected (Not Detect); Respiratory Syncytial Virus Not Detected (Not Detect); SARS- CoV-2 Not Detected (Not Detecte)
[2024-11-15 15:30] VITALS: BP 92/71; PULSE 77; RESP 20; O2SAT 98
[2024-11-15 16:00] VITALS: BP 104/57; PULSE 72; RESP 13; O2SAT 98
[2024-11-15] MEDS: OXYCODONE/ACETAMINOPHEN 5/325 TABLET 1 TAB PO (16:04)
[2024-11-15 16:30] VITALS: BP 102/59; PULSE 72; RESP 13; O2SAT 98
[2024-11-15] MEDS: BENZONATATE 100 MG CAPSULE PO (16:43)
== END 2024-11-15 16:51 | disposition home or self-care (01) ==
PROVIDERS: Emergency Provider Emergency Medicine; PCP Internal Medicine
DX: J20.8 Acute bronchitis due to other specified organisms (principal); B97.29 Other coronavirus as the cause of diseases classified elsewhere; I48.91 Unspecified atrial fibrillation; Z79.01 Long term (current) use of anticoagulants; Z87.891 Personal history of nicotine dependence
CPT/HCPCS: 36415; 71045; 80053; 83605; 83880; 84484; 85025; 85610; 87633; 93005; 93010; 99284

== ENCOUNTER 2024-12-14 17:23 | Inpatient (IN) | payer OTHER, SELFPAY ==
[2024-09-28 12:17] VITALS: BMI 31.1
[2024-12-14] VITALS (44 sets, daily range): BP systolic 77–114; BP diastolic 48–71; PULSE 95–120; RESP 20–43; TEMP 37.6; O2SAT 91–99; BMI 32.3
--- NOTE | 2024-12-14 17:38 | EKG_ITS ---
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
--- NOTE | 2024-12-14 17:38 | DI.RAD.S_ITS ---
PROCEDURE: XR CHEST 1V INDICATIONS: suspected sepsis TECHNIQUE: One view of the chest was acquired. COMPARISON: [facility], CR, XR CHEST 1V, 11/15/2024, 14:08. [facility], CR, XR CHEST 1V, 09/20/2024, 18:27. FINDINGS: Surgical changes and devices: None. Lungs and pleura: Bilateral patchy airspace opacity. No pleural effusions or pneumothorax. Mediastinum: Mediastinal contours appear normal. Heart size is normal. Bones and chest wall: No suspicious bony lesions. Overlying soft tissues appear unremarkable. IMPRESSION: Bilateral patchy airspace opacity. This could represent pneumonia or aspiration or atelectasis. Dictated by: Siddharth Panchal M.D. on 12/14/2024 at 18:45 Approved by: Siddharth Panchal M.D. on 12/14/2024 at 18:46
[2024-12-14] MEDS: ALBUTEROL 2.5 MG/3 ML NEB (ADULT) INH ×2 (18:07→19:32)
[2024-12-14 18:13] LABS: Add Manual Diff / Slide Review NO; Basophils Absolute Auto 100 /uL (0-100); Basophils Percent Auto 0.6 % (0-2); Eosinophils Absolute Auto 0 /uL (0-450); Eosinophils Percent Auto 0.1 % (2-4); Hemoglobin 13.5 g/dL (13.5-17.5); Lymphocytes Absolute Auto 1700 /uL (1100-4500); Lymphocytes Percent Auto 12.4 % (25-40); Mean Corpuscular HGB Conc 32.8 % (30-36); Mean Corpuscular Volume 79.3 fL (80-100); Monocytes Absolute Auto 1400 /uL (0-900); Monocytes Percent Auto 10.2 % (3-14); Neutrophils Absolute Auto 10400 /uL (1500-7000); Neutrophils Percent Auto 76.7 % (50-75); Platelet Count 275 X10^3/uL (150-400); Red Blood Cell Count 5.17 X10^6/uL (4.5-5.9); Red Cell Distribution Width 20.2 % (11.6-14.8); White Blood Cell Count 13.5 X10^3/uL (4.5-11.0)
[2024-12-14 18:16] LABS: INR 1.3 (0.9-1.3); Prothrombin Time 14.9 SECONDS (9.4-12.5)
[2024-12-14 18:19] LABS: Lactate (Lactic Acid) 1.3 mmol/L (0.7-2.1); PTT Partial Thromboplastin Tim 33 SECONDS (25.1-36.5)
[2024-12-14 18:20] LABS: Alanine Aminotransferase 95 IU/L (<50); Albumin 3.6 g/dL (3.5-5.0); Albumin Globulin Ratio 1.3 (1.0-2.8); Alkaline Phosphatase 96 U/L (38-126); Aspartate Aminotransferase 98 IU/L (17-59); BUN Creatinine Ratio 19.5 (6-22); Bilirubin Total 2.3 mg/dL (0.2-1.3); Blood Urea Nitrogen 17 mg/dL (9-20); Calcium 8.5 mg/dL (8.4-10.2); Carbon Dioxide 26 mmol/L (22-32); Chloride 99 mmol/L (98-107); Estimated Glomerular Filt Rate > 60 mL/min (>60); Globulin 2.7 g/dL (1.7-4.1); Glucose 86 mg/dL (80-110); HEMOLYSIS < 15 (0-50); Lipase 45 U/L (23-300); Potassium 3.9 mmol/L (3.4-5.1); Sodium 132 mmol/L (137-145); Total Protein 6.3 g/dL (6.3-8.2)
--- NOTE | 2024-12-14 18:23 | RT ---
pt iraida neb tx well, sob noted. Pt has copd and rales bilat. t/o.
[2024-12-14 18:33] LABS: Anisocytosis 1+; Poikilocytosis 1+
[2024-12-14 18:37] LABS: Procalcitonin 0.508 ng/mL (<0.5)
--- NOTE | 2024-12-14 18:40 | ED.SOB ---
HPI - SOB/Dyspnea <Marty Chase, DO - Last Filed: 12/15/24 05:20> General Chief Complaint: Shortness of Breath/Dyspnea Stated Complaint: Trouble breathing; HX COPD Time Seen by Provider: 12/14/24 18:25 Source: patient Mode of arrival: Wheelchair History of Present Illness HPI Narrative: 84-year-old male with history COPD CHF AFib on Eliquis presents from home for evaluation shortness of breath. Patient states that he has been up all night coughing has had some difficulty speaking with this, uses inhaler and nebs at home without any relief, states that he was also having a fever last night complaining of some mild epigastric pain as well. Patient states he has been compliant with all his medications, this includes his Eliquis, denies any other symptoms such as headache visual disturbances fever chills nausea vomiting or any other GI/ symptoms time. Review of records show that patient has had cardioversions in the past. Related Data Home Medications Medication Instructions Recorded Confirmed spironolactone 25 mg tablet 25 mg PO DAILY 03/02/22 12/08/24 gabapentin 100 mg capsule 100 mg PO 3XD PRN Back Pain 07/19/23 12/08/24 magnesium oxide 400 mg PO BID 08/17/23 12/08/24 metoprolol succinate 50 mg 50 mg PO BID 09/29/24 12/08/24 tablet,extended release 24 hr sotalol 80 mg tablet 80 mg PO BID 09/29/24 12/08/24 Previous Rx's Medication Instructions Recorded Disabled Parking #1 ea 05/05/21 apixaban 5 mg tablet 5 mg PO BID #180 tabs 05/05/21 losartan 25 mg tablet 25 mg PO DAILY #90 tabs 05/05/21 Spacer #1 ea 10/15/21 nystatin 100,000 unit/gram topical 1 applic topical BID #30 grams 08/20/23 cream spacer for inhaled meds #1 ea 09/02/23 potassium chloride 20 mEq 20 meq PO DAILY #90 tabs 03/24/24 tablet,extended release testosterone cypionate 200 mg/mL 300 mg (1.5 mL) IM Q4W #10 mL 05/08/24 intramuscular oil (Depo-Testosterone) albuterol sulfate 2.5 mg/3 mL 2.5 mg (3 mL) continuous 08/21/24 (0.083 %) solution for nebulization nebulization Q6H PRN Dyspnea #90 mL tiotropium 2.5 mcg-olodaterol 2.5 2 puff inhalation DAILY #4 grams 08/22/24 mcg/actuation mist for inhalation (Stiolto Respimat) fluticasone furoate 100 1 inh inhalation DAILY #30 ea 09/05/24 mcg/actuation blister powder for inhalation furosemide 40 mg tablet (Lasix) 40 mg PO DAILY #90 tabs 09/29/24 albuterol sulfate 90 mcg/actuation 2 inh inhalation Q4-6H PRN 10/04/24 aerosol inhaler (Ventolin HFA) shortness of breath or wheezing #25.5 grams sildenafil 100 mg tablet 50 - 100 mg (0.5 - 1 x 100 mg) PO 11/10/24 DAILY PRN sexual activity #10 tabs prednisone 20 mg tablet 20 - 40 mg (1 - 2 x 20 mg) PO 12/08/24 DAILY #90 tabs Allergies Allergy/AdvReac Type Severity Reaction Status Date / Time No Known Drug Allergies Allergy Verified 12/08/24 10:03 Review of Systems <Marty Chase, - Last Filed: 12/15/24 05:20> Review of Systems Narrative: General: Denies fever, chills, weight loss HEENT: Denies headache, eye drainage, eye irritation, head trauma, sore throat, voice change Cardiovascular: Denies any chest pain, palpitations, shortness of breath, tachycardia Respiratory: Positive shortness of breath cough wheeze negative stridor GI/: Positive epigastric abdominal pain, denies nausea, vomiting, diarrhea, bright red blood per rectum, melanotic stools, urinary frequency, urinary retention, dysuria, hematuria MSK: Denies any joint pain, muscle pains, swelling Skin: Denies any rashes, lesions, discoloration Neuro: Denies any headache, lightheadedness, dizziness, fainting, weakness Psych: Denies SI/HI Patient History <Marty Chase DO - Last Filed: 12/15/24 05:20> Medical History Erectile dysfunction Chronic heart failure with preserved ejection fraction History of COVID-19 (10/2020) Right inguinal hernia Peripheral edema Testosterone deficiency in male Pulmonary nodule Cardiomyopathy Essential hypertension Atrial fibrillation COPD (chronic obstructive pulmonary disease) Chronic fatigue (11/23/17) Rheumatoid arthritis involving multiple sites (07/28/17) Postherpetic neuralgia (05/20/17) Primary osteoarthritis of both knees (11/22/15) Mild persistent asthma without complication (11/22/15) Surgical History Hx of knee surgery (10/2015) Hx of colonoscopy (10/22/22) S/P cataract extraction Status post cholecystectomy Family History Father Asthma Mother Diabetes mellitus Social History marital status: household members: spouse lives independently: Yes occupational status: previously employed Smoking Status: Former smoker alcohol intake: current substance use type: does not use Smoking Status: Former smoker alcohol intake frequency: a few times a month Exam <Marty Chase DO - Last Filed: 12/15/24 05:20> Narrative Exam Narrative: General: Cooperative, comfortable, well-developed, not in acute distress HEENT: Normocephalic, atraumatic, PERRLA, normal sclera, eyelids normal, Neck: Active full range of motion, atraumatic Chest: Normal to inspection, negative crepitus, no overlying erythema ecchymosis Respiratory: Slightly tachypneic with conversation positive wheeze bilaterally, not in acute respiratory distress, clear to auscultation bilaterally negative cough, tachypnea, rhonchi, rales Cardiology: Regular rate rhythm negative gallop, murmur, rubs GI/: Normal to inspection, soft, nonrigid, no tenderness to palpation, exam deferred MSK: Full range of active range of motion of all 4 extremities, atraumatic Skin: No rashes lesions noted Neuro: Alert awake oriented x3, moves all 4 extremities spontaneously, cranial nerves intact, able to answer all questions appropriately follows commands appropriately Psych: Cooperative, negative suicidal or homicidal ideations Initial Vital Signs Initial Vital Signs: Vital Signs Temperature 99.6 F 12/14/24 17:28 Pulse Rate 118 H 12/14/24 17:28 Respiratory Rate 22 12/14/24 17:28 Blood Pressure 92/52 L 12/14/24 17:28 Pulse Oximetry 92 12/14/24 17:28 Oxygen Delivery Method Room Air 12/14/24 17:28 <Kate Lundberg, DO - Last Filed: 12/15/24 09:36> Initial Vital Signs Initial Vital Signs: Vital Signs Temperature 99.6 F 12/14/24 17:28 Pulse Rate 118 H 12/14/24 17:28 Respiratory Rate 22 12/14/24 17:28 Blood Pressure 92/52 L 12/14/24 17:28 Pulse Oximetry 92 12/14/24 17:28 Oxygen Delivery Method Room Air 12/14/24 17:28 Procedures <Marty Chase DO - Last Filed: 12/15/24 05:20> Central Line Placement Left IJ: Time of procedure: 20:00 Time Out Performed: Yes Patient Placed on Monitor/Pulse Ox: Yes MD Prep: mask, gown and gloves Central Line Prep: Povidone-Iodine 1% Local Anesthetic: lidocaine 1% Amount of anesthesia used (mL): 5 Ultrasound Used for Placement: Yes Central Line Lumen Inserted: triple Post Procedure: sutured in place, good blood return, all ports aspirated, flushed, capped and sterile dressing applied Post Procedure X-Ray: tip of catheter in good position and no pneumothorax seen Patient Tolerated Procedure: Well Complications: none Course <Marty Chase DO - Last Filed: 12/15/24 05:20> Orders Ordered: ED Orders 12/15/24 03:45 Trop I [Troponin I] Stat NOREPINEPHRINE BITARTRATE/D5W (Levophed) 4 mg in 250 mls @ 38.175 mls/hr IV TITRATE JOMAR; Protocol Ondansetron HCl (Ondansetron 4 Mg Odt) 4 mg SL NOW PRN PRN Reason: Nausea And Vomiting Discontinued Medications Albuterol (Albuterol 2.5 Mg/3 Ml Neb (Adult)) 2.5 mg INH NOW ONE Stop: 12/14/24 18:06 Last Admin: 12/14/24 18:07 Dose: 2.5 mg Documented By: ELISHA Albuterol (Albuterol 2.5 Mg/3 Ml Neb (Adult)) 2.5 mg INH NOW ONE Stop: 12/14/24 18:53 Last Admin: 12/14/24 19:32 Dose: 2.5 mg Documented By: COLE Albuterol/Ipratropium (Albuterol/Ipratropium 3 Ml Ampul) 3 ml INH NOW ONE Stop: 12/14/24 18:53 Last Admin: 12/14/24 19:32 Dose: 3 ml Documented By: COLE Furosemide (Furosemide 40 Mg/4 Ml Vial) 40 mg IV NOW ONE Stop: 12/15/24 02:06 Last Admin: 12/15/24 02:09 Dose: 40 mg Documented By: MELISSA Sodium Chloride (Normal Saline 0.9%) 1,000 mls @ 1,000 mls/hr IV BOLUS ONE Stop: 12/14/24 18:35 Last Admin: 12/14/24 18:53 Dose: Not Given Documented By: MELYSSA Magnesium Sulfate (Magnesium Sulfate) 2 gm in 50 mls @ 150 mls/hr IV NOW ONE Stop: 12/14/24 19:11 Last Infusion: 12/14/24 19:59 Dose: Infused Documented By: MELISSA Co-signed By: SUSAN Admin: 12/14/24 19:40 Dose: 150 mls/hr Documented By: MELISSA Co-signed By: OCHOA Sodium Chloride (Normal Saline 0.9%) 500 mls @ 1,000 mls/hr IV BOLUS ONE Stop: 12/14/24 19:22 Last Infusion: 12/14/24 19:42 Dose: Infused Documented By: Admin: 12/14/24 18:54 Dose: 1,000 mls/hr Documented By: MELYSSA Ceftriaxone Sodium 1,000 mg/ (Sodium Chloride) 100 mls @ 200 mls/hr IV NOW ONE Stop: 12/14/24 18:54 Last Infusion: 12/14/24 20:00 Dose: Infused Documented By: Admin: 12/14/24 19:26 Dose: 200 mls/hr Documented By: MELYSSA Doxycycline Hyclate 100 mg/ (Sodium Chloride) 100 mls @ 100 mls/hr IV NOW ONE Stop: 12/14/24 18:54 Last Infusion: 12/14/24 21:07 Dose: Infused Documented By: Admin: 12/14/24 20:00 Dose: 100 mls/hr Documented By: MELISSA Methylprednisolone (Methylprednisolone 125 Mg/2 Ml Vial) 125 mg IV NOW ONE Stop: 12/14/24 18:53 Last Admin: 12/14/24 19:26 Dose: 125 mg Documented By: RB Ondansetron HCl (Ondansetron 4 Mg/2 Ml Inj) 4 mg IV NOW PRN PRN Reason: Nausea And Vomiting Last Admin: 12/14/24 19:27 Dose: 4 mg Documented By: RB Oseltamivir Phosphate (Oseltamivir 75 Mg Capsule) 75 mg PO NOW ONE Stop: 12/15/24 08:42 Vital Signs Vital signs: Vital Signs - 8 hr 12/15/24 01:46 12/15/24 01:46 12/15/24 02:00 Pulse Rate 92 H Respiratory Rate 27 H Blood Pressure 106/69 92/56 L Pulse Oximetry 98 Oxygen Delivery Method Oxygen Flow Rate 12/15/24 02:00 12/15/24 02:15 12/15/24 02:15 Pulse Rate 102 H 116 H Respiratory Rate 37 H 24 Blood Pressure 107/77 Pulse Oximetry 99 98 Oxygen Delivery Method Oxygen Flow Rate 12/15/24 02:29 12/15/24 02:30 12/15/24 02:30 Pulse Rate 104 H 91 H Respiratory Rate 25 H 38 H Blood Pressure 106/72 Pulse Oximetry 97 98 Oxygen Delivery Method Oxygen Flow Rate 12/15/24 02:45 12/15/24 02:45 12/15/24 03:00 Pulse Rate 96 H 97 H Respiratory Rate 25 H 24 Blood Pressure 107/73 Pulse Oximetry 98 98 Oxygen Delivery Method Oxygen Flow Rate 12/15/24 03:00 12/15/24 03:15 12/15/24 03:15 Pulse Rate 82 Respiratory Rate 21 Blood Pressure 95/62 107/64 Pulse Oximetry 92 Oxygen Delivery Method Oxygen Flow Rate 12/15/24 03:30 12/15/24 03:30 12/15/24 03:45 Pulse Rate 111 H Respiratory Rate 19 Blood Pressure 108/71 105/69 Pulse Oximetry 94 Oxygen Delivery Method Oxygen Flow Rate 12/15/24 03:45 12/15/24 04:00 12/15/24 04:00 Pulse Rate 106 H 102 H Respiratory Rate 21 42 H Blood Pressure 98/69 Pulse Oximetry 97 97 Oxygen Delivery Method Oxygen Flow Rate 12/15/24 04:15 12/15/24 04:15 12/15/24 04:30 Pulse Rate 93 H Respiratory Rate Blood Pressure 108/64 102/69 Pulse Oximetry 97 Oxygen Delivery Method Oxygen Flow Rate 12/15/24 04:30 12/15/24 04:45 12/15/24 04:45 Pulse Rate 92 H 89 Respiratory Rate 31 H Blood Pressure 93/66 Pulse Oximetry 96 96 Oxygen Delivery Method Nasal Cannula Oxygen Flow Rate 2 12/15/24 05:00 12/15/24 05:00 12/15/24 05:15 Pulse Rate 85 Respiratory Rate 44 H Blood Pressure 100/68 105/77 Pulse Oximetry 98 Oxygen Delivery Method Oxygen Flow Rate 12/15/24 05:15 12/15/24 05:30 12/15/24 05:30 Pulse Rate 92 H 93 H Respiratory Rate 40 H 30 H Blood Pressure 100/74 Pulse Oximetry 97 95 Oxygen Delivery Method Nasal Cannula Oxygen Flow Rate 2 12/15/24 05:45 12/15/24 05:45 12/15/24 06:00 Pulse Rate 88 91 H Respiratory Rate 36 H 39 H Blood Pressure 102/70 Pulse Oximetry 97 96 Oxygen Delivery Method Oxygen Flow Rate 12/15/24 06:00 12/15/24 06:15 12/15/24 06:15 Pulse Rate 107 H Respiratory Rate Blood Pressure 105/72 110/79 Pulse Oximetry 97 Oxygen Delivery Method Oxygen Flow Rate 12/15/24 06:30 12/15/24 06:30 12/15/24 06:45 Pulse Rate 81 105 H Respiratory Rate Blood Pressure 107/78 Pulse Oximetry 97 95 Oxygen Delivery Method Oxygen Flow Rate 12/15/24 06:45 12/15/24 07:00 12/15/24 07:30 Pulse Rate 92 H 125 H Respiratory Rate 26 H 24 Blood Pressure 113/79 Pulse Oximetry 96 98 Oxygen Delivery Method Oxygen Flow Rate 12/15/24 08:00 12/15/24 08:30 12/15/24 08:39 Pulse Rate 128 H 124 H Respiratory Rate Blood Pressure 123/63 Pulse Oximetry 95 96 Oxygen Delivery Method Room Air Oxygen Flow Rate 12/15/24 08:39 Pulse Rate 107 H Respiratory Rate 29 H Blood Pressure Pulse Oximetry 97 Oxygen Delivery Method Oxygen Flow Rate <Kate Lundberg, - Last Filed: 12/15/24 09:36> Orders Ordered: ED Orders 12/15/24 03:45 Trop I [Troponin I] Stat NOREPINEPHRINE BITARTRATE/D5W (Levophed) 4 mg in 250 mls @ 38.175 mls/hr IV TITRATE JOMAR; Protocol Ondansetron HCl (Ondansetron 4 Mg Odt) 4 mg SL NOW PRN PRN Reason: Nausea And Vomiting Discontinued Medications Albuterol (Albuterol 2.5 Mg/3 Ml Neb (Adult)) 2.5 mg INH NOW ONE Stop: 12/14/24 18:06 Last Admin: 12/14/24 18:07 Dose: 2.5 mg Documented By: ELISHA Albuterol (Albuterol 2.5 Mg/3 Ml Neb (Adult)) 2.5 mg INH NOW ONE Stop: 12/14/24 18:53 Last Admin: 12/14/24 19:32 Dose: 2.5 mg Documented By: COLE Albuterol/Ipratropium (Albuterol/Ipratropium 3 Ml Ampul) 3 ml INH NOW ONE Stop: 12/14/24 18:53 Last Admin: 12/14/24 19:32 Dose: 3 ml Documented By: COLE Furosemide (Furosemide 40 Mg/4 Ml Vial) 40 mg IV NOW ONE Stop: 12/15/24 02:06 Last Admin: 12/15/24 02:09 Dose: 40 mg Documented By: MELISSA Sodium Chloride (Normal Saline 0.9%) 1,000 mls @ 1,000 mls/hr IV BOLUS ONE Stop: 12/14/24 18:35 Last Admin: 12/14/24 18:53 Dose: Not Given Documented By: RB Magnesium Sulfate (Magnesium Sulfate) 2 gm in 50 mls @ 150 mls/hr IV NOW ONE Stop: 12/14/24 19:11 Last Infusion: 12/14/24 19:59 Dose: Infused Documented By: MELISSA Co-signed By: SUSAN Admin: 12/14/24 19:40 Dose: 150 mls/hr Documented By: MELISSA Co-signed By: OCHOA Sodium Chloride (Normal Saline 0.9%) 500 mls @ 1,000 mls/hr IV BOLUS ONE Stop: 12/14/24 19:22 Last Infusion: 12/14/24 19:42 Dose: Infused Documented By: Admin: 12/14/24 18:54 Dose: 1,000 mls/hr Documented By: RB Ceftriaxone Sodium 1,000 mg/ (Sodium Chloride) 100 mls @ 200 mls/hr IV NOW ONE Stop: 12/14/24 18:54 Last Infusion: 12/14/24 20:00 Dose: Infused Documented By: Admin: 12/14/24 19:26 Dose: 200 mls/hr Documented By: MELYSSA Doxycycline Hyclate 100 mg/ (Sodium Chloride) 100 mls @ 100 mls/hr IV NOW ONE Stop: 12/14/24 18:54 Last Infusion: 12/14/24 21:07 Dose: Infused Documented By: Admin: 12/14/24 20:00 Dose: 100 mls/hr Documented By: MELISSA Methylprednisolone (Methylprednisolone 125 Mg/2 Ml Vial) 125 mg IV NOW ONE Stop: 12/14/24 18:53 Last Admin: 12/14/24 19:26 Dose: 125 mg Documented By: MELYSSA Ondansetron HCl (Ondansetron 4 Mg/2 Ml Inj) 4 mg IV NOW PRN PRN Reason: Nausea And Vomiting Last Admin: 12/14/24 19:27 Dose: 4 mg Documented By: MELYSSA Oseltamivir Phosphate (Oseltamivir 75 Mg Capsule) 75 mg PO NOW ONE Stop: 12/15/24 08:42 Vital Signs Vital signs: Vital Signs - 8 hr 12/15/24 01:46 12/15/24 01:46 12/15/24 02:00 Pulse Rate 92 H Respiratory Rate 27 H Blood Pressure 106/69 92/56 L Pulse Oximetry 98 Oxygen Delivery Method Oxygen Flow Rate 12/15/24 02:00 12/15/24 02:15 12/15/24 02:15 Pulse Rate 102 H 116 H Respiratory Rate 37 H 24 Blood Pressure 107/77 Pulse Oximetry 99 98 Oxygen Delivery Method Oxygen Flow Rate 12/15/24 02:29 12/15/24 02:30 12/15/24 02:30 Pulse Rate 104 H 91 H Respiratory Rate 25 H 38 H Blood Pressure 106/72 Pulse Oximetry 97 98 Oxygen Delivery Method Oxygen Flow Rate 12/15/24 02:45 12/15/24 02:45 12/15/24 03:00 Pulse Rate 96 H 97 H Respiratory Rate 25 H 24 Blood Pressure 107/73 Pulse Oximetry 98 98 Oxygen Delivery Method Oxygen Flow Rate 12/15/24 03:00 12/15/24 03:15 12/15/24 03:15 Pulse Rate 82 Respiratory Rate 21 Blood Pressure 95/62 107/64 Pulse Oximetry 92 Oxygen Delivery Method Oxygen Flow Rate 12/15/24 03:30 12/15/24 03:30 12/15/24 03:45 Pulse Rate 111 H Respiratory Rate 19 Blood Pressure 108/71 105/69 Pulse Oximetry 94 Oxygen Delivery Method Oxygen Flow Rate 12/15/24 03:45 12/15/24 04:00 12/15/24 04:00 Pulse Rate 106 H 102 H Respiratory Rate 21 42 H Blood Pressure 98/69 Pulse Oximetry 97 97 Oxygen Delivery Method Oxygen Flow Rate 12/15/24 04:15 12/15/24 04:15 12/15/24 04:30 Pulse Rate 93 H Respiratory Rate Blood Pressure 108/64 102/69 Pulse Oximetry 97 Oxygen Delivery Method Oxygen Flow Rate 12/15/24 04:30 12/15/24 04:45 12/15/24 04:45 Pulse Rate 92 H 89 Respiratory Rate 31 H Blood Pressure 93/66 Pulse Oximetry 96 96 Oxygen Delivery Method Nasal Cannula Oxygen Flow Rate 2 12/15/24 05:00 12/15/24 05:00 12/15/24 05:15 Pulse Rate 85 Respiratory Rate 44 H Blood Pressure 100/68 105/77 Pulse Oximetry 98 Oxygen Delivery Method Oxygen Flow Rate 12/15/24 05:15 12/15/24 05:30 12/15/24 05:30 Pulse Rate 92 H 93 H Respiratory Rate 40 H 30 H Blood Pressure 100/74 Pulse Oximetry 97 95 Oxygen Delivery Method Nasal Cannula Oxygen Flow Rate 2 12/15/24 05:45 12/15/24 05:45 12/15/24 06:00 Pulse Rate 88 91 H Respiratory Rate 36 H 39 H Blood Pressure 102/70 Pulse Oximetry 97 96 Oxygen Delivery Method Oxygen Flow Rate 12/15/24 06:00 12/15/24 06:15 12/15/24 06:15 Pulse Rate 107 H Respiratory Rate Blood Pressure 105/72 110/79 Pulse Oximetry 97 Oxygen Delivery Method Oxygen Flow Rate 12/15/24 06:30 12/15/24 06:30 12/15/24 06:45 Pulse Rate 81 105 H Respiratory Rate Blood Pressure 107/78 Pulse Oximetry 97 95 Oxygen Delivery Method Oxygen Flow Rate 12/15/24 06:45 12/15/24 07:00 12/15/24 07:30 Pulse Rate 92 H 125 H Respiratory Rate 26 H 24 Blood Pressure 113/79 Pulse Oximetry 96 98 Oxygen Delivery Method Oxygen Flow Rate 12/15/24 08:00 12/15/24 08:30 12/15/24 08:39 Pulse Rate 128 H 124 H Respiratory Rate Blood Pressure 123/63 Pulse Oximetry 95 96 Oxygen Delivery Method Room Air Oxygen Flow Rate 12/15/24 08:39 Pulse Rate 107 H Respiratory Rate 29 H Blood Pressure Pulse Oximetry 97 Oxygen Delivery Method Oxygen Flow Rate MDM - SOB/Dyspnea <Marty Chase, - Last Filed: 12/15/24 05:20> Differential Diagnosis Differential diagnosis: Likely acute exacerbation of chronic obstructive airways disease, congestive heart failure, community acquired pneumonia and other (AFib, cholelithiasis, cholecystitis) Lab Data 12/14/24 17:59 12/14/24 17:59 Labs: Lab Results 12/14/24 12/14/24 12/14/24 Range/Units 17:54 17:59 17:59 WBC 13.5 H (4.5-11.0) X10^3/uL RBC 5.17 (4.5-5.9) X10^6/uL Hgb 13.5 (13.5-17.5) g/dL Hct 41.0 (41-53) % MCV 79.3 L (80-100) fL MCH 26.0 (26-34) PG MCHC 32.8 (30-36) % RDW 20.2 H (11.6-14.8) % Plt Count 275 (150-400) X10^3/uL Neut % (Auto) 76.7 H (50-75) % Lymph % (Auto) 12.4 L (25-40) % [place] % (Auto) 10.2 (3-14) % Eos % (Auto) 0.1 L (2-4) % Baso % (Auto) 0.6 (0-2) % Neut # (Auto) 79107 H (4437-3965) /uL Lymph # (Auto) 1700 (0412-4939) /uL [place] # (Auto) 1400 H (0-900) /uL Eos # (Auto) 0 (0-450) /uL Baso # (Auto) 100 (0-100) /uL RBC Morphology See below Poikilocytosis 1+ H Anisocytosis 1+ H PT 14.9 H Cancelled (9.4-12.5) SECONDS INR 1.3 (0.9-1.3) APTT (25.1-36.5) SECONDS Sodium (137-145) mmol/L Potassium (3.4-5.1) mmol/L Chloride (98-107) mmol/L Carbon Dioxide (22-32) mmol/L BUN (9-20) mg/dL Creatinine (0.66-1.25) mg/dL Estimated GFR (>60) mL/min BUN/Creatinine Ratio (6-22) Glucose (80-110) mg/dL Lactate (0.7-2.1) mmol/L Calcium (8.4-10.2) mg/dL Magnesium (1.6-2.3) mg/dL Total Bilirubin (0.2-1.3) mg/dL AST (17-59) IU/L ALT (<50) IU/L Alkaline Phosphatase (38-126) U/L Total Creatine Kinase (55-170) U/L Troponin I (0.01-0.034) ng/mL NT-Pro-B Natriuret Pep (<450) pg/mL Total Protein (6.3-8.2) g/dL Albumin (3.5-5.0) g/dL Globulin (1.7-4.1) g/dL Albumin/Globulin Ratio (1.0-2.8) Lipase (23-300) U/L Procalcitonin (<0.5) ng/mL SARS-CoV-2 (PCR) Negative (Negative) Influenza A (RT-PCR) Flu a positive H (NEGATIVE) Influenza B (RT-PCR) Flu b negative (NEGATIVE) RSV (PCR) Negative (Negative) 12/14/24 12/15/24 Range/Units 17:59 03:45 WBC (4.5-11.0) X10^3/uL RBC (4.5-5.9) X10^6/uL Hgb (13.5-17.5) g/dL Hct (41-53) % MCV (80-100) fL MCH (26-34) PG MCHC (30-36) % RDW (11.6-14.8) % Plt Count (150-400) X10^3/uL Neut % (Auto) (50-75) % Lymph % (Auto) (25-40) % [place] % (Auto) (3-14) % Eos % (Auto) (2-4) % Baso % (Auto) (0-2) % Neut # (Auto) (0247-2524) /uL Lymph # (Auto) (9358-7979) /uL [place] # (Auto) (0-900) /uL Eos # (Auto) (0-450) /uL Baso # (Auto) (0-100) /uL RBC Morphology Poikilocytosis Anisocytosis PT (9.4-12.5) SECONDS INR Cancelled (0.9-1.3) APTT 33 (25.1-36.5) SECONDS Sodium 132 L (137-145) mmol/L Potassium 3.9 (3.4-5.1) mmol/L Chloride 99 (98-107) mmol/L Carbon Dioxide 26 (22-32) mmol/L BUN 17 (9-20) mg/dL Creatinine 0.87 (0.66-1.25) mg/dL Estimated GFR > 60 (>60) mL/min BUN/Creatinine Ratio 19.5 (6-22) Glucose 86 (80-110) mg/dL Lactate 1.3 (0.7-2.1) mmol/L Calcium 8.5 (8.4-10.2) mg/dL Magnesium 1.3 L (1.6-2.3) mg/dL Total Bilirubin 2.3 H (0.2-1.3) mg/dL AST 98 H (17-59) IU/L ALT 95 H (<50) IU/L Alkaline Phosphatase 96 (38-126) U/L Total Creatine Kinase 45 L (55-170) U/L Troponin I 0.079 H 0.039 H (0.01-0.034) ng/mL NT-Pro-B Natriuret Pep 18487 H (<450) pg/mL Total Protein 6.3 (6.3-8.2) g/dL Albumin 3.6 (3.5-5.0) g/dL Globulin 2.7 (1.7-4.1) g/dL Albumin/Globulin Ratio 1.3 (1.0-2.8) Lipase 45 (23-300) U/L Procalcitonin 0.508 H (<0.5) ng/mL SARS-CoV-2 (PCR) (Negative) Influenza A (RT-PCR) (NEGATIVE) Influenza B (RT-PCR) (NEGATIVE) RSV (PCR) (Negative) Urine Dip Bedside Urine Glucose Negative Bedside Urine Bilirubin - Negative Bedside Urine Ketone - Negative Urine Specific [place] 1.015 Bedside Urine Occult Blood - Negative Bedside Urine pH 6.0 Bedside Urine Protein - Negative Bedside Urine Urobilinogen - Negative Bedside Urine Nitrite - Negative Bedside Urine Leukocytes - Negative Esterase Imaging Data Chest x-ray: Radiologist's Impression: [address] [address] XRay Report Signed Patient: Blayne Hopkins MR#: [id number] : 1940 Acct:[id number] Age/Sex: 84 / M Date of Service: 12/14/24 Loc: ED Accession Number: [id number] Procedure: XR chest 1V Ordering Provider: Kate Lundberg D.O. PROCEDURE: XR CHEST 1V INDICATIONS: suspected sepsis TECHNIQUE: One view of the chest was acquired. COMPARISON: [facility], CR, XR CHEST 1V, 11/15/2024, 14:08. [facility], CR, XR CHEST 1V, 09/20/2024, 18:27. FINDINGS: Surgical changes and devices: None. Lungs and pleura: Bilateral patchy airspace opacity. No pleural effusions or pneumothorax. Mediastinum: Mediastinal contours appear normal. Heart size is normal. Bones and chest wall: No suspicious bony lesions. Overlying soft tissues appear unremarkable. IMPRESSION: Bilateral patchy airspace opacity. This could represent pneumonia or aspiration or atelectasis. CT scan - abdomen/pelvis: Radiologist's Impression: [address] [address] [address] Scan Report Signed Patient: Blayne Hopkins MR#: [id number] : 1940 Acct:[id number] Age/Sex: 84 / M Date of Service: 12/14/24 Loc: ED Accession Number: [id number] Procedure: CT abdomen pelvis w con Ordering Provider: Marty Chase D.O. PROCEDURE: CT ABDOMEN PELVIS W CON INDICATIONS: epigastric pain TECHNIQUE: After the administration of intravenous contrast, axial sections acquired from the lung bases to the pubic symphysis. Coronal and sagittal reformats were performed. For radiation dose reduction, the following was used: automated exposure control, adjustment of mA and/or kV according to patient size. COMPARISON: [facility], CR, XR CHEST 1V, 12/14/2024, 17:35. [facility], CT, CT ABDOMEN PELVIS W CON, 08/17/2023, 18:03. FINDINGS: Image quality: Diagnostic. Lower Chest: Bilateral patchy airspace opacity. Air bronchograms at the right lung base. Suspect pneumonia. ABDOMEN: Liver: No solid mass. Gallbladder: Absent. Biliary ducts: No biliary dilation. Pancreas: No ductal dilation. Spleen: Size is within normal limits. Calcified granulomas. Adrenal Glands: No adrenal nodules. Kidneys and Ureters: No hydronephrosis. No solid mass. No complex renal cystic lesion which requires follow up. Stomach and Bowel: Normal colonic caliber, without significant wall thickening. Duodenal diverticuli. No small bowel obstruction. The appendix is not identified. Peritoneum: No abnormal intraperitoneal fluid. No free air. Ventral Wall: Small umbilical hernia. Abdominal Nodes: No retroperitoneal or mesenteric adenopathy by size criteria. Vessels: Aorta and inferior vena cava are normal in size. Circumferential calcified atherosclerotic plaque. PELVIS: Pelvic Organs: Unremarkable. Bladder: No bladder wall thickening, accounting for underdistention. Pelvic Nodes: No enlarged lymph nodes. Miscellaneous: No inguinal hernias are seen. Bones: No aggressive osseous abnormality. Mild L4 compression fracture, new. 6 lumbar type vertebral bodies. T8 vertebral plana, unchanged. IMPRESSION: 1. Bilateral patchy airspace opacity. Suspect pneumonia. 2. Mild L4 compression fracture, new. 3. The appendix is not identified. Post cholecystectomy. No free fluid. No hydronephrosis. CXR: Radiologist's Impression: [address] [address] XRay Report Signed Patient: Blayne Hopkins MR#: [id number] : 1940 Acct:[id number] Age/Sex: 84 / M Date of Service: 12/14/24 Loc: ED Accession Number: [id number] Procedure: XR chest 1V Ordering Provider: Marty Chase D.O. PROCEDURE: XR CHEST 1V INDICATIONS: central line placement confirmation TECHNIQUE: One view of the chest was acquired. COMPARISON: [facility], CR, XR CHEST 1V, 12/14/2024, 17:35. [facility], CR, XR CHEST 1V, 11/15/2024, 14:08. FINDINGS: Surgical changes and devices: Interval placement of left internal jugular catheter with catheter tip projecting over the superior vena cava. Lungs and pleura: Bilateral opacities likely not significantly changed when compared to the exam from earlier the same day given slight differences in positioning. No pneumothorax or pleural effusion. Mediastinum: Mediastinal contours appear normal. Heart size is normal. Bones and chest wall: No suspicious bony lesions. Overlying soft tissues appear unremarkable. IMPRESSION: Left internal jugular catheter in satisfactory position. Stable bilateral pulmonary opacities. ECG Data Interpretation: EKG interpreted by ED physician atrial fibrillation 125 beats per minute, QTC [address] changes no STEMI MDM Narrative Medical decision making narrative: 84-year-old male with a history of CHF COPD not on chronic supplemental oxygen comes into the ED from home for evaluation of cough shortness of breath epigastric pain ongoing persistent for the past few days worsening today. At time of evaluation patient requiring supplemental oxygen was placed on 2 L nasal cannula. Patient currently rate controlled AFib not requiring cardioversion at this time. Patient with significantly elevated BNP of 12,600, consistent with acute CHF exacerbation. Initial troponin 0.79 repeat 0.039 most likely type to spill given patient an acute CHF versus COPD exacerbation as well as sepsis secondary to pneumonia EKG nonischemic. Imaging showing bilateral patchy opacities consistent with pneumonia CT scan showing consistency of this, CT scan also showing L4 compression fracture, however patient states that he has known compression fractures. Patient without any tenderness to palpation of the lumbar spine. Patient's blood pressure has been tenuous with mapping 60-68 after 500 cc bolus of normal saline, patient was also given Rocephin doxy for his pneumonia. Patient was also given Solu-Medrol magnesium as well as DuoNeb for his COPD given patient with nasal PCR showing flu A positive. Bedside echo of patient's IVC was performed by me, IVC plethoric therefore patient can not tolerate any additional fluids especially in the setting of acute CHF exacerbation therefore patient can not obtain full 30 cc/kilos bolus for sepsis. Decision was made to place left-sided central line in order to administer levo if necessary. Patient was also started on IV diuresis 40 mg. Call placed out to [facility] for transfer to the ICU given patient with sepsis in the setting of acute CHF exacerbation. Awaiting callback. 0400: Patient re-evaluated no new complaints at this time, patient's map has remained over 65 without the use of pressors at this time therefore does not require ICU anymore, patient rate controlled paroxysmal AFib. Given the fact that patient not requiring any vasopressors, blood pressure has remained normotensive therefore will need SDU bed instead, called to update transfer. <Kate C Tamika, DO - Last Filed: 12/15/24 09:36> Lab Data Labs: Lab Results 12/14/24 12/14/24 12/14/24 Range/Units 17:54 17:59 17:59 WBC 13.5 H (4.5-11.0) X10^3/uL RBC 5.17 (4.5-5.9) X10^6/uL Hgb 13.5 (13.5-17.5) g/dL Hct 41.0 (41-53) % MCV 79.3 L (80-100) fL MCH 26.0 (26-34) PG MCHC 32.8 (30-36) % RDW 20.2 H (11.6-14.8) % Plt Count 275 (150-400) X10^3/uL Neut % (Auto) 76.7 H (50-75) % Lymph % (Auto) 12.4 L (25-40) % [place] % (Auto) 10.2 (3-14) % Eos % (Auto) 0.1 L (2-4) % Baso % (Auto) 0.6 (0-2) % Neut # (Auto) 27585 H (6751-7607) /uL Lymph # (Auto) 1700 (0430-5794) /uL [place] # (Auto) 1400 H (0-900) /uL Eos # (Auto) 0 (0-450) /uL Baso # (Auto) 100 (0-100) /uL RBC Morphology See below Poikilocytosis 1+ H Anisocytosis 1+ H PT 14.9 H Cancelled (9.4-12.5) SECONDS INR 1.3 (0.9-1.3) APTT (25.1-36.5) SECONDS Sodium (137-145) mmol/L Potassium (3.4-5.1) mmol/L Chloride (98-107) mmol/L Carbon Dioxide (22-32) mmol/L BUN (9-20) mg/dL Creatinine (0.66-1.25) mg/dL Estimated GFR (>60) mL/min BUN/Creatinine Ratio (6-22) Glucose (80-110) mg/dL Lactate (0.7-2.1) mmol/L Calcium (8.4-10.2) mg/dL Magnesium (1.6-2.3) mg/dL Total Bilirubin (0.2-1.3) mg/dL AST (17-59) IU/L ALT (<50) IU/L Alkaline Phosphatase (38-126) U/L Total Creatine Kinase (55-170) U/L Troponin I (0.01-0.034) ng/mL NT-Pro-B Natriuret Pep (<450) pg/mL Total Protein (6.3-8.2) g/dL Albumin (3.5-5.0) g/dL Globulin (1.7-4.1) g/dL Albumin/Globulin Ratio (1.0-2.8) Lipase (23-300) U/L Procalcitonin (<0.5) ng/mL SARS-CoV-2 (PCR) Negative (Negative) Influenza A (RT-PCR) Flu a positive H (NEGATIVE) Influenza B (RT-PCR) Flu b negative (NEGATIVE) RSV (PCR) Negative (Negative) 12/14/24 12/15/24 Range/Units 17:59 03:45 WBC (4.5-11.0) X10^3/uL RBC (4.5-5.9) X10^6/uL Hgb (13.5-17.5) g/dL Hct (41-53) % MCV (80-100) fL MCH (26-34) PG MCHC (30-36) % RDW (11.6-14.8) % Plt Count (150-400) X10^3/uL Neut % (Auto) (50-75) % Lymph % (Auto) (25-40) % [place] % (Auto) (3-14) % Eos % (Auto) (2-4) % Baso % (Auto) (0-2) % Neut # (Auto) (7437-1048) /uL Lymph # (Auto) (8020-1855) /uL [place] # (Auto) (0-900) /uL Eos # (Auto) (0-450) /uL Baso # (Auto) (0-100) /uL RBC Morphology Poikilocytosis Anisocytosis PT (9.4-12.5) SECONDS INR Cancelled (0.9-1.3) APTT 33 (25.1-36.5) SECONDS Sodium 132 L (137-145) mmol/L Potassium 3.9 (3.4-5.1) mmol/L Chloride 99 (98-107) mmol/L Carbon Dioxide 26 (22-32) mmol/L BUN 17 (9-20) mg/dL Creatinine 0.87 (0.66-1.25) mg/dL Estimated GFR > 60 (>60) mL/min BUN/Creatinine Ratio 19.5 (6-22) Glucose 86 (80-110) mg/dL Lactate 1.3 (0.7-2.1) mmol/L Calcium 8.5 (8.4-10.2) mg/dL Magnesium 1.3 L (1.6-2.3) mg/dL Total Bilirubin 2.3 H (0.2-1.3) mg/dL AST 98 H (17-59) IU/L ALT 95 H (<50) IU/L Alkaline Phosphatase 96 (38-126) U/L Total Creatine Kinase 45 L (55-170) U/L Troponin I 0.079 H 0.039 H (0.01-0.034) ng/mL NT-Pro-B Natriuret Pep 43592 H (<450) pg/mL Total Protein 6.3 (6.3-8.2) g/dL Albumin 3.6 (3.5-5.0) g/dL Globulin 2.7 (1.7-4.1) g/dL Albumin/Globulin Ratio 1.3 (1.0-2.8) Lipase 45 (23-300) U/L Procalcitonin 0.508 H (<0.5) ng/mL SARS-CoV-2 (PCR) (Negative) Influenza A (RT-PCR) (NEGATIVE) Influenza B (RT-PCR) (NEGATIVE) RSV (PCR) (Negative) Urine Dip Bedside Urine Glucose Negative Bedside Urine Bilirubin - Negative Bedside Urine Ketone - Negative Urine Specific [place] 1.015 Bedside Urine Occult Blood - Negative Bedside Urine pH 6.0 Bedside Urine Protein - Negative Bedside Urine Urobilinogen - Negative Bedside Urine Nitrite - Negative Bedside Urine Leukocytes - Negative Esterase MDM Narrative Medical decision making narrative: 84-year-old male with a history of CHF COPD not on chronic supplemental oxygen comes into the ED from home for evaluation of cough shortness of breath epigastric pain ongoing persistent for the past few days worsening today. At time of evaluation patient requiring supplemental oxygen was placed on 2 L nasal cannula. Patient currently rate controlled AFib not requiring cardioversion at this time. Patient with significantly elevated BNP of 12,600, consistent with acute CHF exacerbation. Initial troponin 0.79 repeat 0.039 most likely type to spill given patient an acute CHF versus COPD exacerbation as well as sepsis secondary to pneumonia EKG nonischemic. Imaging showing bilateral patchy opacities consistent with pneumonia CT scan showing consistency of this, CT scan also showing L4 compression fracture, however patient states that he has known compression fractures. Patient without any tenderness to palpation of the lumbar spine. Patient's blood pressure has been tenuous with mapping 60-68 after 500 cc bolus of normal saline, patient was also given Rocephin doxy for his pneumonia. Patient was also given Solu-Medrol magnesium as well as DuoNeb for his COPD given patient with nasal PCR showing flu A positive. Bedside echo of patient's IVC was performed by me, IVC plethoric therefore patient can not tolerate any additional fluids especially in the setting of acute CHF exacerbation therefore patient can not obtain full 30 cc/kilos bolus for sepsis. Decision was made to place left-sided central line in order to administer levo if necessary. Patient was also started on IV diuresis 40 mg. Call placed out to [facility] for transfer to the ICU given patient with sepsis in the setting of acute CHF exacerbation. Awaiting callback. 0400: Patient re-evaluated no new complaints at this time, patient's map has remained over 65 without the use of pressors at this time therefore does not require ICU anymore, patient rate controlled paroxysmal AFib. Given the fact that patient not requiring any vasopressors, blood pressure has remained normotensive therefore will need SDU bed instead, called to update transfer. 12/15/2024 Dr. Lundberg: Patient signed out to myself by Dr. Chase. Patient is seen and evaluated by myself. Patient's labs and imaging were reviewed. Patient states he was feeling much improved. His nasal cannula was not on he was 97% so this was removed. Patient does have some crackles and rhonchi on exam but no tachypnea. It was in AFib fairly rate controlled rate 90s to 115. Plan was for patient to be transferred we will monitor and if you appears to be continuing to improve may discussed with his primary care service if he can stay here rather than be transferred as there is paucity of beds currently. Patient has received fluids, Rocephin, doxycycline, Solu-Medrol, DuoNebs, Lasix, magnesium as well as Zofran. Spoke with Dr. Buchanan, patient has had significant improvement after discussion accepts we will place him in ICU. He was no longer hypotensive, off oxygen, heart rate has been fairly consistently in the 80s. He accepts for Inpatient Discharge Plan Departure Patient Disposition: Admitted As Inpatient Clinical Impression: Influenza A, Asthma exacerbation in COPD, Acute exacerbation of CHF (congestive heart failure), Pneumonia, Sepsis, A-fib Admit Date/Time: 12/15/24 08:42 Admit Provider: Mitchell Buchanan
--- NOTE | 2024-12-14 18:45 | DI.CT.S_ITS ---
PROCEDURE: CT ABDOMEN PELVIS W CON INDICATIONS: epigastric pain TECHNIQUE: After the administration of intravenous contrast, axial sections acquired from the lung bases to the pubic symphysis. Coronal and sagittal reformats were performed. For radiation dose reduction, the following was used: automated exposure control, adjustment of mA and/or kV according to patient size. COMPARISON: [facility], CR, XR CHEST 1V, 12/14/2024, 17:35. [facility], CT, CT ABDOMEN PELVIS W CON, 08/17/2023, 18:03. FINDINGS: Image quality: Diagnostic. Lower Chest: Bilateral patchy airspace opacity. Air bronchograms at the right lung base. Suspect pneumonia. ABDOMEN: Liver: No solid mass. Gallbladder: Absent. Biliary ducts: No biliary dilation. Pancreas: No ductal dilation. Spleen: Size is within normal limits. Calcified granulomas. Adrenal Glands: No adrenal nodules. Kidneys and Ureters: No hydronephrosis. No solid mass. No complex renal cystic lesion which requires follow up. Stomach and Bowel: Normal colonic caliber, without significant wall thickening. Duodenal diverticuli. No small bowel obstruction. The appendix is not identified. Peritoneum: No abnormal intraperitoneal fluid. No free air. Ventral Wall: Small umbilical hernia. Abdominal Nodes: No retroperitoneal or mesenteric adenopathy by size criteria. Vessels: Aorta and inferior vena cava are normal in size. Circumferential calcified atherosclerotic plaque. PELVIS: Pelvic Organs: Unremarkable. Bladder: No bladder wall thickening, accounting for underdistention. Pelvic Nodes: No enlarged lymph nodes. Miscellaneous: No inguinal hernias are seen. Bones: No aggressive osseous abnormality. Mild L4 compression fracture, new. 6 lumbar type vertebral bodies. T8 vertebral plana, unchanged. IMPRESSION: 1. Bilateral patchy airspace opacity. Suspect pneumonia. 2. Mild L4 compression fracture, new. 3. The appendix is not identified. Post cholecystectomy. No free fluid. No hydronephrosis. Dictated by: Siddharth Panchal M.D. on 12/14/2024 at 19:37 Approved by: Siddharth Panchal M.D. on 12/14/2024 at 19:46
[2024-12-14] MEDS: SODIUM CHLORIDE 0.9% 500 ML 1000 ML IV (18:54)
[2024-12-14 18:58] LABS: Creatine Kinase 45 U/L (55-170); Magnesium 1.3 mg/dL (1.6-2.3)
[2024-12-14 19:10] LABS: NT-proBNP (BNP-Adult 18+) 12600 pg/mL (<450); Troponin I 0.079 ng/mL (0.01-0.034)
[2024-12-14] MEDS: cefTRIAXone 1,000 MG in SODIUM CHLORIDE 0.9% 100 ML 200 MG IV (19:26)
[2024-12-14] MEDS: methylPREDNISolone 125 MG/2 ML VIAL IV (19:26)
[2024-12-14] MEDS: ONDANSETRON 4 MG/2 ML INJ IV (19:27)
[2024-12-14] MEDS: ALBUTEROL/IPRATROPIUM 3 ML AMPUL INH (19:32)
[2024-12-14] MEDS: MAGNESIUM SULFATE 2 GM/50 ML PIGGYBACK IV (19:40)
[2024-12-14 19:45] LABS: Influenza A - CEPHEID Flu A POSITIVE (NEGATIVE); Influenza B - CEPHEID Flu B NEGATIVE (NEGATIVE); Respiratory Syncytial Virus Negative (Negative)
[2024-12-14 19:49] LABS: COVID-19 CEPHEID 4-PLEX PCR Negative (Negative)
[2024-12-14] MEDS: DOXYCYCLINE 100 MG in SODIUM CHLORIDE 0.9% 100 ML IV (20:00)
--- NOTE | 2024-12-14 21:08 | DI.RAD.S_ITS ---
PROCEDURE: XR CHEST 1V INDICATIONS: central line placement confirmation TECHNIQUE: One view of the chest was acquired. COMPARISON: [facility], CR, XR CHEST 1V, 12/14/2024, 17:35. [facility], CR, XR CHEST 1V, 11/15/2024, 14:08. FINDINGS: Surgical changes and devices: Interval placement of left internal jugular catheter with catheter tip projecting over the superior vena cava. Lungs and pleura: Bilateral opacities likely not significantly changed when compared to the exam from earlier the same day given slight differences in positioning. No pneumothorax or pleural effusion. Mediastinum: Mediastinal contours appear normal. Heart size is normal. Bones and chest wall: No suspicious bony lesions. Overlying soft tissues appear unremarkable. IMPRESSION: Left internal jugular catheter in satisfactory position. Stable bilateral pulmonary opacities. Approved by: Getachew Melton M.D. on 12/14/2024 at 21:48
[2024-12-15] VITALS (71 sets, daily range): BP systolic 90–138; BP diastolic 56–84; PULSE 78–129; RESP 18–59; TEMP 36.6; O2SAT 92–100; BMI 30.9
--- NOTE | 2024-12-15 02:01 | PC.NURSE ---
Addendum entered by Farrah Hernandes CNA 12/15/24 05:25: [employer] note: 524 spoke ju Chacon from . She wanted some clarification on patient. Gave her the clarification and she said she's going to work on this. Addendum entered by Farrah Hernandes CNA 12/15/24 05:14: TIGIST note: Attempting to find bed placement for patient. Patient needs a step down bed vs ICU bed. Called places to inform them this. [facility], spoke sue/ Lillian, still no beds. 441 [facility], spoke sue/ Cecil no beds. ... getting a step down would be even harder. Has multiple beds boarding in ED for step down unit. [facility], spoke sue/ Chris. No beds, no waitlist. Chris asked for a copy of his facesheet faxed over. [facility] spoke ju Chacon. She said she would look into if they have a step down bed. [address] [facility], spoke sue/ Bryan. No beds, no step down, no waitlists. [facility], spoke sue/ Vani. They have no beds. Original Note: [employer] note: Attempting to find bed placement for patient. Called the following places with the following responses: [facility]: 204012/14/24- spoke ju [place]. No beds, currently on waitlist. [facility]: 2041 spoke sue/ Cecil. Currently no beds and boarding. On waitlist. [facility]: 2043 spoke sue/ Chris. No beds, no waitlists. [facility]: 2045 spoke sue/ Navin. Absolutely nothing. 150 patients are inpatient, with a waitlist of 20 people. [facility]: 2048 Spoke with Francisco, took patient's information for waitlist, asked me to fax chart. As I faxed over chart they told me they can't put ICU patient's on their waitlist. [facility]: 2240 Spoke sue/ Maribel. She took patient information.
[2024-12-15] MEDS: FUROSEMIDE 40 MG/4 ML VIAL IV (02:09)
[2024-12-15 04:24] LABS: Troponin I 0.039 ng/mL (0.01-0.034)
--- NOTE | 2024-12-15 08:49 | PM.HP.IH.1 ---
History of Present Illness History of Present Illness Date Patient Seen: 12/15/24 Time Patient Seen: 08:49 Chief complaint: Trouble breathing; HX COPD Narrative: 84-year-old male well known to me with significant COPD and congestive heart failure based on rate-related cardiomyopathy in the past although more recently with preserved ejection fraction who presented to the emergency department with increasing shortness a breath etcetera In the ER he was initially found to be tachycardic hypotensive hypoxic. He was placed on oxygen therapy, was given nebulizer treatments corticosteroids and some gentle IV fluids. With this he seem to improve with his blood pressure and heart rate. His hypoxia seems stable with minimal oxygen replacement therapy. He remained borderline hypotensive and tachycardic at times. Central line was placed in preparation for initiation of norepinephrine infusion but patient is stabilized and did not require this. Initially thoughts were to transfer him to tertiary care center with Cardiology Pulmonary etcetera available however he did stabilize significantly and due to lack of immediate bed availability elsewhere it was elected to keep him at [facility] As of admission this morning, heart rate is better controlled blood pressure is much better without the use of any pressors. He did receive a dose of IV Lasix overnight with reasonable urine output and stability at blood pressure. He is now off oxygen replacement therapy. He was also found to be positive for influenza A, consistent with patchy changes on chest x-ray consistent with pneumonia. He also had a borderline elevated white blood cell count at 13,500 (although has been taking higher dose prednisone for his dyspnea). [place] [address] with baseline closer probably to 3 or 4000 [facility] Medical History Erectile dysfunction Chronic heart failure with preserved ejection fraction History of COVID-19 (10/2020) Right inguinal hernia Peripheral edema Testosterone deficiency in male Pulmonary nodule Cardiomyopathy Essential hypertension Atrial fibrillation COPD (chronic obstructive pulmonary disease) Chronic fatigue (11/23/17) Rheumatoid arthritis involving multiple sites (07/28/17) Postherpetic neuralgia (05/20/17) Primary osteoarthritis of both knees (11/22/15) Mild persistent asthma without complication (11/22/15) Surgical History Hx of knee surgery (10/2015) Hx of colonoscopy (12/15/22) S/P cataract extraction Status post cholecystectomy Family History Father Asthma Mother Diabetes mellitus Social History marital status: household members: spouse lives independently: Yes occupational status: previously employed Smoking Status: Former smoker alcohol intake: current substance use type: does not use Meds Home Medications and Allergies Home Medications Medication Instructions Recorded Confirmed Type Disabled Parking #1 ea 05/05/21 12/08/24 Rx apixaban 5 mg tablet 5 mg PO BID #180 tabs 05/05/21 12/08/24 Rx losartan 25 mg tablet 25 mg PO DAILY #90 tabs 05/05/21 12/08/24 Rx Spacer #1 ea 10/15/21 12/08/24 Rx spironolactone 25 mg tablet 25 mg PO DAILY 03/02/22 12/08/24 History gabapentin 100 mg capsule 100 mg PO 3XD PRN Back Pain 07/19/23 12/08/24 History magnesium oxide 400 mg PO BID 08/17/23 12/08/24 History nystatin 100,000 unit/gram topical 1 applic topical BID #30 grams 08/20/23 12/08/24 Rx cream spacer for inhaled meds #1 ea 09/02/23 12/08/24 Rx potassium chloride 20 mEq 20 meq PO DAILY #90 tabs 03/24/24 12/08/24 Rx tablet,extended release testosterone cypionate 200 mg/mL 300 mg (1.5 mL) IM Q4W #10 mL 05/08/24 12/08/24 Rx intramuscular oil (Depo-Testosterone) albuterol sulfate 2.5 mg/3 mL 2.5 mg (3 mL) continuous 08/21/24 12/08/24 Rx (0.083 %) solution for nebulization nebulization Q6H PRN Dyspnea #90 mL tiotropium 2.5 mcg-olodaterol 2.5 2 puff inhalation DAILY #4 grams 08/22/24 12/08/24 Rx mcg/actuation mist for inhalation (Stiolto Respimat) fluticasone furoate 100 1 inh inhalation DAILY #30 ea 09/05/24 12/08/24 Rx mcg/actuation blister powder for inhalation furosemide 40 mg tablet (Lasix) 40 mg PO DAILY #90 tabs 09/29/24 12/08/24 Rx metoprolol succinate 50 mg 50 mg PO BID 09/29/24 12/08/24 History tablet,extended release 24 hr sotalol 80 mg tablet 80 mg PO BID 09/29/24 12/08/24 History albuterol sulfate 90 mcg/actuation 2 inh inhalation Q4-6H PRN 10/04/24 12/08/24 Rx aerosol inhaler (Ventolin HFA) shortness of breath or wheezing #25.5 grams sildenafil 100 mg tablet 50 - 100 mg (0.5 - 1 x 100 mg) PO 11/10/24 12/08/24 Rx DAILY PRN sexual activity #10 tabs prednisone 20 mg tablet 20 - 40 mg (1 - 2 x 20 mg) PO 12/08/24 12/08/24 Rx DAILY #90 tabs Allergies Allergy/AdvReac Type Severity Reaction Status Date / Time No Known Drug Allergies Allergy Verified 12/08/24 10:03 Review of Systems Review of Systems ROS: Yes All systems reviewed with the patient and are negative except as otherwise documented Exam Vital Signs (past 8 hours): - 12/15/24 01:00 12/15/24 01:00 12/15/24 01:15 Pulse Rate 86 Respiratory Rate 21 Blood Pressure 99/64 104/69 Pulse Oximetry 98 Oxygen Delivery Method Oxygen Flow Rate 12/15/24 01:15 12/15/24 01:30 12/15/24 01:30 Pulse Rate 113 H 108 H Respiratory Rate 30 H 32 H Blood Pressure 95/72 Pulse Oximetry 98 98 Oxygen Delivery Method Oxygen Flow Rate 12/15/24 01:46 12/15/24 01:46 12/15/24 02:00 Pulse Rate 92 H Respiratory Rate 27 H Blood Pressure 106/69 92/56 L Pulse Oximetry 98 Oxygen Delivery Method Oxygen Flow Rate 12/15/24 02:00 12/15/24 02:15 12/15/24 02:15 Pulse Rate 102 H 116 H Respiratory Rate 37 H 24 Blood Pressure 107/77 Pulse Oximetry 99 98 Oxygen Delivery Method Oxygen Flow Rate 12/15/24 02:29 12/15/24 02:30 12/15/24 02:30 Pulse Rate 104 H 91 H Respiratory Rate 25 H 38 H Blood Pressure 106/72 Pulse Oximetry 97 98 Oxygen Delivery Method Oxygen Flow Rate 12/15/24 02:45 12/15/24 02:45 12/15/24 03:00 Pulse Rate 96 H 97 H Respiratory Rate 25 H 24 Blood Pressure 107/73 Pulse Oximetry 98 98 Oxygen Delivery Method Oxygen Flow Rate 12/15/24 03:00 12/15/24 03:15 12/15/24 03:15 Pulse Rate 82 Respiratory Rate 21 Blood Pressure 95/62 107/64 Pulse Oximetry 92 Oxygen Delivery Method Oxygen Flow Rate 12/15/24 03:30 12/15/24 03:30 12/15/24 03:45 Pulse Rate 111 H Respiratory Rate 19 Blood Pressure 108/71 105/69 Pulse Oximetry 94 Oxygen Delivery Method Oxygen Flow Rate 12/15/24 03:45 12/15/24 04:00 12/15/24 04:00 Pulse Rate 106 H 102 H Respiratory Rate 21 42 H Blood Pressure 98/69 Pulse Oximetry 97 97 Oxygen Delivery Method Oxygen Flow Rate 12/15/24 04:15 12/15/24 04:15 12/15/24 04:30 Pulse Rate 93 H Respiratory Rate Blood Pressure 108/64 102/69 Pulse Oximetry 97 Oxygen Delivery Method Oxygen Flow Rate 12/15/24 04:30 12/15/24 04:45 12/15/24 04:45 Pulse Rate 92 H 89 Respiratory Rate 31 H Blood Pressure 93/66 Pulse Oximetry 96 96 Oxygen Delivery Method Nasal Cannula Oxygen Flow Rate 2 12/15/24 05:00 12/15/24 05:00 12/15/24 05:15 Pulse Rate 85 Respiratory Rate 44 H Blood Pressure 100/68 105/77 Pulse Oximetry 98 Oxygen Delivery Method Oxygen Flow Rate 12/15/24 05:15 12/15/24 05:30 12/15/24 05:30 Pulse Rate 92 H 93 H Respiratory Rate 40 H 30 H Blood Pressure 100/74 Pulse Oximetry 97 95 Oxygen Delivery Method Nasal Cannula Oxygen Flow Rate 2 12/15/24 05:45 12/15/24 05:45 12/15/24 06:00 Pulse Rate 88 91 H Respiratory Rate 36 H 39 H Blood Pressure 102/70 Pulse Oximetry 97 96 Oxygen Delivery Method Oxygen Flow Rate 12/15/24 06:00 12/15/24 06:15 12/15/24 06:15 Pulse Rate 107 H Respiratory Rate Blood Pressure 105/72 110/79 Pulse Oximetry 97 Oxygen Delivery Method Oxygen Flow Rate 12/15/24 06:30 12/15/24 06:30 12/15/24 06:45 Pulse Rate 81 105 H Respiratory Rate Blood Pressure 107/78 Pulse Oximetry 97 95 Oxygen Delivery Method Oxygen Flow Rate 12/15/24 06:45 12/15/24 07:00 12/15/24 07:30 Pulse Rate 92 H 125 H Respiratory Rate 26 H 24 Blood Pressure 113/79 Pulse Oximetry 96 98 Oxygen Delivery Method Oxygen Flow Rate Oxygen Delivery Method Nasal Cannula Oxygen Flow Rate 2 Narrative Exam Narrative: Elderly male in no obvious distress sitting up in a gurney in the emergency department HEENT-unremarkable Lungs-coarse wheezing throughout inspiratory and expiratory phases, no crackles Heart-irregularly irregular no murmur Abdomen-benign Extremities-trace edema bilaterally Objective Labs 12/14/24 17:59 12/14/24 17:59 Labs: Laboratory Results - last 24 hr 12/14/24 12/14/24 12/14/24 17:54 17:59 17:59 WBC 13.5 H RBC 5.17 Hgb 13.5 Hct 41.0 MCV 79.3 L MCH 26.0 MCHC 32.8 RDW 20.2 H Plt Count 275 Neut % (Auto) 76.7 H Lymph % (Auto) 12.4 L [place] % (Auto) 10.2 Eos % (Auto) 0.1 L Baso % (Auto) 0.6 Neut # (Auto) 33554 H Lymph # (Auto) 1700 [place] # (Auto) 1400 H Eos # (Auto) 0 Baso # (Auto) 100 RBC Morphology See below Poikilocytosis 1+ H Anisocytosis 1+ H PT 14.9 H Cancelled INR 1.3 APTT Sodium Potassium Chloride Carbon Dioxide BUN Creatinine Estimated GFR BUN/Creatinine Ratio Glucose Lactate Calcium Magnesium Total Bilirubin AST ALT Alkaline Phosphatase Total Creatine Kinase Troponin I NT-Pro-B Natriuret Pep Total Protein Albumin Globulin Albumin/Globulin Ratio Lipase Procalcitonin SARS-CoV-2 (PCR) Negative Influenza A (RT-PCR) Flu a positive H Influenza B (RT-PCR) Flu b negative RSV (PCR) Negative 12/14/24 12/15/24 17:59 03:45 WBC RBC Hgb Hct MCV MCH MCHC RDW Plt Count Neut % (Auto) Lymph % (Auto) [place] % (Auto) Eos % (Auto) Baso % (Auto) Neut # (Auto) Lymph # (Auto) [place] # (Auto) Eos # (Auto) Baso # (Auto) RBC Morphology Poikilocytosis Anisocytosis PT INR Cancelled APTT 33 Sodium 132 L Potassium 3.9 Chloride 99 Carbon Dioxide 26 BUN 17 Creatinine 0.87 Estimated GFR > 60 BUN/Creatinine Ratio 19.5 Glucose 86 Lactate 1.3 Calcium 8.5 Magnesium 1.3 L Total Bilirubin 2.3 H AST 98 H ALT 95 H Alkaline Phosphatase 96 Total Creatine Kinase 45 L Troponin I 0.079 H 0.039 H NT-Pro-B Natriuret Pep 19894 H Total Protein 6.3 Albumin 3.6 Globulin 2.7 Albumin/Globulin Ratio 1.3 Lipase 45 Procalcitonin 0.508 H SARS-CoV-2 (PCR) Influenza A (RT-PCR) Influenza B (RT-PCR) RSV (PCR) Assessment & Plan Assessment & Plan narrative: 1. Acute COPD exacerbation-patient almost certainly with an element of an acute COPD exacerbation. Will continue with high dose parental steroids given his chronic he was he was steroids as an outpatient. He will need frequent nebulizer treatments and oxygen replacement therapy cautiously keeping his oxygen saturation at 89-90% or so. I would be concerned about possible hypercapnic respiratory failure should his oxygen replacement therapy be too aggressive 2. Acute influenza-patient would benefit from Tamiflu which will be ordered as well. This does explain his findings on chest x-ray and I do not believe he needs additional antibiotic therapy directed at a bacterial pneumonia at this time 3. Acute congestive heart failure with preserved ejection fraction-patient seems to have an element of this as well perhaps related to his tachycardia and atrial fibrillation. Blood pressure that is far as not really allowed for vigorous diuresis. Will not add additional IV fluids at this time and anticipate using additional Lasix parenterally as blood pressure will allow depending on his clinical status. Currently he is not hypoxic and I do not believe requires an immediate dose of IV Lasix but will need to monitor carefully. Hopefully if we can control his heart rate better his congestive heart failure would be improve 4. Atrial fibrillation rapid ventricular response-somewhat problematic to control heart rate in the setting of hypotension. I am going to add some IV digoxin. Patient is normally on both metoprolol and sotalol and normally he was in his sinus rhythm. Given his modest hypotension in his active atrial fibrillation I am holding both of those medications at this time, but these can likely be restarted depending on his clinical course over the next several days. Hopefully we can achieve rate control with the digoxin and with treatment of his other conditions his blood pressure will stabilize and we can return him to the sotalol and or the metoprolol. Patient is chronically anticoagulated with Eliquis which I will continue. 5. Hypogonadism-patient on chronic testosterone replacement therapy. Not an active issue for this hospitalization at this time, in my opinion 6. Rheumatoid arthritis-patient with chronic rheumatoid arthritis as well. Not felt to be an active issue for this hospitalization should be tremendously better of course with the parental steroids as above etcetera 7. VTE prophylaxis-patient chronic anticoagulated with Eliquis because of his atrial fibrillation which should suffice for VTE prophylaxis 8. Code status-patient requests full code in the event of a sudden cardiac or respiratory arrest which is not at this time anticipated (although apparently overnight in the ER there was some concern about his clinical trend) Time-Based Coding :: [TOTAL MINUTES] spent with patient and on the chart (including review of chart, obtaining history, exam, reviewing outside data, placing orders, documenting exam and treatment plan, and counseling patient) on [DATE]. 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
[2024-12-15] MEDS: OSELTAMIVIR 75 MG CAPSULE PO ×2 (09:50→21:21)
[2024-12-15] MEDS: DIGOXIN 500 MCG/2 ML AMPUL IV (12:42)
[2024-12-15] MEDS: SPIRONOLACTONE 25 MG TABLET PO (12:42)
[2024-12-15] MEDS: methylPREDNISolone 125 MG/2 ML VIAL IV ×2 (12:42→20:11)
[2024-12-15] MEDS: APIXABAN 5 MG TABLET PO ×2 (12:42→21:21)
[2024-12-15] MEDS: PANTOPRAZOLE DR 40 MG TABLET PO (12:45)
[2024-12-15] MEDS: ALBUTEROL 2.5 MG/3 ML NEB (ADULT) INH ×2 (15:22→20:49)
[2024-12-15 17:39] LABS: MRSA (Nasal) PCR NOT DETECTED (Not Detect)
[2024-12-15] MEDS: SOTALOL 80 MG TABLET PO (21:22)
[2024-12-16] VITALS (60 sets, daily range): BP systolic 104–143; BP diastolic 61–84; PULSE 54–117; RESP 16–30; TEMP 36.3–36.8; O2SAT 92–98
[2024-12-16] MEDS: ALBUTEROL 2.5 MG/3 ML NEB (ADULT) INH ×4 (01:49→18:38)
[2024-12-16] MEDS: methylPREDNISolone 125 MG/2 ML VIAL IV (04:02)
[2024-12-16 05:07] LABS: Add Manual Diff / Slide Review NO; Basophils Absolute Auto 0 /uL (0-100); Basophils Percent Auto 0.1 % (0-2); Eosinophils Absolute Auto 0 /uL (0-450); Hematocrit 36.9 % (41-53); Hemoglobin 12.3 g/dL (13.5-17.5); Lymphocytes Absolute Auto 700 /uL (1100-4500); Lymphocytes Percent Auto 7.8 % (25-40); Mean Corpuscular HGB Conc 33.3 % (30-36); Mean Corpuscular Hemoglobin 26.3 PG (26-34); Monocytes Absolute Auto 400 /uL (0-900); Monocytes Percent Auto 3.9 % (3-14); Neutrophils Absolute Auto 8000 /uL (1500-7000); Neutrophils Percent Auto 88.2 % (50-75); Platelet Count 223 X10^3/uL (150-400); Red Blood Cell Count 4.67 X10^6/uL (4.5-5.9); Red Cell Distribution Width 19.7 % (11.6-14.8); White Blood Cell Count 9.1 X10^3/uL (4.5-11.0)
[2024-12-16 05:25] LABS: BUN Creatinine Ratio 34.2 (6-22); Blood Urea Nitrogen 27 mg/dL (9-20); Calcium 8.3 mg/dL (8.4-10.2); Carbon Dioxide 32 mmol/L (22-32); Chloride 98 mmol/L (98-107); Estimated Glomerular Filt Rate > 60 mL/min (>60); Glucose 205 mg/dL (80-110); HEMOLYSIS 17 (0-50); Potassium 4.4 mmol/L (3.4-5.1); Sodium 133 mmol/L (137-145)
[2024-12-16] MEDS: OSELTAMIVIR 75 MG CAPSULE PO ×2 (08:41→20:15)
[2024-12-16] MEDS: APIXABAN 5 MG TABLET PO ×2 (08:41→20:15)
[2024-12-16] MEDS: PANTOPRAZOLE DR 40 MG TABLET PO (08:41)
[2024-12-16] MEDS: SOTALOL 80 MG TABLET PO ×2 (08:41→20:15)
[2024-12-16] MEDS: SPIRONOLACTONE 25 MG TABLET PO (08:41)
[2024-12-16] MEDS: SODIUM CHLORIDE 0.9% FLUSH 10 ML IV ×2 (08:42→20:15)
[2024-12-16] MEDS: FUROSEMIDE 20 MG/2 ML VIAL IV (08:43)
--- NOTE | 2024-12-16 10:54 | PM.PN.IH.1 ---
Subjective Subjective Date Patient Seen: 12/16/24 Time Patient Seen: 10:55 Interval history: Patient seen at bedside sitting up in bed just finishing a nebulizer. Discussed care with ICU nurse. Patient did well overnight. He is now off oxygen. His blood pressures improve. He is clearly showing signs of increased work of breathing with mild increased respiratory work. He has audible wheezing across the room. He has chronic COPD on prednisone and nebulizers. Apparently hypotensive in the emergency department had a central line placed. His blood pressures have stabilized I think his central line can be removed. Urinating. He had a bowel movement. He is eating well. Of note his blood sugar was greater than 200 he says he has not known to be diabetic. Exam Vital Signs (past 8 hours): - 12/16/24 03:00 12/16/24 03:00 12/16/24 03:00 Temperature Pulse Rate 90 Respiratory Rate 23 Blood Pressure 113/73 Pulse Oximetry 94 Oxygen Delivery Method Room Air Oxygen Flow Rate 0 Fraction of Inspired Oxygen 12/16/24 03:30 12/16/24 04:00 12/16/24 04:01 Temperature Pulse Rate 84 85 83 Respiratory Rate 23 23 22 Blood Pressure Pulse Oximetry 92 94 95 Oxygen Delivery Method Oxygen Flow Rate 0 Fraction of Inspired Oxygen 12/16/24 04:01 12/16/24 04:30 12/16/24 05:00 Temperature Pulse Rate 85 89 Respiratory Rate 22 21 Blood Pressure 134/74 Pulse Oximetry 96 95 Oxygen Delivery Method Oxygen Flow Rate 0 0 Fraction of Inspired Oxygen 12/16/24 05:00 12/16/24 05:30 12/16/24 06:00 Temperature Pulse Rate 81 80 Respiratory Rate 21 27 H Blood Pressure 129/71 Pulse Oximetry 94 95 Oxygen Delivery Method Oxygen Flow Rate 0 0 Fraction of Inspired Oxygen 12/16/24 06:00 12/16/24 06:30 12/16/24 07:00 Temperature Pulse Rate 80 Respiratory Rate 21 Blood Pressure 143/81 H Pulse Oximetry 94 Oxygen Delivery Method Room Air Oxygen Flow Rate 0 Fraction of Inspired Oxygen 12/16/24 07:00 12/16/24 07:00 12/16/24 07:30 Temperature Pulse Rate 80 80 Respiratory Rate 25 H 27 H Blood Pressure 129/80 Pulse Oximetry 95 96 Oxygen Delivery Method Oxygen Flow Rate Fraction of Inspired Oxygen 12/16/24 07:34 12/16/24 08:00 12/16/24 08:00 Temperature Pulse Rate 78 75 Respiratory Rate 20 Blood Pressure 124/82 Pulse Oximetry 95 96 Oxygen Delivery Method Room Air Oxygen Flow Rate 0 Fraction of Inspired Oxygen 21 12/16/24 08:00 12/16/24 08:30 12/16/24 09:00 Temperature 97.3 F L Pulse Rate 86 89 98 H Respiratory Rate 17 Blood Pressure 124/84 Pulse Oximetry 94 95 94 Oxygen Delivery Method Oxygen Flow Rate Fraction of Inspired Oxygen 12/16/24 09:00 12/16/24 10:00 12/16/24 10:00 Temperature Pulse Rate 82 Respiratory Rate Blood Pressure 115/61 124/79 Pulse Oximetry 96 Oxygen Delivery Method Oxygen Flow Rate Fraction of Inspired Oxygen 12/16/24 10:14 12/16/24 10:14 12/16/24 10:18 Temperature Pulse Rate 80 76 Respiratory Rate 18 Blood Pressure 134/77 Pulse Oximetry 97 97 Oxygen Delivery Method Room Air Oxygen Flow Rate Fraction of Inspired Oxygen 12/16/24 10:33 Temperature Pulse Rate 81 Respiratory Rate Blood Pressure Pulse Oximetry 98 Oxygen Delivery Method Oxygen Flow Rate Fraction of Inspired Oxygen Fraction of Inspired Oxygen 21 SaO2/FiO2 Ratio 452 Oxygen Delivery Method Room Air Oxygen Flow Rate 0 Narrative Exam Narrative: Gen.: Alert increased work of breathing HEENT: Pupils equal round and reactive or mucosa is moist Cardio: Irregular rate and rhythm slight systolic murmur Respiratory: Lungs show audible rhonchorous breath sounds with bilateral expiratory wheezes heard without a stethoscope Abdomen: Soft nontender no rebound or guarding no liver spleen enlargement no appreciable hernias Extremities: Edema Neurologic: Grossly intact. Objective Labs 12/16/24 04:15 12/16/24 04:15 Labs: Laboratory Results - last 24 hr 12/15/24 12/16/24 12:30 04:15 WBC 9.1 RBC 4.67 Hgb 12.3 L Hct 36.9 L MCV 79.0 L MCH 26.3 MCHC 33.3 RDW 19.7 H Plt Count 223 Neut % (Auto) 88.2 H Lymph % (Auto) 7.8 L [place] % (Auto) 3.9 Eos % (Auto) 0.0 L Baso % (Auto) 0.1 Neut # (Auto) 8000 H Lymph # (Auto) 700 L [place] # (Auto) 400 Eos # (Auto) 0 Baso # (Auto) 0 Sodium 133 L Potassium 4.4 Chloride 98 Carbon Dioxide 32 BUN 27 H Creatinine 0.79 Estimated GFR > 60 BUN/Creatinine Ratio 34.2 H Glucose 205 H D Calcium 8.3 L Magnesium 2.0 Nasal Screen MRSA (PCR) Not detected [facility] Medical History Erectile dysfunction Chronic heart failure with preserved ejection fraction History of COVID-19 (10/2020) Right inguinal hernia Peripheral edema Testosterone deficiency in male Pulmonary nodule Cardiomyopathy Essential hypertension Atrial fibrillation COPD (chronic obstructive pulmonary disease) Chronic fatigue (11/23/17) Rheumatoid arthritis involving multiple sites (07/28/17) Postherpetic neuralgia (05/20/17) Primary osteoarthritis of both knees (11/22/15) Mild persistent asthma without complication (11/22/15) Surgical History Hx of knee surgery (10/2015) Hx of colonoscopy (10/22/22) S/P cataract extraction Status post cholecystectomy Family History Father Asthma Mother Diabetes mellitus Social History marital status: household members: spouse lives independently: Yes occupational status: previously employed Smoking Status: Former smoker alcohol intake: current substance use type: does not use Assessment & Plan Assessment and plan (1) A-fib: Qualifiers: Atrial fibrillation type: persistent (not longstanding) Qualified Code(s): I48.19 - Other persistent atrial fibrillation Status: Acute (2) Acute exacerbation of CHF (congestive heart failure): Qualifiers: Heart failure type: systolic Qualified Code(s): I50.23 - Acute on chronic systolic (congestive) heart failure Status: Acute (3) Asthma exacerbation in COPD: Status: Acute (4) Influenza A: Status: Acute Plan Acute COPD exacerbation. Patient has audible wheezes and increased work of breathing. He is now off oxygen he has not oxygen dependent he is steroid dependent. We will continue with IV steroids 60 mg Q 8. Nebulizers per protocol. Monitor closely respiratory status. Mild adjustment to his steroid dose from 125-60 today Q 8 hours. Acute congestive heart failure with preserved ejection fraction. Blood pressure is much better. She has getting a little bit of IV Lasix. He received IV digoxin. His heart rate is stabilized today. Will go ahead and gently restart his medication to prevent tachycardia will start metoprolol extended release once a day he is normally on it twice a day and sotalol once a day in the evening. Will monitor his blood pressure to make sure he does not become too hypotensive. He did receive IV digoxin this will be held for now as we restart back his metoprolol and sotalol. Lasix will be continued at 20 mg a day. We will follow closely his electrolytes and respiratory status. His angiotensin receptor jena is on hold until blood pressure response. Influenza acute. Patient on Tamiflu. Monitoring closely his blood cultures. On contact precautions. Atrial fibrillation with rapid ventricular response. He is on anticoagulation. Restarting home medications such as metoprolol and sotalol. Hold IV digoxin. Rheumatoid arthritis. Chronic and stable Hypogonadism. Chronic and stable. Code status full code VTE prophylaxis on Eliquis Change status to floor care anticipate hospitalization for another 48 hours Time-Based Coding :: [TOTAL MINUTES] spent with patient and on the chart (including review of chart, obtaining history, exam, reviewing outside data, placing orders, documenting exam and treatment plan, and counseling patient) on [DATE]. 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
[2024-12-16] MEDS: methylPREDNISolone 125 MG/2 ML VIAL 60 MG IV ×2 (11:14→20:13)
--- NOTE | 2024-12-16 14:26 | CM.DANOTE ---
DCP Assessment Note: Pt is a 84yo male, resident of [place], is admitted for AFib, CHF, Influenza A. Pt lives in a house with his , Tianna. Pt's Primary Care Provider is Dr. Mitchell Buchanan and [facility]. Reviewed chart and discussed with multidisciplinary team pt's medical status and initial discharge needs. DCP met w/patient at bedside; introduced self and role. Patient was found in bed, alert and oriented, cooperative with assessment. Pt confirmed living situation and good support in and son who lives locally. Pt expressed preference in discharge home when medically cleared. Pt has a hx of referral to [facility] during last admission in 04/2024, pt reports he did not establish care due to work being done around his house. Pt does not have any hx of SNF Rehab, declines any referrals to be made in the community at this time. Plan: Anticipating home with sonIon, to transport when medically cleared. CM team will follow closely for coordination of discharge plans. 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 No Advance Directives on File No History Provided By Patient,Medical Record Prior Living Arrangements House Comment [place] Household Members spouse Type of transporation used prior to Drives own vehicle admit Independent with ADL's Yes Is patient alert and oriented? Yes Caregiver for Another No DME Already Rented / Owned FWW / Walker Barriers to Discharge No Discharge Plan Home Transportation Arrangement Ion [facility] Referrals Initiated None needed Review Status In Process Please Provide Date Initial DC 12/16/24 Assessment Was Performed Next Review Type Continued Stay Review
[2024-12-16] MEDS: ACETAMINOPHEN 325 MG TABLET 650 MG PO (20:16)
[2024-12-16] MEDS: OXYCODONE IR 5 MG TABLET PO (21:29)
[2024-12-17] VITALS (30 sets, daily range): BP systolic 129–170; BP diastolic 67–98; PULSE 48–89; RESP 18–38; TEMP 36.6–36.9; O2SAT 94–97
[2024-12-17] MEDS: ALBUTEROL 2.5 MG/3 ML NEB (ADULT) INH ×3 (02:42→19:00)
[2024-12-17] MEDS: methylPREDNISolone 125 MG/2 ML VIAL 60 MG IV ×3 (04:35→19:51)
[2024-12-17 04:42] LABS: Add Manual Diff / Slide Review NO; Basophils Absolute Auto 0 /uL (0-100); Basophils Percent Auto 0.2 % (0-2); Eosinophils Absolute Auto 0 /uL (0-450); Hematocrit 36.6 % (41-53); Hemoglobin 12.2 g/dL (13.5-17.5); Lymphocytes Absolute Auto 800 /uL (1100-4500); Lymphocytes Percent Auto 8.2 % (25-40); Mean Corpuscular HGB Conc 33.4 % (30-36); Mean Corpuscular Hemoglobin 26.3 PG (26-34); Mean Corpuscular Volume 78.8 fL (80-100); Monocytes Absolute Auto 400 /uL (0-900); Monocytes Percent Auto 4.7 % (3-14); Neutrophils Absolute Auto 8300 /uL (1500-7000); Neutrophils Percent Auto 86.9 % (50-75); Platelet Count 259 X10^3/uL (150-400); Red Blood Cell Count 4.65 X10^6/uL (4.5-5.9); Red Cell Distribution Width 18.9 % (11.6-14.8); White Blood Cell Count 9.5 X10^3/uL (4.5-11.0)
[2024-12-17 04:59] LABS: Alanine Aminotransferase 72 IU/L (<50); Albumin 3.2 g/dL (3.5-5.0); Albumin Globulin Ratio 1.2 (1.0-2.8); Alkaline Phosphatase 73 U/L (38-126); Aspartate Aminotransferase 58 IU/L (17-59); BUN Creatinine Ratio 47.4 (6-22); Blood Urea Nitrogen 45 mg/dL (9-20); Calcium 8.5 mg/dL (8.4-10.2); Carbon Dioxide 30 mmol/L (22-32); Chloride 97 mmol/L (98-107); Estimated Glomerular Filt Rate > 60 mL/min (>60); Globulin 2.6 g/dL (1.7-4.1); Glucose 173 mg/dL (80-110); HEMOLYSIS 15 (0-50); Potassium 4.5 mmol/L (3.4-5.1); Sodium 132 mmol/L (137-145); Total Protein 5.8 g/dL (6.3-8.2)
[2024-12-17] MEDS: PANTOPRAZOLE DR 40 MG TABLET PO (07:56)
[2024-12-17] MEDS: APIXABAN 5 MG TABLET PO ×2 (08:00→19:53)
[2024-12-17] MEDS: OSELTAMIVIR 75 MG CAPSULE PO ×2 (08:00→19:53)
[2024-12-17] MEDS: SOTALOL 80 MG TABLET PO ×2 (08:01→19:53)
[2024-12-17] MEDS: SODIUM CHLORIDE 0.9% FLUSH 10 ML IV ×2 (08:01→19:54)
[2024-12-17] MEDS: SPIRONOLACTONE 25 MG TABLET PO (08:01)
[2024-12-17] MEDS: FUROSEMIDE 20 MG/2 ML VIAL IV (08:01)
[2024-12-17] MEDS: METOPROLOL ER 50 MG TABLET PO (08:02)
--- NOTE | 2024-12-17 12:20 | PM.PN.IH.1 ---
Subjective Subjective Date Patient Seen: 12/17/24 Time Patient Seen: 12:21 Interval history: Patient states he is feeling better. Still short of breath had some pretty bad coughing episodes last night. Heart rate is now in normal sinus rhythm. Patient's blood pressure looks much better. He is mildly bradycardic. Eating well. Good bowel movements. Not requiring oxygen Exam Vital Signs (past 8 hours): - 12/17/24 07:00 12/17/24 07:43 12/17/24 08:00 Pulse Rate 68 76 Respiratory Rate 18 22 Blood Pressure 129/83 Pulse Oximetry 96 97 Oxygen Delivery Method Room Air Room Air Oxygen Flow Rate 0 Fraction of Inspired Oxygen 21 12/17/24 08:02 12/17/24 08:35 12/17/24 11:44 Pulse Rate 67 83 Respiratory Rate Blood Pressure 157/67 H 129/83 153/93 H Pulse Oximetry Oxygen Delivery Method Oxygen Flow Rate Fraction of Inspired Oxygen 12/17/24 11:44 12/17/24 11:46 12/17/24 11:46 Pulse Rate 49 L 64 Respiratory Rate 20 24 Blood Pressure 153/72 H Pulse Oximetry 97 97 Oxygen Delivery Method Oxygen Flow Rate Fraction of Inspired Oxygen Fraction of Inspired Oxygen 21 SaO2/FiO2 Ratio 457 Oxygen Delivery Method Room Air Oxygen Flow Rate 0 Narrative Exam Narrative: Gen.: Alert no apparent distress HEENT: Pupils equal round and reactive or mucosa is moist Cardio: S1-S2 systolic murmur regular rate and rhythm Respiratory: Audible expiratory and inspiratory wheezing with rhonchorous breath sounds Abdomen: Soft nontender no rebound or guarding no liver spleen enlargement no appreciable hernias Extremities: Full range of motion no appreciable weakness no cyanosis or edema. Neurologic: Grossly intact. Objective Labs 12/17/24 04:16 12/17/24 04:16 Labs: Laboratory Results - last 24 hr 12/17/24 04:16 WBC 9.5 RBC 4.65 Hgb 12.2 L Hct 36.6 L MCV 78.8 L MCH 26.3 MCHC 33.4 RDW 18.9 H Plt Count 259 Neut % (Auto) 86.9 H Lymph % (Auto) 8.2 L [place] % (Auto) 4.7 Eos % (Auto) 0.0 L Baso % (Auto) 0.2 Neut # (Auto) 8300 H Lymph # (Auto) 800 L [place] # (Auto) 400 Eos # (Auto) 0 Baso # (Auto) 0 Sodium 132 L Potassium 4.5 Chloride 97 L Carbon Dioxide 30 BUN 45 H Creatinine 0.95 Estimated GFR > 60 BUN/Creatinine Ratio 47.4 H Glucose 173 H Calcium 8.5 Total Bilirubin 1.0 AST 58 ALT 72 H Alkaline Phosphatase 73 Total Protein 5.8 L Albumin 3.2 L Globulin 2.6 Albumin/Globulin Ratio 1.2 PFS Medical History Erectile dysfunction Chronic heart failure with preserved ejection fraction History of COVID-19 (10/2020) Right inguinal hernia Peripheral edema Testosterone deficiency in male Pulmonary nodule Cardiomyopathy Essential hypertension Atrial fibrillation COPD (chronic obstructive pulmonary disease) Chronic fatigue (11/23/17) Rheumatoid arthritis involving multiple sites (07/28/17) Postherpetic neuralgia (05/20/17) Primary osteoarthritis of both knees (11/22/15) Mild persistent asthma without complication (11/22/15) Surgical History Hx of knee surgery (10/2015) Hx of colonoscopy (10/22/22) S/P cataract extraction Status post cholecystectomy Family History Father Asthma Mother Diabetes mellitus Social History marital status: household members: spouse lives independently: Yes occupational status: previously employed Smoking Status: Former smoker alcohol intake: current substance use type: does not use Assessment & Plan Assessment and plan (1) Acute exacerbation of CHF (congestive heart failure): Qualifiers: Heart failure type: systolic Qualified Code(s): I50.23 - Acute on chronic systolic (congestive) heart failure Status: Acute (2) Asthma exacerbation in COPD: Status: Acute Plan Acute COPD exacerbation. Patient has audible wheezes and increased work of breathing. He is now off oxygen he has not oxygen dependent he is steroid dependent. Continue with IV steroids. Making improvement today. He is feeling better increased work of breathing can get through sentences now without having to stop and breathe. Guaifenesin for codeine for cough suppressant Acute congestive heart failure with preserved ejection fraction. Blood pressure is much better. Continue with gentle diuresis of IV Lasix. Back on once a day metoprolol and sotalol. Blood pressure is better. His pulses in the mid 60s. I will hold off on adding more metoprolol and sotalol as of yet. Influenza acute. Patient on Tamiflu. Monitoring closely his blood cultures. On contact precautions. Atrial fibrillation with rapid ventricular response. He is on anticoagulation. Patient converted to sinus rhythm. Continue with Eliquis. Heart rates in the 50s and 60s. Rheumatoid arthritis. Chronic and stable Hypogonadism. Chronic and stable. Code status full code VTE prophylaxis on Eliquis Improving slowly. Time-Based Coding :: [TOTAL MINUTES] spent with patient and on the chart (including review of chart, obtaining history, exam, reviewing outside data, placing orders, documenting exam and treatment plan, and counseling patient) on [DATE]. Quality VTE Deep Vein Thrombosis/Pulmonary Embolism Present on Admission: No PROFEE Broomcorn Scraper Document charge(s): Yes Charge Codes Subsequent inpatient/observation care: [id number]
[2024-12-17] MEDS: CODEINE/GUAIFENESIN LIQUID 5ML UDC 5 ML PO ×2 (13:06→18:52)
[2024-12-18] VITALS (29 sets, daily range): BP systolic 124–191; BP diastolic 61–118; PULSE 44–69; RESP 16–41; TEMP 36.1–36.8; O2SAT 94–98
[2024-12-18] MEDS: CODEINE/GUAIFENESIN LIQUID 5ML UDC 5 ML PO ×3 (00:49→21:08)
[2024-12-18] MEDS: methylPREDNISolone 125 MG/2 ML VIAL 60 MG IV ×3 (04:06→20:58)
[2024-12-18 06:01] LABS: Add Manual Diff / Slide Review NO; Basophils Absolute Auto 0 /uL (0-100); Basophils Percent Auto 0.3 % (0-2); Eosinophils Absolute Auto 0 /uL (0-450); Eosinophils Percent Auto 0.1 % (2-4); Hematocrit 37.4 % (41-53); Hemoglobin 12.3 g/dL (13.5-17.5); Lymphocytes Absolute Auto 900 /uL (1100-4500); Lymphocytes Percent Auto 9.5 % (25-40); Mean Corpuscular HGB Conc 32.9 % (30-36); Mean Corpuscular Hemoglobin 26.2 PG (26-34); Mean Corpuscular Volume 79.5 fL (80-100); Monocytes Absolute Auto 500 /uL (0-900); Monocytes Percent Auto 5.7 % (3-14); Neutrophils Absolute Auto 7700 /uL (1500-7000); Neutrophils Percent Auto 84.4 % (50-75); Platelet Count 245 X10^3/uL (150-400); Red Blood Cell Count 4.71 X10^6/uL (4.5-5.9); Red Cell Distribution Width 18.8 % (11.6-14.8); White Blood Cell Count 9.1 X10^3/uL (4.5-11.0)
[2024-12-18 06:13] LABS: BUN Creatinine Ratio 56.4 (6-22); Blood Urea Nitrogen 53 mg/dL (9-20); Calcium 8.8 mg/dL (8.4-10.2); Carbon Dioxide 32 mmol/L (22-32); Chloride 98 mmol/L (98-107); Estimated Glomerular Filt Rate > 60 mL/min (>60); Glucose 175 mg/dL (80-110); HEMOLYSIS < 15 (0-50); Potassium 4.6 mmol/L (3.4-5.1); Sodium 133 mmol/L (137-145)
--- NOTE | 2024-12-18 07:33 | PM.PN.IH.1 ---
Subjective Subjective Date Patient Seen: 12/18/24 Time Patient Seen: 07:34 Interval history: Basically uneventful weekend. Slowly improving. Went back to sinus rhythm now sinus bradycardia. Some hypertension had metoprolol restarted at lower dose yesterday. Back on sotalol at regular dose IV steroid dose has been reduced. This morning still short of breath. Much improved over admission but still very much short of breath and not at baseline. Hoping to get up to his chair in the room later this morning Exam Vital Signs (past 8 hours): - 12/18/24 00:00 12/18/24 00:04 12/18/24 00:04 Temperature Pulse Rate 62 57 L Respiratory Rate 33 H 23 Blood Pressure 170/84 H Pulse Oximetry 96 96 12/18/24 00:30 12/18/24 01:00 12/18/24 01:30 Temperature Pulse Rate 53 L 61 48 L Respiratory Rate 31 H 41 H 23 Blood Pressure Pulse Oximetry 96 94 94 12/18/24 02:00 12/18/24 02:30 12/18/24 03:00 Temperature Pulse Rate 47 L 47 L 47 L Respiratory Rate 21 21 20 Blood Pressure Pulse Oximetry 94 94 95 12/18/24 03:30 12/18/24 03:54 12/18/24 03:54 Temperature 98 F Pulse Rate 52 L 59 L Respiratory Rate 21 22 Blood Pressure 164/118 H Pulse Oximetry 95 96 12/18/24 04:00 Temperature Pulse Rate 48 L Respiratory Rate 20 Blood Pressure Pulse Oximetry 94 Fraction of Inspired Oxygen 21 SaO2/FiO2 Ratio 461 Oxygen Delivery Method Room Air Oxygen Flow Rate 0 Objective Labs 12/18/24 05:36 12/18/24 05:36 Labs: Laboratory Results - last 24 hr 12/18/24 05:36 WBC 9.1 RBC 4.71 Hgb 12.3 L Hct 37.4 L MCV 79.5 L MCH 26.2 MCHC 32.9 RDW 18.8 H Plt Count 245 Neut % (Auto) 84.4 H Lymph % (Auto) 9.5 L [place] % (Auto) 5.7 Eos % (Auto) 0.1 L Baso % (Auto) 0.3 Neut # (Auto) 7700 H Lymph # (Auto) 900 L [place] # (Auto) 500 Eos # (Auto) 0 Baso # (Auto) 0 Sodium 133 L Potassium 4.6 Chloride 98 Carbon Dioxide 32 BUN 53 H Creatinine 0.94 Estimated GFR > 60 BUN/Creatinine Ratio 56.4 H Glucose 175 H Calcium 8.8 PFS Medical History Erectile dysfunction Chronic heart failure with preserved ejection fraction History of COVID-19 (10/2020) Right inguinal hernia Peripheral edema Testosterone deficiency in male Pulmonary nodule Cardiomyopathy Essential hypertension Atrial fibrillation COPD (chronic obstructive pulmonary disease) Chronic fatigue (11/23/17) Rheumatoid arthritis involving multiple sites (07/28/17) Postherpetic neuralgia (05/20/17) Primary osteoarthritis of both knees (11/22/15) Mild persistent asthma without complication (11/22/15) Surgical History Hx of knee surgery (10/2015) Hx of colonoscopy (10/22/22) S/P cataract extraction Status post cholecystectomy Family History Father Asthma Mother Diabetes mellitus Social History marital status: household members: spouse lives independently: Yes occupational status: previously employed Smoking Status: Former smoker alcohol intake: current substance use type: does not use Assessment & Plan Assessment & Plan narrative: 1. Acute COPD exacerbation-improved. On lower dose IV steroids. Continue IV steroids until just before or right up until discharge. No change in dose today. I think most of patient's remaining sense of dyspnea is from COPD. He is not hypoxic which I would take as less congestive heart failure present 2. Acute influenza-still on Tamiflu. Will complete course on December 20 3. Acute congestive heart failure with preserved ejection fraction-continue with diuresis. Will switch from IV Lasix to oral Lasix and monitor improvement. Remains off of oxygen etcetera. Lab work shows stability with the electrolytes and renal function 4. Atrial fibrillation rapid ventricular response-back to sinus rhythm of course. Sinus bradycardia. Continue sotalol plus current dose metoprolol. Will not increase dose of metoprolol given the bradycardia 5. Hypertension-patient is somewhat hypertensive despite the metoprolol. I do not believe he would tolerate a higher dose of metoprolol. Therefore will add amlodipine today and monitor numbers 6. VTE prophylaxis-patient chronic anticoagulated with Eliquis because of his atrial fibrillation which should suffice for VTE prophylaxis 7. Disposition-patient probably 2 or 3 days away from being able to go home. Should probably be able to begin some physical therapy today. Time-Based Coding :: [TOTAL MINUTES] spent with patient and on the chart (including review of chart, obtaining history, exam, reviewing outside data, placing orders, documenting exam and treatment plan, and counseling patient) on [DATE]. Quality VTE Deep Vein Thrombosis/Pulmonary Embolism Present on Admission: No PROFEE Bed Bug Exterminator Document charge(s): Yes Charge Codes Subsequent inpatient/observation care: [id number]
[2024-12-18] MEDS: METOPROLOL ER 50 MG TABLET PO (08:20)
[2024-12-18] MEDS: APIXABAN 5 MG TABLET PO ×2 (08:21→20:58)
[2024-12-18] MEDS: OSELTAMIVIR 75 MG CAPSULE PO ×2 (08:21→20:58)
[2024-12-18] MEDS: FUROSEMIDE 40 MG TABLET PO (08:21)
[2024-12-18] MEDS: SOTALOL 80 MG TABLET PO ×2 (08:21→20:58)
[2024-12-18] MEDS: SPIRONOLACTONE 25 MG TABLET PO (08:21)
[2024-12-18] MEDS: PANTOPRAZOLE DR 40 MG TABLET PO (08:21)
[2024-12-18] MEDS: ACETAMINOPHEN 325 MG TABLET 650 MG PO ×2 (08:21→15:31)
[2024-12-18] MEDS: OXYCODONE IR 5 MG TABLET PO ×3 (08:21→22:16)
[2024-12-18] MEDS: AMLODIPINE 5 MG TABLET PO (08:21)
[2024-12-18] MEDS: SODIUM CHLORIDE 0.9% FLUSH 10 ML IV ×2 (08:22→20:59)
[2024-12-18] MEDS: ALBUTEROL 2.5 MG/3 ML NEB (ADULT) INH (09:29)
--- NOTE | 2024-12-18 11:10 | CM.DPC ---
DCP Cont: Per MD, pt making improvement and no longer ICU status and switched to floor care and moved to room 205 and RT providing nebulizer tx but tolerating room air currently but still some crackles and wheezing and MD anticipates another 2-3 days but ordered PT eval for today. PT ordered and pending. Pt remains in good spirits and agreeable and continues to confirm his preference of home when stable. Plan: SW to follow closely for PT eval to confirm safe d/c home when medically stable and any further identified needs. DMITRI Hansen
--- NOTE | 2024-12-18 13:01 | PT.IIE ---
Current Diagnoses Other persistent atrial fibrillation (12/15/24) Acute on chronic systolic (congestive) heart failure (12/15/24) Influenza due to other identified influenza virus with other respiratory manifestations (12/15/24) Chronic obstructive pulmonary disease with (acute) exacerbation (12/15/24) Surgical History (Last Reviewed 12/15/24 @ 08:53 by Mitchell Buchanan MD) Hx of colonoscopy (10/22/22) Hx of knee surgery (10/2015) S/P cataract extraction Status post cholecystectomy Medical History (Last Reviewed 12/15/24 @ 08:53 by Mitchell Buchanan MD) Atrial fibrillation Cardiomyopathy Chronic fatigue (11/23/17) Chronic heart failure with preserved ejection fraction COPD (chronic obstructive pulmonary disease) Erectile dysfunction Essential hypertension History of COVID-19 (10/2020) Mild persistent asthma without complication (11/22/15) Peripheral edema Postherpetic neuralgia (05/20/17) Primary osteoarthritis of both knees (11/22/15) Pulmonary nodule Rheumatoid arthritis involving multiple sites (07/28/17) Right inguinal hernia Testosterone deficiency in male Physical Therapy Inpatient Evaluation/Re-Eval M1 PT/OT-IP Prior Functional Status Start: 12/18/24 11:34 Freq: NEEDED Status: Active Protocol: Document 12/18/24 11:47 MB (Rec: 12/18/24 13:01 MB [id number]) Medical Review Prior Functional Status Medical History Reviewed Yes Communication WNLs Mobility and Gait Pt reports mod I with RW Activities of Daily Living and IADL's Pt reports mod I at baseline Social History Household Members spouse Living Arrangements House Number of Floors (Floors) Two Floors Number of Stairs To Enter/Railing? 1 flight steps with right rail to bed room and no steps to enter home Home Environment Standard Height Toilet,Tub/ Shower Doors Home Equipment Front Wheel Walker,Shower Seat without Backrest Employment Status Retired M2 PT-IP Current Condition Start: 12/18/24 11:34 Freq: NEEDED Status: Active Protocol: Document 12/18/24 11:47 MB (Rec: 12/18/24 13:01 MB [id number]) Physical Therapy Current Condition Current Condition Evaluation Date 12/18/24 Treatment Diagnosis CHF, influenza, a-fib, COPD, L4 comp fracture M3 PT-IP Subjective Start: 12/18/24 11:34 Freq: NEEDED Status: Active Protocol: Document 12/18/24 11:47 MB (Rec: 12/18/24 13:01 MB [id number]) Subjective Physical Therapy Visit Type Type Initial Evaluation Visit Start Time 11:47 Visit Stop Time 12:10 Number of MELTER ASSISTANT Visits 0 Physical Therapy Visit Comments Patient Comments Pt with reports that back pain and injury are not acute and explains to PT that he has seen outpatient back specialist x2 and received injections. Therapy Pain Assessment Pain When Pain Assessed At Rest Pain Present Pain Present Pain Reported Location Back Intensity 3 Scale Used Numeric (0 - 10) M4 PT-IP Mobility and Gait Start: 12/18/24 11:34 Freq: NEEDED Status: Active Protocol: Document 12/18/24 11:47 MB (Rec: 12/18/24 13:01 MB [id number]) PT-Bed Mobility Assessment Rolling Type of Rolling Log Rolling,Roll to Right,Roll to Left Level of Assist Contact Guard Assistance Supine to Sit Supine to Sit Standby Assistance Sit to Supine Sit to Supine Standby Assistance Scooting Scooting to Edge of Bed Standby Assistance Scooting Up and Down in Bed Standby Assistance PT-Transfer Assessment Sit to and From Stand Sit to and from Stand Standby Assistance,1 Person Assistance,Use of Upper Extremities Equipment Transfer Assistive Device Gait Belt,Front Wheeled Walker Orthotic/Prosthetic Devices or Brace: No Transfers Transfer Destination Bed,Chair Transfer Technique Ambulation Transfer Ability Level of Assist Standby Assistance,1 Person Assistance,Use of Upper Extremities Comments Mobility Comments Pt with severe orthostasis and machine does not keep readings and pt in contact room and PT remembers systolic pressures for note: BP in RUE : sitting 160 mmHg, standing drops to 137 mmHg and increases to 140 mmHg, after short gait and bed mobility, pt more dyspneic and light- headed and BP 115/65. Gait Assessment Gait Gait Assistance Required: Standby Assistance Distance (Feet) 20 Able to Maintain Weight Bearing Status Yes During Gait Assistive Devices Assistive Device Gait Belt,Front Wheeled Walker Orthotic/Prosthetic Devices or Brace: No Gait Deviations General Gait Pattern Antalgic,Decreased Stride Length,Flexed Trunk,Step-to Gait,Wide Based Gait Factors Limiting Gait Function Factors Limiting Gait Function Decreased Activity Tolerance, Poor Balance,Poor Safety Awareness Comments Gait Comments ALBERTO, pt gait trains 20'x2 PT-Balance Assessment Sitting Balance and Reactions Static Sitting Balance Ability Normal Dynamic Sitting Balance Ability Normal Standing Balance and Reactions Static Standing Balance Ability Good Dynamic Standing Balance Ability Good Device Used RW M5 PT-IP Objective Assessments Start: 12/18/24 11:34 Freq: NEEDED Status: Active Protocol: Document 12/18/24 11:47 MB (Rec: 12/18/24 13:01 MB [id number]) Orientation Orientation/Cognition Level of Alertness Alert Orientation Name,Birthday,Situation Language Function Ability No Deficits Noted Safety Awareness Decreased Safety Awareness Memory Description No Deficits Noted Gross Range of Motion Upper Extremity ROM Assessment Within Functional Limits Lower Extremity ROM Assessment Within Functional Limits Impairments Edema LEs Strength Lower Extremity Strength Assessment Within Functional Limits M6 PT-IP Treatment Start: 12/18/24 11:34 Freq: NEEDED Status: Active Protocol: Document 12/18/24 11:47 MB (Rec: 12/18/24 13:01 MB [id number]) Physical Therapy Treatment Other Treatments Other Treatment Performed Log rolling, ed pt on CHF and orthostatic hypotension M7 PT-IP Assessment and Plan Start: 12/18/24 11:34 Freq: NEEDED Status: Active Protocol: Document 12/18/24 11:47 MB (Rec: 12/18/24 13:01 MB [id number]) PT Summary Assessment and Plan Potential Rehabilitation Potential Fair Status of Condition at Evaluation Unstable Summary Impairments Pain,Balance,Transfers,Gait, Activity Tolerance Progress Towards Goals Slow Progress due to Medical Issues,Slow Progress due to Activity Tolerance Assessment Summary Pt is an 84 y/o male presenting with SOB in setting of COPD, CHF, a-fib and influenza. He has history of L4 fracture that appears new on diagnostic report and pt reports is not new and he has received injections for pain. Unsure accuracy of this report . Pt is very ALBERTO and his BP is very orthostatic and he is symptomatic with mobility. He mobilizes well with RW in light of medical issues and has more medical management needs than functional ones, it appears. Recommend home with assistance and HHPT safety consult at d/c. Goals Bed Mobility Goal Independent Transfer Goal Independent,Front Wheeled Walker Gait Goal Independent,Front Wheel Walker Gait Distance 100 Other Goals If appropriate, could practice stairs with 1 rail up to 12 steps to prepare for mobility up to bedroom. Days to Meet Goals 5 Frequency of Treatment Frequency Of Treatment Once a Day Other frequency x1 Treatment Plan Physical Therapy Treatment Plan Bed Mobility Training,Transfer Training,Gait Training, Therapeutic Exercise,Balance Retraining,Discharge Planning, Neuromuscular Re-ed, Coordination Retraining,Manual Therapy Other Recommendations and Next Treatment Instructed pt in log rolling Focus to protect L4 and could con't to practice, increase gait, steps, check orthostatics Precautions Lumbar Precautions Log Roll,No Twisting,Limit Bending,Lifting Restriction of 10 lbs Other Precautions Droplet for the flu Recommendations To Nursing Amount of Assist Needed Standby Assistance Discharge Recommendations PT Discharge Recommendations Home with Assistance,Home Health Transportation Needs at Discharge Private Vehicle
[2024-12-19] VITALS (8 sets, daily range): BP systolic 134–163; BP diastolic 74–90; PULSE 48–62; RESP 18–20; TEMP 36.2–36.6; O2SAT 92–96
[2024-12-19] MEDS: methylPREDNISolone 125 MG/2 ML VIAL 60 MG IV ×3 (03:43→21:02)
[2024-12-19] MEDS: CODEINE/GUAIFENESIN LIQUID 5ML UDC 5 ML PO ×3 (05:05→21:06)
[2024-12-19] MEDS: PANTOPRAZOLE DR 40 MG TABLET PO (06:25)
--- NOTE | 2024-12-19 06:48 | PC.NURSE ---
Addendum entered by Mariana Rico R.N. 12/19/24 06:54: Pt heart rate on the tele have been mainly in the 50's and at times it drops down to mid 40's. pt has been asymptomatic. Original Note: Pt states, he takes Percocet at home for general aches.
[2024-12-19] MEDS: ALBUTEROL 2.5 MG/3 ML NEB (ADULT) INH ×3 (07:23→18:34)
--- NOTE | 2024-12-19 07:43 | PM.PN.IH.1 ---
Subjective Subjective Date Patient Seen: 12/19/24 Time Patient Seen: 07:43 Interval history: Remains off of oxygen. Remains in sinus rhythm with heart rate in the 50s Physically moved out of the ICU to a regular floor bed yesterday. Only basic minimal activity thus far (such as transfer to chair etcetera) He says his breathing is about the same today as it was yesterday. Still feels fairly short of breath Patient was having some headaches says Percocet works far better for him than Vicodin. He was getting oxycodone I am not sure he fully understands that that is not Vicodin but nevertheless......... Exam Vital Signs (past 8 hours): - 12/19/24 00:00 12/19/24 04:00 Temperature 97.1 F L 97.8 F Pulse Rate 51 L 53 L Respiratory Rate 18 18 Blood Pressure 148/77 H 142/90 H Pulse Oximetry 96 94 Oxygen Flow Rate 0 0 Fraction of Inspired Oxygen 21 SaO2/FiO2 Ratio 461 Oxygen Delivery Method Room Air Oxygen Flow Rate 0 Objective Labs 12/18/24 05:36 12/18/24 05:36 [facility] Medical History Erectile dysfunction Chronic heart failure with preserved ejection fraction History of COVID-19 (10/2020) Right inguinal hernia Peripheral edema Testosterone deficiency in male Pulmonary nodule Cardiomyopathy Essential hypertension Atrial fibrillation COPD (chronic obstructive pulmonary disease) Chronic fatigue (11/23/17) Rheumatoid arthritis involving multiple sites (07/28/17) Postherpetic neuralgia (05/20/17) Primary osteoarthritis of both knees (11/22/15) Mild persistent asthma without complication (11/22/15) Surgical History Hx of knee surgery (10/2015) Hx of colonoscopy (10/22/22) S/P cataract extraction Status post cholecystectomy Family History Father Asthma Mother Diabetes mellitus Social History marital status: household members: spouse lives independently: Yes occupational status: previously employed Smoking Status: Former smoker alcohol intake: current substance use type: does not use Assessment & Plan Assessment & Plan narrative: 1. Acute COPD exacerbation-improved. On lower dose IV steroids. Continue IV steroids until just before or right up until discharge. No change in dose today. 2. Acute influenza-still on Tamiflu. Will complete course on December 20 3. Acute congestive heart failure with preserved ejection fraction-continue with diuresis. Still with adequate urine output on the oral Lasix. No change for today 4. Atrial fibrillation rapid ventricular response-remains in sinus rhythm with bradycardia. No change in meds today. Consider discontinuation of telemetry if remains in sinus rhythm through the course of the day today 5. Hypertension-somewhat improved with the amlodipine on board in addition to the metoprolol. Continue to monitor for now 6. VTE prophylaxis-patient chronic anticoagulated with Eliquis because of his atrial fibrillation which should suffice for VTE prophylaxis 7. Disposition-patient probably 2 or 3 days away from being able to go home. Need to get more activity to determine patient's status and whether not he would be safe for returning home verses alternative placement 8. Pain management-go ahead and change from plain oxycodone to Percocet or oxycodone with acetaminophen. Patient claims that works far better for him and I see no problem with that Time-Based Coding :: [TOTAL MINUTES] spent with patient and on the chart (including review of chart, obtaining history, exam, reviewing outside data, placing orders, documenting exam and treatment plan, and counseling patient) on [DATE]. Quality VTE Deep Vein Thrombosis/Pulmonary Embolism Present on Admission: No IH PROFEE Healthcare Facility Administrator Document charge(s): Yes Charge Codes Subsequent inpatient/observation care: [id number]
[2024-12-19] MEDS: OXYCODONE/ACETAMINOPHEN 5/325 TABLET 1 TAB PO ×3 (09:39→23:42)
[2024-12-19] MEDS: APIXABAN 5 MG TABLET PO ×2 (09:40→21:03)
[2024-12-19] MEDS: SPIRONOLACTONE 25 MG TABLET PO (09:40)
[2024-12-19] MEDS: SOTALOL 80 MG TABLET PO ×2 (09:40→21:02)
[2024-12-19] MEDS: AMLODIPINE 5 MG TABLET PO (09:40)
[2024-12-19] MEDS: FUROSEMIDE 40 MG TABLET PO (09:40)
[2024-12-19] MEDS: OSELTAMIVIR 75 MG CAPSULE PO ×2 (09:40→21:03)
--- NOTE | 2024-12-19 11:04 | PT-IP ANOTE ---
Pt unavailable working with Respiratory at 11am, will return another time.
--- NOTE | 2024-12-19 14:12 | CM.DPC ---
DCP Cont. Reviewed EMR and team rounds for status updates. Per Hospitalist, 1-2 more days SILVESTRE. Plan is to transition pt from IV to PO steroids prior to be medically cleared for home d/c. Monitoring for final d/c needs.
--- NOTE | 2024-12-19 14:34 | PT-IP ANOTE ---
checked on pt this afternoon and refused PT. stated that he just got all his meds and feeling oozy and just got back to bed and does not want to get up at this time.
[2024-12-19] MEDS: SODIUM CHLORIDE 0.9% FLUSH 10 ML IV (21:03)
[2024-12-20] VITALS: BP 154/89; PULSE 50; RESP 18; TEMP 36.2; O2SAT 96
[2024-12-20 04:00] VITALS: BP 158/89; PULSE 55; RESP 17; TEMP 36.2; O2SAT 95
[2024-12-20] MEDS: methylPREDNISolone 125 MG/2 ML VIAL 60 MG IV ×3 (04:27→19:52)
[2024-12-20] MEDS: PANTOPRAZOLE DR 40 MG TABLET PO (06:02)
[2024-12-20] MEDS: ALBUTEROL 2.5 MG/3 ML NEB (ADULT) INH ×3 (07:27→20:05)
[2024-12-20 08:00] VITALS: BP 150/85; PULSE 51; RESP 18; TEMP 36.2; O2SAT 96
--- NOTE | 2024-12-20 08:14 | PM.PN.IH.1 ---
Subjective Subjective Date Patient Seen: 12/20/24 Time Patient Seen: 08:14 Interval history: Patient with pretty much uneventful day yesterday. Remains off oxygen. Still says quite short of breath Patient declined to participate with physical therapy yesterday Little bit of hypertension with some mild bradycardia. I elected to discontinue his metoprolol yesterday because of the bradycardia into the 40s at times. Does remain in sinus rhythm Exam Vital Signs (past 8 hours): - 12/20/24 04:00 Temperature 97.1 F L Pulse Rate 55 L Respiratory Rate 17 Blood Pressure 158/89 H Pulse Oximetry 95 Oxygen Flow Rate 0 Fraction of Inspired Oxygen 21 SaO2/FiO2 Ratio 452 Oxygen Delivery Method Room Air Oxygen Flow Rate 0 Objective Labs 12/18/24 05:36 12/18/24 05:36 [facility] Medical History Erectile dysfunction Chronic heart failure with preserved ejection fraction History of COVID-19 (10/2020) Right inguinal hernia Peripheral edema Testosterone deficiency in male Pulmonary nodule Cardiomyopathy Essential hypertension Atrial fibrillation COPD (chronic obstructive pulmonary disease) Chronic fatigue (11/23/17) Rheumatoid arthritis involving multiple sites (07/28/17) Postherpetic neuralgia (05/20/17) Primary osteoarthritis of both knees (11/22/15) Mild persistent asthma without complication (11/22/15) Surgical History Hx of knee surgery (10/2015) Hx of colonoscopy (10/22/22) S/P cataract extraction Status post cholecystectomy Family History Father Asthma Mother Diabetes mellitus Social History marital status: household members: spouse lives independently: Yes occupational status: previously employed Smoking Status: Former smoker alcohol intake: current substance use type: does not use Assessment & Plan Assessment & Plan narrative: 1. Acute COPD exacerbation-improved. On lower dose IV steroids. Continue IV steroids until just before or right up until discharge. No change in dose today. 2. Acute influenza-still on Tamiflu. Will complete course on today 3. Acute congestive heart failure with preserved ejection fraction-continue with diuresis. Still with adequate urine output on the oral Lasix. No change for today. Plan to check electrolytes and renal function tomorrow 4. Atrial fibrillation rapid ventricular response-remains in sinus rhythm with bradycardia. Discontinuing metoprolol because of bradycardia. I think we can discontinue telemetry as well 5. Hypertension-somewhat improved, but now have discontinued metoprolol so will increase dose of amlodipine 6. VTE prophylaxis-patient chronic anticoagulated with Eliquis because of his atrial fibrillation which should suffice for VTE prophylaxis 7. Disposition-this point, patient has been unable to get up with physical therapy because weakness etcetera. I believe he may well require [place] [facility]. Will consult Occupational therapy as well therefore 8. Pain management-patient now getting Percocet instead of plain oxycodone Time-Based Coding :: [TOTAL MINUTES] spent with patient and on the chart (including review of chart, obtaining history, exam, reviewing outside data, placing orders, documenting exam and treatment plan, and counseling patient) on [DATE]. Quality VTE Deep Vein Thrombosis/Pulmonary Embolism Present on Admission: No PROFEE Cotton Dispatcher Document charge(s): Yes Charge Codes Subsequent inpatient/observation care: [id number]
[2024-12-20] MEDS: APIXABAN 5 MG TABLET PO ×2 (08:51→19:52)
[2024-12-20] MEDS: OSELTAMIVIR 75 MG CAPSULE PO (08:51)
[2024-12-20] MEDS: SOTALOL 80 MG TABLET PO ×2 (08:51→19:52)
[2024-12-20] MEDS: OXYCODONE/ACETAMINOPHEN 5/325 TABLET 1 TAB PO ×2 (08:51→19:51)
[2024-12-20] MEDS: AMLODIPINE 5 MG TABLET 10 MG PO (08:51)
[2024-12-20] MEDS: SPIRONOLACTONE 25 MG TABLET PO (08:51)
[2024-12-20] MEDS: FUROSEMIDE 40 MG TABLET PO (08:52)
[2024-12-20] MEDS: CODEINE/GUAIFENESIN LIQUID 5ML UDC 5 ML PO ×2 (08:52→19:51)
[2024-12-20] MEDS: SODIUM CHLORIDE 0.9% FLUSH 10 ML IV ×2 (08:52→19:52)
--- NOTE | 2024-12-20 10:35 | PT.IPTN ---
Current Diagnoses Other persistent atrial fibrillation (12/15/24) Acute on chronic systolic (congestive) heart failure (12/15/24) Influenza due to other identified influenza virus with other respiratory manifestations (12/15/24) Chronic obstructive pulmonary disease with (acute) exacerbation (12/15/24) Physical Therapy Treatment Note M2 PT-IP Current Condition Start: 12/18/24 11:34 Freq: NEEDED Status: Active Protocol: Document 12/20/24 08:14 AB (Rec: 12/20/24 10:34 AB [id number]) Physical Therapy Current Condition Current Condition Evaluation Date 12/18/24 Treatment Diagnosis CHF, influenza, a-fib, COPD, L4 comp fracture M3 PT-IP Subjective Start: 12/18/24 11:34 Freq: NEEDED Status: Active Protocol: Document 12/20/24 08:14 AB (Rec: 12/20/24 10:34 AB [id number]) Subjective Physical Therapy Visit Type Type Treatment Note Visit Start Time 10:08 Visit Stop Time 10:20 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 Patient reports having some back pain, reports it hasn't changed. Therapy Pain Assessment Pain When Pain Assessed During Mobility Pain Present Pain Present Pain Reported M4 PT-IP Mobility and Gait Start: 12/18/24 11:34 Freq: NEEDED Status: Active Protocol: Document 12/20/24 08:14 AB (Rec: 12/20/24 10:34 AB [id number]) PT-Transfer Assessment Sit to and From Stand Sit to and from Stand Independent,Contact Guard Assistance,1 Person Assistance ,Use of Upper Extremities Equipment Transfer Assistive Device Gait Belt,Front Wheeled Walker Orthotic/Prosthetic Devices or Brace: No Comments Mobility Comments Sit to stand I, stand to sit CGA due to reports of feeling dizzy last 5 feet of ambulation, see BP in comments for gait. Gait Assessment Gait Gait Assistance Required: Independent Distance (Feet) 86 Able to Maintain Weight Bearing Status Yes During Gait Assistive Devices Assistive Device Gait Belt,Front Wheeled Walker Orthotic/Prosthetic Devices or Brace: No Gait Deviations General Gait Pattern Decreased Stride Length,Flexed Trunk,Step-to Gait,Wide Based Gait Factors Limiting Gait Function Factors Limiting Gait Function Decreased Activity Tolerance, Poor Balance,Poor Safety Awareness Comments Gait Comments Patient ambulated 86 feet, reporting feeling dizzy/light headed last 5 feet of ambulation close supervision vs I throughout rest of ambulation. BP Systolic 154 start of session seated 150 post sit to stand and 154 seated end of session. Patient continues to report feeling dizzy seated in recliner end of session, call light within reach. Nursing made aware. PT-Balance Assessment Sitting Balance and Reactions Static Sitting Balance Ability Normal Dynamic Sitting Balance Ability Normal Standing Balance and Reactions Static Standing Balance Ability Good Dynamic Standing Balance Ability Good Device Used RW M5 PT-IP Objective Assessments Start: 12/18/24 11:34 Freq: NEEDED Status: Active Protocol: Document 12/18/24 11:47 MB (Rec: 12/18/24 13:01 MB [id number]) Orientation Orientation/Cognition Level of Alertness Alert Orientation Name,Birthday,Situation Language Function Ability No Deficits Noted Safety Awareness Decreased Safety Awareness Memory Description No Deficits Noted Gross Range of Motion Upper Extremity ROM Assessment Within Functional Limits Lower Extremity ROM Assessment Within Functional Limits Impairments Edema LEs Strength Lower Extremity Strength Assessment Within Functional Limits M6 PT-IP Treatment Start: 12/18/24 11:34 Freq: NEEDED Status: Active Protocol: Document 12/18/24 11:47 MB (Rec: 12/18/24 13:01 MB [id number]) Physical Therapy Treatment Other Treatments Other Treatment Performed Log rolling, ed pt on CHF and orthostatic hypotension M7 PT-IP Assessment and Plan Start: 12/18/24 11:34 Freq: NEEDED Status: Active Protocol: Document 12/20/24 08:14 AB (Rec: 12/20/24 10:34 AB [id number]) PT Summary Assessment and Plan Potential Rehabilitation Potential Fair Status of Condition at Evaluation Unstable Summary Impairments Pain,Balance,Transfers,Gait, Activity Tolerance Progress Towards Goals Slow Progress due to Medical Issues,Slow Progress due to Activity Tolerance Assessment Summary Pt is an 84 y/o male presenting with SOB in setting of COPD, CHF, a-fib and influenza. He has history of L4 fracture that appears new on diagnostic report and pt reports is not new and he has received injections for pain. Unsure accuracy of this report . Pt is very ALBERTO and his BP is very orthostatic and he is symptomatic with mobility. He mobilizes well with RW in light of medical issues and has more medical management needs than functional ones, it appears. Recommend home with assistance and HHPT safety consult at d/c. 12/20/2024 Dizziness continues to limit functional mobility. Patient reports back pain is unchanged and the same with ambulation and rest seated in recliner this session. Goals Bed Mobility Goal Independent Transfer Goal Independent,Front Wheeled Walker Gait Goal Independent,Front Wheel Walker Gait Distance 100 Other Goals If appropriate, could practice stairs with 1 rail up to 12 steps to prepare for mobility up to bedroom. Days to Meet Goals 5 Frequency of Treatment Frequency Of Treatment Once a Day Other frequency x1 Treatment Plan Physical Therapy Treatment Plan Bed Mobility Training,Transfer Training,Gait Training, Therapeutic Exercise,Balance Retraining,Discharge Planning, Neuromuscular Re-ed, Coordination Retraining,Manual Therapy Other Recommendations and Next Treatment Instructed pt in log rolling Focus to protect L4 and could con't to practice, increase gait, steps, check orthostatics Precautions Lumbar Precautions Log Roll,No Twisting,Limit Bending,Lifting Restriction of 10 lbs Other Precautions Droplet for the flu Recommendations To Nursing Amount of Assist Needed Standby Assistance,1 Person Assist Discharge Recommendations PT Discharge Recommendations Home with Assistance,Home Health Transportation Needs at Discharge Private Vehicle
--- NOTE | 2024-12-20 11:51 | DIET.CONS ---
Dietary Consultation Note Admission Date: 12/15/2024 08:42 Assessment: 84 y M admitted for COPD, influenza, and CHF. Dietitian screened for LOS. EMR reviewed. Pt with >75% avg PO intakes. DFM reviewed for meal composition. No nutritional intervention needed at this time. Ht: 175.26 cm Wt: 95 kg BMI: 30.9 UBW: 95.708 kg on 11/15/24, 95.51 kg on 09/29/24, 94.12 kg on 05/18/24. Noted Lasix. Last BM: 12/20/24 (12/20/24 09:00) MNA: 14 Carlos Alberto Score: 20 Diet: 12/15/24 Breakfast Heart Healthy Diet Diet Modifications: Sodium Level: 2 gm Sodium Food Texture: Level 7 - Regular Liquid Consistency: Level 0 - Thin 12/15/24 Lunch Heart Healthy Diet Diet Modifications: Sodium Level: 2 gm Sodium Food Texture: Level 7 - Regular Liquid Consistency: Level 0 - Thin Nutrition Percent Meal Consumed 75% 12/19/24 18:00 Percent Meal Consumed 75% 12/19/24 13:55 Percent Meal Consumed 95% 12/18/24 13:26 Labs: RBC 4.71 X10^6/uL (4.5-5.9) 12/18/24 05:36 Hgb 12.3 g/dL (13.5-17.5) L 12/18/24 05:36 Hct 37.4 % (41-53) L 12/18/24 05:36 Creatinine 0.94 mg/dL (0.66-1.25) 12/18/24 05:36 Lactate 1.3 mmol/L (0.7-2.1) 12/14/24 17:59 NT-Pro-B Natriuret Pep 44552 pg/mL (<450) H 12/14/24 17:59 Electronically Signed by: Monica Choudhury 12/20/24 11:51 Clinical Dietitian [address] [address]
--- NOTE | 2024-12-20 12:37 | OT.IP.EVAL ---
Current Diagnoses Other persistent atrial fibrillation (12/15/24) Acute on chronic systolic (congestive) heart failure (12/15/24) Influenza due to other identified influenza virus with other respiratory manifestations (12/15/24) Chronic obstructive pulmonary disease with (acute) exacerbation (12/15/24) Past Medical History (Last Reviewed 12/19/24 @ 08:24 by Mitchell Buchanan MD) Atrial fibrillation Cardiomyopathy Chronic fatigue (11/23/17) Chronic heart failure with preserved ejection fraction COPD (chronic obstructive pulmonary disease) Erectile dysfunction Essential hypertension History of COVID-19 (10/2020) Mild persistent asthma without complication (11/22/15) Peripheral edema Postherpetic neuralgia (05/20/17) Primary osteoarthritis of both knees (11/22/15) Pulmonary nodule Rheumatoid arthritis involving multiple sites (07/28/17) Right inguinal hernia Testosterone deficiency in male Surgical History (Last Reviewed 12/19/24 @ 08:24 by Mitchell Buchanan MD) Hx of colonoscopy (10/22/22) Hx of knee surgery (10/2015) S/P cataract extraction Status post cholecystectomy Occupational Therapy Inpatient Evaluation/Re-Eval M1 PT/OT-IP Prior Functional Status Start: 12/18/24 11:34 Freq: NEEDED Status: Active Protocol: Document 12/20/24 15:54 CGR (Rec: 12/20/24 16:07 CGR [id number]) Medical Review Prior Functional Status Medical History Reviewed Yes Communication Pt is an effective verbal communicator. Mobility and Gait Pt reports mod I with RW Activities of Daily Living and IADL's Pt reports IND at baseline Social History Household Members spouse Living Arrangements House Number of Floors (Floors) Two Floors Number of Stairs To Enter/Railing? 1 flight steps with right rail to bed room and no steps to enter home Home Environment Standard Height Toilet,Tub/ Shower Doors Home Equipment Front Wheel Walker,Shower Seat without Backrest Employment Status Retired Additional Social History Comment Pt has a flat bed M2 OT-IP Current Condition Start: 12/20/24 15:53 Freq: Status: Active Protocol: Document 12/20/24 15:54 CGR (Rec: 12/20/24 16:07 CGR [id number]) Occupational Therapy Current Condition Current Condition Evaluation Date 12/20/24 Treatment Diagnosis COPD, Flu, CHF Diagnosis Onset Date 12/15/24 M3 OT- IP Subjective and Pain Start: 12/20/24 15:53 Freq: Status: Active Protocol: Document 12/20/24 15:54 CGR (Rec: 12/20/24 16:07 CGR [id number]) OT- Subjective Occupational Therapy Visit Type Type Initial Evaluation Visit Start Time 12:22 Visit Stop Time 12:37 OT Pain Assessment Pain When Pain Assessed At Rest Pain Present Pain Present Denied Pain M4 OT- IP ADL's Start: 12/20/24 15:53 Freq: Status: Active Protocol: Document 12/20/24 15:54 CGR (Rec: 12/20/24 16:07 CGR [id number]) OT [id number] Comments OT Self-Feeding Comments not meal time OT ADL-Grooming Comments OT Grooming Comments pt declined to perform, he states that he marquita perform later when he showers OT ADL-Oral Care Comments Oral Care Comments pt declined to perform, he states that he marquita perform later when he showers OT ADL-Dressing General Eval Lower Body Dressing Ability Independent Areas Needing Assistance Socks Comments OT Dressing Comments seated in chair OT ADL-Toileting General Evaluation Toileting Ability Independent Comments OT Toileting Comments simulated seated on toielt OT ADL-Bathing Comments OT Bathing Comments not performed M5 OT- IP IADL's Start: 12/20/24 15:53 Freq: Status: Active Protocol: Document 12/20/24 15:54 CGR (Rec: 12/20/24 16:07 CGR [id number]) OT-Instrumental Activities of Daily Living Deficits IADL Deficits Identified No Deficits Home Safety Awareness Awareness of Need for Assistance at Home Good Awareness Ability to Problem Solve Emergency Able to Problem Solve Situations Medication Management Medication Management No Deficits Identified Money Management Money Management No Deficits Identified Meal Preparation Meal Preparation No Deficits Identified, Caregiver Provides Assist Brim Cutter Brim Cutter No Deficits Identified, Caregiver Provides Assist Driving Driving Comments 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 M6 OT- IP Functional Cognition Start: 12/20/24 15:53 Freq: Status: Active Protocol: Document 12/20/24 15:54 CGR (Rec: 12/20/24 16:07 CGR [id number]) Cognitive Factors Limiting Selfcare Function Cognitive Ability Level of Alertness Alert Patient Orientation Name,Age,Birthday,Month,Date, Year,Day of Week,Place, Situation Attention Span Ability Capable of Focused Attention, Capable of Sustained Attention Ability to Follow Commands Able to Follow One Step Commands with Increased Time, Able to Follow One Step Commands with Repetition OT- Vision and Hearing OT- Hearing Assessment OT- Hearing Assessment Hearing Impaired OT- Vision Assessment Vision History Cataracts Visual Acuity WFL,Glasses For Reading Visual Attentiveness WFL Occular Pursuits WFL Visual Convergence WFL M7 OT- IP Mobility and Balance Start: 12/20/24 15:53 Freq: Status: Active Protocol: Document 12/20/24 15:54 CGR (Rec: 12/20/24 16:07 CGR [id number]) OT-Transfer Assessment Sit to and From Stand Sit to and from Stand Standby Assistance Transfers Transfer Ability Standby Assistance Technique Transfer Destination Chair,Toilet Transfer Technique Stand Step Pivot Devices Transfer Assistive Devices Gait Belt,Front Wheeled Walker Comments Mobility Comments Pt performed si tto stand from chair without difficulty but did have more difficulty with getting up from the toilet and used the grab bar extensively . OT- Balance Assessment Sitting Balance and Reactions Static Sitting Balance Ability Normal Dynamic Sitting Balance Ability Normal M8 OT- IP Objective Assessments Start: 12/20/24 15:53 Freq: Status: Active Protocol: Document 12/20/24 15:54 CGR (Rec: 12/20/24 16:07 CGR [id number]) OT Gross Range of Motion Upper Extremity Range of Motion Assessment Right Impaired ROM Impairments R shld limitation 0-80 OT Strength Comments Strength Comments 4-/5 throughout OT- Coordination Assessment Upper Extremity Finger to Nose Test Within Functional Limits Finger Tapping Test Within Functional Limits OT-Muscle Tone Assessment Muscle Tone WNL Yes OT Sensation Assessment Edema Edema Absent M9 OT- IP Assessment and Plan Start: 12/20/24 15:53 Freq: Status: Active Protocol: Document 12/20/24 15:54 CGR (Rec: 12/20/24 16:07 CGR [id number]) OT Summary Assessment and Plan Potential Rehabilitation Potential Excellent Analytic Complexity at Evaluation Low Summary OT Impairments Strength,Functional Mobility, Grooming,Dressing,Toileting, Bathing,Toilet Transfers, Shower Transfers,Activity Tolerance Progress Towards Goals Progressing Toward Goals Assessment Summary Pt presents as a low complexity evaluation s/p admit for COPF exacerbation, Flu, and CHF. Pt is progressing well but may benefit from UE strengthening and toilet transfers as well and overall endurance. Pt will continue to benefit form therapy services. Recommend d/ c to home with family support. Goals Grooming Goal Independent Dressing Goal Independent Toileting Goal Independent Bathing Goal Independent Toilet Transfer Goal Independent Shower Transfer Goal Independent Days to Meet Goals 6 Frequency of Treatment Other frequency 5x per week Treatment Plan OT Treatment Plan ADL Training,Functional Mobility,Therapeutic Exercises ,Patient/Family Education, Discharge Planning Other Treatment Recommendations and Next UE therex, shower, endurance Treatment Focus Discharge Recommendations OT Discharge Recommendations Home with Assistance Transportation Needs at Discharge Private Vehicle
--- NOTE | 2024-12-20 13:54 | CM.DPC ---
DCP Cont. Reviewed EMR and team rounds for status updates. Per Dr. Buchanan, pt will need 1-more day before being stable enough for d/c home. SILVESTRE: 12/21. Will have Nisha LAI.
[2024-12-20 16:51] VITALS: BP 148/65; PULSE 55; RESP 20; TEMP 36.4; O2SAT 95
[2024-12-20 20:00] VITALS: BP 153/76; PULSE 58; RESP 18; TEMP 36.3; O2SAT 97
[2024-12-20 20:05] VITALS: PULSE 59; RESP 20; O2SAT 94
[2024-12-21] VITALS (7 sets, daily range): BP systolic 137–150; BP diastolic 78–90; PULSE 51–88; RESP 16–18; TEMP 36.2–36.4; O2SAT 94–100
[2024-12-21] MEDS: methylPREDNISolone 125 MG/2 ML VIAL 60 MG IV ×3 (03:28→22:48)
[2024-12-21] MEDS: PANTOPRAZOLE DR 40 MG TABLET PO (06:21)
[2024-12-21 06:51] LABS: BUN Creatinine Ratio 64.4 (6-22); Blood Urea Nitrogen 47 mg/dL (9-20); Calcium 8.7 mg/dL (8.4-10.2); Carbon Dioxide 32 mmol/L (22-32); Chloride 97 mmol/L (98-107); Estimated Glomerular Filt Rate > 60 mL/min (>60); Glucose 254 mg/dL (80-110); HEMOLYSIS 18 (0-50); Magnesium 1.8 mg/dL (1.6-2.3); Potassium 4.7 mmol/L (3.4-5.1); Sodium 131 mmol/L (137-145)
--- NOTE | 2024-12-21 07:36 | PM.PN.IH.1 ---
Subjective Subjective Date Patient Seen: 12/21/24 Time Patient Seen: 07:36 Interval history: Patient up with physical therapy yesterday. Very dyspneic with exertion. Reported very dizzy and PT reported significant orthostatic hypotension although numbers not documented (least that I can find) Blood sugar 250+ on this morning's labs Blood pressure overall in the 150s systolic on average. Heart rate in the mid to upper 50s now off the metoprolol but still on sotalol. Still sinus rhythm it appears Sitting up in the bedside chair looking improved. Still somewhat gurgly a raspy wheezy but definitely improved. Has a better color to him, whatever that means. Exam Vital Signs (past 8 hours): - 12/21/24 04:00 Temperature 97.2 F L Pulse Rate 51 L Respiratory Rate 17 Blood Pressure 143/90 H Pulse Oximetry 95 Oxygen Flow Rate 0 Fraction of Inspired Oxygen 21 SaO2/FiO2 Ratio 447 Oxygen Delivery Method Room Air Oxygen Flow Rate 0 Objective Labs 12/18/24 05:36 12/21/24 06:33 Labs: Laboratory Results - last 24 hr 12/21/24 06:33 Sodium 131 L Potassium 4.7 Chloride 97 L Carbon Dioxide 32 BUN 47 H Creatinine 0.73 Estimated GFR > 60 BUN/Creatinine Ratio 64.4 H Glucose 254 H Calcium 8.7 Magnesium 1.8 PFSH Medical History Erectile dysfunction Chronic heart failure with preserved ejection fraction History of COVID-19 (10/2020) Right inguinal hernia Peripheral edema Testosterone deficiency in male Pulmonary nodule Cardiomyopathy Essential hypertension Atrial fibrillation COPD (chronic obstructive pulmonary disease) Chronic fatigue (11/23/17) Rheumatoid arthritis involving multiple sites (07/28/17) Postherpetic neuralgia (05/20/17) Primary osteoarthritis of both knees (11/22/15) Mild persistent asthma without complication (11/22/15) Surgical History Hx of knee surgery (10/2015) Hx of colonoscopy (10/22/22) S/P cataract extraction Status post cholecystectomy Family History Father Asthma Mother Diabetes mellitus Social History marital status: household members: spouse lives independently: Yes occupational status: previously employed Smoking Status: Former smoker alcohol intake: current substance use type: does not use Assessment & Plan Assessment & Plan narrative: 1. Acute COPD exacerbation-improved. No change in steroids today 2. Acute influenza-completed course of Tamiflu yesterday. Likely beyond the contagious stage 3. Acute congestive heart failure with preserved ejection fraction-continue with diuresis. Still with adequate urine output on the oral Lasix. No change for today. 4. Atrial fibrillation rapid ventricular response-remains in sinus rhythm with bradycardia. No change in meds today 5. Hypertension-somewhat improved, but now have discontinued metoprolol so will increase dose of amlodipine. Overall blood pressure not tightly controlled but patient reporting some symptoms of dizziness and or orthostasis. I think we just need to get him up moving a bit more. 6. VTE prophylaxis-patient chronic anticoagulated with Eliquis because of his atrial fibrillation which should suffice for VTE prophylaxis 7. Disposition-hopefully patient will improve enough to be able to be discharged home, consider home health services as well 8. Pain management-patient now getting Percocet instead of plain oxycodone. Do not plan to discharge him with this at this time 9. Hyperglycemia-blood sugar 250+ this morning. Will initiate fingerstick blood sugar checks and insulin Time-Based Coding :: [TOTAL MINUTES] spent with patient and on the chart (including review of chart, obtaining history, exam, reviewing outside data, placing orders, documenting exam and treatment plan, and counseling patient) on [DATE]. Quality VTE Deep Vein Thrombosis/Pulmonary Embolism Present on Admission: No IH PROFEE Dipper Clock And Watch Hands Document charge(s): Yes Charge Codes Subsequent inpatient/observation care: [id number]
[2024-12-21] MEDS: AMLODIPINE 5 MG TABLET 10 MG PO (08:19)
[2024-12-21] MEDS: APIXABAN 5 MG TABLET PO ×2 (08:19→22:48)
[2024-12-21] MEDS: SPIRONOLACTONE 25 MG TABLET PO (08:19)
[2024-12-21] MEDS: SOTALOL 80 MG TABLET PO ×2 (08:19→22:48)
[2024-12-21] MEDS: FUROSEMIDE 40 MG TABLET PO (08:20)
[2024-12-21] MEDS: INSULIN LISPRO 100 UNIT/ML 3ML VIAL SUBCUT ×4 (08:20→23:09)
[2024-12-21] MEDS: CODEINE/GUAIFENESIN LIQUID 5ML UDC 5 ML PO ×3 (08:24→22:48)
[2024-12-21] MEDS: ALBUTEROL 2.5 MG/3 ML NEB (ADULT) INH ×4 (09:12→22:59)
--- NOTE | 2024-12-21 10:17 | OT.IP.TRT ---
Current Diagnoses Other persistent atrial fibrillation (12/15/24) Acute on chronic systolic (congestive) heart failure (12/15/24) Influenza due to other identified influenza virus with other respiratory manifestations (12/15/24) Chronic obstructive pulmonary disease with (acute) exacerbation (12/15/24) Occupational Therapy Treatment Note M2 OT-IP Current Condition Start: 12/20/24 15:53 Freq: Status: Active Protocol: Document 12/20/24 15:54 CGR (Rec: 12/20/24 16:07 CGR [id number]) Occupational Therapy Current Condition Current Condition Evaluation Date 12/20/24 Treatment Diagnosis COPD, Flu, CHF Diagnosis Onset Date 12/15/24 M3 OT- IP Subjective and Pain Start: 12/20/24 15:53 Freq: Status: Active Protocol: Document 12/21/24 10:39 CCC (Rec: 12/21/24 10:45 [facility] [id number]) OT- Subjective Occupational Therapy Visit Type Type Treatment Note Visit Start Time 10:10 Visit Stop Time 10:27 Occupational Therapy Visit Comments Patient Comments Pt agreed to get up and practice toilet transfers and go over information for energy conservation. Patient/Caregiver Goals TO go home. OT Pain Assessment Pain When Pain Assessed At Rest Pain Present Pain Present Denied Pain M5 OT- IP IADL's Start: 12/20/24 15:53 Freq: Status: Active Protocol: Document 12/20/24 15:54 CGR (Rec: 12/20/24 16:07 CGR [id number]) OT-Instrumental Activities of Daily Living Deficits IADL Deficits Identified No Deficits Home Safety Awareness Awareness of Need for Assistance at Home Good Awareness Ability to Problem Solve Emergency Able to Problem Solve Situations Medication Management Medication Management No Deficits Identified Money Management Money Management No Deficits Identified Meal Preparation Meal Preparation No Deficits Identified, Caregiver Provides Assist Blower Installer Blower Installer No Deficits Identified, Caregiver Provides Assist Driving Driving Comments 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 OT- IP Functional Cognition Start: 12/20/24 15:53 Freq: Status: Active Protocol: Document 12/20/24 15:54 CGR (Rec: 12/20/24 16:07 CGR [id number]) Cognitive Factors Limiting Selfcare Function Cognitive Ability Level of Alertness Alert Patient Orientation Name,Age,Birthday,Month,Date, Year,Day of Week,Place, Situation Attention Span Ability Capable of Focused Attention, Capable of Sustained Attention Ability to Follow Commands Able to Follow One Step Commands with Increased Time, Able to Follow One Step Commands with Repetition OT- Vision and Hearing OT- Hearing Assessment OT- Hearing Assessment Hearing Impaired OT- Vision Assessment Vision History Cataracts Visual Acuity WFL,Glasses For Reading Visual Attentiveness WFL Occular Pursuits WFL Visual Convergence WFL M7 OT- IP Mobility and Balance Start: 12/20/24 15:53 Freq: Status: Active Protocol: Document 12/21/24 10:39 [facility] (Rec: 12/21/24 10:45 [facility] [id number]) OT-Transfer Assessment Sit to and From Stand Sit to and from Stand Standby Assistance Transfers Transfer Ability Standby Assistance Technique Transfer Destination Chair,Toilet Transfer Technique Stand Step Pivot Devices Transfer Assistive Devices Gait Belt,Front Wheeled Walker Comments Mobility Comments Pt able to stand with SBA to the FWW. Pt able to walk to the bathroom and sit to the toilet while placing his hand on the front of the toilet. WHile getting up pt states has a counter on the right and able to push on the front of the toilet in order to get up. OT- Balance Assessment Sitting Balance and Reactions Static Sitting Balance Ability Normal Dynamic Sitting Balance Ability Normal Standing Balance and Reactions Static Standing Balance Ability Good Dynamic Standing Balance Ability Good M8 OT- IP Objective Assessments Start: 12/20/24 15:53 Freq: Status: Active Protocol: Document 12/20/24 15:54 CGR (Rec: 12/20/24 16:07 CGR [id number]) OT Gross Range of Motion Upper Extremity Range of Motion Assessment Right Impaired ROM Impairments R shld limitation 0-80 OT Strength Comments Strength Comments 4-/5 throughout OT- Coordination Assessment Upper Extremity Finger to Nose Test Within Functional Limits Finger Tapping Test Within Functional Limits OT-Muscle Tone Assessment Muscle Tone WNL Yes OT Sensation Assessment Edema Edema Absent M9 OT- IP Assessment and Plan Start: 12/20/24 15:53 Freq: Status: Active Protocol: Document 12/21/24 10:39 [facility] (Rec: 12/21/24 10:45 [facility] [id number]) OT Summary Assessment and Plan Potential Rehabilitation Potential Excellent Analytic Complexity at Evaluation Low Summary OT Impairments Strength,Functional Mobility, Grooming,Dressing,Toileting, Bathing,Toilet Transfers, Shower Transfers,Activity Tolerance Progress Towards Goals Progressing Toward Goals Assessment Summary ABle to go over energy conservation information and toilet transfer with pt. Pt main concerns at this time are steps. Pt doing well and to go home with assist when medically stable. Goals Grooming Goal Independent Dressing Goal Independent Toileting Goal Independent Bathing Goal Independent Toilet Transfer Goal Independent Shower Transfer Goal Independent Days to Meet Goals 5 Frequency of Treatment Other frequency 5x per week Treatment Plan OT Treatment Plan ADL Training,Functional Mobility,Therapeutic Exercises ,Patient/Family Education, Discharge Planning Other Treatment Recommendations and Next UE therex, shower, endurance Treatment Focus Discharge Recommendations OT Discharge Recommendations Home with Assistance Transportation Needs at Discharge Private Vehicle
[2024-12-21] MEDS: OXYCODONE/ACETAMINOPHEN 5/325 TABLET 1 TAB PO ×3 (12:30→22:48)
[2024-12-21] MEDS: SODIUM CHLORIDE 0.9% FLUSH 10 ML IV ×2 (12:35→23:10)
[2024-12-21] MEDS: ALBUTEROL/IPRATROPIUM 3 ML AMPUL INH ×2 (13:12→20:15)
--- NOTE | 2024-12-21 15:03 | CM.DPC ---
DCP Home planning cont: Per MD, pt making progress but still requiring steroids and due to his multiple comorbidities plan is likely another couple days before discharge home to reduce risk of readmit. Per PT/OT, recommending home with assist and HH. SW met bedside with pt and explained role and pt confirms he is feeling better and making more progress with PT/OT and declines initial recommendation of SNF and wants home with spouse who is also home sick with the Flu. Pt states that his two adult Dtrs who live in [place] flew up a couple days ago and setting up their home with meals and medications and things needed for pt and spouse at home to manage. Dtrs staying for a few days to provide assist and pt's son lives locally as well. SW discussed HH services and frequency and pt currently declining Home Health and wants home and to maybe do outpt PT if needed. Pt agreeable with SW checking back seam stitcher to discharge to confirm no Home Health. [facility] confirms they do not take pt's [employer] at this time and no [facility] referral made yet as pt declining Home Health but they might be an option as pt lives in [place] if HH needed. Alina Rubin, LEAD MEDICAL TECHNOLOGIST
--- NOTE | 2024-12-21 15:50 | PT-IP ANOTE ---
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 Con't PT efforts next date.
[2024-12-21] MEDS: INSULIN GLARGINE 100 UNIT/ML 3ML PEN 10 UNIT SUBCUT (17:45)
[2024-12-21] MEDS: MENTHOL TOP (17:55)
[2024-12-21] MEDS: BENZOCAINE TOP (17:55)
[2024-12-22] MEDS: methylPREDNISolone 125 MG/2 ML VIAL 60 MG IV (03:55)
[2024-12-22 04:00] VITALS: BP 144/74; PULSE 61; RESP 18; TEMP 36.4; O2SAT 95
[2024-12-22] MEDS: PANTOPRAZOLE DR 40 MG TABLET PO (06:08)
[2024-12-22] MEDS: INSULIN LISPRO 100 UNIT/ML 3ML VIAL SUBCUT ×4 (08:39→21:22)
[2024-12-22] MEDS: FUROSEMIDE 40 MG TABLET PO (08:40)
[2024-12-22] MEDS: APIXABAN 5 MG TABLET PO ×2 (08:40→21:21)
[2024-12-22] MEDS: SOTALOL 80 MG TABLET PO ×2 (08:40→21:21)
[2024-12-22] MEDS: predniSONE 20 MG TABLET 60 MG PO (08:40)
[2024-12-22] MEDS: SPIRONOLACTONE 25 MG TABLET PO (08:40)
[2024-12-22] MEDS: AMLODIPINE 5 MG TABLET 10 MG PO (08:40)
[2024-12-22] MEDS: CODEINE/GUAIFENESIN LIQUID 5ML UDC 5 ML PO ×2 (08:43→21:21)
--- NOTE | 2024-12-22 08:51 | PM.PN.IH.1 ---
Subjective Subjective Date Patient Seen: 12/22/24 Time Patient Seen: 08:51 Interval history: Patient is sitting up bedside table this morning looking much much better. He looked better yesterday but this is an improvement over that. He was up walking yesterday 200+ feet dyspneic but nothing like he was before. Not really actively wheezing or rasping like he was Blood sugars remained somewhat elevated despite the insulin Exam Vital Signs (past 8 hours): - 12/22/24 04:00 Temperature 97.5 F L Pulse Rate 61 Respiratory Rate 18 Blood Pressure 144/74 H Pulse Oximetry 95 Oxygen Flow Rate 0 Fraction of Inspired Oxygen 21 SaO2/FiO2 Ratio 447 Oxygen Delivery Method Room Air Oxygen Flow Rate 0 Objective Labs 12/18/24 05:36 12/21/24 06:33 [facility] Medical History Erectile dysfunction Chronic heart failure with preserved ejection fraction History of COVID-19 (10/2020) Right inguinal hernia Peripheral edema Testosterone deficiency in male Pulmonary nodule Cardiomyopathy Essential hypertension Atrial fibrillation COPD (chronic obstructive pulmonary disease) Chronic fatigue (11/23/17) Rheumatoid arthritis involving multiple sites (07/28/17) Postherpetic neuralgia (05/20/17) Primary osteoarthritis of both knees (11/22/15) Mild persistent asthma without complication (11/22/15) Surgical History Hx of knee surgery (10/2015) Hx of colonoscopy (10/22/22) S/P cataract extraction Status post cholecystectomy Family History Father Asthma Mother Diabetes mellitus Social History marital status: household members: spouse lives independently: Yes occupational status: previously employed Smoking Status: Former smoker alcohol intake: current substance use type: does not use Assessment & Plan Assessment & Plan narrative: 1. Acute COPD exacerbation-improved. Switching to oral steroids today in preparation for discharge probably tomorrow. This should improve his blood sugars as well 2. Acute influenza-completed course of Tamiflu yesterday. Likely beyond the contagious stage 3. Acute congestive heart failure with preserved ejection fraction-continue with diuresis. Still with adequate urine output on the oral Lasix. No change for today. Plan to discharge on Lasix 4. Atrial fibrillation rapid ventricular response-remains in sinus rhythm with bradycardia. No change in meds today 5. Hypertension-somewhat improved, but now have discontinued metoprolol so will increase dose of amlodipine. Overall blood pressure not tightly controlled but patient reporting some symptoms of dizziness and or orthostasis. I think we just need to get him up moving a bit more. Patient's blood pressure over the last 24 hours modestly improved. No change in meds today and probably discharge on current meds 6. VTE prophylaxis-patient chronic anticoagulated with Eliquis because of his atrial fibrillation which should suffice for VTE prophylaxis 7. Disposition-looks like patient will be able to discharge home. He has declined home health services. Probably okay for discharge as soon as tomorrow 8. Pain management-patient now getting Percocet instead of plain oxycodone. Do not plan to discharge him with this at this time 9. Hyperglycemia-hopefully blood sugars will improve as I switch him to oral prednisone. Will continue monitor here in the hospital but do not anticipate sending him home with insulin Time-Based Coding :: [TOTAL MINUTES] spent with patient and on the chart (including review of chart, obtaining history, exam, reviewing outside data, placing orders, documenting exam and treatment plan, and counseling patient) on [DATE]. Quality VTE Deep Vein Thrombosis/Pulmonary Embolism Present on Admission: No PROFEE Surveillance Technician Document charge(s): Yes Charge Codes Subsequent inpatient/observation care: [id number]
[2024-12-22] MEDS: SODIUM CHLORIDE 0.9% FLUSH 10 ML IV ×2 (09:45→21:28)
--- NOTE | 2024-12-22 10:15 | PT.IPTN ---
Current Diagnoses Other persistent atrial fibrillation (12/15/24) Acute on chronic systolic (congestive) heart failure (12/15/24) Influenza due to other identified influenza virus with other respiratory manifestations (12/15/24) Chronic obstructive pulmonary disease with (acute) exacerbation (12/15/24) Physical Therapy Treatment Note M2 PT-IP Current Condition Start: 12/18/24 11:34 Freq: NEEDED Status: Active Protocol: Document 12/20/24 08:14 AB (Rec: 12/20/24 10:34 AB [id number]) Physical Therapy Current Condition Current Condition Evaluation Date 12/18/24 Treatment Diagnosis CHF, influenza, a-fib, COPD, L4 comp fracture M3 PT-IP Subjective Start: 12/18/24 11:34 Freq: NEEDED Status: Active Protocol: Document 12/22/24 10:15 AB(2) (Rec: 12/22/24 10:49 AB(2) [id number]) Subjective Physical Therapy Visit Type Type Treatment Note Visit Start Time 10:15 Visit Stop Time 10:30 Number of SOFTWARE QUALITY TESTER Visits 0 Physical Therapy Visit Comments Patient Comments initially wants PT to come back in an hour but then changed his mind and agreed M4 PT-IP Mobility and Gait Start: 12/18/24 11:34 Freq: NEEDED Status: Active Protocol: Document 12/22/24 10:15 AB(2) (Rec: 12/22/24 10:49 AB(2) [id number]) PT-Transfer Assessment Sit to and From Stand Sit to and from Stand Standby Assistance,1 Person Assistance,Use of Upper Extremities Equipment Transfer Assistive Device Gait Belt,Front Wheeled Walker Orthotic/Prosthetic Devices or Brace: No Transfers Transfer Destination Bed Transfer Technique ambulated Transfer Ability Level of Assist Standby Assistance,1 Person Assistance,Use of Upper Extremities Comments Mobility Comments pt sitting on the chair. pt initially refused PT and wants PT to come back in an hour but changed his mind and agreed. pt stated that he is going home tomorrow. asked pt if he can do stair climbing since he has stairs to enter his house. Pt refused stair climbing. pt also informed that his 2 daughter will be staying with him until Wednesday to assist him. pt completed sit to stand from chair SBA. pt ambulated in the hallway using FWW SBA ~ 200 ft. pt requested to go back to bed. sat on the EOB. sit to supine SBA. positioned pt in bed. call light and table placed within reach. Gait Assessment Gait Gait Assistance Required: Standby Assistance Distance (Feet) 200 Able to Maintain Weight Bearing Status Yes During Gait Assistive Devices Assistive Device Gait Belt,Front Wheeled Walker Orthotic/Prosthetic Devices or Brace: No Gait Deviations General Gait Pattern Decreased Stride Length, Decreased Feet Clearance Factors Limiting Gait Function Factors Limiting Gait Function Decreased Activity Tolerance, Decreased Strength,Limited Range of Motion,Poor Balance, Poor Safety Awareness M5 PT-IP Objective Assessments Start: 12/18/24 11:34 Freq: NEEDED Status: Active Protocol: Document 12/18/24 11:47 MB (Rec: 12/18/24 13:01 MB [id number]) Orientation Orientation/Cognition Level of Alertness Alert Orientation Name,Birthday,Situation Language Function Ability No Deficits Noted Safety Awareness Decreased Safety Awareness Memory Description No Deficits Noted Gross Range of Motion Upper Extremity ROM Assessment Within Functional Limits Lower Extremity ROM Assessment Within Functional Limits Impairments Edema LEs Strength Lower Extremity Strength Assessment Within Functional Limits M6 PT-IP Treatment Start: 12/18/24 11:34 Freq: NEEDED Status: Active Protocol: Document 12/22/24 10:15 AB(2) (Rec: 12/22/24 10:49 AB(2) [id number]) Physical Therapy Treatment Education Education Provided Safety M7 PT-IP Assessment and Plan Start: 12/18/24 11:34 Freq: NEEDED Status: Active Protocol: Document 12/22/24 10:15 AB(2) (Rec: 12/22/24 10:49 AB(2) [id number]) PT Summary Assessment and Plan Potential Rehabilitation Potential Fair Summary Impairments Pain,ROM,Strength,Balance, Coordination,Sensation,Tone, Cognition,Bed Mobility, Transfers,Gait,Activity Tolerance Progress Towards Goals Progressing Toward Goals Assessment Summary pt requiring SBA with ambulation using FWW. pt refused to do stair climbing training today. pt plans to go home and will have his daughters to assist him initially. Goals Bed Mobility Goal Independent Transfer Goal Independent,Front Wheeled Walker Gait Goal Independent,Front Wheel Walker Gait Distance 200 Other Goals If appropriate, could practice stairs with 1 rail up to 12 steps to prepare for mobility up to bedroom. Days to Meet Goals 5 Treatment Plan Physical Therapy Treatment Plan Bed Mobility Training,Transfer Training,Gait Training, Therapeutic Exercise,Balance Retraining,Discharge Planning, Neuromuscular Re-ed, Coordination Retraining,Manual Therapy Precautions Lumbar Precautions Log Roll,No Twisting,Limit Bending,Lifting Restriction of 10 lbs Other Precautions hazardous drug precaution Recommendations To Nursing Amount of Assist Needed Standby Assistance Discharge Recommendations PT Discharge Recommendations Home with Assistance,Home Health Transportation Needs at Discharge Private Vehicle
--- NOTE | 2024-12-22 10:47 | CM.DPNOTE ---
DCP Continued: Reviewed EMR and team rounds for pt?s medical status. Per MD, pt still getting pain management and trying to manage glucose levels while admitted; no insulin Estimated discharge for 12/23 if stable. Pt still declining recommended home health at this time, DCP monitoring if that should change. Plan: Anticipating dc home on Wednesday, 12/23 or when medically cleared. CM Team will continue to follow for coordination of discharge plans. ODALYS Lackey
[2024-12-22 11:57] LABS: Hemoglobin A1C% w Est Avg Glu 6.2 % (4.0-6.0)
[2024-12-22 12:00] VITALS: BP 117/67; PULSE 58; RESP 18; TEMP 36.3; O2SAT 96
[2024-12-22 12:08] VITALS: PULSE 74; RESP 18; O2SAT 95
[2024-12-22] MEDS: ALBUTEROL/IPRATROPIUM 3 ML AMPUL INH ×2 (12:08→19:12)
--- NOTE | 2024-12-22 13:21 | OT.IP.TRT ---
Current Diagnoses Other persistent atrial fibrillation (12/15/24) Acute on chronic systolic (congestive) heart failure (12/15/24) Influenza due to other identified influenza virus with other respiratory manifestations (12/15/24) Chronic obstructive pulmonary disease with (acute) exacerbation (12/15/24) Occupational Therapy Treatment Note M2 OT-IP Current Condition Start: 12/20/24 15:53 Freq: Status: Active Protocol: Document 12/20/24 15:54 CGR (Rec: 12/20/24 16:07 CGR [id number]) Occupational Therapy Current Condition Current Condition Evaluation Date 12/20/24 Treatment Diagnosis COPD, Flu, CHF Diagnosis Onset Date 12/15/24 M3 OT- IP Subjective and Pain Start: 12/20/24 15:53 Freq: Status: Active Protocol: Document 12/22/24 13:14 JEISON (Rec: 12/22/24 13:21 JEISON [id number]) OT- Subjective Occupational Therapy Visit Type Type Treatment Note Visit Start Time 11:40 Visit Stop Time 12:00 Notes Pt reclined in bed on entrance of OT. Pt needed some encouragement to participate in therapy, initially stating I've already done all that. I 'm ready to go home. Occupational Therapy Visit Comments Patient Comments Pt declines practicing t/f stating I've already done all that. Pt also declines discussing the EC education he has received. Pt agreeable to get up to chair for lunch and to work on UE ex. Patient/Caregiver Goals To go home. OT Pain Assessment Pain When Pain Assessed At Rest Pain Present Pain Present Allowed to Sleep Document 12/22/24 13:14 JEISON (Rec: 12/22/24 13:21 JEISON [id number]) OT- Bed Mobility Assessment Supine to Sit Supine to Sit Assist Standby Assistance,Head of Bed Elevated,Bedrails Scooting Scooting to Edge of Bed Standby Assistance,Bedrails OT-Transfer Assessment Sit to and From Stand Sit to and from Stand Standby Assistance Transfers Transfer Ability Standby Assistance Technique Transfer Technique Stand Step Pivot Devices Transfer Assistive Devices Gait Belt,Front Wheeled Walker Comments Mobility Comments Pt performed sit>stand with S and used FWW to take several steps and t/f to recliner chair. Once up in chair pt participates in tband UE exercises as able (on R bicep/ tricep only). Pt uses level 2 tband and performs horizontal abd/add, shoulder flex, shoulder abd, bicep curl, and tricep ext 10x2 as tolerated. Pt needs min vcs for correct form prn. OT- Balance Assessment Sitting Balance and Reactions Static Sitting Balance Ability Normal Dynamic Sitting Balance Ability Normal Standing Balance and Reactions Static Standing Balance Ability Good Dynamic Standing Balance Ability Good Protocol: Document 12/22/24 13:14 [facility] (Rec: 12/22/24 13:21 [facility] [id number]) OT Summary Assessment and Plan Potential Rehabilitation Potential Excellent Analytic Complexity at Evaluation Low Summary OT Impairments Strength,Functional Mobility, Grooming,Dressing,Toileting, Bathing,Toilet Transfers, Shower Transfers,Activity Tolerance Progress Towards Goals Progressing Toward Goals Assessment Summary OT was able to persuade pt to t/f to chair in preparation for lunch and to participate in UE strengthening. Per previous tx notes, pt has difficulty with t/f from toilet and would benefit from improved UE strength to assist . Pt tolerated tband ex well with min vcs prn. Pt had limited ability to use R shoulder due to arthritic changes. Pt was left up in recliner with tray in front of him, urinal in reach, and call light beside him. Pt with all needs met. Pt continues to be appropriate for skilled OT services to address established POC. Cont per POC. Goals Grooming Goal Independent Dressing Goal Independent Toileting Goal Independent Bathing Goal Independent Toilet Transfer Goal Independent Shower Transfer Goal Independent Days to Meet Goals 5 Frequency of Treatment Other frequency 5x per week Treatment Plan OT Treatment Plan ADL Training,Functional Mobility,Therapeutic Exercises ,Patient/Family Education, Discharge Planning Other Treatment Recommendations and Next UE therex, shower, endurance Treatment Focus Discharge Recommendations OT Discharge Recommendations Home with Assistance Transportation Needs at Discharge Private Vehicle
[2024-12-22 16:00] VITALS: BP 128/75; PULSE 72; RESP 21; TEMP 36.1; O2SAT 97
[2024-12-22] MEDS: OXYCODONE/ACETAMINOPHEN 5/325 TABLET 1 TAB PO ×2 (18:00→21:21)
[2024-12-22 19:13] VITALS: PULSE 50; RESP 16; O2SAT 97
[2024-12-22 20:52] VITALS: BP 114/76; PULSE 56; RESP 18; TEMP 36; O2SAT 95
[2024-12-22] MEDS: INSULIN GLARGINE 100 UNIT/ML 3ML PEN 10 UNIT SUBCUT (21:24)
[2024-12-23 04:02] VITALS: BP 133/78; PULSE 58; RESP 16; TEMP 36.1; O2SAT 96
[2024-12-23] MEDS: OXYCODONE/ACETAMINOPHEN 5/325 TABLET 1 TAB PO ×2 (06:40→11:09)
[2024-12-23] MEDS: PANTOPRAZOLE DR 40 MG TABLET PO (06:40)
[2024-12-23 07:53] VITALS: PULSE 56; RESP 20; O2SAT 98
[2024-12-23] MEDS: ALBUTEROL/IPRATROPIUM 3 ML AMPUL INH (07:53)
[2024-12-23] MEDS: INSULIN LISPRO 100 UNIT/ML 3ML VIAL SUBCUT (07:58)
[2024-12-23] MEDS: SOTALOL 80 MG TABLET PO (07:59)
[2024-12-23] MEDS: APIXABAN 5 MG TABLET PO (07:59)
[2024-12-23] MEDS: AMLODIPINE 5 MG TABLET 10 MG PO (07:59)
[2024-12-23] MEDS: predniSONE 20 MG TABLET 60 MG PO (07:59)
[2024-12-23] MEDS: SPIRONOLACTONE 25 MG TABLET PO (07:59)
[2024-12-23 08:00] VITALS: BP 129/91; PULSE 57; RESP 17; TEMP 36.2; O2SAT 98
[2024-12-23] MEDS: FUROSEMIDE 40 MG TABLET PO (08:00)
[2024-12-23] MEDS: SODIUM CHLORIDE 0.9% FLUSH 10 ML IV (08:06)
--- NOTE | 2024-12-23 10:43 | P.DS_ITS ---
History of Present Illness History of Present Illness Date Patient Seen: 12/23/24 Time Patient Seen: 10:44 Chief complaint: Trouble breathing; HX COPD Narrative: 84-year-old male well known to me with significant COPD and congestive heart failure based on rate-related cardiomyopathy in the past although more recently with preserved ejection fraction who presented to the emergency department with increasing shortness a breath etcetera In the ER he was initially found to be tachycardic hypotensive hypoxic. He was placed on oxygen therapy, was given nebulizer treatments corticosteroids and some gentle IV fluids. With this he seem to improve with his blood pressure and heart rate. His hypoxia seems stable with minimal oxygen replacement therapy. He remained borderline hypotensive and tachycardic at times. Central line was placed in preparation for initiation of norepinephrine infusion but patient is stabilized and did not require this. Initially thoughts were to transfer him to tertiary care center with Cardiology Pulmonary etcetera available however he did stabilize significantly and due to lack of immediate bed availability elsewhere it was elected to keep him at [facility] As of admission this morning, heart rate is better controlled blood pressure is much better without the use of any pressors. He did receive a dose of IV Lasix overnight with reasonable urine output and stability at blood pressure. He is now off oxygen replacement therapy. He was also found to be positive for influenza A, consistent with patchy changes on chest x-ray consistent with pneumonia. He also had a borderline elevated white blood cell count at 13,500 (although has been taking higher dose prednisone for his dyspnea). [place] [address] with baseline closer probably to 3 or 4000 Discharge Providers Provider Date of admission: 12/15/24 08:42 Discharge Date: 12/23/24 Primary care physician: Mitchell Buchanan MD Consults: 12/15/24 11:45 Consult to Cardio/Pulmonary Rehabilitation Routine Comment: Physician Instructions: Evaluate and treat Consult to Discharge Planning Routine Comment: 12/18/24 07:40 Consult to Physical Therapy Evaluate & Treat Comment: Physician Instructions: Evaluate and Treat 12/20/24 08:14 Consult to Occupational Therapy Evaluate & Treat Comment: Physician Instructions: Evaluate and treat Discharge provider: Mitchell Buchanan MD Summary Hospital Course Discharge Diagnosis: 1. Acute influenza A 2. COPD exacerbation 3. Acute on chronic exacerbation of congestive heart failure with preserved ejection fraction 4. Atrial fibrillation with controlled ventricular response 5. Bradycardia 6. Hypertension 7. Peripheral edema 8. Back pain 9. Hyperglycemia secondary to medication (corticosteroids) Hospital Course: Patient was admitted as above. Treated with 5 days of Tamiflu. Treated with high dose parental steroids and then oral corticosteroids. With this his breathing improved over the course of his hospitalization so that in the last 48 hours his exercise/activity capacity vastly improved and he was felt to be stable for discharge home to continue on a tapering course of oral corticosteroids. He completed his course of Tamiflu Patient also felt to have an element of acute congestive heart failure given some parental diuretics initially switch back to oral diuretics and he remained stable with good urine output and no evidence of recurrent congestive heart failure over the last several days prior to discharge Patient also with significant bradycardia and atrial fibrillation. Initially because of modest hypotension etcetera he had his sotalol and he was metoprolol held. Sotalol was restarted but metoprolol seem to produce significant bradycardia into the 40s so it was discontinued. Amlodipine was substituted for blood pressure control. Patient had adequate blood pressure control on his discharge medications and remained in controlled rate atrial fibrillation at time of discharge. Patient also with ongoing back pain perhaps exacerbated by his decrease in activity increased inactivity. Percocet was quite effective and upon discharge he will be given a very limited number of Percocet to assist with his back pain Exam Vital Signs (past 8 hours): - 12/23/24 04:02 12/23/24 07:53 12/23/24 08:00 Temperature 97.0 F L 97.1 F L Pulse Rate 58 L 56 L 57 L Respiratory Rate 16 20 17 Blood Pressure 133/78 129/91 H Pulse Oximetry 96 98 98 Oxygen Delivery Method Room Air Oxygen Flow Rate 0 0 Fraction of Inspired Oxygen 21 SaO2/FiO2 Ratio 452 Oxygen Delivery Method Room Air Oxygen Flow Rate 0 Objective Labs 12/18/24 05:36 12/21/24 06:33 Labs: Laboratory Results - last 24 hr 12/21/24 06:33 Hemoglobin A1c 6.2 H [facility] Medical History Erectile dysfunction Chronic heart failure with preserved ejection fraction History of COVID-19 (10/2020) Right inguinal hernia Peripheral edema Testosterone deficiency in male Pulmonary nodule Cardiomyopathy Essential hypertension Atrial fibrillation COPD (chronic obstructive pulmonary disease) Chronic fatigue (11/23/17) Rheumatoid arthritis involving multiple sites (07/28/17) Postherpetic neuralgia (05/20/17) Primary osteoarthritis of both knees (11/22/15) Mild persistent asthma without complication (11/22/15) Surgical History Hx of knee surgery (10/2015) Hx of colonoscopy (10/22/22) S/P cataract extraction Status post cholecystectomy Family History Father Asthma Mother Diabetes mellitus Social History marital status: household members: spouse lives independently: Yes occupational status: previously employed Smoking Status: Former smoker alcohol intake: current substance use type: does not use Discharge Assessment & Plan Assessment and Plan Plan of Treatment: Discharge home on 30 mg b.i.d. of prednisone with a plan to taper when I see him in the clinic next week Continue other meds including his 40 mg a day of furosemide DC metoprolol and substitute amlodipine for blood pressure control given the bradycardia but continue sotalol More than 30 minutes was spent arranging this discharge, including writing prescriptions, documentation and discussing plans with patient Discharge Plan Discharge Plan Patient Disposition: Home Discharge orders & Medications Prescriptions: New amlodipine 10 mg tablet 10 mg PO DAILY Qty: 90 3RF oxycodone-acetaminophen 5-325 mg tablet 1 tab PO Q8H MDD 3 tabs PRN (Reason: pain) Qty: 14 0RF Continued (DME) Spacer See Rx Instructions .Route .MEDSUPPLY Qty: 1 0RF Rx Instructions: As directed, use with Metered Dose Inhaler potassium chloride 20 mEq tablet extended release 20 meq PO DAILY Qty: 90 3RF testosterone cypionate [Depo-Testosterone] 200 mg/mL oil 300 mg IM Q4W Qty: 10 2RF albuterol sulfate 2.5 mg /3 mL (0.083 %) solution for nebulization 2.5 mg continuous nebulization Q6H PRN (Reason: Dyspnea) Qty: 90 1RF Stiolto Respimat 2.5-2.5 mcg/actuation mist 2 puff inhalation DAILY Qty: 4 3RF albuterol sulfate [Ventolin HFA] 90 mcg/actuation HFA aerosol inhaler 2 inh inhalation Q4-6H PRN (Reason: shortness of breath or wheezing) Qty: 25.5 10RF sildenafil 100 mg tablet 50 - 100 mg PO DAILY PRN (Reason: sexual activity) Qty: 10 4RF Rx Instructions: administer 30 minutes to 4 hours before activity (DME) Disabled Parking See Rx Instructions .ROUTE .MEDSUPPLY Qty: 1 0RF Rx Instructions: Patient qualifies for disabled parking as per the attached form. apixaban 5 mg tablet 5 mg PO BID Qty: 180 1RF losartan 25 mg tablet 25 mg PO DAILY Qty: 90 1RF spironolactone 25 mg tablet 25 mg PO DAILY gabapentin 100 mg capsule 100 mg PO 3XD PRN (Reason: Back Pain) (DME) spacer for inhaled meds See Rx Instructions .Route .MEDSUPPLY Qty: 1 0RF Rx Instructions: As directed furosemide [Lasix] 40 mg tablet 40 mg PO DAILY Qty: 90 3RF sotalol 80 mg tablet 80 mg PO BID magnesium oxide 500 mg tablet 400 mg PO BID nystatin 100,000 unit/gram cream 1 applic topical BID Qty: 30 1RF fluticasone furoate 100 mcg/actuation blister with device 1 inh inhalation DAILY Qty: 30 3RF Changed prednisone 20 mg tablet 30 mg PO BID Qty: 90 0RF Rx Instructions: 1 tab daily or as directed Discontinued metoprolol succinate 50 mg tablet extended release 24 hr 50 mg PO BID Follow up/Referrals: Mitchell Buchanan MD [Primary Care Provider] - 1 Week Discharge Health Status Multidrug resistant organism: No MDRO Diet/Activity/Treatments Diet: Diet as Tolerated Visit Report/Discharge Packet Stand Alone Forms: Congestive Heart Failure, Patient Portal/API Discharge Data Primary Care Provider: Mitchell Buchanan Quality VTE Deep Vein Thrombosis/Pulmonary Embolism Present on Admission: No IH PROFEE Charge Codes Discharge inpatient/observation: 97504
--- NOTE | 2024-12-23 11:55 | CM.DPC ---
DCP Discharge HOme Per MD, pt now on room air and labs stable and ambulating and medically stable to d/c home today with outpt f/u. Per PT/OT, pt made enough progress while admitted that they are now recommending home with assist. Pt previously declined HH as well. SW updated TCM team on pt discharge and outpt f/u appt with PCP Dr. Buchanan for taper of prednisone. Plan: Patient to d/c home via family POV today and outpt f/u and no further SW needs at this time. Alina Rubin MSW
--- NOTE | 2024-12-23 16:17 | PC.NURSE ---
Pt's son, Ion Hopkins, called asking multiple staff members and stated why did you send my father home when if can't get himself up from the toilet? This RN explained that the pt was cleared by the doctor, was able to self transfer from hospital bed into hospital chair, walk from hospital chair to the bathroom in pt room, get up from inpt chair to w/c and from w/c into the POV at time of discharge. This RN informed the son that the if the pt is unable to get himself off the toilet then the pt needs to be taken back to the ED for reassessment due to change in condition. Son stated: I have to work tomorrow and my sisters are flying home tomorrow. How am I suppose to care for him? Informed pt's son that the pt needs to go back to the ED for reassessment.
== END 2024-12-23 13:30 | disposition home or self-care (01) | DRG 291 ==
LOC: ED 12-15 07:15 → AC 12-15 08:44 → ICU 12-15 11:37 → AC 12-18 10:44
PROVIDERS: Family Medicine; Student in an Organized Health Care Education/Training Program; Admitting Provider Internal Medicine; Emergency Provider Emergency Medicine; PCP Internal Medicine; Referring Provider Emergency Medicine; Visit Provider Internal Medicine
DX: I11.0 Hypertensive heart disease with heart failure (principal); I50.33 Acute on chronic diastolic (congestive) heart failure; J44.1 Chronic obstructive pulmonary disease with (acute) exacerbation; I48.19 Other persistent atrial fibrillation; R00.0 Tachycardia, unspecified; I95.9 Hypotension, unspecified; J10.1 Influenza due to other identified influenza virus with other respiratory manifestations; E29.1 Testicular hypofunction; M06.9 Rheumatoid arthritis, unspecified; R73.9 Hyperglycemia, unspecified; M54.9 Dorsalgia, unspecified; T38.0X5A Adverse effect of glucocorticoids and synthetic analogues, initial encounter; N52.9 Male erectile dysfunction, unspecified; Z87.891 Personal history of nicotine dependence; Z79.01 Long term (current) use of anticoagulants; Z79.890 Hormone replacement therapy
CPT/HCPCS: 0241U; 36415; 36556; 71045; 74177; 80048; 80053; 81003; 82550; 82962; 83036; 83605; 83690; 83735; 83880; 84145; 84484; 85025; 85610; 85730; 87040; 87797; 93005; 94640; 94762; 96365; 96367; 96368; 96375; 97116; 97161; 97165; 97530; 97535; 99222; 99223; 99232; 99233; 99239; 99285; J0696; J1160; J1815; J1940; J2405; J2919; J3475; J7613; Q9967

== ENCOUNTER → 2024-12-28 11:21 | Outpatient (CLI) | payer OTHER, SELFPAY ==
[2024-12-25 11:12] VITALS: BMI 30.9
[2024-12-28 13:15] LABS: BUN Creatinine Ratio 34.8 (6-22); Blood Urea Nitrogen 24 mg/dL (9-20); Calcium 8.7 mg/dL (8.4-10.2); Carbon Dioxide 34 mmol/L (22-32); Chloride 98 mmol/L (98-107); Estimated Glomerular Filt Rate > 60 mL/min (>60); Glucose 130 mg/dL (80-110); HEMOLYSIS < 15 (0-50); Sodium 134 mmol/L (137-145)
[2024-12-28 13:26] LABS: NT-proBNP (BNP-Adult 18+) 1230 pg/mL (<450)
== END ==
LOC: LAB 11:21
PROVIDERS: PCP Internal Medicine; Referring Provider Internal Medicine; Visit Provider Internal Medicine
DX: I11.0 Hypertensive heart disease with heart failure (principal); I50.32 Chronic diastolic (congestive) heart failure; J44.9 Chronic obstructive pulmonary disease, unspecified
CPT/HCPCS: 36415; 80048; 83735; 83880

== ENCOUNTER → 2025-03-23 10:11 | Outpatient (CLI) | payer OTHER, SELFPAY ==
[2025-02-19 16:24] VITALS: BMI 30.9
--- NOTE | 2025-03-23 10:13 | DI.RAD.S_ITS ---
PROCEDURE: XR DEXA AXIAL SKELETON INDICATIONS: high risk med use COMPARISON: None. FINDINGS: Lumbar Spine: Bone mineral density are 0.918 g/cm2, T score -1.5. Left Femoral Neck: Bone mineral density is 0.513 g/cm2, T score -3.0. Left Hip: Bone mineral density 0.685 g/cm2, T score -2.1. Fracture Risk Calculation (when applicable): FRAX score not reported due to T-score less than -2.5. (T score greater or equal to -1.0 to: NORMAL) (T score from -1.1 to -2.4: OSTEOPENIA) (T score less than or equal to -2.5: OSTEOPOROSIS) IMPRESSION: By WHO criteria, patient has osteoporosis. Follow-up guidelines as follows: Osteoporosis: Consider a repeat DEXA and Vertebral Fracture Assessment (VFA) exam in 2 years or sooner if medically necessary, to reassess this patient's status. Osteopenia: Consider a repeat DEXA in 2-3 years to reassess this patient's status, or if there is a new clinical indication. Normal: Consider a repeat DEXA in 5 years or sooner, or if there is a new clinical indication. All treatment decisions require clinical judgment and consideration of individual patient factors, including patient preferences, comorbidities, previous drug use, risk factors not captured in the FRAX model (e.g., frailty, falls, vitamin D deficiency, increased bone turnover, interval significant decline in bone density ) and possible under- or over-estimation of fracture risk by FRAX. In addition, the NOF Guide recommends that FDA-approved medical therapies be considered in postmenopausal women and men age >= 50 years with a: * Hip or vertebral (clinical or morphometric) fracture * T-score of <=-2.5 at the spine or hip * Ten-year fracture probability by FRAX of >= 3% for hip fracture or >=20% for major osteoporotic fracture. Approved by: Getachew Melton M.D. on 03/23/2025 at 21:16
== END ==
PROVIDERS: PCP Internal Medicine; Referring Provider Internal Medicine; Visit Provider Internal Medicine
DX: M81.0 Age-related osteoporosis without current pathological fracture (principal); M85.89 Other specified disorders of bone density and structure, multiple sites
CPT/HCPCS: 77080

== ENCOUNTER 2025-04-08 12:10 | Inpatient (IN) | payer OTHER, SELFPAY ==
[2025-02-19 16:24] VITALS: BMI 30.9
[2025-04-08] VITALS (19 sets, daily range): BP systolic 117–153; BP diastolic 60–107; PULSE 77–115; RESP 16–26; TEMP 36.6–37.6; O2SAT 93–99; BMI 32.1; BMI 30.4
--- NOTE | 2025-04-08 12:21 | EKG_ITS ---
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
--- NOTE | 2025-04-08 12:22 | DI.RAD.S_ITS ---
PROCEDURE: XR CHEST 1V INDICATIONS: Shortness of breath TECHNIQUE: One view of the chest was acquired. COMPARISON: [facility], CR, XR CHEST 1V, 12/14/2024, 21:21. FINDINGS: Surgical changes and devices: None. Lungs and pleura: There is mild pulmonary vascular congestion. No definite focal infiltrate. No pleural effusions or pneumothorax. Mediastinum: Mediastinal contours appear normal. Heart size is enlarged Bones and chest wall: No suspicious bony lesions. Overlying soft tissues appear unremarkable. IMPRESSION: Cardiomegaly and mild congestion. No definite focal infiltrate. No pleural effusion or pneumothorax. Dictated by: Clifford Garcia M.D. on 04/08/2025 at 13:17 Approved by: Clifford Garcia M.D. on 04/08/2025 at 13:17
[2025-04-08 12:46] LABS: Add Manual Diff / Slide Review NO; Basophils Absolute Auto 100 /uL (0-100); Basophils Percent Auto 1.1 % (0-2); Eosinophils Absolute Auto 100 /uL (0-450); Eosinophils Percent Auto 0.8 % (2-4); Hematocrit 38.3 % (41-53); Hemoglobin 12.6 g/dL (13.5-17.5); Lymphocytes Absolute Auto 1600 /uL (1100-4500); Mean Corpuscular HGB Conc 32.8 % (30-36); Mean Corpuscular Hemoglobin 27.2 PG (26-34); Mean Corpuscular Volume 82.8 fL (80-100); Monocytes Absolute Auto 800 /uL (0-900); Monocytes Percent Auto 7.4 % (3-14); Neutrophils Absolute Auto 8700 /uL (1500-7000); Neutrophils Percent Auto 76.7 % (50-75); Platelet Count 365 X10^3/uL (150-400); Red Blood Cell Count 4.63 X10^6/uL (4.5-5.9); Red Cell Distribution Width 16.9 % (11.6-14.8); White Blood Cell Count 11.3 X10^3/uL (4.5-11.0)
[2025-04-08 12:48] LABS: INR 1.4 (0.9-1.3); Prothrombin Time 15.3 SECONDS (9.4-12.5)
[2025-04-08 12:51] LABS: Lactate (Lactic Acid) 1.3 mmol/L (0.7-2.1)
[2025-04-08 12:52] LABS: Alanine Aminotransferase 31 IU/L (<50); Albumin 3.5 g/dL (3.5-5.0); Albumin Globulin Ratio 1.2 (1.0-2.8); Alkaline Phosphatase 91 U/L (38-126); Aspartate Aminotransferase 38 IU/L (17-59); Bilirubin Total 2.7 mg/dL (0.2-1.3); Blood Urea Nitrogen 20 mg/dL (9-20); Calcium 8.3 mg/dL (8.4-10.2); Carbon Dioxide 29 mmol/L (22-32); Chloride 102 mmol/L (98-107); Estimated Glomerular Filt Rate > 60 mL/min (>60); Globulin 2.9 g/dL (1.7-4.1); Glucose 96 mg/dL (70-99); Potassium 4.3 mmol/L (3.4-5.1); Sodium 137 mmol/L (137-145); Total Protein 6.4 g/dL (6.3-8.2)
--- NOTE | 2025-04-08 12:54 | ED_ITS ---
HPI - SOB/Dyspnea General Chief Complaint: Shortness of Breath/Dyspnea Stated Complaint: Chest Pain, Limb Swelling, Sciatica Pain Time Seen by Provider: 04/08/25 12:46 Source: patient Mode of arrival: Family Vehicle Limitations: no limitations History of Present Illness HPI Narrative: Pt is a 84 y/o m with history of COPD, cHF, C fib on eliquis presenting with shortness of breath. States that this has been an ongoing issue but worsening over the last week. He endorses increasing ALBERTO as well as shortness of breath at rest and increased bilateral leg swelling. States he has been compliant with all of his medications and is peeing normally. He denies any acute chest pain, but has had chest pressure. Has right sided low back pain with sciatica which he states is not new for him, but had been previously managed with kenalog shots. No fevers, no acute worsened cough, no nausea, vomiting, abdominal pain. Known history of: COPD and congestive heart failure Related Data Home Medications Medication Instructions Recorded Confirmed spironolactone 25 mg tablet 25 mg PO DAILY 03/02/22 04/08/25 magnesium oxide 400 mg PO BID 08/17/23 04/08/25 sotalol 80 mg tablet 80 mg PO BID 09/29/24 04/08/25 fluticasone fur. 200 mcg-umeclid 1 ea inhalation DAILY 04/08/25 04/08/25 62.5 mcg-vilant 25 mcg inhalat.powder (Trelegy Ellipta) prednisone 20 mg tablet 20 mg PO DAILY PRN Moderate Pain 04/08/25 04/08/25 (Scale Score 5-6) Previous Rx's Medication Instructions Recorded Disabled Parking #1 ea 05/05/21 apixaban 5 mg tablet 5 mg PO BID #180 tabs 05/05/21 losartan 25 mg tablet 25 mg PO DAILY #90 tabs 05/05/21 nystatin 100,000 unit/gram topical 1 applic topical BID #30 grams 08/20/23 cream spacer for inhaled meds #1 ea 09/02/23 potassium chloride 20 mEq 20 meq PO DAILY #90 tabs 03/24/24 tablet,extended release albuterol sulfate 90 mcg/actuation 2 inh inhalation Q4-6H PRN 10/04/24 aerosol inhaler (Ventolin HFA) shortness of breath or wheezing #25.5 grams oxycodone-acetaminophen 5 mg-325 1 tab PO Q8H PRN pain #14 tabs 12/23/24 mg tablet furosemide 40 mg tablet (Lasix) 40 mg PO BID #180 tabs 02/16/25 sildenafil 100 mg tablet 50 - 100 mg (0.5 - 1 x 100 mg) PO 02/16/25 DAILY PRN sexual activity #10 tabs testosterone cypionate 200 mg/mL 300 mg (1.5 mL) IM Q4W #10 mL 02/26/25 intramuscular oil (Depo-Testosterone) gabapentin 300 mg capsule 300 mg PO BEDTIME #90 caps 02/27/25 albuterol sulfate 2.5 mg/3 mL 2.5 mg (3 mL) continuous 03/06/25 (0.083 %) solution for nebulization nebulization Q6H PRN Dyspnea #90 mL metoprolol tartrate 25 mg tablet 12.5 mg (1/2 x 25 mg) PO BID #60 03/16/25 tabs Allergies Allergy/AdvReac Type Severity Reaction Status Date / Time amlodipine AdvReac Intermediate peripheral Verified 03/20/25 14:49 edema Review of Systems Review of Systems ROS Unobtainable: All systems reviewed & are unremarkable except as noted in HPI and below Constitutional Constitutional: Denies fever(s) Eyes Eyes: Denies diplopia ENT Ears, Nose, Mouth, and Throat: Denies dizziness Cardiovascular Cardiovascular: Reports leg edema, Reports dyspnea and Reports dyspnea on exertion Respiratory Respiratory: Reports chest congestion, Reports dyspnea, Reports dyspnea on exertion and Reports wheezing Gastrointestinal Gastrointestinal: Denies change in bowel habits Genitourinary Genitourinary: Denies dysuria Musculoskeletal Musculoskeletal: Reports back pain Neurologic Neurologic: Denies dizziness and Denies localized weakness Psychiatric Psychiatric: Denies suicidal ideation Allergic/Immunologic Allergic/Immunologic: Reports wheezing Patient History Medical History Erectile dysfunction Chronic heart failure with preserved ejection fraction History of COVID-19 (10/2020) Right inguinal hernia Peripheral edema Testosterone deficiency in male Pulmonary nodule Cardiomyopathy Essential hypertension Atrial fibrillation COPD (chronic obstructive pulmonary disease) Chronic fatigue (11/23/17) Rheumatoid arthritis involving multiple sites (07/28/17) Postherpetic neuralgia (05/20/17) Primary osteoarthritis of both knees (11/22/15) Mild persistent asthma without complication (11/22/15) Surgical History Hx of knee surgery (10/2015) Hx of colonoscopy (10/22/22) S/P cataract extraction Status post cholecystectomy Family History Father Asthma Mother Diabetes mellitus Social History marital status: household members: spouse lives independently: Yes occupational status: previously employed Smoking Status: Former smoker alcohol intake: never substance use type: does not use alcohol intake frequency: a few times a month Exam Initial Vital Signs Initial Vital Signs: Vital Signs Temperature 97.8 F 04/08/25 12:15 Pulse Rate 91 H 04/08/25 12:15 Respiratory Rate 24 04/08/25 12:15 Blood Pressure 117/67 04/08/25 12:15 Pulse Oximetry 96 04/08/25 12:15 Oxygen Delivery Method Room Air 04/08/25 12:15 Const General: ill appearing Nutritional Appearance: obese HENMT Head: atraumatic Ears: hearing grossly normal bilaterally Nose: external nose normal Eyes General: Yes appearance normal, both eyes and all related structures Neck Neck: normal visual inspection and full ROM Resp Effort & Inspection: audible wheezes, tachypneic and uses accessory muscles Auscultation: rhonchi and wheezes Cardio Rate: tachycardic Rhythm: abnormal rhythm GI Inspection: distended Palpation: soft Skin General: No erythema Neuro General: patient alert Cognition: normal cognition Extrem Right lower extremity: edema Details: 3+ Left lower extremity: edema Details: 3+ Psych Appearance: grossly normal Mental Status: mental status grossly normal Course Orders Ordered: ED Orders 04/08/25 12:22 XR chest 1V Stat EKG-12 Lead Stat Measure peak expiratory flow STAT RT Consult Eval and Treat STAT 04/08/25 12:30 Complete Blood Count AUTO DIFF Stat Comprehensive Metabolic Panel Stat Lactate (Lactic Acid) Stat NT-proBNP (BNP-Adult 18+) Stat Prothrombin Time INR Stat Troponin I Stat 04/08/25 14:29 Trop I [Troponin I] Stat 04/08/25 16:23 Troponin I Stat Sodium Chloride (Sodium Chloride 0.9% Flush) 10 ml IV PRN PRN PRN Reason: Flush Sodium Chloride (Sodium Chloride 0.9% Flush) 10 ml IV BID JOMAR Sotalol HCl (Sotalol 80 Mg Tablet) 80 mg PO BID JOMAR Discontinued Medications Albuterol/Ipratropium (Albuterol/Ipratropium 3 Ml Ampul) 3 ml INH NOW ONE Stop: 04/08/25 12:55 Last Admin: 04/08/25 12:57 Dose: 3 ml Documented By: JZ Furosemide (Furosemide 40 Mg/4 Ml Vial) 40 mg IV NOW ONE Stop: 04/08/25 12:55 Last Admin: 04/08/25 12:59 Dose: 40 mg Documented By: ES Furosemide (Furosemide 40 Mg/4 Ml Vial) 40 mg IV NOW ONE Stop: 04/08/25 20:20 Vital Signs Vital signs: Vital Signs - 8 hr 04/08/25 12:24 04/08/25 12:24 04/08/25 12:30 Pulse Rate 115 H 85 Respiratory Rate 16 19 Blood Pressure 117/67 Pulse Oximetry 98 Oxygen Delivery Method Oxygen Flow Rate Fraction of Inspired Oxygen 04/08/25 12:34 04/08/25 12:34 04/08/25 12:58 Pulse Rate 92 H 86 Respiratory Rate 20 Blood Pressure 118/63 Pulse Oximetry 98 93 Oxygen Delivery Method Room Air Oxygen Flow Rate 0 Fraction of Inspired Oxygen 04/08/25 13:00 04/08/25 13:00 04/08/25 13:30 Pulse Rate 85 Respiratory Rate 17 Blood Pressure 136/72 135/66 Pulse Oximetry 99 Oxygen Delivery Method Oxygen Flow Rate Fraction of Inspired Oxygen 04/08/25 13:30 04/08/25 14:00 04/08/25 14:00 Pulse Rate 90 80 Respiratory Rate 18 Blood Pressure 129/60 Pulse Oximetry 97 96 Oxygen Delivery Method Oxygen Flow Rate Fraction of Inspired Oxygen 04/08/25 14:30 04/08/25 14:30 04/08/25 15:00 Pulse Rate 107 H Respiratory Rate 19 Blood Pressure 137/77 144/81 H Pulse Oximetry 98 Oxygen Delivery Method Oxygen Flow Rate Fraction of Inspired Oxygen 04/08/25 15:00 04/08/25 15:30 04/08/25 15:30 Pulse Rate 78 79 Respiratory Rate 19 18 Blood Pressure 141/76 H Pulse Oximetry 98 97 Oxygen Delivery Method Oxygen Flow Rate Fraction of Inspired Oxygen 04/08/25 16:00 04/08/25 16:00 04/08/25 16:30 Pulse Rate 82 Respiratory Rate 19 Blood Pressure 145/84 H 120/75 Pulse Oximetry 99 Oxygen Delivery Method Oxygen Flow Rate Fraction of Inspired Oxygen 04/08/25 16:30 04/08/25 17:00 04/08/25 17:01 Pulse Rate 87 93 H 96 H Respiratory Rate 18 20 Blood Pressure Pulse Oximetry 97 96 93 Oxygen Delivery Method Oxygen Flow Rate Fraction of Inspired Oxygen 04/08/25 17:01 04/08/25 17:30 04/08/25 17:30 Pulse Rate 77 Respiratory Rate 21 Blood Pressure 141/94 H 148/85 H Pulse Oximetry 95 Oxygen Delivery Method Oxygen Flow Rate Fraction of Inspired Oxygen 04/08/25 18:00 04/08/25 18:00 Pulse Rate 110 H Respiratory Rate Blood Pressure 153/107 H Pulse Oximetry 93 Oxygen Delivery Method Oxygen Flow Rate Fraction of Inspired Oxygen MDM - SOB/Dyspnea Differential Diagnosis Differential diagnosis: Likely acute exacerbation of chronic obstructive airways disease, congestive heart failure, community acquired pneumonia, pulmonary embolism and other (ACS, pleural effusion) Medical Records Attestation: I reviewed the patient's medical records. Lab Data Lab results narrative: minimal leukocytosis with WBC of 11.3, low suspicion for acute infectious etiology 1st troponin negative, second with slight increase, third negative BNP elevated, however, not as significantly as compared to prior 04/08/25 12:30 04/08/25 12:30 Labs: Lab Results 04/08/25 04/08/25 04/08/25 Range/Units 12:30 14:29 16:23 WBC 11.3 H (4.5-11.0) X10^3/uL RBC 4.63 (4.5-5.9) X10^6/uL Hgb 12.6 L (13.5-17.5) g/dL Hct 38.3 L (41-53) % MCV 82.8 (80-100) fL MCH 27.2 (26-34) PG MCHC 32.8 (30-36) % RDW 16.9 H (11.6-14.8) % Plt Count 365 (150-400) X10^3/uL Neut % (Auto) 76.7 H (50-75) % Lymph % (Auto) 14.0 L (25-40) % Metcalfe % (Auto) 7.4 (3-14) % Eos % (Auto) 0.8 L (2-4) % Baso % (Auto) 1.1 (0-2) % Neut # (Auto) 8700 H (6360-5096) /uL Lymph # (Auto) 1600 (5747-7159) /uL Metcalfe # (Auto) 800 (0-900) /uL Eos # (Auto) 100 (0-450) /uL Baso # (Auto) 100 (0-100) /uL PT 15.3 H (9.4-12.5) SECONDS INR 1.4 H (0.9-1.3) Sodium 137 (137-145) mmol/L Potassium 4.3 (3.4-5.1) mmol/L Chloride 102 (98-107) mmol/L Carbon Dioxide 29 (22-32) mmol/L BUN 20 (9-20) mg/dL Creatinine 0.62 L (0.66-1.25) mg/dL Estimated GFR > 60 (>60) mL/min BUN/Creatinine Ratio 32.3 H (6-22) Glucose 96 (70-99) mg/dL Lactate 1.3 (0.7-2.1) mmol/L Calcium 8.3 L (8.4-10.2) mg/dL Total Bilirubin 2.7 H (0.2-1.3) mg/dL AST 38 (17-59) IU/L ALT 31 (<50) IU/L Alkaline Phosphatase 91 (38-126) U/L Troponin I < 0.012 0.016 < 0.012 (0.01-0.034) ng/mL NT-Pro-B Natriuret Pep 2680 H (<450) pg/mL Total Protein 6.4 (6.3-8.2) g/dL Albumin 3.5 (3.5-5.0) g/dL Globulin 2.9 (1.7-4.1) g/dL Albumin/Globulin Ratio 1.2 (1.0-2.8) Imaging Data Chest x-ray: My Impression: notable for congestion and cardiomegaly, without dense focal consolidation, large pleural effusion, pneumothorax. Radiologist's Impression: [address] [address] XRay Report Signed Patient: Blayne Hopkins MR#: [id number] : 1940 Acct:[id number] Age/Sex: 85 / M Date of Service: 04/08/25 Loc: ED Accession Number: [id number] Procedure: XR chest 1V Ordering Provider: Génesis Granado MD PROCEDURE: XR CHEST 1V INDICATIONS: Shortness of breath TECHNIQUE: One view of the chest was acquired. COMPARISON: [facility], , XR CHEST 1V, 12/14/2024, 21:21. FINDINGS: Surgical changes and devices: None. Lungs and pleura: There is mild pulmonary vascular congestion. No definite focal infiltrate. No pleural effusions or pneumothorax. Mediastinum: Mediastinal contours appear normal. Heart size is enlarged Bones and chest wall: No suspicious bony lesions. Overlying soft tissues appear unremarkable. IMPRESSION: Cardiomegaly and mild congestion. No definite focal infiltrate. No pleural effusion or pneumothorax. Dictated by: Clifford Garcia M.D. on 04/08/2025 at 13:17 Approved by: Clifford Garcia M.D. on 04/08/2025 at 13:17 ECG Data Attestation: I personally reviewed and interpreted this ECG as follows: Prior ECG tracings: available for review Interpretation: EKG demonstrating sinus rhythm with PVCs and PACs, ventricular rate of 86, without evidence of acute ischemic changes and now sinus when compared to prior from 12/14/2024 when patient was in atrial fibrillation MDM Narrative Medical decision making narrative: History and exam as above. PResenting with gradual worsening of shortness of breath. suspect likely CHF exacerbation/fluid overload based on exam, likely also component of COPD exacerbation with wheeze. Reassuringly patient is without acute respiratory distress, no hypoxia or evidence of respiratory failure. Afebrile and without acutely worsened cough to suggest pneumonia or infectious etiology. Plan for duoneb, iv lasix, likely admission for further diuresis and management. Upon reevaluation following medications, pt with improvement in his SOB, putting out well to lasix. Will plan to admit. Patient signed out to admitting physician, Dr Leroy, with full report including review of pts HPI and pertinent workup findings. Accepted for admission. Discharge Plan Departure Patient Disposition: Admitted As Inpatient Clinical Impression: Acute exacerbation of CHF (congestive heart failure), Increasing shortness of breath, COPD (chronic obstructive pulmonary disease) Admit Date/Time: 04/08/25 18:04 Admit Provider: Keira Leroy
[2025-04-08] MEDS: ALBUTEROL/IPRATROPIUM 3 ML AMPUL INH (12:57)
[2025-04-08] MEDS: FUROSEMIDE 40 MG/4 ML VIAL IV ×2 (12:59→21:17)
[2025-04-08 13:03] LABS: NT-proBNP (BNP-Adult 18+) 2680 pg/mL (<450); Troponin I < 0.012 ng/mL (0.01-0.034)
[2025-04-08 13:06] LABS: HEMOLYSIS 95 (0-50)
[2025-04-08 13:09] LABS: BUN Creatinine Ratio 32.3 (6-22)
[2025-04-08 15:01] LABS: Troponin I 0.016 ng/mL (0.01-0.034)
[2025-04-08 16:53] LABS: Troponin I < 0.012 ng/mL (0.01-0.034)
--- NOTE | 2025-04-08 20:43 | DI.ECHO.S_ITS ---
[place] [facility] : : [address] : : [place] : : [id number] : : Phone: [phone] Echocardiogram Report + + :Name: KURTIS PIERCE Study Date: 04/09/2025 Height: 69 in : :[facility] ReadingLocation: Weight: 206 lb : : Gender: Male BSA: 2.1 m2 : :: 1940 Age: 85 yrs BP: 144/70 mmHg: :Reason For Study: CONGESTIVE HEART FAILURE : :Ordering Physician: HASMUKH, : :IRMA Performed By: Etelvina Wagner : :Referring: IRMA NOE : + + Interpretation Summary The ejection fraction is estimated to be 60-65%. Grade II diastolic dysfunction. The right ventricular systolic function is normal. The right ventricular systolic pressure is estimated to be at least 55 mmHg based on an estimated right atrial pressure of 8 mm Hg. There is mild to moderate tricuspid regurgitation. The left atrium is severely dilated. The right atrium is moderately dilated. Procedure: A two-dimensional transthoracic echocardiogram with color flow and Doppler was performed. The study quality was technically adequate. Comparison is made with the echocardiogram of 04/16/2024. The patient was in sinus rhythm with heart rates between 62-83 bpm during the exam. Left Ventricle: The left ventricle is normal in size and wall thickness. The ejection fraction is estimated to be 60-65%. Left ventricular wall motion is normal. Grade II diastolic dysfunction. Right Ventricle: The right ventricle is mildly dilated. The right ventricular systolic function is normal. Atria: The left atrium is severely dilated. The right atrium is moderately dilated. There is no Doppler evidence for an interatrial shunt. Mitral Valve: There is mild to moderate mitral annular calcification. There is mild mitral regurgitation. Aortic Valve: The aortic valve is trileaflet. The aortic valve opens well. There is no aortic valve stenosis. No aortic regurgitation is present. Tricuspid Valve: The tricuspid valve leaflets are thin and pliable. There is mild to moderate tricuspid regurgitation. The right ventricular systolic pressure is estimated to be at least 55 mmHg based on an estimated right atrial pressure of 8 mm Hg. Pulmonic Valve: The pulmonic valve leaflets are thin and pliable; valve motion is normal. There is mild pulmonic regurgitation. Great Vessels: The aortic root is normal size. The dimensions of the ascending aorta are normal. The IVC is dilated (diameter is greater than 2.1 cm) yet it collapses greater than 50% with a sniff. This suggests a right atrial pressure of 8 mm Hg. Pericardium/ Pleura There is no pericardial effusion. There is no pleural effusion. MMode/2D Measurements & Calculations LVIDd: 5.6 cm LVOT diam: 2.1 cm LVIDs: 3.8 cm Ao root diam: 3.4 cm FS: 32.8 % asc Aorta Diam: 3.9 cm IVSd: 1.1 cm Ao Arch Diam (Prox Trans): 3.4 cm LVPWd: 0.94 cm LV maradiaga. diameter/BSA (cm/m^2): 2.7 LV sys. diameter/BSA (cm/m^2): 1.8 LA A2 area: 28.2 cm2 RA long axis: 5.9 cm LA A4 area: 31.3 cm2 RA area: 23.3 cm2 LA length (vol): 6.7 cm RA vol: 78.4 ml LA vol: 111.9 ml RA : 37.5 ml/m2 LA vol index: 53.5 ml/m2 IVC diam: 2.3 cm RVD1 (basal): 4.3 cm RVD2 (mid): 3.4 cm TAPSE: 2.2 cm Doppler Measurements & Calculations Ao V2 max: 138.6 cm/sec LVOT Max Bennett: 95.0 cm/sec Ao V2 mean: 86.7 cm/sec LV V1 max P.6 mmHg Ao max P.7 mmHg LV V1 VTI: 19.9 cm Ao mean P.6 mmHg EMILY(I,D): 2.5 cm2 Ao V2 VTI: 26.6 cm EMILY(V,D): 2.3 cm2 sev ratio: 0.75 EMILY indexed to BSA (cm^2/m^2): 1.2 MV E max bennett: 90.9 cm/sec TR max bennett: 343.1 cm/sec MV A max bennett: 52.7 cm/sec TR max P.1 mmHg MV E/A: 1.7 PA V2 max: 82.4 cm/sec Med Peak E' Bennett: 8.4 cm/sec PA V2 mean: 55.6 cm/sec E/E' med: 10.8 PA mean P.4 mmHg Lat Peak E' Bennett: 13.7 cm/sec PA pr(Accel): 27.6 mmHg E/E' lat: 6.6 E/e' average: 8.7 MV dec time: 0.23 sec MVA(VTI): 2.3 cm2 MV V2 mean: 67.6 cm/sec SV(LVOT): 66.3 ml MV mean P.1 mmHg MV V2 VTI: 28.5 cm Reading Physician:01:53 PM
[2025-04-08] MEDS: APIXABAN 5 MG TABLET PO (21:17)
[2025-04-08] MEDS: SOTALOL 80 MG TABLET PO (21:17)
[2025-04-08] MEDS: DOCUSATE 100 MG CAPSULE PO (21:17)
[2025-04-08] MEDS: SENNOSIDES 8.6 MG TABLET 17.2 MG PO (21:18)
[2025-04-08] MEDS: OXYCODONE/ACETAMINOPHEN 5/325 TABLET 1 TAB PO (21:18)
[2025-04-08] MEDS: predniSONE 20 MG TABLET PO (21:18)
[2025-04-08] MEDS: METOPROLOL IR 25 MG TABLET 12.5 MG PO (21:18)
[2025-04-08] MEDS: GABAPENTIN 300 MG CAPSULE PO (21:18)
[2025-04-08] MEDS: SODIUM CHLORIDE 0.9% FLUSH 10 ML IV (21:20)
[2025-04-09] VITALS (8 sets, daily range): BP systolic 109–136; BP diastolic 56–77; PULSE 59–80; RESP 15–22; TEMP 36.2–37.2; O2SAT 95–98
[2025-04-09 06:13] LABS: Add Manual Diff / Slide Review NO; Basophils Absolute Auto 100 /uL (0-100); Basophils Percent Auto 0.8 % (0-2); Eosinophils Absolute Auto 0 /uL (0-450); Hemoglobin 11.1 g/dL (13.5-17.5); Lymphocytes Absolute Auto 900 /uL (1100-4500); Mean Corpuscular HGB Conc 33.8 % (30-36); Mean Corpuscular Hemoglobin 27.5 PG (26-34); Mean Corpuscular Volume 81.4 fL (80-100); Monocytes Absolute Auto 300 /uL (0-900); Monocytes Percent Auto 4.4 % (3-14); Neutrophils Absolute Auto 6000 /uL (1500-7000); Neutrophils Percent Auto 82.8 % (50-75); Platelet Count 328 X10^3/uL (150-400); Red Blood Cell Count 4.05 X10^6/uL (4.5-5.9); Red Cell Distribution Width 16.8 % (11.6-14.8); White Blood Cell Count 7.3 X10^3/uL (4.5-11.0)
[2025-04-09 06:19] LABS: Magnesium 1.6 mg/dL (1.6-2.3)
[2025-04-09 06:21] LABS: Alanine Aminotransferase 23 IU/L (<50); Albumin 2.8 g/dL (3.5-5.0); Albumin Globulin Ratio 1.3 (1.0-2.8); Alkaline Phosphatase 108 U/L (38-126); Aspartate Aminotransferase 20 IU/L (17-59); BUN Creatinine Ratio 23.1 (6-22); Bilirubin Total 2.2 mg/dL (0.2-1.3); Blood Urea Nitrogen 18 mg/dL (9-20); Carbon Dioxide 32 mmol/L (22-32); Chloride 97 mmol/L (98-107); Estimated Glomerular Filt Rate > 60 mL/min (>60); Globulin 2.1 g/dL (1.7-4.1); Glucose 168 mg/dL (70-99); HEMOLYSIS < 15 (0-50); Sodium 133 mmol/L (137-145); Total Protein 4.9 g/dL (6.3-8.2)
[2025-04-09 06:29] LABS: NT-proBNP (BNP-Adult 18+) 2750 pg/mL (<450)
--- NOTE | 2025-04-09 07:31 | P.HP_ITS ---
History of Present Illness History of Present Illness Date Patient Seen: 04/09/25 Time Patient Seen: 07:31 Chief complaint: Chest Pain, Limb Swelling, Sciatica Pain Narrative: 85-year-old male well known to me with both significant congestive heart failure (chronic congestive heart failure with preserved ejection fraction), significant lower extremity edema as a marker for his heart failure, and severe COPD. He presented to the [facility] emergency department yesterday evening with increasing shortness a breath and increased bilateral leg swelling. Patient has been taking all his medications including his diuretics. Patient was significant wheezing to go along with the dyspnea. Apparently some degree of chest pressure but negative troponin and EKG in the ED No syncope near-syncope lightheadedness or dizziness. Patient does express some degree of orthopnea although no PND Lab work demonstrated slight elevation of BNP over his baseline (which is about 1200), and chest x-ray which is consistent with some early pulmonary edema and no infiltrate He was admitted for treatment of presumably primarily congestive heart failure but also perhaps an element of COPD [facility] Medical History Erectile dysfunction Chronic heart failure with preserved ejection fraction History of COVID-19 (10/2020) Right inguinal hernia Peripheral edema Testosterone deficiency in male Pulmonary nodule Cardiomyopathy Essential hypertension Atrial fibrillation COPD (chronic obstructive pulmonary disease) Chronic fatigue (11/23/17) Rheumatoid arthritis involving multiple sites (07/28/17) Postherpetic neuralgia (05/20/17) Primary osteoarthritis of both knees (11/22/15) Mild persistent asthma without complication (11/22/15) Surgical History Hx of knee surgery (10/2015) Hx of colonoscopy (10/22/22) S/P cataract extraction Status post cholecystectomy Family History Father Asthma Mother Diabetes mellitus Social History marital status: household members: spouse lives independently: Yes occupational status: previously employed Smoking Status: Former smoker alcohol intake: never substance use type: does not use Meds Home Medications and Allergies Home Medications Medication Instructions Recorded Confirmed Type Disabled Parking #1 ea 05/05/21 03/20/25 Rx apixaban 5 mg tablet 5 mg PO BID #180 tabs 05/05/21 04/08/25 Rx losartan 25 mg tablet 25 mg PO DAILY #90 tabs 05/05/21 04/08/25 Rx spironolactone 25 mg tablet 25 mg PO DAILY 03/02/22 04/08/25 History magnesium oxide 400 mg PO BID 08/17/23 04/08/25 History nystatin 100,000 unit/gram topical 1 applic topical BID #30 grams 08/20/23 04/08/25 Rx cream spacer for inhaled meds #1 ea 09/02/23 03/20/25 Rx potassium chloride 20 mEq 20 meq PO DAILY #90 tabs 03/24/24 04/08/25 Rx tablet,extended release sotalol 80 mg tablet 80 mg PO BID 09/29/24 04/08/25 History albuterol sulfate 90 mcg/actuation 2 inh inhalation Q4-6H PRN 10/04/24 04/08/25 Rx aerosol inhaler (Ventolin HFA) shortness of breath or wheezing #25.5 grams oxycodone-acetaminophen 5 mg-325 1 tab PO Q8H PRN pain #14 tabs 12/23/24 04/08/25 Rx mg tablet furosemide 40 mg tablet (Lasix) 40 mg PO BID #180 tabs 02/16/25 04/08/25 Rx sildenafil 100 mg tablet 50 - 100 mg (0.5 - 1 x 100 mg) PO 02/16/25 04/08/25 Rx DAILY PRN sexual activity #10 tabs testosterone cypionate 200 mg/mL 300 mg (1.5 mL) IM Q4W #10 mL 02/26/25 04/08/25 Rx intramuscular oil (Depo-Testosterone) gabapentin 300 mg capsule 300 mg PO BEDTIME #90 caps 02/27/25 04/08/25 Rx albuterol sulfate 2.5 mg/3 mL 2.5 mg (3 mL) continuous 03/06/25 04/08/25 Rx (0.083 %) solution for nebulization nebulization Q6H PRN Dyspnea #90 mL metoprolol tartrate 25 mg tablet 12.5 mg (1/2 x 25 mg) PO BID #60 03/16/25 04/08/25 Rx tabs fluticasone fur. 200 mcg-umeclid 1 ea inhalation DAILY 04/08/25 04/08/25 History 62.5 mcg-vilant 25 mcg inhalat.powder (Trelegy Ellipta) prednisone 20 mg tablet 20 mg PO DAILY PRN Moderate Pain 04/08/25 04/08/25 History (Scale Score 5-6) Allergies Allergy/AdvReac Type Severity Reaction Status Date / Time amlodipine AdvReac Intermediate peripheral Verified 03/20/25 14:49 edema Review of Systems Review of Systems ROS: Yes All systems reviewed with the patient and are negative except as otherwise documented Exam Vital Signs (past 8 hours): - 04/09/25 03:28 Temperature 98.5 F Pulse Rate 75 Respiratory Rate 22 Blood Pressure 109/62 Pulse Oximetry 95 Oxygen Flow Rate 0 Fraction of Inspired Oxygen 21 SaO2/FiO2 Ratio 442 Oxygen Delivery Method Room Air Oxygen Flow Rate 0 Narrative Exam Narrative: Elderly male in no obvious distress seemingly breathing normally lying in hospital bed HEENT-unremarkable Lungs-diminished breath sounds some scattered end expiratory wheezes in the superior lung gómez Heart-regular rate and rhythm Abdomen-positive bowel tones soft nontender nondistended Extremities-3+ minimally pitting edema the foot and ankle bilaterally, 1+ pretibially to the knee bilateral Objective Labs 04/09/25 05:33 04/09/25 05:33 Labs: Laboratory Results - last 24 hr 04/08/25 04/08/25 04/08/25 12:30 14:29 16:23 WBC 11.3 H RBC 4.63 Hgb 12.6 L Hct 38.3 L MCV 82.8 MCH 27.2 MCHC 32.8 RDW 16.9 H Plt Count 365 Neut % (Auto) 76.7 H Lymph % (Auto) 14.0 L [place] % (Auto) 7.4 Eos % (Auto) 0.8 L Baso % (Auto) 1.1 Neut # (Auto) 8700 H Lymph # (Auto) 1600 [place] # (Auto) 800 Eos # (Auto) 100 Baso # (Auto) 100 PT 15.3 H INR 1.4 H Sodium 137 Potassium 4.3 Chloride 102 Carbon Dioxide 29 BUN 20 Creatinine 0.62 L Estimated GFR > 60 BUN/Creatinine Ratio 32.3 H Glucose 96 Lactate 1.3 Calcium 8.3 L Magnesium Total Bilirubin 2.7 H AST 38 ALT 31 Alkaline Phosphatase 91 Troponin I < 0.012 0.016 < 0.012 NT-Pro-B Natriuret Pep 2680 H Total Protein 6.4 Albumin 3.5 Globulin 2.9 Albumin/Globulin Ratio 1.2 04/09/25 05:33 WBC 7.3 RBC 4.05 L Hgb 11.1 L Hct 33.0 L MCV 81.4 MCH 27.5 MCHC 33.8 RDW 16.8 H Plt Count 328 Neut % (Auto) 82.8 H Lymph % (Auto) 12.0 L [place] % (Auto) 4.4 Eos % (Auto) 0.0 L Baso % (Auto) 0.8 Neut # (Auto) 6000 Lymph # (Auto) 900 L [place] # (Auto) 300 Eos # (Auto) 0 Baso # (Auto) 100 PT INR Sodium 133 L Potassium 4.0 Chloride 97 L Carbon Dioxide 32 BUN 18 Creatinine 0.78 Estimated GFR > 60 BUN/Creatinine Ratio 23.1 H Glucose 168 H Lactate Calcium 8.0 L Magnesium 1.6 Total Bilirubin 2.2 H AST 20 ALT 23 Alkaline Phosphatase 108 Troponin I NT-Pro-B Natriuret Pep 2750 H Total Protein 4.9 L Albumin 2.8 L Globulin 2.1 Albumin/Globulin Ratio 1.3 Assessment & Plan Assessment & Plan narrative: 1. Acute on chronic congestive heart failure with preserved ejection fraction- patient with evidence of heart failure based on elevated BNP chest x-ray findings as well as lower extremity edema. Based on prior history he will require vigorous parental diuresis with furosemide. He was placed on equivalent parental dosing of his furosemide upon admission and I will further increase that given what I believe to be the need for vigorous diuresis based on his prior history It would be appropriate to repeat his echo since last echo was done in April of 2024 so almost a year ago. Fortunately patient is not hypoxic which also makes me think he has some element of COPD exacerbation Continue to monitor electrolytes carefully Patient actually looks much better than he has from a respiratory standpoint on previous admissions and even outpatient visits. 2. COPD-patient also I think he was an element of COPD exacerbation, as above. His BNP is not widely elevated, he was not hypoxic, and does not have entirely classic congestive heart failure symptoms, and so I believe there also is an element of a COPD exacerbation. Patient usually responds nicely to corticosteroid therapy either oral or parental and given that he was hospitalized I will add parental corticosteroids. 3. Cardiac-patient has paroxysmal atrial fibrillation appears to be in sinus rhythm upon admission. Continue to monitor. Previous presentations have included conversion to atrial fibrillation with rapid ventricular response. However that is far far he has remained in sinus rhythm and I will not continue telemetry for now. Also patient was some sort of chest pressure but no evidence of ischemia on EKG and troponin negative x2. Will not follow-up with the additional testing unless symptoms change 4. Peripheral edema-likely a marker for his heart failure. Should improve as we diurese him 5. Anemia-continue monitor his numbers. This point no evidence of active bleeding upon presentation his hemoglobin hematocrit within his usual range. 6. VTE prophylaxis-patient already anticoagulated with Eliquis for his AFib as above. No additional chemo prophylaxis indicated 7. Code status-patient has previously requested full code in the event of a sudden cardiac or respiratory arrest which he was not anticipated during this admission and he verifies that he was his current status as well 8. Hip pain-patient was got bilateral hip pain and or sciatic pain. Describing a pain that is on both sides on the lateral edge of the hip right greater than left that radiates down the back of he was leg. Reports a previous Kenalog injection into what sounds like the greater trochanteric bursa almost a decade ago. Looking for something similar now been very miserable with pain especially when he gets up out of bed. Will have him see outpatient ortho when we have corrected his other issues above. For now maybe the IV steroids will have some benefit for him. Time-Based Coding :: [TOTAL MINUTES] spent with patient and on the chart (including review of chart, obtaining history, exam, reviewing outside data, placing orders, documenting exam and treatment plan, and counseling patient) on [DATE]. Quality VTE Deep Vein Thrombosis/Pulmonary Embolism Present on Admission: No PROFEE Scada Engineer Document charge(s): Yes Charge Codes Initial inpatient/observation care: [id number]
[2025-04-09] MEDS: methylPREDNISolone 125 MG/2 ML VIAL 60 MG IV ×3 (09:00→20:07)
[2025-04-09] MEDS: OXYCODONE IR 5 MG TABLET PO ×3 (09:04→17:50)
[2025-04-09] MEDS: LOSARTAN 25 MG TABLET PO (09:05)
[2025-04-09] MEDS: APIXABAN 5 MG TABLET PO ×2 (09:05→20:07)
[2025-04-09] MEDS: POTASSIUM CHLORIDE 20 MEQ TAB PO (09:05)
[2025-04-09] MEDS: METOPROLOL IR 25 MG TABLET 12.5 MG PO ×2 (09:06→20:06)
[2025-04-09] MEDS: SPIRONOLACTONE 25 MG TABLET PO (09:06)
[2025-04-09] MEDS: MAGNESIUM OXIDE 400 MG TABLET PO ×2 (09:07→20:06)
[2025-04-09] MEDS: ACETAMINOPHEN 325 MG TABLET 650 MG PO (09:09)
[2025-04-09] MEDS: SOTALOL 80 MG TABLET PO ×2 (09:09→20:07)
[2025-04-09] MEDS: FUROSEMIDE 80 MG in SODIUM CHLORIDE 0.9% 50 ML 116 MG IV (09:20)
[2025-04-09] MEDS: SODIUM CHLORIDE 0.9% FLUSH 10 ML IV ×2 (09:26→20:07)
[2025-04-09] MEDS: NYSTATIN POWDER 15GM 1 APPLIC TOP ×2 (12:00→20:17)
--- NOTE | 2025-04-09 13:40 | PT-IP ANOTE ---
PT consult received and spoke with nsg and checked on pt. Pt is currently uncomfortable as far as pain in legs from edema and taking lasix and having frequent urination with several urinals with him in the bed. He declines therapies today and requests initiate next date.
--- NOTE | 2025-04-09 14:38 | OT.IPNOTE ---
OT spoke with PT who consulted with nsg and checked on pt. Pt is currently uncomfortable as far as pain in legs from edema and taking lasix and having frequent. Pt declined all therapies today and requests initiate next date. OT to reattempt tomorrow.
[2025-04-09] MEDS: ALBUTEROL 2.5 MG/3 ML NEB (ADULT) INH (14:54)
[2025-04-09] MEDS: FUROSEMIDE 80 MG in SODIUM CHLORIDE 0.9% 50 ML 100 MG IV (15:01)
--- NOTE | 2025-04-09 15:58 | CM.DANOTE ---
B DCP Assessment Note Pt is a 85yo M admitted with CHF/COPD exacerbation. significant leg swelling. Under care of Dr. Buchanan PCP Dr. Buchanan Payer [employer] Medicare and self pay. CORPORATE STRATEGY ASSOCIATE reviewed EMR. pt unable to work with PT/OT today. per previous admission in Dec 2024, pt confirmed to be living mod indep at home with spouse Tianna in [place]. Support of local son Ion. ref to [facility] made but pt decided to decline referral. pt dc home with no needs from CM team. per RN and today's PN, current plan is to continue vigorous diuresis. CORPORATE STRATEGY ASSOCIATE unable to meet with pt today due to triaging needs. Pt unable to work with PT/OT today due to leg swelling and pain/frequent urination from diuresis. P: anticipate likely return home with family once medically stable. will follow up therapy recs and pt preferences for additional DCP needs. DMITRI Abrams Discharge Planning/Care Management CM Discharge Assessment Start: 04/08/25 18:07 Freq: Status: Active Protocol: Document 04/09/25 15:56 (Rec: 04/09/25 15:58 [id number]) Discharge Planning Assessment Assigned Stoner Out DMITRI Sun DPOA/Assigned Designee Name SpouseTianna Contact Information [phone] Advance Directives? No Advance Directives on File No History Provided By Patient,Medical Record Prior Living Arrangements House Household Members spouse Independent with ADL's Yes Is patient alert and oriented? Yes Discharge Plan Home Transportation Arrangement Ion Estrella Referrals Initiated None needed Review Status In Process Please Provide Date Initial DC 04/09/25 Assessment Was Performed Next Review Type Continued Stay Review
[2025-04-09] MEDS: SENNOSIDES 8.6 MG TABLET 17.2 MG PO (20:06)
[2025-04-09] MEDS: DOCUSATE 100 MG CAPSULE PO (20:06)
[2025-04-09] MEDS: GABAPENTIN 300 MG CAPSULE PO (20:06)
[2025-04-10] VITALS (7 sets, daily range): BP systolic 102–108; BP diastolic 56–73; PULSE 51–68; RESP 18–20; TEMP 36.5–37.1; O2SAT 94–97
[2025-04-10] MEDS: methylPREDNISolone 125 MG/2 ML VIAL 60 MG IV ×3 (01:42→22:19)
[2025-04-10] MEDS: ALBUTEROL 2.5 MG/3 ML NEB (ADULT) INH ×4 (06:15→23:28)
[2025-04-10 06:35] LABS: BUN Creatinine Ratio 32.1 (6-22); Blood Urea Nitrogen 26 mg/dL (9-20); Carbon Dioxide 31 mmol/L (22-32); Chloride 96 mmol/L (98-107); Estimated Glomerular Filt Rate > 60 mL/min (>60); Glucose 206 mg/dL (70-99); HEMOLYSIS < 15 (0-50); Magnesium 1.8 mg/dL (1.6-2.3); Potassium 3.8 mmol/L (3.4-5.1); Sodium 132 mmol/L (137-145)
--- NOTE | 2025-04-10 07:37 | P.PN_ITS ---
Subjective Subjective Date Patient Seen: 04/10/25 Time Patient Seen: 07:37 Interval history: Basically uneventful day yesterday. Still having good urine output with the parental Lasix Still not notably hypoxic. Echocardiography done yesterday does not demonstrate any new finding. Still with normal left ventricular function and minimal evidence of right ventricular overload consistent maybe with early cor pulmonale Still having leg pain declined to participate with physical therapy yesterday. However he was says this morning it does indeed feel better. It he was not as uncomfortable to get up out of bed over to the bedside chair which he was where I found him this morning Swelling and edema in his feet and ankles is definitely improved Exam Vital Signs (past 8 hours): - 04/09/25 23:50 Temperature 98 F Pulse Rate 59 L Respiratory Rate 20 Blood Pressure 116/68 Pulse Oximetry 96 Oxygen Flow Rate 0 Fraction of Inspired Oxygen 21 SaO2/FiO2 Ratio 461 Oxygen Delivery Method Room Air Oxygen Flow Rate 0 Objective Labs 04/09/25 05:33 04/10/25 05:15 Labs: Laboratory Results - last 24 hr 04/10/25 05:15 Sodium 132 L Potassium 3.8 Chloride 96 L Carbon Dioxide 31 BUN 26 H Creatinine 0.81 Estimated GFR > 60 BUN/Creatinine Ratio 32.1 H Glucose 206 H Calcium 8.0 L Magnesium 1.8 PFSH Medical History Erectile dysfunction Chronic heart failure with preserved ejection fraction History of COVID-19 (10/2020) Right inguinal hernia Peripheral edema Testosterone deficiency in male Pulmonary nodule Cardiomyopathy Essential hypertension Atrial fibrillation COPD (chronic obstructive pulmonary disease) Chronic fatigue (11/23/17) Rheumatoid arthritis involving multiple sites (07/28/17) Postherpetic neuralgia (05/20/17) Primary osteoarthritis of both knees (11/22/15) Mild persistent asthma without complication (11/22/15) Surgical History Hx of knee surgery (10/2015) Hx of colonoscopy (10/22/22) S/P cataract extraction Status post cholecystectomy Family History Father Asthma Mother Diabetes mellitus Social History marital status: household members: spouse lives independently: Yes occupational status: previously employed Smoking Status: Former smoker alcohol intake: never substance use type: does not use Assessment & Plan Assessment & Plan narrative: 1. Acute on chronic congestive heart failure-continue with current diuretic dosing etcetera. Monitor electrolytes etcetera. Echo is reassuring 2. COPD exacerbation-continue nebulizers plus parental steroids 3. Cardiac-vital signs stable including heart rate etcetera. 4. Peripheral edema-improved. Continue current diuresis 5. Hip pain-slightly improved. Work with physical therapy and continue with parental steroids which might be beneficial for what seems like more of a greater trochanteric bursitis to me than anything else. Time-Based Coding :: [TOTAL MINUTES] spent with patient and on the chart (including review of chart, obtaining history, exam, reviewing outside data, placing orders, documenting exam and treatment plan, and counseling patient) on [DATE]. Quality VTE Deep Vein Thrombosis/Pulmonary Embolism Present on Admission: No IH PROFEE Medical Receptionist Assistant Document charge(s): Yes Charge Codes Subsequent inpatient/observation care: [id number]
[2025-04-10] MEDS: SOTALOL 80 MG TABLET PO ×2 (09:10→20:52)
[2025-04-10] MEDS: LOSARTAN 25 MG TABLET PO (10:10)
[2025-04-10] MEDS: SPIRONOLACTONE 25 MG TABLET PO (10:10)
[2025-04-10] MEDS: MAGNESIUM OXIDE 400 MG TABLET PO ×2 (10:10→20:53)
[2025-04-10] MEDS: METOPROLOL IR 25 MG TABLET 12.5 MG PO ×2 (10:11→20:52)
[2025-04-10] MEDS: DOCUSATE 100 MG CAPSULE PO ×2 (10:11→20:51)
[2025-04-10] MEDS: POTASSIUM CHLORIDE 20 MEQ TAB PO (10:12)
[2025-04-10] MEDS: OXYCODONE IR 5 MG TABLET PO ×2 (10:16→20:51)
[2025-04-10] MEDS: APIXABAN 5 MG TABLET PO ×2 (10:17→20:52)
[2025-04-10] MEDS: SODIUM CHLORIDE 0.9% FLUSH 10 ML IV ×2 (10:18→20:53)
[2025-04-10] MEDS: CARBOXYMETHYLCELLULOSE DROPS 1 DROPS EYE-BOTH (10:19)
--- NOTE | 2025-04-10 10:40 | PT.IIE ---
Current Diagnoses Acute on chronic diastolic (congestive) heart failure (04/08/25) Surgical History (Last Reviewed 04/09/25 @ 07:34 by Mitchell Buchanan MD) Hx of colonoscopy (10/22/22) Hx of knee surgery (10/2015) S/P cataract extraction Status post cholecystectomy Medical History (Last Reviewed 04/09/25 @ 07:34 by Mitchell Buchanan MD) Atrial fibrillation Cardiomyopathy Chronic fatigue (11/23/17) Chronic heart failure with preserved ejection fraction COPD (chronic obstructive pulmonary disease) Erectile dysfunction Essential hypertension History of COVID-19 (10/2020) Mild persistent asthma without complication (11/22/15) Peripheral edema Postherpetic neuralgia (05/20/17) Primary osteoarthritis of both knees (11/22/15) Pulmonary nodule Rheumatoid arthritis involving multiple sites (07/28/17) Right inguinal hernia Testosterone deficiency in male Physical Therapy Inpatient Evaluation/Re-Eval M1 PT/OT-IP Prior Functional Status Start: 04/09/25 13:36 Freq: NEEDED Status: Active Protocol: Document 04/10/25 10:40 AB (Rec: 04/10/25 14:10 [id number]) Medical Review Prior Functional Status Medical History Yes Reviewed Communication able to make needs known Mobility and Gait pt stated that he was modified independent with all mobilities and ambulation using his hurrycane but for that passed 1-2 weeks has been using his FWW due to SOB /weakness Social History Household Members spouse Living Arrangements House Number of Floors ( 3 or More Floors Floors) Number of Stairs To pt stays on main level of the house Enter/Railing? no steps to enter Home Environment Standard Height Toilet,Tub/Shower,Built-In Shower Seat Home Equipment Front Wheel Walker,Hand Held Shower,Grab Bars In Shower Additional Social spouse is limited to assistance she can provide pt History Comment pt has a hurrycane M2 PT-IP Current Condition Start: 04/09/25 13:36 Freq: NEEDED Status: Active Protocol: Document 04/10/25 10:40 AB (Rec: 04/10/25 14:10 [id number]) Physical Therapy Current Condition Current Condition Evaluation Date 04/10/25 Treatment Diagnosis CHF exacerbation; difficulty in walking Onset Date 04/08/25 M3 PT-IP Subjective Start: 04/09/25 13:36 Freq: NEEDED Status: Active Protocol: Document 04/10/25 10:40 AB (Rec: 04/10/25 14:10 AB [id number]) Subjective Physical Therapy Visit Type Type Initial Evaluation Visit Start Time 10:40 Visit Stop Time 11:05 Number of POULTRY HUSBANDRY TEACHER Visits 0 Physical Therapy Visit Comments Patient Comments agreeable to do PT Therapy Pain Assessment Pain When Pain Assessed At Rest Pain Present Pain Present Pain Reported Location Back Intensity 7 Scale Used Numeric (0 - 10) Pain Management Distraction,Modification of Treatment,Re-positioning, Techniques Timing of Activity with Medications M4 PT-IP Mobility and Gait Start: 04/09/25 13:36 Freq: NEEDED Status: Active Protocol: Document 04/10/25 10:40 AB (Rec: 04/10/25 14:10 AB [id number]) PT-Bed Mobility Assessment Supine to Sit Supine to Sit Standby Assistance PT-Transfer Assessment Sit to and From Stand Sit to and from Contact Guard Assistance,1 Person Assistance,Use of Stand Upper Extremities Equipment Transfer Assistive Bed Rail,Large Based Quad Cane Device Orthotic/Prosthetic No Devices or Brace: Transfers Transfer Destination Chair Transfer Technique ambulated Transfer Ability Level of Assist Contact Guard Assistance,1 Person Assistance,Use of Upper Extremities Comments Mobility Comments pt in bed and agreeable to do PT. obtained PLOF and home set up. O2 sat: 95% at RA. pt completed sit to stand from chair CGA and ambulated in room using FWW CGA ~ 30 ft. pt sat on EOB. (+) SOB. O2 sat: 93%. pt completed sit<>supine SBA. pt agreed to go back to the chair. sit to stand CGA and step transfer to chair CGA . positioned pt on the chair. call light and table placed within reach. Gait Assessment Gait Gait Assistance Contact Guard Assist Required: Distance (Feet) 30 Able to Maintain Yes Weight Bearing Status During Gait Assistive Devices Assistive Device Gait Belt,Front Wheeled Walker Orthotic/Prosthetic No Devices or Brace: Gait Deviations General Gait Pattern Decreased Stride Length,Decreased Feet Clearance Factors Limiting Gait Function Factors Limiting Decreased Activity Tolerance,Decreased Strength,Limited Gait Function Range of Motion,Pain,Poor Balance,Poor Safety Awareness,Respiratory Distress PT-Balance Assessment Sitting Balance and Reactions Static Sitting Normal Balance Ability Dynamic Sitting Good Balance Ability Standing Balance and Reactions Static Standing Good Balance Ability Dynamic Standing Fair Balance Ability Device Used FWW M5 PT-IP Objective Assessments Start: 04/09/25 13:36 Freq: NEEDED Status: Active Protocol: Document 04/10/25 10:40 AB (Rec: 04/10/25 14:10 AB [id number]) Orientation Orientation/Cognition Level of Alertness Alert Orientation Name,Place,Situation Language Function Hard of Hearing Ability Safety Awareness Decreased Safety Awareness Memory Description Short Term Impaired Gross Range of Motion Lower Extremity ROM Assessment Within Functional Limits Strength Lower Extremity Strength Assessment Within Functional Limits Coordination Assessment Gross Coordination Gross Coordination WNL Muscle Tone Muscle Tone WNL Yes M6 PT-IP Treatment Start: 04/09/25 13:36 Freq: NEEDED Status: Active Protocol: Document 04/10/25 10:40 AB (Rec: 04/10/25 14:10 AB [id number]) Physical Therapy Treatment Education Education Provided Safety M7 PT-IP Assessment and Plan Start: 04/09/25 13:36 Freq: NEEDED Status: Active Protocol: Document 04/10/25 10:40 AB (Rec: 04/10/25 14:10 AB [id number]) PT Summary Assessment and Plan Potential Rehabilitation Fair Potential Status of Condition Evolving at Evaluation Summary Impairments Pain,ROM,Strength,Balance,Coordination,Sensation,Bed Mobility,Transfers,Gait,Activity Tolerance Assessment Summary pt is an 85 y/o M who is admitted for CHF exacerbation. pt requiring CGA with mobility using FWW and has decrease activity tolerance with (+) SOB with mobility but stable O2 sat: 93%. pt plans to go home and can assist some but limited. pt will benefit from HHPT. Goals Bed Mobility Goal Independent Transfer Goal Independent,Front Wheeled Walker Gait Goal Independent,Front Wheel Walker Gait Distance 75 Other Goals improve transfers and ambulation using hurrycane SBA ~ 150 ft Days to Meet Goals 10 Frequency of Treatment Frequency Of Once a Day Treatment Treatment Plan Physical Therapy Bed Mobility Training,Transfer Training,Gait Training, Treatment Plan Therapeutic Exercise,Balance Retraining,Discharge Planning,Hot or Cold Pack,Neuromuscular Re-ed, Coordination Retraining Precautions Other Precautions O2 sat Recommendations To Nursing Amount of Assist 1 Person Assist Needed Discharge Recommendations PT Discharge Home with Assistance,Home Health Recommendations Transportation Needs Private Vehicle at Discharge - PT assist 1
[2025-04-10] MEDS: FUROSEMIDE 80 MG in SODIUM CHLORIDE 0.9% 50 ML 116 MG IV ×2 (13:06→22:22)
--- NOTE | 2025-04-10 13:26 | OT.IPNOTE ---
Went to see pt for OT eval. Pt states has been independent in the room for ADL needs and no OT needed at this time. Encouraged pt to take the urinal home with him. Discharge OT eval orders.
--- NOTE | 2025-04-10 18:19 | PC.NURSE ---
Pt had relatively uneventful day Up in chair SL intact/patent. Call light w/in reach. Pt calls appropriately for needs. Continue w/ plan of care.
[2025-04-10] MEDS: SENNOSIDES 8.6 MG TABLET 17.2 MG PO (20:52)
[2025-04-10] MEDS: GABAPENTIN 300 MG CAPSULE PO (20:52)
[2025-04-10] MEDS: ACETAMINOPHEN 325 MG TABLET 650 MG PO (20:52)
[2025-04-11 02:27] VITALS: O2SAT 95
[2025-04-11] MEDS: methylPREDNISolone 125 MG/2 ML VIAL 60 MG IV ×2 (03:06→09:20)
[2025-04-11 06:12] LABS: Hematocrit 35.2 % (41-53); Hemoglobin 11.4 g/dL (13.5-17.5)
[2025-04-11 06:24] LABS: BUN Creatinine Ratio 46.1 (6-22); Blood Urea Nitrogen 41 mg/dL (9-20); Calcium 8.1 mg/dL (8.4-10.2); Carbon Dioxide 33 mmol/L (22-32); Chloride 95 mmol/L (98-107); Estimated Glomerular Filt Rate > 60 mL/min (>60); Glucose 186 mg/dL (70-99); HEMOLYSIS < 15 (0-50); Magnesium 1.8 mg/dL (1.6-2.3); Potassium 3.6 mmol/L (3.4-5.1); Sodium 133 mmol/L (137-145)
[2025-04-11] MEDS: ALBUTEROL 2.5 MG/3 ML NEB (ADULT) INH (07:24)
[2025-04-11 07:26] VITALS: O2SAT 93
[2025-04-11 08:00] VITALS: BP 142/76; PULSE 63; RESP 18; TEMP 36.4; O2SAT 98
[2025-04-11] MEDS: FUROSEMIDE 80 MG in SODIUM CHLORIDE 0.9% 50 ML 116 MG IV (08:04)
[2025-04-11] MEDS: SOTALOL 80 MG TABLET PO (08:24)
[2025-04-11] MEDS: DOCUSATE 100 MG CAPSULE PO (08:24)
[2025-04-11] MEDS: METOPROLOL IR 25 MG TABLET 12.5 MG PO (08:24)
[2025-04-11] MEDS: POTASSIUM CHLORIDE 20 MEQ TAB PO (08:24)
[2025-04-11] MEDS: APIXABAN 5 MG TABLET PO (08:25)
[2025-04-11] MEDS: MAGNESIUM OXIDE 400 MG TABLET PO (08:25)
[2025-04-11] MEDS: SPIRONOLACTONE 25 MG TABLET PO (08:25)
[2025-04-11] MEDS: SODIUM CHLORIDE 0.9% FLUSH 10 ML IV ×2 (08:28→08:57)
--- NOTE | 2025-04-11 08:42 | PM.DS.IH.1 ---
History of Present Illness History of Present Illness Date Patient Seen: 04/11/25 Time Patient Seen: 08:42 Chief complaint: Chest Pain, Limb Swelling, Sciatica Pain Narrative: 85-year-old male well known to me with both significant congestive heart failure (chronic congestive heart failure with preserved ejection fraction), significant lower extremity edema as a marker for his heart failure, and severe COPD. He presented to the [facility] emergency department yesterday evening with increasing shortness a breath and increased bilateral leg swelling. Patient has been taking all his medications including his diuretics. Patient was significant wheezing to go along with the dyspnea. Apparently some degree of chest pressure but negative troponin and EKG in the ED No syncope near-syncope lightheadedness or dizziness. Patient does express some degree of orthopnea although no PND Lab work demonstrated slight elevation of BNP over his baseline (which is about 1200), and chest x-ray which is consistent with some early pulmonary edema and no infiltrate He was admitted for treatment of presumably primarily congestive heart failure but also perhaps an element of COPD Discharge Providers Provider Date of admission: 04/08/25 18:04 Discharge Date: 04/11/25 Primary care physician: Mitchell Buchanan MD Consults: 04/08/25 20:33 Consult to Discharge Planning Routine Comment: Consult to Occupational Therapy Evaluate & Treat Comment: Physician Instructions: Evaluate and treat Consult to Physical Therapy Evaluate & Treat Comment: Physician Instructions: Evaluate and Treat Discharge provider: Mitchell Buchanan MD Summary Hospital Course Discharge Diagnosis: 1. Acute on chronic congestive heart failure with preserved ejection fraction 2. COPD exacerbation 3. Paroxysmal atrial fibrillation 4. Essential hypertension 5. Bilateral hip pain 6. Peripheral edema 7. Chronic anemia 8. Hypogonadism in male Hospital Course: Patient was admitted as above. With vigorous parental diuresis his peripheral edema improved tremendously, electrolytes and renal function remained stable. Breathing improved somewhat as well. Of note he was never really hypoxic but his stamina etcetera improved He was felt to be stable for discharge but will be switch to oral torsemide rather than the furosemide which did not seem to be having the desired effect as an outpatient Patient was also placed on parental corticosteroids for possible element of COPD exacerbation given his clinical presentation. He was breathing also improved significantly suggesting improvement in his COPD as well. He was be discharged on a tapering course of prednisone as well as continuing on his Trelegy and albuterol as an outpatient Patient also with bilateral hip pain perhaps related to an element of greater trochanteric bursitis. Patient does carry a diagnose of rheumatoid arthritis, last seen by Rheumatology in 2022. Formerly on methotrexate not currently. The parental corticosteroids may have made a difference with his hip pain as well. Will plan for him to see orthopedic surgery for his ongoing hip pain as an outpatient Patient was up and around felt to be independent with physical therapy and therefore felt to be safe for discharge home. This is what was expected. Status at Discharge Cognitive/behavioral status at discharge: at baseline, oriented Functional status at discharge: independent ambulation Overall status at discharge: patient is progressing back to baseline Time Spent with Patient Time spent: Greater than 30 minutes Exam Vital Signs (past 8 hours): - 04/11/25 02:27 04/11/25 07:26 Pulse Oximetry 95 93 Oxygen Delivery Method Room Air Room Air Fraction of Inspired Oxygen 21 SaO2/FiO2 Ratio 457 Oxygen Delivery Method Room Air Oxygen Flow Rate 0 Objective Labs 04/11/25 05:35 04/11/25 05:35 Labs: Laboratory Results - last 24 hr 04/11/25 05:35 Hgb 11.4 L Hct 35.2 L Sodium 133 L Potassium 3.6 Chloride 95 L Carbon Dioxide 33 H BUN 41 H Creatinine 0.89 Estimated GFR > 60 BUN/Creatinine Ratio 46.1 H Glucose 186 H Calcium 8.1 L Magnesium 1.8 PFSH Medical History Erectile dysfunction Chronic heart failure with preserved ejection fraction History of COVID-19 (10/2020) Right inguinal hernia Peripheral edema Testosterone deficiency in male Pulmonary nodule Cardiomyopathy Essential hypertension Atrial fibrillation COPD (chronic obstructive pulmonary disease) Chronic fatigue (11/23/17) Rheumatoid arthritis involving multiple sites (07/28/17) Postherpetic neuralgia (05/20/17) Primary osteoarthritis of both knees (11/22/15) Mild persistent asthma without complication (11/22/15) Surgical History Hx of knee surgery (10/2015) Hx of colonoscopy (10/22/22) S/P cataract extraction Status post cholecystectomy Family History Father Asthma Mother Diabetes mellitus Social History marital status: household members: spouse lives independently: Yes occupational status: previously employed Smoking Status: Former smoker alcohol intake: never substance use type: does not use Discharge Plan Discharge orders & Medications Discharge Orders: Discharge (Order); Ordered 04/11/25 Ordered By: Mitchell Buchanan Prescriptions: New torsemide 20 mg tablet 40 mg PO BID Qty: 120 3RF Rx Instructions: Take one dose in am, one at noon prednisone 20 mg tablet See Rx Instructions .ROUTE .COMPLEX Qty: 60 0RF Rx Instructions: Take 2 tabs daily by mouth for 2 weeks, then 1 tab daily for 1 week, then 1/2 tab daily Continued potassium chloride 20 mEq tablet extended release 20 meq PO DAILY Qty: 90 3RF albuterol sulfate [Ventolin HFA] 90 mcg/actuation HFA aerosol inhaler 2 inh inhalation Q4-6H PRN (Reason: shortness of breath or wheezing) Qty: 25.5 10RF testosterone cypionate [Depo-Testosterone] 200 mg/mL oil 300 mg IM Q4W Qty: 10 2RF gabapentin 300 mg capsule 300 mg PO BEDTIME Qty: 90 3RF albuterol sulfate 2.5 mg /3 mL (0.083 %) solution for nebulization 2.5 mg continuous nebulization Q6H PRN (Reason: Dyspnea) Qty: 90 1RF apixaban 5 mg tablet 5 mg PO BID Qty: 180 1RF losartan 25 mg tablet 25 mg PO DAILY Qty: 90 1RF spironolactone 25 mg tablet 25 mg PO DAILY sotalol 80 mg tablet 80 mg PO BID metoprolol tartrate 25 mg tablet 12.5 mg PO BID Qty: 60 12RF sildenafil 100 mg tablet 50 - 100 mg PO DAILY PRN (Reason: sexual activity) Qty: 10 4RF Rx Instructions: administer 30 minutes to 4 hours before activity magnesium oxide 500 mg tablet 400 mg PO BID nystatin 100,000 unit/gram cream 1 applic topical BID Qty: 30 1RF Rx Instructions: to pannus, under r breast and groin folds Trelegy Ellipta 200-62.5-25 mcg blister with device 1 ea inhalation DAILY oxycodone-acetaminophen 5-325 mg tablet 1 tab PO Q8H MDD 3 tabs PRN (Reason: pain) Qty: 30 0RF Discontinued furosemide [Lasix] 40 mg tablet 40 mg PO BID Qty: 180 3RF Rx Instructions: take in AM and at noon prednisone 20 mg tablet 20 mg PO DAILY PRN (Reason: Moderate Pain (Scale Score 5-6)) Patient Comments: states takes for leg pain No Action (DME) Disabled Parking See Rx Instructions .ROUTE .MEDSUPPLY Qty: 1 0RF Rx Instructions: Patient qualifies for disabled parking as per the attached form. (DME) spacer for inhaled meds See Rx Instructions .Route .MEDSUPPLY Qty: 1 0RF Rx Instructions: As directed Follow up/Referrals: Mitchell Buchanan MD [Primary Care Provider, Internal Medicine] - 1 Week Discharge Health Status Multidrug resistant organism: No MDRO Diet/Activity/Treatments Diet: Diet as Tolerated and Low-sodium Visit Report/Discharge Packet Stand Alone Forms: Patient Portal/API Discharge Data Primary Care Provider: Mitchell Buchanan Quality VTE Deep Vein Thrombosis/Pulmonary Embolism Present on Admission: No IH PROFEE Charge Codes Discharge inpatient/observation: 34938
[2025-04-11] MEDS: LOSARTAN 25 MG TABLET PO (09:20)
--- NOTE | 2025-04-11 09:25 | CM.DPNOTE ---
DCP Note POLICE GUARD reviewed EMR per provider, cleared for DC today. per PT, rec home with assistance vs HH. POLICE GUARD met with pt briefly in room. pt agreeable to dc today. denies HH, poor hx with [facility] in the past. POLICE GUARD informed pt if he changes his mind to call PCP office and ask for [facility], pt reports understanding. denies other CM/DCP needs. report ride will be here within the hour. P: anticipate dc today home with partner/family support. no identified CM needs at this time. will continue to follow as needed DMITRI Dawson
--- NOTE | 2025-04-11 11:38 | PC.NURSE ---
Pt sitting in chair, Denies discomfort Swelling in legs much improved. Orders for D/C received. SL D/C intact. Home instructions given w/understanding, Pt escorted by staff via W/C to waiting vehicle D/C in stable status,
== END 2025-04-11 11:42 | disposition home or self-care (01) | DRG 291 ==
LOC: ED 12:46 → AC 18:04
PROVIDERS: Admitting Provider Family Medicine; Emergency Provider Student in an Organized Health Care Education/Training Program; PCP Internal Medicine; Referring Provider Student in an Organized Health Care Education/Training Program; Visit Provider Internal Medicine
DX: I11.0 Hypertensive heart disease with heart failure (principal); I50.33 Acute on chronic diastolic (congestive) heart failure; J44.1 Chronic obstructive pulmonary disease with (acute) exacerbation; I48.0 Paroxysmal atrial fibrillation; D64.9 Anemia, unspecified; M54.32 Sciatica, left side; E29.1 Testicular hypofunction; M71.552 Other bursitis, not elsewhere classified, left hip; M71.551 Other bursitis, not elsewhere classified, right hip; M06.9 Rheumatoid arthritis, unspecified; Z87.891 Personal history of nicotine dependence; Z79.01 Long term (current) use of anticoagulants
CPT/HCPCS: 36415; 71045; 80048; 80053; 83605; 83735; 83880; 84484; 85014; 85018; 85025; 85610; 93005; 93306; 94640; 94760; 96374; 97162; 97530; 99223; 99233; 99239; 99284; 99285; A9270; J1938; J2919; J7613

== ENCOUNTER → 2025-04-17 10:16 | Outpatient (CLI) | payer OTHER, SELFPAY ==
[2025-04-08 18:07] VITALS: BMI 30.4
[2025-04-17 11:16] LABS: BUN Creatinine Ratio 35.3 (6-22); Blood Urea Nitrogen 30 mg/dL (9-20); Calcium 9.1 mg/dL (8.4-10.2); Carbon Dioxide 33 mmol/L (22-32); Chloride 94 mmol/L (98-107); Estimated Glomerular Filt Rate > 60 mL/min (>60); Glucose 77 mg/dL (70-99); HEMOLYSIS 15 (0-50); Potassium 4.2 mmol/L (3.4-5.1); Sodium 134 mmol/L (137-145)
== END ==
PROVIDERS: PCP Internal Medicine; Referring Provider Internal Medicine; Visit Provider Internal Medicine
DX: I50.23 Acute on chronic systolic (congestive) heart failure (principal); I11.0 Hypertensive heart disease with heart failure; I50.32 Chronic diastolic (congestive) heart failure; J44.1 Chronic obstructive pulmonary disease with (acute) exacerbation; R60.9 Edema, unspecified
CPT/HCPCS: 36415; 80048; 83735

== ENCOUNTER → 2025-05-31 10:22 | Outpatient (CLI) | payer OTHER, SELFPAY ==
[2025-05-16 11:25] VITALS: BMI 30.4
--- NOTE | 2025-05-31 10:24 | DI.RAD.S_ITS ---
PROCEDURE: XR LUMBAR SPINE MIN 4V INDICATIONS: BACK PAIN TECHNIQUE: 5 views of the lumbar spine were acquired, including bilateral oblique views. COMPARISON: [facility], CR, XR LUMBAR SPINE WITH OBLIQUES, 05/08/2021, 10:49. [facility], MR, MR LUMBAR SPINE WITHOUT CONTRAST, 04/23/2023, 14:03. [facility], CR, L-SPINE MINIMUM 4 VIEWS, 06/05/2016, 12:52. [facility], CT, CT ABDOMEN PELVIS W CON, 12/14/2024, 18:48. FINDINGS: Bones: This patient has transitional lumbar anatomy. For the purposes of this examination, the level with the last pair of ribs is considered to be T12. By this numbering scheme, the S1 level is transitional and is lumbarized on the left. There is a rudimentary S1-S2 disc present. This numbering scheme is chosen to remain consistent with the numbering scheme from the 2020 plain film. No new fractures are seen. There are remote compression deformity seen of L4, L5, and S1. The disc heights are relatively well preserved. Lower lumbar spine facet arthropathy is seen. Soft tissues: Overlying bowel gas pattern is normal. No suspicious soft tissue calcifications. Cholecystectomy clips are seen. Oblique images: No pars defects. IMPRESSION: No acute plain film abnormality is seen. Remote central compression deformities at L4 and L5 and S1. Degenerative changes are seen, with facet arthropathy. There is transitional lumbar anatomy, with the S1 level lumbarized on the left side. If it would be helpful for clinical management decision making, please consider a dedicated, scheduled lumbar spine MRI for further evaluation (assuming that there is no contraindication). Dictated by: Terry Jiang M.D. on 05/31/2025 at 10:34 Approved by: Terry Jiang M.D. on 05/31/2025 at 10:40
== END ==
PROVIDERS: PCP Internal Medicine; Referring Provider Internal Medicine; Visit Provider Physical Medicine & Rehabilitation
DX: M47.26 Other spondylosis with radiculopathy, lumbar region (principal); M43.8X7 Other specified deforming dorsopathies, lumbosacral region
CPT/HCPCS: 72110

== ENCOUNTER → 2025-07-12 12:02 | Outpatient (CLI) | payer OTHER, SELFPAY ==
[2025-05-16 11:25] VITALS: BMI 30.4
== END ==
PROVIDERS: PCP Internal Medicine; Referring Provider Internal Medicine; Visit Provider Internal Medicine
DX: E29.1 Testicular hypofunction (principal)
CPT/HCPCS: 36415; 84402; 84403

== ENCOUNTER 2025-07-25 10:44 | Outpatient (CLI) | payer OTHER, SELFPAY ==
[2025-05-16 11:25] VITALS: BMI 30.4
[2025-07-25 11:10] VITALS: BP 106/73; PULSE 110; RESP 16; TEMP 37; O2SAT 97
[2025-07-25 11:40] VITALS: BP 116/83; PULSE 82; RESP 18; O2SAT 95
[2025-07-25] MEDS: LIDOCAINE 1% (PF) 5 ML INJ (11:47)
[2025-07-25 11:55] VITALS: BP 125/95; PULSE 83; RESP 16; O2SAT 97
--- NOTE | 2025-07-25 12:14 | PM.PROC.IR.1 ---
Date/Time/Diagnoses Date of procedure: 06/13/25 Time of procedure: 11:30 Pre-procedure diagnosis: Lumbosacral radiculopathy, lumbar stenosis Post-procedure diagnosis: same Procedure Notes Procedure: Interlaminar epidural steroid injection L5-S1 Indications: Lumbosacral radiculopathy, lumbar stenosis Physician: Maverick Vitale Total sedation minutes: 0 Complications: none Procedure in detail & Post-procedure care: Patient is here for the planned procedure today as noted. No significant change since the last office visit. For additional clinical scenario please see those office notes. Focused exam: Vital signs reviewed as charted on intake. Gen: Well developed. No acute distress. CV: Irregularly irregular, intermittently rapid (known AFib) Chest: Non-labored breathing, rough lung sounds bilaterally. (history COPD) Psych: Alert and well-oriented. Mood/Affect: normal. Patient suitable for the planned procedure today: Yes === The following procedure was performed in the office today: Lumbar Epidural Steroid Injection with fluoroscopic guidance - Interlaminar approach (68690) Levels Treated: [L5-S1] Approach: interlaminar Soft tissue: [1% lidocaine 2 mL] Test dose: [1% lidocaine 1 mL] Injectate: 0.75 mL of Depo-Medrol (80mg/mL) in 1.25 mL 1% lidocaine and 1 mL normal saline Fluoroscopy Agent: Isovue 300-M 1.5 mL Notes: 1- Note he is on Eliquis, held for the procedure, last dose Wednesday evening 07/22/25. He may resume 6 hours postprocedure. 2- Transitional lumbosacral anatomy. Targeting the lowest interlaminar opening here. 3.5 in 20 gauge Touhy needle utilized and adequate. Procedure: After discussing the risks, benefits, and alternatives to the procedure, the patient expressed understanding and wished to proceed. The risks include but are not limited to infection, allergic reaction, nerve damage, stroke, paralysis, epidural hematoma, syncope, headache, respiratory or cardiac arrest, spinal cord injury, and scar formation. Informed consent was obtained and all patient questions were answered. The patient was brought to the procedure suite and placed in the prone position. A pre-procedural pause was conducted to verify: correct patient identity, procedure to be performed and as applicable, correct side and site, correct patient position, and any special requirements. Using a paramedian approach from the side noted above, the region overlying the target was localized under fluoroscopic visualization and the soft tissues overlying this structure were infiltrated with the anesthetic listed above. With fluoroscopic guidance, a #20 gauge Tuohy needle (unless otherwise noted) was inserted into the epidural space using a paramedian approach. The epidural space was localized utilizing intermittent multiplanar fluoroscopic guidance and loss of resistance technique. After negative aspiration, the contrast noted above was injected into the epidural space and the flow of contrast was observed, confirming epidural spread without evidence of intravascular or intrathecal spread. Multi-planar radiographs were obtained for documentation purposes. A test dose of lidocaine was injected into the above noted epidural space, and the patient was observed for 30-60 seconds. No sensory deficits were reported and normal lower extremity motor function was noted. Subsequently, the injectate as noted above was administered into the level noted above. The patient tolerated the procedure well and was discharged after an appropriate period of observation. If there are any complications, the patient was instructed to call us. The patient is to follow-up with the requesting provider in 2-3 weeks. This note was compiled using voice recognition software and therefore may contain typos. Please contact the author with any questions or concerns.
== END 2025-07-25 12:05 | disposition home or self-care (01) ==
PROVIDERS: PCP Internal Medicine; Referring Provider Physical Medicine & Rehabilitation; Visit Provider Physical Medicine & Rehabilitation
DX: M54.17 Radiculopathy, lumbosacral region (principal); M48.061 Spinal stenosis, lumbar region without neurogenic claudication
CPT/HCPCS: 62323; J1010

== ENCOUNTER 2025-08-17 11:50 | Inpatient (IN) | payer OTHER, SELFPAY ==
[2025-05-16 11:25] VITALS: BMI 30.4
[2025-08-17] VITALS (16 sets, daily range): BP systolic 101–133; BP diastolic 57–92; PULSE 80–149; RESP 13–24; TEMP 36.3; O2SAT 92–98; BMI 28.8
--- NOTE | 2025-08-17 12:03 | DI.RAD.S_ITS ---
PROCEDURE: XR CHEST 1V INDICATIONS: Shortness of breath TECHNIQUE: One view of the chest was acquired. COMPARISON: [facility], CR, XR CHEST 1V, 04/08/2025, 12:30. FINDINGS: Mild bilateral perihilar and lower lobe peribronchial thickening with patchy lower lobe opacities, more than expected for expiratory result. Bronchitis, pneumonia, viral infection, or other process should be considered. Mild bibasilar subsegmental atelectasis. Mildly enlarged cardiopericardial silhouette. Mildly prominent wisam, pulmonary vascular congestion and/or hilar lymph nodes. Calcifications of the aortic arch with tortuous descending aorta. Degenerative changes of the thoracic spine and shoulders. No pneumothorax, no pleural effusion, no lobar consolidation IMPRESSION: Peribronchial thickening and patchy opacities as discussed above. Mildly enlarged cardiopericardial silhouette and prominent wisam. Follow-up suggested. If symptoms persist or worsen, or there is high clinical suspicion of thoracic abnormality, CT chest could be performed. Dictated by: Dave Morales M.D. on 08/17/2025 at 14:11 Approved by: Dave Morales M.D. on 08/17/2025 at 14:19
--- NOTE | 2025-08-17 12:15 | EKG_ITS ---
[facility] [address] [place] [address] Test Date: 2025-08-17 Pat Name: Blayne Hopkins Department: [facility] Room: Gender: Male Datastage Consultant: SUSY : 1940 Requested By: Order Number: [id number] Reading MD: Orlando Phan Measurements Intervals [place] Rate: 106 P: HI: QRS: 6 QRSD: 74 T: -3 QT: 340 QTc: 451 Interpretive Statements Atrial fibrillation with rapid ventricular response with premature ventricular or aberrantly conducted complexes Low voltage QRS Electronically Signed On 08-17-2025 18:47:39 PDT by Orlando Phan
[2025-08-17 12:24] LABS: Add Manual Diff / Slide Review NO; Hematocrit 39.5 % (41-53); Hemoglobin 12.7 g/dL (13.5-17.5); Lymphocytes Absolute Auto 1400 /uL (1100-4500); Mean Corpuscular HGB Conc 32.3 % (30-36); Mean Corpuscular Hemoglobin 25.1 PG (26-34); Mean Corpuscular Volume 77.7 fL (80-100); Platelet Count 349 X10^3/uL (150-400)
[2025-08-17 12:35] LABS: INR 1.3 (0.9-1.3); Prothrombin Time 14.7 SECONDS (9.4-12.5)
[2025-08-17 12:38] LABS: Alanine Aminotransferase 13 IU/L (<50); Albumin 3.7 g/dL (3.5-5.0); Albumin Globulin Ratio 1.3 (1.0-2.8); Alkaline Phosphatase 95 U/L (38-126); Blood Urea Nitrogen 12 mg/dL (9-20); Calcium 8.5 mg/dL (8.4-10.2); Carbon Dioxide 29 mmol/L (22-32); Chloride 99 mmol/L (98-107); Estimated Glomerular Filt Rate > 60 mL/min (>60); Globulin 2.9 g/dL (1.7-4.1); Glucose 74 mg/dL (70-99); HEMOLYSIS < 15 (0-50); Potassium 3.9 mmol/L (3.4-5.1); Sodium 136 mmol/L (137-145); Total Protein 6.6 g/dL (6.3-8.2)
[2025-08-17 12:39] LABS: Lactate (Lactic Acid) 1.0 mmol/L (0.7-2.1)
[2025-08-17 12:50] LABS: NT-proBNP (BNP-Adult 18+) 3520 pg/mL (<450); Troponin I < 0.012 ng/mL (0.01-0.034)
--- NOTE | 2025-08-17 16:41 | ED.SOB ---
HPI - SOB/Dyspnea General Chief Complaint: Shortness of Breath/Dyspnea Stated Complaint: Having Heart issues, low O2, SOB Time Seen by Provider: 08/17/25 16:41 History of Present Illness HPI Narrative: Patient is a 85-year-old male history of atrial fibrillation congestive heart failure presenting today with increasing shortness of breath and swelling. He reports that he has noticed swelling ongoing for almost a week. 3 days ago he doubled his furosemide and taking 40 in the morning and 40 mg at noon. He has not noted any decrease in the swelling of his arms or legs and having continued increasing shortness of breath with exertion and at rest. He reports it last time he was here he needed to stay for number of days for diuresis. He is also complaining of some chest discomfort as well and reports some heaviness. No fevers no chills. Related Data Home Medications ?Medication ?Instructions ?Recorded ?Confirmed spironolactone 25 mg tablet 25 mg PO DAILY 03/02/22 08/17/25 magnesium oxide 400 mg PO BID 08/17/23 08/17/25 sotalol 80 mg tablet 80 mg PO BID 09/29/24 08/17/25 fluticasone fur. 200 mcg-umeclid 1 ea inhalation DAILY 04/08/25 08/17/25 62.5 mcg-vilant 25 mcg inhalat.powder (Trelegy Ellipta) Previous Rx's ?Medication ?Instructions ?Recorded apixaban 5 mg tablet 5 mg PO BID #180 tabs 05/05/21 losartan 25 mg tablet 25 mg PO DAILY #90 tabs 05/05/21 nystatin 100,000 unit/gram topical 1 applic topical BID #30 grams 08/20/23 cream spacer for inhaled meds #1 ea 09/02/23 potassium chloride 20 mEq 20 meq PO DAILY #90 tabs 03/24/24 tablet,extended release albuterol sulfate 2.5 mg/3 mL 2.5 mg (3 mL) continuous 03/06/25 (0.083 %) solution for nebulization nebulization Q6H PRN Dyspnea #90 mL metoprolol tartrate 25 mg tablet 12.5 mg (1/2 x 25 mg) PO BID #60 03/16/25 tabs Disabled [address]ing #1 ea 04/17/25 torsemide 20 mg tablet 40 mg (2 x 20 mg) PO DAILY #120 05/08/25 tabs albuterol sulfate 90 mcg/actuation 2 inh inhalation Q4-6H PRN 06/11/25 aerosol inhaler (Ventolin HFA) shortness of breath or wheezing #8.5 grams gabapentin 300 mg capsule 300 - 600 mg (1 - 2 x 300 mg) PO 06/19/25 TID PRN back pain #360 caps tadalafil 20 mg tablet 20 mg PO DAILY PRN sexual activity 07/12/25 #30 tabs oxycodone-acetaminophen 5 mg-325 1 tab PO Q8H PRN pain #30 tabs 08/09/25 mg tablet prednisone 20 mg tablet 20 mg PO DAILY PRN joint pain #60 08/09/25 tabs testosterone cypionate 200 mg/mL 300 mg (1.5 mL) IM Q4W #10 mL 08/09/25 intramuscular oil (Depo-Testosterone) Allergies Allergy/AdvReac Type Severity Reaction Status Date / Time amlodipine AdvReac Intermediate peripheral Verified 08/09/25 10:09 edema Patient History Medical History (Updated 08/17/25 @ 19:56 by Sanam Concepcion DO) Lumbar stenosis with neurogenic claudication Spondylolisthesis of lumbar region Sacroiliitis Sacroiliac joint pain Lumbar radiculopathy Erectile dysfunction Chronic heart failure with preserved ejection fraction History of COVID-19 (10/2020) Right inguinal hernia Peripheral edema Testosterone deficiency in male Pulmonary nodule Cardiomyopathy Essential hypertension Atrial fibrillation COPD (chronic obstructive pulmonary disease) Chronic fatigue (11/23/17) Rheumatoid arthritis involving multiple sites (07/28/17) Postherpetic neuralgia (05/20/17) Primary osteoarthritis of both knees (11/22/15) Mild persistent asthma without complication (11/22/15) Surgical History Hx of knee surgery (10/2015) Hx of colonoscopy (10/22/22) S/P cataract extraction Status post cholecystectomy Family History Father Asthma Mother Diabetes mellitus Social History marital status: household members: spouse lives independently: Yes occupational status: previously employed alcohol intake: never substance use type: does not use alcohol intake frequency: a few times a month Exam Initial Vital Signs Initial Vital Signs: Vital Signs Temperature 97.4 F L 08/17/25 11:59 Pulse Rate 126 H 08/17/25 11:59 Respiratory Rate 20 08/17/25 11:59 Blood Pressure 133/73 08/17/25 11:59 Pulse Oximetry 97 08/17/25 11:59 Oxygen Delivery Method Room Air 08/17/25 11:59 GENERAL: Alert 85-year-old male and in no acute distress. HEENT: Head atraumatic,EOMI, pupils reactive, face symmetric, moist mucous membranes CARDIOVASCULAR: Regular rate and rhythm without murmurs, rubs or gallops. RESPIRATORY: Coarse breath sounds bilaterally ABDOMEN: Soft, nontender. Normoactive bowel sounds all 4 quadrants. No guarding or rebound. EXTREMITIES: Normal range of motion, no clubbing +3 pitting edema bilaterally also are is are noted to have edema and swelling as well. NEUROLOGICAL: Alert and oriented x4.Normal gait and speech. Cranial nerves II through XII grossly intact. SKIN: Warm, dry, no laceration, no petechiae, no rashes or lesions. Course Orders Ordered: Albuterol/Ipratropium (Albuterol/Ipratropium 3 Ml Ampul) 3 ml INH Q1H PRN PRN Reason: Shortness Of Breath Apixaban (Apixaban 5 Mg Tablet) 5 mg PO BID [facility] Losartan Potassium (Losartan 25 Mg Tablet) 25 mg PO DAILY [facility] Metoprolol Tartrate (Metoprolol Ir 25 Mg Tablet) 12.5 mg PO BID [facility] Sotalol HCl (Sotalol 80 Mg Tablet) 80 mg PO BID [facility] Spironolactone (Spironolactone 25 Mg Tablet) 25 mg PO DAILY JOMAR Discontinued Medications Acetaminophen (Acetaminophen 325 Mg Tablet) 650 mg PO Q6H PRN PRN Reason: Fever/Mild Pain (1-3) Hydrocodone Bitart/Acetaminophen (Hydrocodone/Acet 5/325 Tablet) 1 tab PO Q4H PRN PRN Reason: Pain, Moderate (4-6) Docusate Sodium (Docusate 100 Mg Capsule) 100 mg PO BID [facility] Enoxaparin Sodium (Enoxaparin 40 Mg/0.4 Ml Syringe) 40 mg SUBCUT DAILY [facility] Furosemide (Furosemide 40 Mg/4 Ml Vial) 40 mg IV NOW ONE Stop: 08/17/25 16:52 Last Admin: 08/17/25 17:01 Dose: Not Given Documented By: JEFF Furosemide (Furosemide 40 Mg/4 Ml Vial) 40 mg IV Q12HR JOMAR Furosemide 80 mg/ Sodium (Chloride) 58 mls @ 116 mls/hr IV NOW ONE Stop: 08/17/25 16:59 Last Infusion: 08/17/25 17:46 Dose: Infused Documented By: Admin: 08/17/25 17:07 Dose: 116 mls/hr Documented By: JEFF Naloxone HCl (Naloxone 0.4 Mg/Ml Vial) 0.2 mg IV Q2MIN PRN PRN Reason: Opiate Reversal Vital Signs Vital signs: Vital Signs - 8 hr 08/17/25 15:30 08/17/25 16:00 08/17/25 16:43 Pulse Rate 119 H 124 H 99 H Respiratory Rate 14 14 13 Blood Pressure 126/78 121/92 H Pulse Oximetry 92 96 98 Oxygen Delivery Method Room Air Room Air 08/17/25 16:44 08/17/25 16:44 08/17/25 16:44 Pulse Rate 112 H 110 H Respiratory Rate 14 13 Blood Pressure 126/74 123/77 Pulse Oximetry 96 98 Oxygen Delivery Method Room Air 08/17/25 17:00 08/17/25 17:01 08/17/25 17:01 Pulse Rate 149 H 109 H Respiratory Rate 21 Blood Pressure 125/89 Pulse Oximetry 94 Oxygen Delivery Method 08/17/25 17:30 08/17/25 17:30 08/17/25 18:00 Pulse Rate 117 H 103 H Respiratory Rate 15 20 Blood Pressure 119/83 Pulse Oximetry 97 97 Oxygen Delivery Method 08/17/25 18:00 08/17/25 18:33 08/17/25 19:00 Pulse Rate 109 H Respiratory Rate 24 22 Blood Pressure 128/68 Pulse Oximetry 95 98 Oxygen Delivery Method 08/17/25 19:07 08/17/25 19:07 08/17/25 19:30 Pulse Rate 80 91 H Respiratory Rate 20 Blood Pressure 119/66 Pulse Oximetry 92 Oxygen Delivery Method Room Air 08/17/25 19:30 08/17/25 20:00 08/17/25 20:00 Pulse Rate 106 H Respiratory Rate 22 Blood Pressure 120/83 113/76 Pulse Oximetry 97 Oxygen Delivery Method Room Air MDM - SOB/Dyspnea Lab Data 08/17/25 12:10 08/17/25 12:10 Labs: Lab Results 08/17/25 Range/Units 12:10 WBC 7.9 (4.5-11.0) X10^3/uL RBC 5.08 (4.5-5.9) X10^6/uL Hgb 12.7 L (13.5-17.5) g/dL Hct 39.5 L (41-53) % MCV 77.7 L (80-100) fL MCH 25.1 L (26-34) PG MCHC 32.3 (30-36) % RDW 18.2 H (11.6-14.8) % Plt Count 349 (150-400) X10^3/uL Neut % (Auto) 66.6 (50-75) % Lymph % (Auto) 17.9 L (25-40) % [place] % (Auto) 11.5 (3-14) % Eos % (Auto) 3.0 (2-4) % Baso % (Auto) 1.0 (0-2) % Neut # (Auto) 5200 (2439-3069) /uL Lymph # (Auto) 1400 (3363-9491) /uL [place] # (Auto) 900 (0-900) /uL Eos # (Auto) 200 (0-450) /uL Baso # (Auto) 100 (0-100) /uL PT 14.7 H (9.4-12.5) SECONDS INR 1.3 (0.9-1.3) Sodium 136 L (137-145) mmol/L Potassium 3.9 (3.4-5.1) mmol/L Chloride 99 (98-107) mmol/L Carbon Dioxide 29 (22-32) mmol/L BUN 12 (9-20) mg/dL Creatinine 0.73 (0.66-1.25) mg/dL Estimated GFR > 60 (>60) mL/min BUN/Creatinine Ratio 16.4 (6-22) Glucose 74 (70-99) mg/dL Lactate 1.0 (0.7-2.1) mmol/L Calcium 8.5 (8.4-10.2) mg/dL Total Bilirubin 1.8 H (0.2-1.3) mg/dL AST 21 (17-59) IU/L ALT 13 (<50) IU/L Alkaline Phosphatase 95 (38-126) U/L Troponin I < 0.012 (0.01-0.034) ng/mL NT-Pro-B Natriuret Pep 3520 H (<450) pg/mL Total Protein 6.6 (6.3-8.2) g/dL Albumin 3.7 (3.5-5.0) g/dL Globulin 2.9 (1.7-4.1) g/dL Albumin/Globulin Ratio 1.3 (1.0-2.8) Imaging Data Chest x-ray: Radiologist's Impression: PROCEDURE: XR CHEST 1V INDICATIONS: Shortness of breath TECHNIQUE: One view of the chest was acquired. COMPARISON: [facility], CR, XR CHEST 1V, 04/08/2025, 12:30. FINDINGS: Mild bilateral perihilar and lower lobe peribronchial thickening with patchy lower lobe opacities, more than expected for expiratory result. Bronchitis, pneumonia, viral infection, or other process should be considered. Mild bibasilar subsegmental atelectasis. Mildly enlarged cardiopericardial silhouette. Mildly prominent wisam, pulmonary vascular congestion and/or hilar lymph nodes. Calcifications of the aortic arch with tortuous descending aorta. Degenerative changes of the thoracic spine and shoulders. No pneumothorax, no pleural effusion, no lobar consolidation IMPRESSION: Peribronchial thickening and patchy opacities as discussed above. Mildly enlarged cardiopericardial silhouette and prominent wisam. Follow-up suggested. If symptoms persist or worsen, or there is high clinical suspicion of thoracic abnormality, CT chest could be performed. Dictated by: Dave Morales M.D. on 08/17/2025 at 14:11 Approved by: Dave Morales M.D. on 08/17/2025 at 14:19 ECG Data Attestation: I personally reviewed and interpreted this ECG as follows: Prior ECG tracings: available for review Interpretation: Atrial fibrillation rate [address] changes similar to prior MDM Narrative Medical decision making narrative: MDM CC: Shortness of breath Complicating co-morbidities: COPD CHF atrial fibrillation Data collected from: Patient Medical records reviewed: Prior admission and PCP records Differential considered: CHF exacerbation, COPD, coronary artery disease Exam documented above, pertinent findings include: Alert coarse breath sounds bilaterally patient has +3 to +4 pitting edema in his lower extremities. His arms and fingers also appear swollen. Lab Test results independently reviewed as above. Pertinent findings: CBC no leukocytosis no significant anemia platelets 349 CMP no electrolyte abnormalities potassium 3.9 creatinine 0.73 BNP is 3520 Troponin negative Independently reviewed EKG as above Atrial fibrillation no ischemic changes Imaging studies independently reviewed: Chest x-ray Enlarged cardiac silhouette, with peribronchial thickening and patchy opacity Consultations: 1658 Dr. Buchanan, recommends IV Lasix in the ED and switching over to torsemide, happy to follow up outpatient Dr. Farrell accepts to observation Treatments: Lasix 80 mg Re-evaluations: Patient has urinated quite a bit with IV Lasix. He is not hypoxic. We did do an ambulation trial his heart rate went up to almost 120 he reports some dyspnea. He continues to be pretty fluid overloaded on exam. Of the elastic from his pants dex quite deep into his legs. He has at least a +4 pitting edema bilaterally. Discussion: Patient 85-year-old male with increasing shortness of breath. He has tried over the last 3 days to double his Lasix at home and does not feel like his breathing or swelling has gotten any better. He appears fluid overloaded on exam and has crackles bilaterally. He is not hypoxic. He does have an elevated BNP of 3520 without an elevated troponin. Attempted diuresis here in the emergency department and ambulation however did not tolerate ambulation well. Discharge Plan Departure Patient Disposition: Admitted as Observation Clinical Impression: CHF (congestive heart failure) Admit Date/Time: 08/17/25 20:00 Admit Provider: Jose Farrell
[2025-08-17] MEDS: FUROSEMIDE 80 MG in SODIUM CHLORIDE 0.9% 50 ML 116 MG IV (17:07)
--- NOTE | 2025-08-17 18:39 | PC.NURSE ---
Dr Concepcion ordered ambulation trial on oxygen monitor. Patient maintained saturation at 94% but heart rate increased to as high as 120 and patient had felt unsteady and lightheaded and also developed chest pain. Patient states that they are afraid that they are going to fall
[2025-08-17] MEDS: METOPROLOL IR 25 MG TABLET 12.5 MG PO (23:32)
[2025-08-17] MEDS: SOTALOL 80 MG TABLET PO (23:33)
[2025-08-17] MEDS: APIXABAN 5 MG TABLET PO (23:33)
[2025-08-18 03:00] VITALS: BP 104/57; PULSE 88; RESP 18; TEMP 36.6; O2SAT 95
[2025-08-18 06:54] LABS: Add Manual Diff / Slide Review NO; Hematocrit 35.1 % (41-53); Hemoglobin 11.5 g/dL (13.5-17.5); Lymphocytes Absolute Auto 1400 /uL (1100-4500); Mean Corpuscular HGB Conc 32.7 % (30-36); Mean Corpuscular Hemoglobin 25.0 PG (26-34); Mean Corpuscular Volume 76.4 fL (80-100); Platelet Count 310 X10^3/uL (150-400)
[2025-08-18 07:24] LABS: Alanine Aminotransferase 9 IU/L (<50); Albumin 3.0 g/dL (3.5-5.0); Albumin Globulin Ratio 1.3 (1.0-2.8); Alkaline Phosphatase 78 U/L (38-126); Blood Urea Nitrogen 14 mg/dL (9-20); Calcium 7.9 mg/dL (8.4-10.2); Carbon Dioxide 29 mmol/L (22-32); Chloride 98 mmol/L (98-107); Estimated Glomerular Filt Rate > 60 mL/min (>60); Globulin 2.4 g/dL (1.7-4.1); Glucose 75 mg/dL (70-99); HEMOLYSIS < 15 (0-50); Potassium 3.3 mmol/L (3.4-5.1); Sodium 135 mmol/L (137-145); Total Protein 5.4 g/dL (6.3-8.2)
[2025-08-18 08:00] VITALS: BP 93/62; PULSE 82; RESP 17; TEMP 36.4; O2SAT 96
[2025-08-18] MEDS: METOPROLOL IR 25 MG TABLET 12.5 MG PO ×2 (08:55→20:37)
[2025-08-18] MEDS: LOSARTAN 25 MG TABLET PO (08:56)
[2025-08-18] MEDS: SPIRONOLACTONE 25 MG TABLET PO (08:56)
[2025-08-18] MEDS: SOTALOL 80 MG TABLET PO (08:57)
[2025-08-18] MEDS: APIXABAN 5 MG TABLET PO ×2 (08:57→20:37)
[2025-08-18] MEDS: ALBUTEROL/IPRATROPIUM 3 ML AMPUL INH (09:22)
--- NOTE | 2025-08-18 09:37 | PM.HP.1 ---
History of Present Illness History of Present Illness Date Patient Seen: 08/18/25 Time Patient Seen: 12:47 Chief complaint: Having Heart issues, low O2, SOB Narrative: CC CHF exacerbation Came to emergency department with acute weakness shortness of breath and swelling of all extremities. Admitted with diuresis and observation he is improving this morning his arms are not as swollen but his feet are still. Breathing is controlled on DuoNeb so far complains of some back pain has been treating with steroids we will see if we can get him a pain patch and continue to diurese. Heart looks stable on monitor [facility] Medical History (Updated 08/17/25 @ 19:56 by Sanam Concepcion DO) Lumbar stenosis with neurogenic claudication Spondylolisthesis of lumbar region Sacroiliitis Sacroiliac joint pain Lumbar radiculopathy Erectile dysfunction Chronic heart failure with preserved ejection fraction History of COVID-19 (10/2020) Right inguinal hernia Peripheral edema Testosterone deficiency in male Pulmonary nodule Cardiomyopathy Essential hypertension Atrial fibrillation COPD (chronic obstructive pulmonary disease) Chronic fatigue (11/23/17) Rheumatoid arthritis involving multiple sites (07/28/17) Postherpetic neuralgia (05/20/17) Primary osteoarthritis of both knees (11/22/15) Mild persistent asthma without complication (11/22/15) Surgical History Hx of knee surgery (10/2015) Hx of colonoscopy (10/22/22) S/P cataract extraction Status post cholecystectomy Family History Father Asthma Mother Diabetes mellitus Social History marital status: household members: spouse lives independently: Yes occupational status: previously employed alcohol intake: never substance use type: does not use Meds Home Medications and Allergies Home Medications ?Medication ?Instructions ?Recorded ?Confirmed ?Type apixaban 5 mg tablet 5 mg PO BID #180 tabs 05/05/21 08/17/25 Rx losartan 25 mg tablet 25 mg PO DAILY #90 tabs 05/05/21 08/17/25 Rx spironolactone 25 mg tablet 25 mg PO DAILY 03/02/22 08/17/25 History magnesium oxide 400 mg PO BID 08/17/23 08/17/25 History nystatin 100,000 unit/gram topical 1 applic topical BID #30 grams 08/20/23 08/17/25 Rx cream spacer for inhaled meds #1 ea 09/02/23 08/17/25 Rx potassium chloride 20 mEq 20 meq PO DAILY #90 tabs 03/24/24 08/17/25 Rx tablet,extended release sotalol 80 mg tablet 80 mg PO BID 09/29/24 08/17/25 History albuterol sulfate 2.5 mg/3 mL 2.5 mg (3 mL) continuous 03/06/25 08/17/25 Rx (0.083 %) solution for nebulization nebulization Q6H PRN Dyspnea #90 mL metoprolol tartrate 25 mg tablet 12.5 mg (1/2 x 25 mg) PO BID #60 03/16/25 08/17/25 Rx tabs fluticasone fur. 200 mcg-umeclid 1 ea inhalation DAILY 04/08/25 08/17/25 History 62.5 mcg-vilant 25 mcg inhalat.powder (Trelegy Ellipta) Disabled Parking #1 ea 04/17/25 08/17/25 Rx torsemide 20 mg tablet 40 mg (2 x 20 mg) PO DAILY #120 05/08/25 08/17/25 Rx tabs albuterol sulfate 90 mcg/actuation 2 inh inhalation Q4-6H PRN 06/11/25 08/17/25 Rx aerosol inhaler (Ventolin HFA) shortness of breath or wheezing #8.5 grams gabapentin 300 mg capsule 300 - 600 mg (1 - 2 x 300 mg) PO 06/19/25 08/17/25 Rx TID PRN back pain #360 caps tadalafil 20 mg tablet 20 mg PO DAILY PRN sexual activity 07/12/25 08/17/25 Rx #30 tabs oxycodone-acetaminophen 5 mg-325 1 tab PO Q8H PRN pain #30 tabs 08/09/25 08/17/25 Rx mg tablet prednisone 20 mg tablet 20 mg PO DAILY PRN joint pain #60 08/09/25 08/17/25 Rx tabs testosterone cypionate 200 mg/mL 300 mg (1.5 mL) IM Q4W #10 mL 08/09/25 08/17/25 Rx intramuscular oil (Depo-Testosterone) Allergies Allergy/AdvReac Type Severity Reaction Status Date / Time amlodipine AdvReac Intermediate peripheral Verified 08/09/25 10:09 edema Review of Systems Review of Systems Narrative: All systems reviewed and negative except as otherwise documented in HPI Exam Vital Signs (past 8 hours): - 08/18/25 03:00 08/18/25 08:00 Temperature 97.9 F 97.6 F Pulse Rate 88 82 Respiratory Rate 18 17 Blood Pressure 104/57 L 93/62 Pulse Oximetry 95 96 Oxygen Flow Rate 0 Oxygen Delivery Method Room Air Oxygen Flow Rate 0 Narrative Exam Narrative: Sitting in chair watching TV Const Other: Well-developed well-nourished HENMT Other: Normocephalic and multiple SKs on reic Resp Other: Clear to auscultation bilaterally easily triggered expiratory wheeze no crackles Cardio Other: Regular rate S1-S2 GI Other: Soft nontender nondistended active bowel sounds Neuro Other: Alert awake oriented x3 moving all limbs equally Objective Labs 08/18/25 05:47 08/18/25 05:47 Labs: Laboratory Results - last 24 hr 08/17/25 08/18/25 12:10 05:47 WBC 7.9 7.0 RBC 5.08 4.60 Hgb 12.7 L 11.5 L Hct 39.5 L 35.1 L MCV 77.7 L 76.4 L MCH 25.1 L 25.0 L MCHC 32.3 32.7 RDW 18.2 H 18.0 H Plt Count 349 310 Neut % (Auto) 66.6 63.0 Lymph % (Auto) 17.9 L 19.6 L [place] % (Auto) 11.5 13.1 Eos % (Auto) 3.0 3.5 Baso % (Auto) 1.0 0.8 Neut # (Auto) 5200 4400 Lymph # (Auto) 1400 1400 [place] # (Auto) 900 900 Eos # (Auto) 200 200 Baso # (Auto) 100 100 PT 14.7 H INR 1.3 Sodium 136 L 135 L Potassium 3.9 3.3 L Chloride 99 98 Carbon Dioxide 29 29 BUN 12 14 Creatinine 0.73 0.74 Estimated GFR > 60 > 60 BUN/Creatinine Ratio 16.4 18.9 Glucose 74 75 Lactate 1.0 Calcium 8.5 7.9 L Total Bilirubin 1.8 H 1.4 H AST 21 16 L ALT 13 9 Alkaline Phosphatase 95 78 Troponin I < 0.012 NT-Pro-B Natriuret Pep 3520 H Total Protein 6.6 5.4 L Albumin 3.7 3.0 L Globulin 2.9 2.4 Albumin/Globulin Ratio 1.3 1.3 Assessment & Plan Assessment & Plan narrative: # acute on chronic diastolic congestive heart failure Diuresing well with Lasix and Bumex goal will be to get his pitting edema down he already is feeling more mobile No crackles on auscultation still 2 to 3+ pitting edema in both legs track daily weights continue heart monitor we will get echo here # COPD Stable on DuoNebs he feels okay easily triggered wheeze # essential hypertension Stable continue home meds Dispo: admit obs for diuresis code: full MDM: Diet: heart healthy Time-Based Coding :: [TOTAL MINUTES] spent with patient and on the chart (including review of chart, obtaining history, exam, reviewing outside data, placing orders, documenting exam and treatment plan, and counseling patient) on [DATE].
[2025-08-18 09:39] VITALS: PULSE 96; RESP 20; O2SAT 92
--- NOTE | 2025-08-18 10:35 | PT.IIE ---
Surgical History (Last Reviewed 04/11/25 @ 08:46 by Mitchell Buchanan MD) Hx of colonoscopy (10/22/22) Hx of knee surgery (10/2015) S/P cataract extraction Status post cholecystectomy Medical History (Last Updated 05/31/25 @ 12:48 by Maverick Vitale DO) Atrial fibrillation Cardiomyopathy Chronic fatigue (11/23/17) Chronic heart failure with preserved ejection fraction COPD (chronic obstructive pulmonary disease) Erectile dysfunction Essential hypertension History of COVID-19 (10/2020) Lumbar radiculopathy Lumbar stenosis with neurogenic claudication Mild persistent asthma without complication (11/22/15) Peripheral edema Postherpetic neuralgia (05/20/17) Primary osteoarthritis of both knees (11/22/15) Pulmonary nodule Rheumatoid arthritis involving multiple sites (07/28/17) Right inguinal hernia Sacroiliac joint pain Sacroiliitis Spondylolisthesis of lumbar region Testosterone deficiency in male Physical Therapy Inpatient Evaluation/Re-Eval M1 PT/OT-IP Prior Functional Status Start: 08/18/25 12:24 Freq: NEEDED Status: Active Protocol: Document 08/18/25 10:35 AB (Rec: 08/18/25 12:47 AB Desktop) Medical Review Prior Functional Status Medical History Yes Reviewed Communication able to make needs known Mobility and Gait pt stated that he was modified independent with all mobilities and ambulation using a hurrycane Social History Household Members spouse Living Arrangements House Number of Floors ( 3 or More Floors Floors) Number of Stairs To pt stays on the main level of the house Enter/Railing? no steps to enter Home Environment Standard Height Toilet,Tub/Shower,Built-In Shower Seat Home Equipment Front Wheel Walker,Four Wheel Walker,Hand Held Shower, Grab Bars In Shower Additional Social pt has a hurrycane History Comment M2 PT-IP Current Condition Start: 08/18/25 12:24 Freq: NEEDED Status: Active Protocol: Document 08/18/25 10:35 AB (Rec: 08/18/25 12:47 AB Desktop) Physical Therapy Current Condition Current Condition Evaluation Date 08/18/25 Treatment Diagnosis CHF; difficulty in walking Onset Date 08/17/25 M3 PT-IP Subjective Start: 08/18/25 12:24 Freq: NEEDED Status: Active Protocol: Document 08/18/25 10:35 AB (Rec: 08/18/25 12:47 AB Desktop) Subjective Physical Therapy Visit Type Type Initial Evaluation Visit Start Time 10:35 Visit Stop Time 11:00 Number of WELDER EXPERIMENTAL Visits 0 Physical Therapy Visit Comments Patient Comments agreeable to do PT M4 PT-IP Mobility and Gait Start: 08/18/25 12:24 Freq: NEEDED Status: Active Protocol: Document 08/18/25 10:35 AB (Rec: 08/18/25 12:47 AB Desktop) PT-Bed Mobility Assessment Supine to Sit Supine to Sit Standby Assistance Sit to Supine Sit to Supine Standby Assistance PT-Transfer Assessment Sit to and From Stand Sit to and from Contact Guard Assistance,1 Person Assistance,Use of Stand Upper Extremities Equipment Transfer Assistive Gait Belt,Tripod Cane/Hurry Cane Device Orthotic/Prosthetic No Devices or Brace: Transfers Transfer Destination Bed Transfer Technique ambulated Transfer Ability Level of Assist Contact Guard Assistance,1 Person Assistance,Use of Upper Extremities Comments Mobility Comments pt sitting on the chair and agreeable to do PT. obtained PLOF and home set up. BP checked: 88/47, rechecked: 84/47 O2 sat: 90-92 TN: varies: 55-68. pt completed sit to stand CGA and ambulated in room using hurrycane ~ 25 ft CGA and cues. pt sat on EOB. BP checked: 85/51. O2 sat: 87-90%. cued for deep breathing. TN: 104. completed sit<>supine SBA. agreed to get up and stay up on the chair. sit to stand CGA and step transfer back to chair CGA. positioned pt on the chair. call light and table placed within reach. informed nurse regarding BP. Gait Assessment Gait Gait Assistance Contact Guard Assist Required: Distance (Feet) 25 Able to Maintain Yes Weight Bearing Status During Gait Assistive Devices Assistive Device Gait Belt,Tripod Cane/Hurry Cane Orthotic/Prosthetic No Devices or Brace: Gait Deviations General Gait Pattern Decreased Stride Length,Decreased Feet Clearance Factors Limiting Gait Function Factors Limiting Decreased Activity Tolerance,Decreased Strength,Poor Gait Function Balance,Poor Safety Awareness,Respiratory Distress PT-Balance Assessment Sitting Balance and Reactions Static Sitting Good Balance Ability Dynamic Sitting Good Balance Ability Standing Balance and Reactions Static Standing Fair Balance Ability Dynamic Standing Fair Balance Ability Device Used hurrycane M5 PT-IP Objective Assessments Start: 08/18/25 12:24 Freq: NEEDED Status: Active Protocol: Document 08/18/25 10:35 AB (Rec: 08/18/25 12:47 AB Desktop) Orientation Orientation/Cognition Level of Alertness Alert Orientation Name,Place,Situation Language Function Hard of Hearing Ability Safety Awareness Decreased Safety Awareness Memory Description Short Term Impaired Gross Range of Motion Lower Extremity ROM Assessment Within Functional Limits Strength Lower Extremity Strength Assessment Within Functional Limits Muscle Tone Muscle Tone WNL Yes M6 PT-IP Treatment Start: 08/18/25 12:24 Freq: NEEDED Status: Active Protocol: Document 08/18/25 10:35 AB (Rec: 08/18/25 12:47 AB Desktop) Physical Therapy Treatment Education Education Provided Safety M7 PT-IP Assessment and Plan Start: 08/18/25 12:24 Freq: NEEDED Status: Active Protocol: Document 08/18/25 10:35 AB (Rec: 08/18/25 12:47 AB Desktop) PT Summary Assessment and Plan Potential Rehabilitation Fair Potential Status of Condition Evolving at Evaluation Summary Impairments Pain,ROM,Strength,Balance,Coordination,Sensation,Tone, Cognition,Bed Mobility,Transfers,Gait,Activity Tolerance Assessment Summary pt is an 85 y/o M who is admitted for CHF. pt requiring CGA with mobility using a hurrycane. Pt presents with decrease activity tolerance affecting mobility independence. pt plans to go home and spouse to assist . pt will benefit from HHPT. Goals Bed Mobility Goal Independent Transfer Goal Independent,Cane,Four Wheeled Walker Gait Goal Independent,Cane,Four Wheel Walker Gait Distance 150 Days to Meet Goals 10 Frequency of Treatment Frequency Of Once a Day Treatment Treatment Plan Physical Therapy Bed Mobility Training,Transfer Training,Gait Training, Treatment Plan Therapeutic Exercise,Balance Retraining,Discharge Planning,Hot or Cold Pack,Neuromuscular Re-ed, Coordination Retraining Precautions Other Precautions BP; O2 sat Recommendations To Nursing Amount of Assist 1 Person Assist Needed Discharge Recommendations PT Discharge Home with 31/05 Assist Available,Home Health Recommendations Transportation Needs Private Vehicle,Wheelchair/Cabulance at Discharge - PT assist 1
[2025-08-18 12:00] VITALS: BP 88/56; PULSE 55; RESP 18; TEMP 36.7; O2SAT 97
[2025-08-18] MEDS: LIDOCAINE 5% PATCH 1 EACH TOP (13:59)
[2025-08-18] MEDS: GABAPENTIN 300 MG CAPSULE PO (13:59)
[2025-08-18] MEDS: POTASSIUM CHLORIDE 20 MEQ TAB 40 MEQ PO (13:59)
[2025-08-18] MEDS: SODIUM CHLORIDE 0.9% FLUSH 10 ML IV ×2 (14:00→20:38)
[2025-08-18] MEDS: BUMETANIDE 1 MG/4 ML VIAL 2 MG IV (14:00)
[2025-08-18 16:00] VITALS: BP 91/56; PULSE 61; RESP 17; TEMP 36.9; O2SAT 98
--- NOTE | 2025-08-18 16:23 | CM.DANOTE ---
DCP Assessment note brief pt is an 85yo M admitted with CHF exacerbation. pmh of COPD- stable at this time. EXHIBIT CLEANER reviewed EMR. per [facility] note, continue Diuresing with Lasix. per previous CM notes from April 2025 admission, pt lives indep with spouse in [place]. local son Ion to support with higher IADLs as needed. had set up pt with [facility] but pt ended up declining services. per ED note, pt reports feeling weaker at this time than his normal. uses a cane at baseline. per [facility] no obvious CM needs this admission. EXHIBIT CLEANER unable to meet with pt today due to triaging needs. P: anticipate home with spouse and son support when medically stable and OP F/u. will continue to follow closely in case any DCP needs should arise DMITRI Abrams Discharge Planning/Care Management Advanced directive, confirm from FAMILY Start: 08/17/25 21:19 Freq: Q24H Status: Active Protocol: Document 08/18/25 10:00 CEW (Rec: 08/18/25 16:05 CEW [id number]) Advance Directive, confirm on record Time 10:00 Person contacted pt Copy received No CM Discharge Assessment Start: 08/17/25 20:31 Freq: Status: Active Protocol: Document 08/18/25 16:20 SL (Rec: 08/18/25 16:22 SL [id number]) Discharge Planning Assessment Assigned Discharge DMITRI [facility] Provider [facility] DPOA/Assigned Tianna, spouse Designee Name Contact Information [phone] Advance Directives? No Advance Directives No on File History Provided By Patient,Medical Record Prior Living House Arrangements Household Members spouse Independent with ADL Yes 's Is patient alert and Yes oriented? Discharge Plan Home Transportation Ion Estrella Arrangement Referrals Initiated None needed Review Status In Process Please Provide Date 08/18/25 Initial DC Assessment Was Performed Next Review Type Continued Stay Review
--- NOTE | 2025-08-18 19:35 | EKG_ITS ---
[facility] [address] [place] [address] Test Date: 2025-08-18 Pat Name: Blayne Hopkins Department: Room: 221 Gender: Male Chlorinator: : 1940 Requested By: Order Number: [id number] Reading MD: Mitchell Buchanan MD Measurements Intervals [place] Rate: 76 P: 60 MS: 170 QRS: 5 QRSD: 76 T: -3 QT: 424 QTc: 477 Interpretive Statements Sinus rhythm with marked sinus arrhythmia Electronically Signed On 08-20-2025 7:48:29 PDT by Mitchell Buchanan MD
--- NOTE | 2025-08-18 19:43 | PC.NURSE ---
Mr. Hopkins reported he had c/p at about 1845. More pressure type pain, mid sternum radiating to both side of his chest. This occured an hour before he said anything. He has no c/p now and his vital signs are stable for him,BP has been on the lower side. 85/51, Dr. Farrell made aware when he arrived at noon. gave okay to give Bumex IV. BP prior to Bumex was 103/46 63 sat 95%. Mid push check 89/57 60 Sat 93. End of push Bp 88/51 62 Sat 94%. No dizziness or problems. Instructed patient to notify staff if he has chest pain again. Dr. Farrell notified of episode of c/p and stat EKG was taken. Since pt is pain free now Dr. Farrell said labe were not needed. Pt is pain free at this time.
[2025-08-18 20:00] VITALS: BP 105/67; PULSE 77; RESP 19; TEMP 35.9; O2SAT 93
[2025-08-18] MEDS: FUROSEMIDE 40 MG/4 ML VIAL 60 MG IV (20:32)
[2025-08-18] MEDS: REMOVE LIDOCAINE PATCH 1 EACH TOP (20:39)
[2025-08-19] VITALS (7 sets, daily range): BP systolic 93–124; BP diastolic 31–63; PULSE 63–78; RESP 15–19; TEMP 36.4–36.9; O2SAT 91–99
[2025-08-19 05:21] LABS: Add Manual Diff / Slide Review NO; Hematocrit 35.3 % (41-53); Hemoglobin 11.7 g/dL (13.5-17.5); Lymphocytes Absolute Auto 1800 /uL (1100-4500); Mean Corpuscular HGB Conc 33.1 % (30-36); Mean Corpuscular Hemoglobin 25.4 PG (26-34); Mean Corpuscular Volume 76.5 fL (80-100); Platelet Count 296 X10^3/uL (150-400)
[2025-08-19 05:25] LABS: Alanine Aminotransferase 10 IU/L (<50); Albumin 3.1 g/dL (3.5-5.0); Albumin Globulin Ratio 1.3 (1.0-2.8); Alkaline Phosphatase 78 U/L (38-126); Blood Urea Nitrogen 20 mg/dL (9-20); Calcium 8.0 mg/dL (8.4-10.2); Carbon Dioxide 29 mmol/L (22-32); Chloride 98 mmol/L (98-107); Estimated Glomerular Filt Rate > 60 mL/min (>60); Globulin 2.4 g/dL (1.7-4.1); Glucose 83 mg/dL (70-99); HEMOLYSIS < 15 (0-50); Potassium 3.9 mmol/L (3.4-5.1); Sodium 133 mmol/L (137-145); Total Protein 5.5 g/dL (6.3-8.2)
[2025-08-19] MEDS: LIDOCAINE 5% PATCH 1 EACH TOP ×2 (08:18→21:38)
[2025-08-19] MEDS: APIXABAN 5 MG TABLET PO ×2 (08:19→20:47)
[2025-08-19] MEDS: METOPROLOL IR 25 MG TABLET 12.5 MG PO ×2 (08:19→20:50)
[2025-08-19] MEDS: SPIRONOLACTONE 25 MG TABLET PO (08:19)
[2025-08-19] MEDS: SODIUM CHLORIDE 0.9% FLUSH 10 ML IV ×2 (08:20→20:49)
--- NOTE | 2025-08-19 10:27 | PM.PN.1 ---
Subjective Subjective Date Patient Seen: 08/19/25 Time Patient Seen: 10:27 Interval history: Chief complaint swelling and edema Continue diuresis he is now swollen about up to the hip level still 2-3 pitting below blood pressure was a little soft this morning we will plan on holding most of his antihypertensives encourage p.o. intake. Albumin is improved. Breathing terrible at baseline. Exam Vital Signs (past 8 hours): - 08/19/25 03:59 08/19/25 04:00 08/19/25 08:00 Temperature 97.7 F 98.4 F Pulse Rate 72 63 Respiratory Rate 19 15 Blood Pressure 96/31 L 93/48 L 114/59 L Pulse Oximetry 91 93 Oxygen Flow Rate 0 0 Oxygen Delivery Method Nasal Cannula Oxygen Flow Rate 0 Narrative Exam Narrative: Sitting in chair watching TV Resp Other: Bilateral expiratory wheezey junky with some bibasilar crackles Cardio Other: Regular rate S1-S2 GI Other: Soft nontender active bowel sounds Objective Labs 08/19/25 04:52 08/19/25 04:52 Labs: Laboratory Results - last 24 hr 08/19/25 04:52 WBC 7.9 RBC 4.61 Hgb 11.7 L Hct 35.3 L MCV 76.5 L MCH 25.4 L MCHC 33.1 RDW 18.4 H Plt Count 296 Neut % (Auto) 58.9 Lymph % (Auto) 22.6 L [place] % (Auto) 14.7 H Eos % (Auto) 2.8 Baso % (Auto) 1.0 Neut # (Auto) 4600 Lymph # (Auto) 1800 [place] # (Auto) 1200 H Eos # (Auto) 200 Baso # (Auto) 100 Sodium 133 L Potassium 3.9 Chloride 98 Carbon Dioxide 29 BUN 20 Creatinine 1.15 Estimated GFR > 60 BUN/Creatinine Ratio 17.4 Glucose 83 Calcium 8.0 L Total Bilirubin 1.3 AST 16 L ALT 10 Alkaline Phosphatase 78 Total Protein 5.5 L Albumin 3.1 L Globulin 2.4 Albumin/Globulin Ratio 1.3 [facility] Medical History (Updated 08/17/25 @ 19:56 by Sanam Concepcion DO) Lumbar stenosis with neurogenic claudication Spondylolisthesis of lumbar region Sacroiliitis Sacroiliac joint pain Lumbar radiculopathy Erectile dysfunction Chronic heart failure with preserved ejection fraction History of COVID-19 (10/2020) Right inguinal hernia Peripheral edema Testosterone deficiency in male Pulmonary nodule Cardiomyopathy Essential hypertension Atrial fibrillation COPD (chronic obstructive pulmonary disease) Chronic fatigue (11/23/17) Rheumatoid arthritis involving multiple sites (07/28/17) Postherpetic neuralgia (05/20/17) Primary osteoarthritis of both knees (11/22/15) Mild persistent asthma without complication (11/22/15) Surgical History Hx of knee surgery (10/2015) Hx of colonoscopy (10/22/22) S/P cataract extraction Status post cholecystectomy Family History Father Asthma Mother Diabetes mellitus Social History marital status: household members: spouse lives independently: Yes occupational status: previously employed alcohol intake: never substance use type: does not use Assessment & Plan Assessment & Plan narrative: # acute on chronic diastolic congestive heart failure Diuresing well with Lasix and Bumex goal will be to get his pitting edema down he already is feeling more mobile Minimal crackles on auscultation still 2 to 3+ pitting edema in both legs up to hips track daily weights continue heart monitor we will get echo here # history of systolic cardiomyopathy Last echo ejection fraction around 45% we will recheck Has been a couple of years # history of AFib with RVR status post cardioversion So far seems to be in regular rhythm continue Eliquis and metoprolol # hypoalbuminemia Improving encourage protein intake p.o. # COPD Stable on DuoNebs he feels okay easily triggered wheeze # essential hypertension Blood pressure was soft overnight we are holding sotalol losartan continue metoprolol and spironolactone Dispo: admit obs for diuresis code: full MDM: Diet: heart healthy Time-Based Coding :: [TOTAL MINUTES] spent with patient and on the chart (including review of chart, obtaining history, exam, reviewing outside data, placing orders, documenting exam and treatment plan, and counseling patient) on [DATE].
--- NOTE | 2025-08-19 10:37 | DI.ECHO.S_ITS ---
[facility]+ [facility] : : [address] : [place] : : [address] : : Phone: [phone] Echocardiogram Report + + :Name: KURTIS PIERCE Study Date: 08/20/2025 Height: 69 in : :[facility] ReadingLocation: Weight: 195 lb : : Gender: Male BSA: 2.0 m2 : :: 1940 Age: 85 yrs BP: 100/53 mmHg: :Reason For Study: CHF EXACERBATION : :Ordering Physician: TRINH, : :ROBBI Stanley Performed By: Jj Wilder : :Referring: ROBBI TSANG : + + Interpretation Summary 1) Normal left ventricular size, thickness, wall motion, and systolic function (EF 55-60%). 2) Mildly enlarged right ventricle with low normal function. 3) The left atrium is severely dilated. The right atrium is moderately dilated. 4) There is mild to moderate tricuspid regurgitation. 5) The right ventricular systolic pressure is estimated to be at least 68 mmHg based on an estimated right atrial pressure of 15 mm Hg. 6) Compared to the Echo done 04/09/2025, right sided hypervolemia is present on this study. Procedure: A two-dimensional transthoracic echocardiogram with color flow and Doppler was performed. The study quality was technically good. Comparison is made with the echocardiogram of 04/09/2025. The patient was in atrial fibrillation with heart rates between 66-91 bpm during the exam. Left Ventricle: The left ventricle is normal in size. There is normal left ventricular wall thickness. There is no ventricular septal defect visualized. The ejection fraction is estimated to be 55-60%. There are no focal wall motion abnormalities. Diastolic function could not be accurately assessed due to atrial fibrillation. Right Ventricle: The right ventricle is mildly dilated. Right ventricular systolic function is at the lower limits of normal. Atria: The left atrium is severely dilated. The right atrium is moderately dilated. There is no Doppler evidence for an interatrial shunt. Mitral Valve: There is mild to moderate mitral annular calcification. There is trace mitral regurgitation. Aortic Valve: The aortic valve is trileaflet. The aortic valve opens well. No aortic regurgitation is present. Tricuspid Valve: The tricuspid valve leaflets are thin and pliable. There is mild to moderate tricuspid regurgitation. The right ventricular systolic pressure is estimated to be at least 68 mmHg based on an estimated right atrial pressure of 15 mm Hg. Pulmonic Valve: The pulmonic valve is not well visualized. There is no pulmonic valvular regurgitation. Great Vessels: The aortic root is mildly dilated. The ascending aorta is mildly enlarged. The pulmonary is not well visualized. The IVC is dilated (diameter is greater than 2.1 cm) and it collapses less than 50% with a sniff. This suggests a high right atrial pressure of 15 mm Hg. Pericardium/ Pleura There is no pericardial effusion. There is no pleural effusion. MMode/2D Measurements & Calculations LVIDd: 5.0 cm LVOT diam: 1.9 cm LVIDs: 3.4 cm Ao root diam: 3.8 cm FS: 31.8 % asc Aorta Diam: 4.3 cm EPSS: 1.0 cm IVSd: 0.98 cm LVPWd: 1.0 cm LV maradiaga. diameter/BSA (cm/m^2): 2.4 LV sys. diameter/BSA (cm/m^2): 1.7 LA A2 area: 29.0 cm2 RA long axis: 6.1 cm LA A4 area: 27.6 cm2 RA area: 21.9 cm2 LA length (vol): 6.5 cm RA vol: 66.5 ml LA vol: 105.2 ml RA : 32.5 ml/m2 LA vol index: 51.5 ml/m2 IVC diam: 2.4 cm RVD1 (basal): 4.6 cm RVD2 (mid): 3.4 cm TAPSE: 3.0 cm Doppler Measurements & Calculations Ao V2 max: 151.6 cm/sec LVOT Max Bennett: 78.3 cm/sec Ao V2 mean: 106.8 cm/sec LV V1 max P.5 mmHg Ao max P.2 mmHg LV V1 VTI: 18.9 cm Ao mean P.0 mmHg EMILY(I,D): 1.9 cm2 Ao V2 VTI: 29.7 cm EMILY(V,D): 1.5 cm2 sev ratio: 0.64 EMILY indexed to BSA (cm^2/m^2): 0.92 MV E max bennett: 97.0 cm/sec TR max bennett: 363.2 cm/sec MV A max bennett: 42.8 cm/sec TR max P.8 mmHg MV E/A: 2.3 PA V2 max: 92.8 cm/sec Med Peak E' Bennett: 4.9 cm/sec PA V2 mean: 62.3 cm/sec E/E' med: 19.9 PA mean P.7 mmHg Lat Peak E' Bennett: 11.7 cm/sec PA pr(Accel): 37.9 mmHg E/E' lat: 8.3 E/e' average: 14.1 MV dec time: 0.25 sec SV(NY): 55.9 ml Reading Physician:09:42 PM
[2025-08-19] MEDS: FUROSEMIDE 60 MG in SODIUM CHLORIDE 0.9% 50 ML 112 MG IV ×2 (11:52→20:00)
--- NOTE | 2025-08-19 16:53 | PT-IP ANOTE ---
Pt has mobilized with nursing today and ambulated, he was awaiting dinner when PT attempted to see him today and wished to hold off on further activity, will resume PT tomorrow
[2025-08-19] MEDS: REMOVE LIDOCAINE PATCH 1 EACH TOP (21:00)
[2025-08-20] VITALS (10 sets, daily range): BP systolic 92–131; BP diastolic 46–73; PULSE 55–82; RESP 17–20; TEMP 36.6–36.9; O2SAT 93–100
[2025-08-20] MEDS: FUROSEMIDE 60 MG in SODIUM CHLORIDE 0.9% 50 ML 112 MG IV ×3 (04:00→22:09)
[2025-08-20 05:34] LABS: Add Manual Diff / Slide Review NO; Hematocrit 35.6 % (41-53); Hemoglobin 11.6 g/dL (13.5-17.5); Lymphocytes Absolute Auto 2100 /uL (1100-4500); Mean Corpuscular HGB Conc 32.7 % (30-36); Mean Corpuscular Hemoglobin 25.1 PG (26-34); Mean Corpuscular Volume 76.7 fL (80-100); Platelet Count 289 X10^3/uL (150-400)
[2025-08-20 05:45] LABS: Alanine Aminotransferase 10 IU/L (<50); Albumin 3.2 g/dL (3.5-5.0); Albumin Globulin Ratio 1.3 (1.0-2.8); Alkaline Phosphatase 77 U/L (38-126); Blood Urea Nitrogen 20 mg/dL (9-20); Calcium 8.0 mg/dL (8.4-10.2); Carbon Dioxide 30 mmol/L (22-32); Chloride 97 mmol/L (98-107); Estimated Glomerular Filt Rate > 60 mL/min (>60); Globulin 2.5 g/dL (1.7-4.1); Glucose 79 mg/dL (70-99); HEMOLYSIS < 15 (0-50); Potassium 3.4 mmol/L (3.4-5.1); Sodium 134 mmol/L (137-145); Total Protein 5.7 g/dL (6.3-8.2)
--- NOTE | 2025-08-20 08:28 | P.PN_ITS ---
Subjective Subjective Date Patient Seen: 08/20/25 Time Patient Seen: 08:28 Interval history: 85-year-old male well known to me admitted on Wednesday with increasing edema swelling. I did speak to the ER late Wednesday afternoon was hoping he could be treated as an outpatient with additional diuretic therapy but obviously required admission Since admission, he has been treated with parenteral furosemide with improvement in his edema. Urine output difficult to be sure since he does not have a Estrada catheter in place but is averaging around 2 L a day it appears Upper extremities much improved per patient lower extremities somewhat improved No respiratory symptoms not hypoxic. Has more stamina up and around he says yesterday than he did the day before which may relate to improvement in his edema Patient with echocardiogram done in April this year that demonstrated normal left ventricular function and evidence of probable primary diastolic dysfunction as a source of his edema. Echocardiography has been ordered but not yet performed for this admission Patient denies any real respiratory symptoms he does have significant COPD as well as paroxysmal atrial fibrillation (although is in sinus rhythm currently) Exam Vital Signs (past 8 hours): - 08/20/25 04:00 Temperature 98.3 F Pulse Rate 71 Respiratory Rate 19 Blood Pressure 100/53 L Pulse Oximetry 94 Oxygen Flow Rate 0 Oxygen Delivery Method Room Air Oxygen Flow Rate 0 Objective Labs 08/20/25 05:03 08/20/25 05:03 Labs: Laboratory Results - last 24 hr 08/20/25 05:03 WBC 7.9 RBC 4.64 Hgb 11.6 L Hct 35.6 L MCV 76.7 L MCH 25.1 L MCHC 32.7 RDW 18.3 H Plt Count 289 Neut % (Auto) 57.6 Lymph % (Auto) 26.4 [place] % (Auto) 11.8 Eos % (Auto) 2.7 Baso % (Auto) 1.5 Neut # (Auto) 4500 Lymph # (Auto) 2100 [place] # (Auto) 900 Eos # (Auto) 200 Baso # (Auto) 100 Sodium 134 L Potassium 3.4 Chloride 97 L Carbon Dioxide 30 BUN 20 Creatinine 0.86 Estimated GFR > 60 BUN/Creatinine Ratio 23.3 H Glucose 79 Calcium 8.0 L Total Bilirubin 1.4 H AST 18 ALT 10 Alkaline Phosphatase 77 Total Protein 5.7 L Albumin 3.2 L Globulin 2.5 Albumin/Globulin Ratio 1.3 [facility] Medical History (Updated 08/17/25 @ 19:56 by Sanam Concepcion DO) Lumbar stenosis with neurogenic claudication Spondylolisthesis of lumbar region Sacroiliitis Sacroiliac joint pain Lumbar radiculopathy Erectile dysfunction Chronic heart failure with preserved ejection fraction History of COVID-19 (10/2020) Right inguinal hernia Peripheral edema Testosterone deficiency in male Pulmonary nodule Cardiomyopathy Essential hypertension Atrial fibrillation COPD (chronic obstructive pulmonary disease) Chronic fatigue (11/23/17) Rheumatoid arthritis involving multiple sites (07/28/17) Postherpetic neuralgia (05/20/17) Primary osteoarthritis of both knees (11/22/15) Mild persistent asthma without complication (11/22/15) Surgical History Hx of knee surgery (10/2015) Hx of colonoscopy (10/22/22) S/P cataract extraction Status post cholecystectomy Family History Father Asthma Mother Diabetes mellitus Social History marital status: household members: spouse lives independently: Yes occupational status: previously employed alcohol intake: never substance use type: does not use Assessment & Plan Assessment & Plan narrative: 1. Acute on chronic congestive heart failure with preserved ejection fraction- continue with aggressive diuresis and follow electrolytes renal function etcetera. Will add some potassium given his borderline low potassium this morning. Plan to discharge on torsemide versus furosemide when felt to be appropriate for discharge hopefully in the next 24-48 hours 2. COPD-no evidence of active COPD. Continue inhalers and nebulizers 3. History of paroxysmal atrial fibrillation-in sinus rhythm currently. Continue meds including anticoagulation 4. Hypertension-continue on current medications. Patient's blood pressure somewhat soft, but stable Time-Based Coding :: [TOTAL MINUTES] spent with patient and on the chart (including review of chart, obtaining history, exam, reviewing outside data, placing orders, documenting exam and treatment plan, and counseling patient) on [DATE]. [facility]EE Home Health Specialist Document charge(s): Yes Charge Codes Subsequent inpatient/observation care: [id number]
[2025-08-20] MEDS: POTASSIUM CHLORIDE 20 MEQ TAB PO ×2 (09:25→17:46)
[2025-08-20] MEDS: APIXABAN 5 MG TABLET PO ×2 (09:25→21:17)
[2025-08-20] MEDS: LIDOCAINE 5% PATCH 1 EACH TOP ×2 (09:26→09:33)
[2025-08-20] MEDS: SPIRONOLACTONE 25 MG TABLET PO (09:27)
[2025-08-20] MEDS: METOPROLOL IR 25 MG TABLET 12.5 MG PO ×2 (09:27→21:18)
[2025-08-20] MEDS: SODIUM CHLORIDE 0.9% FLUSH 10 ML IV ×2 (09:34→21:17)
[2025-08-20] MEDS: ALBUTEROL/IPRATROPIUM 3 ML AMPUL INH ×2 (11:34→15:07)
[2025-08-20] MEDS: GENTAMICIN 0.3% OPHTH 5 ML 1 DROPS EYE-BOTH ×3 (14:59→21:17)
--- NOTE | 2025-08-20 15:18 | CM.DPNOTE ---
DCP note MISSIONARY COORDINATOR reviewed EMR per arina note anticiapte dc in next 24-48 hrs. per PT note pt ambulating around room indep. MISSIONARY COORDINATOR attempted to meet with pt to f/u about potential HH, pt sleeping soundly. allowed to rest. P: anticipate return home with spouse and son support when stable, likely to deny HH referral. will continue to follow as needed for DCP coordination DMITRI Abrams
--- NOTE | 2025-08-20 15:24 | OT.IPNOTE ---
Maicol was not agreeable to treatment. He reported that he felt nauseated, dizzy and had a headache. He also just received a breathing treatment, antibiotics for his eyes, and lasix. He voiced preference for morning treatment(s)/sessions. OT to re-approach Maicol at a later time.
[2025-08-20] MEDS: REMOVE LIDOCAINE PATCH 1 EACH TOP (21:18)
[2025-08-21] VITALS (7 sets, daily range): BP systolic 82–127; BP diastolic 40–65; PULSE 61–89; RESP 13–18; TEMP 36.2–37; O2SAT 93–97
[2025-08-21 05:36] LABS: Blood Urea Nitrogen 20 mg/dL (9-20); Calcium 8.5 mg/dL (8.4-10.2); Carbon Dioxide 34 mmol/L (22-32); Chloride 94 mmol/L (98-107); Estimated Glomerular Filt Rate > 60 mL/min (>60); Glucose 83 mg/dL (70-99); HEMOLYSIS < 15 (0-50); Magnesium 1.2 mg/dL (1.6-2.3); Potassium 3.7 mmol/L (3.4-5.1); Sodium 131 mmol/L (137-145)
[2025-08-21] MEDS: FUROSEMIDE 60 MG in SODIUM CHLORIDE 0.9% 50 ML 112 MG IV ×2 (06:01→20:58)
[2025-08-21] MEDS: ALBUTEROL/IPRATROPIUM 3 ML AMPUL INH ×2 (07:32→15:53)
--- NOTE | 2025-08-21 07:57 | P.PN_ITS ---
Subjective Subjective Date Patient Seen: 08/21/25 Time Patient Seen: 07:57 Interval history: Patient reports his edema seems to be going down some Biggest thing is his eyes are red and burning. Placed on gentamicin eyedrops empirically yesterday Labs this morning showed stability with potassium and renal function although magnesium is down Exam Vital Signs (past 8 hours): - 08/21/25 00:24 08/21/25 04:00 Temperature 98.6 F 98.6 F Pulse Rate 84 89 Respiratory Rate 18 16 Blood Pressure 113/65 95/44 L Pulse Oximetry 97 93 Fraction of Inspired Oxygen 21 SaO2/FiO2 Ratio 457 Oxygen Delivery Method Room Air Oxygen Flow Rate 0 Objective Labs 08/20/25 05:03 08/21/25 04:44 Labs: Laboratory Results - last 24 hr 08/21/25 04:44 Sodium 131 L Potassium 3.7 Chloride 94 L Carbon Dioxide 34 H BUN 20 Creatinine 0.80 Estimated GFR > 60 BUN/Creatinine Ratio 25.0 H Glucose 83 Calcium 8.5 Magnesium 1.2 L PFSH Medical History (Updated 08/17/25 @ 19:56 by Sanam Concepcion DO) Lumbar stenosis with neurogenic claudication Spondylolisthesis of lumbar region Sacroiliitis Sacroiliac joint pain Lumbar radiculopathy Erectile dysfunction Chronic heart failure with preserved ejection fraction History of COVID-19 (10/2020) Right inguinal hernia Peripheral edema Testosterone deficiency in male Pulmonary nodule Cardiomyopathy Essential hypertension Atrial fibrillation COPD (chronic obstructive pulmonary disease) Chronic fatigue (11/23/17) Rheumatoid arthritis involving multiple sites (07/28/17) Postherpetic neuralgia (05/20/17) Primary osteoarthritis of both knees (11/22/15) Mild persistent asthma without complication (11/22/15) Surgical History Hx of knee surgery (10/2015) Hx of colonoscopy (10/22/22) S/P cataract extraction Status post cholecystectomy Family History Father Asthma Mother Diabetes mellitus Social History marital status: household members: spouse lives independently: Yes occupational status: previously employed alcohol intake: never substance use type: does not use Assessment & Plan Assessment & Plan narrative: 1. Acute on chronic congestive heart failure with preserved ejection fraction- continue with aggressive diuresis and follow electrolytes renal function etcetera. Continue on additional potassium and add magnesium this morning. Recheck numbers tomorrow. 2. COPD-no evidence of active COPD. Continue inhalers and nebulizers 3. History of paroxysmal atrial fibrillation-in sinus rhythm currently. Continue meds including anticoagulation 4. Hypertension-continue on current medications. Patient's blood pressure somewhat soft, but stable 5. Possible conjunctivitis-continue with gentamicin eyedrops and artificial tears as needed for comfort Overall continues to improve day by day hopefully and most likely be ready for discharge by tomorrow morning Time-Based Coding :: [TOTAL MINUTES] spent with patient and on the chart (including review of chart, obtaining history, exam, reviewing outside data, placing orders, documenting exam and treatment plan, and counseling patient) on [DATE]. PROFEE Production Honing Machine Operator Document charge(s): Yes Charge Codes Subsequent inpatient/observation care: [id number]
[2025-08-21] MEDS: LIDOCAINE 5% PATCH 1 EACH TOP ×2 (09:17→09:18)
[2025-08-21] MEDS: METOPROLOL IR 25 MG TABLET 12.5 MG PO ×2 (09:17→20:59)
[2025-08-21] MEDS: MAGNESIUM OXIDE 400 MG TABLET PO ×2 (09:17→20:58)
[2025-08-21] MEDS: POTASSIUM CHLORIDE 20 MEQ TAB PO ×2 (09:17→17:24)
[2025-08-21] MEDS: SPIRONOLACTONE 25 MG TABLET PO (09:17)
[2025-08-21] MEDS: APIXABAN 5 MG TABLET PO ×2 (09:17→20:58)
[2025-08-21] MEDS: SODIUM CHLORIDE 0.9% FLUSH 10 ML IV ×2 (09:18→21:09)
[2025-08-21] MEDS: GENTAMICIN 0.3% OPHTH 5 ML 1 DROPS EYE-BOTH ×4 (09:19→20:59)
[2025-08-21] MEDS: CARBOXYMETHYLCELLULOSE DROPS 1 DROPS EYE-BOTH (09:22)
[2025-08-21] MEDS: ONDANSETRON 4 MG/2 ML INJ IV (09:59)
--- NOTE | 2025-08-21 10:28 | OT.IPNOTE ---
Checked on pt for OT eval and pt states very nauseous and that nursing just gave him medication. Pt refusing. Able to help reposition pt in the recliner with pillows and blankets. No charge.
[2025-08-21] MEDS: METOCLOPRAMIDE 10 MG/2 ML INJ 5 MG IV (14:19)
[2025-08-21] MEDS: ACETAMINOPHEN 325 MG TABLET 650 MG PO (14:20)
--- NOTE | 2025-08-21 15:26 | OT.IPNOTE ---
Attempted OT eval again and pt states too nauseous and promised to try tomorrow.
--- NOTE | 2025-08-21 15:53 | CM.DPNOTE ---
DCP Continued: Reviewed EMR and team rounds for pt?s medical status. Per Provider, pt is making improvement day by day and would likely be cleared to discharge home on 08/22. DIESEL ENGINE ASSEMBLER spoke with pt and discussed recommendations of Provider and PT/OT for home health - pt declines this due to getting stairs done in my house. Pt agreeable to revisit home health with his provider when appropriate. Plan: Anticipating dc home with family on 08/22 or when medically cleared, no other needs identified. CM Team will continue to follow for coordination of discharge plans. ODALYS Lackey
--- NOTE | 2025-08-21 17:09 | PT-IP ANOTE ---
checked on pt and pt refused PT. pt stated that he is not feeling too well today and has been nauseated. pt stated that he feels like he is getting the flu. will f/u.
[2025-08-21] MEDS: REMOVE LIDOCAINE PATCH 1 EACH TOP (21:08)
[2025-08-22] VITALS (7 sets, daily range): BP systolic 101–115; BP diastolic 40–71; PULSE 59–95; RESP 13–18; TEMP 36.7–37.1; O2SAT 94–99
[2025-08-22 05:17] LABS: Blood Urea Nitrogen 17 mg/dL (9-20); Calcium 8.6 mg/dL (8.4-10.2); Carbon Dioxide 37 mmol/L (22-32); Chloride 92 mmol/L (98-107); Estimated Glomerular Filt Rate > 60 mL/min (>60); Glucose 92 mg/dL (70-99); Magnesium 1.4 mg/dL (1.6-2.3); Sodium 132 mmol/L (137-145)
[2025-08-22 05:19] LABS: HEMOLYSIS 52 (0-50)
[2025-08-22 05:20] LABS: Potassium 3.8 mmol/L (3.4-5.1)
[2025-08-22] MEDS: ALBUTEROL/IPRATROPIUM 3 ML AMPUL INH ×2 (08:46→11:35)
--- NOTE | 2025-08-22 08:47 | P.PN_ITS ---
Subjective Subjective Date Patient Seen: 08/22/25 Time Patient Seen: 08:47 Interval history: Patient with kind of a rough day yesterday. Had lot of nausea had some modest hypotension and became somewhat dizzy lightheaded wanted to go back to bed This morning the blood pressure is better dizziness is gone nausea is not gone but better. Says he is having a little more trouble breathing though Has bit of a headache this morning just does not feel like he is quite ready to go home as yet when we discuss it Lower extremity edema is continuing to improve he can now feel his anterior tibia which was not possible previously so definitely improved Exam Vital Signs (past 8 hours): Fraction of Inspired Oxygen 21 SaO2/FiO2 Ratio 461 Oxygen Delivery Method Room Air Oxygen Flow Rate 0 Objective Labs 08/20/25 05:03 08/22/25 04:53 Labs: Laboratory Results - last 24 hr 08/22/25 04:53 Sodium 132 L Potassium 3.8 Chloride 92 L Carbon Dioxide 37 H BUN 17 Creatinine 0.81 Estimated GFR > 60 BUN/Creatinine Ratio 21.0 Glucose 92 Calcium 8.6 Magnesium 1.4 L PFS Medical History (Updated 08/17/25 @ 19:56 by Sanam Concepcion DO) Lumbar stenosis with neurogenic claudication Spondylolisthesis of lumbar region Sacroiliitis Sacroiliac joint pain Lumbar radiculopathy Erectile dysfunction Chronic heart failure with preserved ejection fraction History of COVID-19 (10/2020) Right inguinal hernia Peripheral edema Testosterone deficiency in male Pulmonary nodule Cardiomyopathy Essential hypertension Atrial fibrillation COPD (chronic obstructive pulmonary disease) Chronic fatigue (11/23/17) Rheumatoid arthritis involving multiple sites (07/28/17) Postherpetic neuralgia (05/20/17) Primary osteoarthritis of both knees (11/22/15) Mild persistent asthma without complication (11/22/15) Surgical History Hx of knee surgery (10/2015) Hx of colonoscopy (10/22/22) S/P cataract extraction Status post cholecystectomy Family History Father Asthma Mother Diabetes mellitus Social History marital status: household members: spouse lives independently: Yes occupational status: previously employed alcohol intake: never substance use type: does not use Assessment & Plan Assessment & Plan narrative: 1. Acute on chronic congestive heart failure with preserved ejection fraction- continue with diuresis although I will switch to oral diuretics today. Continue on additional potassium and add magnesium this morning. 2. COPD-maybe mild flare of COPD. Continue albuterol but I am going to add scheduled DuoNeb to his regimen. He has not really ever responded or been fond of an inhaled steroid 3. History of paroxysmal atrial fibrillation-in sinus rhythm currently. Continue meds including anticoagulation, and the unusual combination of sotalol with metoprolol (which was started by Cardiology) 4. Hypertension-continue on current medications. Backing off on diuresis as above should help 5. Possible conjunctivitis-continue with gentamicin eyedrops and artificial tears as needed for comfort Overall continues to improve day by day hopefully and most likely be ready for discharge by tomorrow morning Time-Based Coding :: [TOTAL MINUTES] spent with patient and on the chart (including review of chart, obtaining history, exam, reviewing outside data, placing orders, documenting exam and treatment plan, and counseling patient) on [DATE]. PROFEE Director Of Retail Operations Document charge(s): Yes Charge Codes Subsequent inpatient/observation care: [id number]
[2025-08-22] MEDS: LIDOCAINE 5% PATCH 1 EACH TOP ×2 (09:01→09:02)
[2025-08-22] MEDS: GENTAMICIN 0.3% OPHTH 5 ML 1 DROPS EYE-BOTH ×4 (09:01→21:06)
[2025-08-22] MEDS: POTASSIUM CHLORIDE 20 MEQ TAB PO ×2 (09:01→17:07)
[2025-08-22] MEDS: APIXABAN 5 MG TABLET PO ×2 (09:01→20:58)
[2025-08-22] MEDS: METOPROLOL IR 25 MG TABLET 12.5 MG PO ×2 (09:02→20:59)
[2025-08-22] MEDS: MAGNESIUM OXIDE 400 MG TABLET PO ×2 (09:02→20:59)
[2025-08-22] MEDS: TORSEMIDE 10 MG TABLET 40 MG PO (09:03)
[2025-08-22] MEDS: SPIRONOLACTONE 25 MG TABLET PO (09:03)
[2025-08-22] MEDS: SODIUM CHLORIDE 0.9% FLUSH 10 ML IV ×2 (09:03→21:00)
[2025-08-22] MEDS: ONDANSETRON 4 MG/2 ML INJ IV (09:08)
--- NOTE | 2025-08-22 10:30 | OT.IPNOTE ---
Pt still refusing OT eval as stating feeling nauseous. BP 92/57 and O2 at 88-91% on RA. Nursing notified and nurse states to check on pt and place O2 on him.
[2025-08-22] MEDS: MAGNESIUM CHLORIDE 64 MG TABLET 128 MG PO (12:15)
--- NOTE | 2025-08-22 13:21 | CM.DPNOTE ---
DCP note GOLF COURSE EQUIPMENT OPERATOR reviewed EMR per chart review, had some dizziness and BP issues yesterday/overnight. will keep one more day and then dc tomorrow. P: home with family and OP f/u when stable, ideally tomorrow. CM team will continue to follow as needed for DCP coordination DMITRI Abrams
--- NOTE | 2025-08-22 16:14 | PT.IPTN ---
Current Diagnoses Acute on chronic diastolic (congestive) heart failure (08/19/25) Physical Therapy Treatment Note M2 PT-IP Current Condition Start: 08/18/25 12:24 Freq: NEEDED Status: Active Protocol: Document 08/18/25 10:35 AB (Rec: 08/18/25 12:47 AB Desktop) Physical Therapy Current Condition Current Condition Evaluation Date 08/18/25 Treatment Diagnosis CHF; difficulty in walking Onset Date 08/17/25 M3 PT-IP Subjective Start: 08/18/25 12:24 Freq: NEEDED Status: Active Protocol: Document 08/22/25 16:10 AB (Rec: 08/22/25 16:13 AB [id number]) Subjective Physical Therapy Visit Type Type Administrative Note Notes Checked on pt and pt refusing PT. stated that he is still not feeling well. pt stated that the doctor will send him home tomorrow. pt stated that he is able to ambulate in room using his hurrycane to use the toilet with nursing staff. informed pt that he has been refusing PT for a few days now and pt will be d/c'd from PT. Pt understood. Talked with embedded case manager and stated that pt has been refusing d/c recommendations of home health, etc. embedded case manager aware of PT d/c. M7 PT-IP Assessment and Plan Start: 08/18/25 12:24 Freq: NEEDED Status: Active Protocol: Document 08/22/25 16:10 AB (Rec: 08/22/25 16:14 AB [id number]) PT Summary Assessment and Plan Frequency of Treatment Frequency Of Discharge Treatment
--- NOTE | 2025-08-22 16:15 | PT-IP ANOTE ---
pt has been refusing PT for several days now. Will d/c PT. pt and window caser informed.
[2025-08-22 16:55] LABS: Coronavirus NL 63 Not Detected (Not Detect); SARS- CoV-2 Not Detected (Not Detecte)
[2025-08-22] MEDS: REMOVE LIDOCAINE PATCH 1 EACH TOP (21:10)
[2025-08-23] VITALS (56 sets, daily range): BP systolic 92–126; BP diastolic 56–75; PULSE 78–147; RESP 5–39; TEMP 36.4–37.1; O2SAT 83–100
[2025-08-23] MEDS: ALBUTEROL/IPRATROPIUM 3 ML AMPUL INH ×3 (00:10→18:20)
--- NOTE | 2025-08-23 01:57 | EKG_ITS ---
[place] [id number] [place] [id number] Test Date: 2025-08-23 Pat Name: Blayne Hopkins Department: [facility] Room: 221 Gender: Male Beverage Steward: KALA : 1940 Requested By: Order Number: [id number] Reading MD: Mitchell Buchanan MD Measurements Intervals [place] Rate: 138 P: [place]: QRS: 16 QRSD: 78 T: -20 QT: 310 QTc: 469 Interpretive Statements Atrial fibrillation with rapid ventricular response Electronically Signed On 08-23-2025 7:21:35 PDT by Mitchell Buchanan MD
--- NOTE | 2025-08-23 02:59 | PC.NURSE ---
Pt is A&Ox4, on room air.Vital signs are unstable BP 87/59 on the right arm and 93/54 on the Left arm Pulse ranging from 144 to 171.Magnesium 1.4. Stat EKG ordered (AFIB with venticular response. Dr Ellison informed- Bloods for Troponin levels now and Q6, Magnesium citrate 2g,CBC,CMP and IV Digoxin.Pt transferred to ICU for further management.
[2025-08-23] MEDS: SODIUM CHLORIDE 0.9% 250 ML 1000 ML IV (03:21)
[2025-08-23] MEDS: DIGOXIN 500 MCG/2 ML AMPUL IV (03:30)
[2025-08-23 03:37] LABS: Add Manual Diff / Slide Review NO; Hematocrit 39.8 % (41-53); Hemoglobin 13.0 g/dL (13.5-17.5); Lymphocytes Absolute Auto 1600 /uL (1100-4500); Mean Corpuscular HGB Conc 32.5 % (30-36); Mean Corpuscular Hemoglobin 24.8 PG (26-34); Mean Corpuscular Volume 76.3 fL (80-100); Platelet Count 312 X10^3/uL (150-400)
[2025-08-23] MEDS: GABAPENTIN 300 MG CAPSULE PO ×2 (03:53→13:37)
[2025-08-23 03:57] LABS: Troponin I < 0.012 ng/mL (0.01-0.034)
[2025-08-23] MEDS: MAGNESIUM SULFATE 2 GM/50 ML PIGGYBACK IV (04:45)
[2025-08-23 05:38] LABS: Blood Urea Nitrogen 25 mg/dL (9-20); Calcium 8.6 mg/dL (8.4-10.2); Carbon Dioxide 32 mmol/L (22-32); Chloride 92 mmol/L (98-107); Estimated Glomerular Filt Rate > 60 mL/min (>60); Glucose 112 mg/dL (70-99); HEMOLYSIS 22 (0-50); Potassium 3.8 mmol/L (3.4-5.1); Sodium 130 mmol/L (137-145)
--- NOTE | 2025-08-23 07:25 | PM.PN.IH.1 ---
Subjective Subjective Date Patient Seen: 08/23/25 Time Patient Seen: 07:25 Interval history: Patient went into atrial fibrillation overnight. Does have a history of paroxysmal atrial fibrillation, is chronically on sotalol for this reason Moved to the ICU and given IV digoxin as well as some IV fluids and magnesium infusion. Lab work done unremarkable including troponin. Echo done earlier this admission unchanged from previous. Patient still with headache and feeling some respiratory issues yesterday was tested at [facility], [place] for COVID and other respiratory viruses all of which returned negative Still feeling a little bit off with his breathing this morning but not dramatically. A little bit sleepy from all of the overnight activity No chest pain no sense of palpitations. This morning heart rate is right around 100 although rapidly increases with minimal activity Blood pressure better at 110 systolic Exam Vital Signs (past 8 hours): - 08/23/25 00:11 08/23/25 00:40 08/23/25 03:30 Temperature 98.6 F Pulse Rate 84 81 147 H Respiratory Rate 18 18 Blood Pressure 126/57 L 98/61 Pulse Oximetry 94 93 Oxygen Delivery Method Room Air Oxygen Flow Rate 0 Fraction of Inspired Oxygen 21 08/23/25 04:00 Temperature Pulse Rate 138 H Respiratory Rate 22 Blood Pressure 95/58 L Pulse Oximetry 91 Oxygen Delivery Method Oxygen Flow Rate 0 Fraction of Inspired Oxygen Fraction of Inspired Oxygen 21 SaO2/FiO2 Ratio 447 Oxygen Delivery Method Room Air Oxygen Flow Rate 0 Objective Labs 08/23/25 03:13 08/23/25 03:13 Labs: Laboratory Results - last 24 hr 08/22/25 08/23/25 15:45 03:13 WBC 8.7 RBC 5.22 Hgb 13.0 L Hct 39.8 L MCV 76.3 L MCH 24.8 L MCHC 32.5 RDW 18.0 H Plt Count 312 Neut % (Auto) 65.1 Lymph % (Auto) 18.8 L [place] % (Auto) 9.4 Eos % (Auto) 3.1 Baso % (Auto) 3.6 H Neut # (Auto) 5600 Lymph # (Auto) 1600 [place] # (Auto) 800 Eos # (Auto) 300 Baso # (Auto) 300 H Sodium 130 L Potassium 3.8 Chloride 92 L Carbon Dioxide 32 BUN 25 H Creatinine 1.16 Estimated GFR > 60 BUN/Creatinine Ratio 21.6 Glucose 112 H Calcium 8.6 Troponin I < 0.012 Chlamy pneumoniae PCR Not detected Adenovirus (PCR) Not detected B. pertussis DNA (PCR) Not detected B.parapertussis DNA PCR Not detected Coronavirus OC43 (PCR) Not detected Coronavirus HKU1 (PCR) Not detected Coronavirus 229E (PCR) Not detected SARS-CoV-2 (PCR) Not detected Coronavirus NL63 (PCR) Not detected Human Metapneumovir PCR Not detected Influenza Type A (PCR) Not detected Influenza Type B (PCR) Not detected M. pneumoniae (PCR) Not detected Parainfluenza 1 (PCR) Not detected Parainfluenza 2 (PCR) Not detected Parainfluenza 3 (PCR) Not detected Parainfluenza 4 (PCR) Not detected RSV (PCR) Not detected Entero/Rhino (PCR) Not detected PFSH Medical History (Updated 08/17/25 @ 19:56 by Sanam Concepcion DO) Lumbar stenosis with neurogenic claudication Spondylolisthesis of lumbar region Sacroiliitis Sacroiliac joint pain Lumbar radiculopathy Erectile dysfunction Chronic heart failure with preserved ejection fraction History of COVID-19 (10/2020) Right inguinal hernia Peripheral edema Testosterone deficiency in male Pulmonary nodule Cardiomyopathy Essential hypertension Atrial fibrillation COPD (chronic obstructive pulmonary disease) Chronic fatigue (11/23/17) Rheumatoid arthritis involving multiple sites (07/28/17) Postherpetic neuralgia (05/20/17) Primary osteoarthritis of both knees (11/22/15) Mild persistent asthma without complication (11/22/15) Surgical History Hx of knee surgery (10/2015) Hx of colonoscopy (10/22/22) S/P cataract extraction Status post cholecystectomy Family History Father Asthma Mother Diabetes mellitus Social History marital status: household members: spouse lives independently: Yes occupational status: previously employed alcohol intake: never substance use type: does not use Assessment & Plan Assessment & Plan narrative: 1. Atrial fibrillation rapid ventricular response-continue to load digoxin as ordered by Dr. Ellison overnight. Depending on his clinical course planned switch to oral digoxin with an evening dose tomorrow. Continue to hold off on aggressive diuresis but I think he does need continued diuresis. Patient in the past has had issues with bradycardia as well, as I am reminded by the ICU nursing staff, so we need to monitor carefully. If he fails to really be controlled with the digoxin my next suggestion would be to DC the sotalol and load with amiodarone. Amiodarone not my first choice as an outpatient given his chronic lung disease, but may be more effective in the long run.... 2. Peripheral edema/congestive heart failure-continues to be improved. Continue on oral diuretics. Recheck electrolytes etcetera tomorrow 3. Hypertension-patient if anything modestly hypotensive. His losartan has been held. We have backed off on diuresis. Patient does run modestly low with blood pressure on an ongoing basis off and on. He is asymptomatic at this time. Numbers seem better with a little bit of IV fluids so perhaps we have overdone the diuresis even though clinically he still has pitting edema in his lower extremities. 4. COPD-likely an etiology for his AFib and his modest respiratory symptoms. I added DuoNeb to his regimen yesterday which may also have been a trigger for his AFib. Hesitant to add prednisone which may lead to further fluid accumulation, but may have no choice if his respiratory status further declines in a fashion consistent with his known COPD Time-Based Coding :: [TOTAL MINUTES] spent with patient and on the chart (including review of chart, obtaining history, exam, reviewing outside data, placing orders, documenting exam and treatment plan, and counseling patient) on [DATE]. PROFEE Mechanic Driver Document charge(s): Yes Charge Codes Subsequent inpatient/observation care: [id number]
[2025-08-23] MEDS: SPIRONOLACTONE 25 MG TABLET PO (08:34)
[2025-08-23] MEDS: MAGNESIUM OXIDE 400 MG TABLET PO ×2 (08:34→20:48)
[2025-08-23] MEDS: APIXABAN 5 MG TABLET PO ×2 (08:34→20:48)
[2025-08-23] MEDS: LIDOCAINE 5% PATCH 1 EACH TOP ×2 (08:34→08:38)
[2025-08-23] MEDS: TORSEMIDE 10 MG TABLET 40 MG PO (08:34)
[2025-08-23] MEDS: POTASSIUM CHLORIDE 20 MEQ TAB PO ×2 (08:34→16:56)
[2025-08-23] MEDS: METOPROLOL IR 25 MG TABLET 12.5 MG PO (08:35)
[2025-08-23] MEDS: DIGOXIN 500 MCG/2 ML AMPUL 250 MCG IV ×2 (08:36→15:17)
[2025-08-23] MEDS: SODIUM CHLORIDE 0.9% FLUSH 10 ML IV ×2 (08:36→21:00)
[2025-08-23] MEDS: GENTAMICIN 0.3% OPHTH 5 ML 1 DROPS EYE-BOTH ×4 (08:38→20:48)
[2025-08-23 10:03] LABS: Troponin I < 0.012 ng/mL (0.01-0.034)
--- NOTE | 2025-08-23 10:14 | OT.IPNOTE ---
Pt has been refusing OT eval for the past few days, therefore discharge OT eval orders.
--- NOTE | 2025-08-23 11:31 | DI.RAD.S_ITS ---
PROCEDURE: XR CHEST 1V INDICATIONS: hypoxia TECHNIQUE: One view of the chest was acquired. COMPARISON: [facility], CR, XR CHEST 1V, 04/08/2025, 12:30. [facility], CR, XR CHEST 1V, 08/17/2025, 12:27. FINDINGS: Surgical changes and devices: Mass Lungs and pleura: On this semiupright portable chest examination, no large pneumothorax or large pleural effusions are seen. No focal infiltrates are seen. Low lung volumes are noted. This causes a crowded appearance to the lung markings and limits evaluation. Mediastinum: The cardiac contours are within normal limits. The aorta demonstrates calcification and tortuosity. Bones and chest wall: Age-appropriate bony degenerative changes are seen. No suspicious bony lesions. Overlying soft tissues appear unremarkable. IMPRESSION: Low lung volumes, without an acute abnormality seen by plain film. Dictated by: Terry Jiang M.D. on 08/23/2025 at 10:52 Approved by: Terry Jiang M.D. on 08/23/2025 at 10:53
--- NOTE | 2025-08-23 12:24 | CM.DPC ---
DCP Cont: Per MD, pt overnight had some AFIB/tachy and was moved to ICU and not yet stable for discharge. Per PT/OT, pt continues to refuse to work with them at this time and they discharged the orders. Plan; SW to continue to follow for plan of home with family when medically stable and confirm pt still declines HH or further services. DMITRI Hansen
[2025-08-23 14:46] LABS: Blood Urea Nitrogen 23 mg/dL (9-20); Calcium 8.6 mg/dL (8.4-10.2); Carbon Dioxide 29 mmol/L (22-32); Chloride 93 mmol/L (98-107); Estimated Glomerular Filt Rate > 60 mL/min (>60); Glucose 96 mg/dL (70-99); HEMOLYSIS < 15 (0-50); Potassium 4.3 mmol/L (3.4-5.1); Sodium 131 mmol/L (137-145)
[2025-08-23 16:15] LABS: Troponin I < 0.012 ng/mL (0.01-0.034)
[2025-08-23 16:27] LABS: NT-proBNP (BNP-Adult 18+) 1410 pg/mL (<450)
[2025-08-23 22:23] LABS: Troponin I < 0.012 ng/mL (0.01-0.034)
[2025-08-23 22:34] LABS: Blood Urea Nitrogen 23 mg/dL (9-20); Calcium 8.9 mg/dL (8.4-10.2); Carbon Dioxide 34 mmol/L (22-32); Chloride 91 mmol/L (98-107); Estimated Glomerular Filt Rate > 60 mL/min (>60); Glucose 118 mg/dL (70-99); HEMOLYSIS < 15 (0-50); Potassium 4.9 mmol/L (3.4-5.1); Sodium 132 mmol/L (137-145)
[2025-08-24] VITALS (12 sets, daily range): BP systolic 105–119; BP diastolic 56–75; PULSE 76–110; RESP 16–26; TEMP 36.8–36.9; O2SAT 92–100
--- NOTE | 2025-08-24 08:15 | P.PN_ITS ---
Subjective Subjective Date Patient Seen: 08/24/25 Time Patient Seen: 08:16 Interval history: Patient is sitting up in bedside chair looks much better than he did yesterday. Heart rate with the digoxin has been in the 70-105 range consistently. Still in atrial fibrillation. Blood pressure improved at 110 systolic this morning. O2 saturation all over the place whether due to inaccurate readings or variability hard to know. Mid 80s to 100%. Averaging about 90-95% on room air. Currently 92% on room air Patient without any symptoms of respiratory issues. He is continuing to be pleased with the decreased edema in upper and lower extremities Not really been out of bed in the last 24 hours just to the bedside chair which was not a problem he says Exam Vital Signs (past 8 hours): - 08/24/25 00:30 08/24/25 01:00 08/24/25 01:30 Pulse Rate 110 H 108 H 103 H Respiratory Rate 26 H 26 H 22 Blood Pressure Pulse Oximetry 08/24/25 01:41 08/24/25 01:41 08/24/25 02:00 Pulse Rate 100 H 97 H Respiratory Rate 21 21 Blood Pressure 107/58 L Pulse Oximetry 92 Fraction of Inspired Oxygen 21 SaO2/FiO2 Ratio 461 Oxygen Delivery Method Room Air Oxygen Flow Rate 2 Objective Labs 08/23/25 03:13 08/23/25 21:37 Labs: Laboratory Results - last 24 hr 08/23/25 08/23/25 08/23/25 09:16 15:36 21:37 Sodium 131 L 132 L Potassium 4.3 4.9 Chloride 93 L 91 L Carbon Dioxide 29 34 H BUN 23 H 23 H Creatinine 0.98 0.91 Estimated GFR > 60 > 60 BUN/Creatinine Ratio 23.5 H 25.3 H Glucose 96 118 H Calcium 8.6 8.9 Troponin I < 0.012 < 0.012 < 0.012 NT-Pro-B Natriuret Pep 1410 H [facility] Medical History (Updated 08/17/25 @ 19:56 by Sanam Concepcion DO) Lumbar stenosis with neurogenic claudication Spondylolisthesis of lumbar region Sacroiliitis Sacroiliac joint pain Lumbar radiculopathy Erectile dysfunction Chronic heart failure with preserved ejection fraction History of COVID-19 (10/2020) Right inguinal hernia Peripheral edema Testosterone deficiency in male Pulmonary nodule Cardiomyopathy Essential hypertension Atrial fibrillation COPD (chronic obstructive pulmonary disease) Chronic fatigue (11/23/17) Rheumatoid arthritis involving multiple sites (07/28/17) Postherpetic neuralgia (05/20/17) Primary osteoarthritis of both knees (11/22/15) Mild persistent asthma without complication (11/22/15) Surgical History Hx of knee surgery (10/2015) Hx of colonoscopy (10/22/22) S/P cataract extraction Status post cholecystectomy Family History Father Asthma Mother Diabetes mellitus Social History marital status: household members: spouse lives independently: Yes occupational status: previously employed alcohol intake: never substance use type: does not use Assessment & Plan Assessment & Plan narrative: 1. Atrial fibrillation-at this point continue with the oral digoxin and check dig level tomorrow. He may or may not convert back to sinus rhythm. Continue sotalol for now as well. 2. Peripheral edema/congestive heart failure-continues to be improved. Continue on oral diuretics. Recheck electrolytes etcetera tomorrow 3. Hypertension-patient if anything modestly hypotensive. Continue off the losartan for now. Continue with the digoxin. No other changes for blood pressure at this time. 4. COPD-likely an etiology for his AFib and his modest respiratory symptoms. Continue with the DuoNeb for now. I think we can avoid placing him on prednisone for now. Overall he is much improved over where he was at this time yesterday. I would like him to have a good 24 hours of stability in the hospital before considering discharge home but hopefully he is approaching that. Time-Based Coding :: [TOTAL MINUTES] spent with patient and on the chart (including review of chart, obtaining history, exam, reviewing outside data, placing orders, documenting exam and treatment plan, and counseling patient) on [DATE]. PROFEE Laboratory Operations Coordinator Document charge(s): Yes Charge Codes Subsequent inpatient/observation care: [id number]
[2025-08-24] MEDS: POTASSIUM CHLORIDE 20 MEQ TAB PO ×2 (09:20→17:10)
[2025-08-24] MEDS: APIXABAN 5 MG TABLET PO ×2 (09:20→20:46)
[2025-08-24] MEDS: MAGNESIUM OXIDE 400 MG TABLET PO ×2 (09:20→20:47)
[2025-08-24] MEDS: SPIRONOLACTONE 25 MG TABLET PO (09:20)
[2025-08-24] MEDS: LIDOCAINE 5% PATCH 1 EACH TOP ×2 (09:21→09:22)
[2025-08-24] MEDS: METOPROLOL IR 25 MG TABLET 12.5 MG PO ×2 (09:21→20:46)
[2025-08-24] MEDS: TORSEMIDE 10 MG TABLET 40 MG PO (09:21)
[2025-08-24] MEDS: ALBUTEROL/IPRATROPIUM 3 ML AMPUL INH (09:22)
[2025-08-24] MEDS: SODIUM CHLORIDE 0.9% FLUSH 10 ML IV ×2 (09:28→21:35)
[2025-08-24] MEDS: GENTAMICIN 0.3% OPHTH 5 ML 1 DROPS EYE-BOTH ×4 (09:30→20:49)
[2025-08-24] MEDS: ACETAMINOPHEN 325 MG TABLET 650 MG PO (14:57)
--- NOTE | 2025-08-24 15:07 | EKG_ITS ---
[place] [id number] [address] Test Date: 2025-08-24 Pat Name: Blayne Hopkins Department: [facility] Room: 220 Gender: Male Laundry Aid: NESSA : 1940 Requested By: Order Number: [id number] Reading MD: Mitchell Buchanan MD Measurements Intervals [place] Rate: 87 P: CT: QRS: 20 QRSD: 78 T: -23 QT: 326 QTc: 392 Interpretive Statements Atrial fibrillation Nonspecific T wave abnormality Electronically Signed On 08-25-2025 8:50:04 PDT by Mitchell Buchanan MD
--- NOTE | 2025-08-24 15:07 | PC.NURSE ---
Pt complaining of stabbing chest pains that just about made me jump out of bed. 1x, about an hour ago. No pain currently. He did not call us to tell us at the time. Does not seem in distress otherwise, VSWNL. No dizziness, nausea, jaw pain, SOB. Informed MD Brooks who ordered 12 lead ECG. Pt resting comfortably. Plan of care continues.
--- NOTE | 2025-08-24 17:02 | CM.DPNOTE ---
DCP note RANGE CONSERVATIONIST reviewed EMR per chart, pt had some cardiac concerns yesterday, better overnight. per notes, provider wants to see pt stabilize over 24 hrs and then dc home tomorrow P: dc home with family tomorrow and likely OP f/u. will continue to follow in case any DCP needs should arise DMITRI Abrams
[2025-08-24] MEDS: ONDANSETRON 4 MG/2 ML INJ IV (17:05)
[2025-08-24] MEDS: DIGOXIN 0.125 MG TABLET 0.25 MG PO (17:06)
[2025-08-24] MEDS: REMOVE LIDOCAINE PATCH 1 EACH TOP (21:36)
[2025-08-25] VITALS (8 sets, daily range): BP systolic 93–118; BP diastolic 59–72; PULSE 64–95; RESP 16–19; TEMP 36.4–37.1; O2SAT 94–96
[2025-08-25 05:32] LABS: Add Manual Diff / Slide Review NO; Hematocrit 37.5 % (41-53); Hemoglobin 12.4 g/dL (13.5-17.5); Lymphocytes Absolute Auto 1800 /uL (1100-4500); Mean Corpuscular HGB Conc 33.1 % (30-36); Mean Corpuscular Hemoglobin 25.3 PG (26-34); Mean Corpuscular Volume 76.4 fL (80-100); Platelet Count 289 X10^3/uL (150-400)
[2025-08-25 05:45] LABS: Blood Urea Nitrogen 22 mg/dL (9-20); Calcium 8.6 mg/dL (8.4-10.2); Carbon Dioxide 31 mmol/L (22-32); Chloride 94 mmol/L (98-107); Estimated Glomerular Filt Rate > 60 mL/min (>60); Glucose 90 mg/dL (70-99); HEMOLYSIS < 15 (0-50); Magnesium 1.8 mg/dL (1.6-2.3); Potassium 4.1 mmol/L (3.4-5.1); Sodium 130 mmol/L (137-145)
[2025-08-25 06:23] LABS: Digoxin 1.4 ng/mL (0.8-2.0)
[2025-08-25] MEDS: MAGNESIUM OXIDE 400 MG TABLET PO ×2 (08:09→20:30)
[2025-08-25] MEDS: POTASSIUM CHLORIDE 20 MEQ TAB PO ×2 (08:09→17:15)
[2025-08-25] MEDS: APIXABAN 5 MG TABLET PO ×2 (08:10→20:29)
[2025-08-25] MEDS: METOPROLOL IR 25 MG TABLET 12.5 MG PO ×2 (08:11→20:30)
[2025-08-25] MEDS: GENTAMICIN 0.3% OPHTH 5 ML 1 DROPS EYE-BOTH ×4 (08:12→20:30)
[2025-08-25] MEDS: SPIRONOLACTONE 25 MG TABLET PO (08:15)
[2025-08-25] MEDS: LIDOCAINE 5% PATCH 1 EACH TOP (08:17)
[2025-08-25] MEDS: TORSEMIDE 10 MG TABLET 40 MG PO (09:00)
[2025-08-25] MEDS: SODIUM CHLORIDE 0.9% FLUSH 10 ML IV ×2 (09:03→20:30)
[2025-08-25] MEDS: ACETAMINOPHEN 325 MG TABLET 650 MG PO ×2 (10:02→18:12)
[2025-08-25] MEDS: METOCLOPRAMIDE 10 MG/2 ML INJ 5 MG IV (10:03)
--- NOTE | 2025-08-25 12:42 | P.PN_ITS ---
Subjective Subjective Date Patient Seen: 08/25/25 Interval history: The pt reports feeling a migraine coming on this morning. It is improving after Reglan and Tylenol. He otherwise is feeling well without any specific concerns. He is anxious to return home. He denies any chest pain, SOB. He feels his LE edema continues to improve. Exam Vital Signs (past 8 hours): - 08/25/25 08:00 08/25/25 09:50 08/25/25 12:00 Temperature 98.6 F 98.3 F Pulse Rate 84 73 71 Respiratory Rate 17 19 Blood Pressure 100/64 101/69 93/59 L Pulse Oximetry 96 95 Fraction of Inspired Oxygen 21 SaO2/FiO2 Ratio 461 Oxygen Delivery Method Room Air Oxygen Flow Rate 0 Narrative Exam Narrative: Gen: NAD, sitting comfortably in bed, speaking easily in complete sentences CV: irregularly irregular rhythm, normal rate, no murmurs Resp: clear to auscultation bilaterally, no significant wheezes or crackles Abd: soft, nontender, nondistended Ext: 2+ edema to knee level, nontender Neuro: no gross deficits Objective Labs 08/25/25 05:00 08/25/25 05:00 Labs: Laboratory Results - last 24 hr 08/25/25 05:00 WBC 7.8 RBC 4.90 Hgb 12.4 L Hct 37.5 L MCV 76.4 L MCH 25.3 L MCHC 33.1 RDW 17.7 H Plt Count 289 Neut % (Auto) 59.3 Lymph % (Auto) 23.2 L [place] % (Auto) 12.8 Eos % (Auto) 3.7 Baso % (Auto) 1.0 Neut # (Auto) 4600 Lymph # (Auto) 1800 [place] # (Auto) 1000 H Eos # (Auto) 300 Baso # (Auto) 100 Sodium 130 L Potassium 4.1 Chloride 94 L Carbon Dioxide 31 BUN 22 H Creatinine 0.88 Estimated GFR > 60 BUN/Creatinine Ratio 25.0 H Glucose 90 Calcium 8.6 Magnesium 1.8 Digoxin 1.4 [facility] Medical History (Updated 08/17/25 @ 19:56 by Sanam Concepcion DO) Lumbar stenosis with neurogenic claudication Spondylolisthesis of lumbar region Sacroiliitis Sacroiliac joint pain Lumbar radiculopathy Erectile dysfunction Chronic heart failure with preserved ejection fraction History of COVID-19 (10/2020) Right inguinal hernia Peripheral edema Testosterone deficiency in male Pulmonary nodule Cardiomyopathy Essential hypertension Atrial fibrillation COPD (chronic obstructive pulmonary disease) Chronic fatigue (11/23/17) Rheumatoid arthritis involving multiple sites (07/28/17) Postherpetic neuralgia (05/20/17) Primary osteoarthritis of both knees (11/22/15) Mild persistent asthma without complication (11/22/15) Surgical History Hx of knee surgery (10/2015) Hx of colonoscopy (10/22/22) S/P cataract extraction Status post cholecystectomy Family History Father Asthma Mother Diabetes mellitus Social History marital status: household members: spouse lives independently: Yes occupational status: previously employed alcohol intake: never substance use type: does not use Assessment & Plan Assessment & Plan narrative: 1. Atrial fibrillation: Rate controlled - Continue oral digoxin, Sotalol - Continue Eliquis 2. Peripheral edema/congestive heart failure: Continued improvement. Electrolytes stable. Net negative 13L. - Continue PO Torsemide 3. Hypertension: Pt with more relative hypotension at this point. - Continue off Losartan - Hold Spironolactone - Continue to monitor closely 4. COPD: No O2 requirement, comfortable, no significant wheezing on exam. No evidence exacerbation. - Continue duonebs - Restart Trelegy FEN: Cardiac diet DVT ppx: Eliquis as above Code: Full Dispo: Anticipate likely ready for d/c tomorrow, assuming ongoing stability. Time-Based Coding :: [TOTAL MINUTES] spent with patient and on the chart (including review of chart, obtaining history, exam, reviewing outside data, placing orders, documenting exam and treatment plan, and counseling patient) on [DATE]. 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
[2025-08-25] MEDS: DIGOXIN 0.125 MG TABLET 0.25 MG PO (17:14)
[2025-08-25] MEDS: REMOVE LIDOCAINE PATCH 1 EACH TOP (20:30)
[2025-08-26] VITALS: BP 105/67; PULSE 79; RESP 18; TEMP 36.9; O2SAT 94
[2025-08-26 04:00] VITALS: BP 104/57; PULSE 81; RESP 17; TEMP 37; O2SAT 94
--- NOTE | 2025-08-26 04:00 | EKG_ITS ---
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
[2025-08-26] MEDS: MAG HYDROX/ALUMINUM/SIMETH SUS 30 ML, LIDOCAINE VISCOUS 2% 15 ML PO ×2 (04:36→13:17)
[2025-08-26 05:32] LABS: Add Manual Diff / Slide Review NO; Hematocrit 38.7 % (41-53); Hemoglobin 12.6 g/dL (13.5-17.5); Lymphocytes Absolute Auto 2300 /uL (1100-4500); Mean Corpuscular HGB Conc 32.7 % (30-36); Mean Corpuscular Hemoglobin 25.1 PG (26-34); Mean Corpuscular Volume 76.7 fL (80-100); Platelet Count 312 X10^3/uL (150-400)
[2025-08-26 05:45] LABS: Blood Urea Nitrogen 19 mg/dL (9-20); Calcium 8.5 mg/dL (8.4-10.2); Carbon Dioxide 31 mmol/L (22-32); Chloride 92 mmol/L (98-107); Estimated Glomerular Filt Rate > 60 mL/min (>60); Glucose 90 mg/dL (70-99); HEMOLYSIS < 15 (0-50); Potassium 4.1 mmol/L (3.4-5.1); Sodium 131 mmol/L (137-145)
[2025-08-26 06:51] LABS: Troponin I < 0.012 ng/mL (0.01-0.034)
[2025-08-26 08:00] VITALS: BP 104/70; PULSE 79; RESP 18; TEMP 36.8; O2SAT 95
[2025-08-26] MEDS: GENTAMICIN 0.3% OPHTH 5 ML 1 DROPS EYE-BOTH ×2 (09:46→12:53)
[2025-08-26] MEDS: APIXABAN 5 MG TABLET PO (09:46)
[2025-08-26] MEDS: POTASSIUM CHLORIDE 20 MEQ TAB PO (09:46)
[2025-08-26] MEDS: MAGNESIUM OXIDE 400 MG TABLET PO (09:48)
[2025-08-26] MEDS: SODIUM CHLORIDE 0.9% FLUSH 10 ML IV (09:56)
[2025-08-26] MEDS: TORSEMIDE 10 MG TABLET 40 MG PO (09:58)
[2025-08-26 10:23] LABS: Troponin I < 0.012 ng/mL (0.01-0.034)
--- NOTE | 2025-08-26 11:16 | PM.PN.IH.1 ---
Subjective Subjective Interval history: The pt this morning reports overall feeling well. Last night, he had an episode of restrosternal chest pain that felt like pressure. It was not associated with SOB, palpitations, or diaphoresis. He did have nausea at the time, but also felt a migraine coming on. Troponin and EKG were negative. His symptoms did improve with a GI cocktail. The pt denies any recurrence since then. He states that he feels ready to leave today, but has not really been out of bed. Exam Vital Signs (past 8 hours): - 08/26/25 04:00 08/26/25 07:00 08/26/25 08:00 Temperature 98.6 F 98.3 F Pulse Rate 81 79 Respiratory Rate 17 18 Blood Pressure 104/57 L 104/70 Pulse Oximetry 94 95 Oxygen Delivery Method Room Air Oxygen Flow Rate 0 Fraction of Inspired Oxygen 21 SaO2/FiO2 Ratio 461 Oxygen Delivery Method Room Air Oxygen Flow Rate 0 Narrative Exam Narrative: Gen: NAD, sitting comfortably in bed, speaking easily in complete sentences CV: irregularly irregular rhythm, normal rate, no murmurs Resp: clear to auscultation bilaterally, no significant wheezes or crackles Abd: soft, nontender, nondistended Ext: no significant edema, nontender Neuro: no gross deficits Objective Labs 08/26/25 05:15 08/26/25 05:15 Labs: Laboratory Results - last 24 hr 08/26/25 08/26/25 05:15 09:50 WBC 7.2 RBC 5.04 Hgb 12.6 L Hct 38.7 L MCV 76.7 L MCH 25.1 L MCHC 32.7 RDW 18.0 H Plt Count 312 Neut % (Auto) 49.8 L Lymph % (Auto) 32.2 [place] % (Auto) 11.6 Eos % (Auto) 5.2 H Baso % (Auto) 1.2 Neut # (Auto) 3600 Lymph # (Auto) 2300 [place] # (Auto) 800 Eos # (Auto) 400 Baso # (Auto) 100 Sodium 131 L Potassium 4.1 Chloride 92 L Carbon Dioxide 31 BUN 19 Creatinine 0.92 Estimated GFR > 60 BUN/Creatinine Ratio 20.7 Glucose 90 Calcium 8.5 Troponin I < 0.012 < 0.012 PFS Medical History (Updated 08/17/25 @ 19:56 by Sanam Concepcion DO) Lumbar stenosis with neurogenic claudication Spondylolisthesis of lumbar region Sacroiliitis Sacroiliac joint pain Lumbar radiculopathy Erectile dysfunction Chronic heart failure with preserved ejection fraction History of COVID-19 (10/2020) Right inguinal hernia Peripheral edema Testosterone deficiency in male Pulmonary nodule Cardiomyopathy Essential hypertension Atrial fibrillation COPD (chronic obstructive pulmonary disease) Chronic fatigue (11/23/17) Rheumatoid arthritis involving multiple sites (07/28/17) Postherpetic neuralgia (05/20/17) Primary osteoarthritis of both knees (11/22/15) Mild persistent asthma without complication (11/22/15) Surgical History Hx of knee surgery (10/2015) Hx of colonoscopy (10/22/22) S/P cataract extraction Status post cholecystectomy Family History Father Asthma Mother Diabetes mellitus Social History marital status: household members: spouse lives independently: Yes occupational status: previously employed alcohol intake: never substance use type: does not use Assessment & Plan Assessment & Plan narrative: 1. Atrial fibrillation: Rate controlled - Continue oral digoxin, Sotalol - Continue Eliquis 2. Peripheral edema/congestive heart failure: Continued improvement, swelling basically gone. Electrolytes stable. Net negative 14L. - Continue PO Torsemide, however decrease dose to 20mg at this point due to no significant swelling, BPs low range 3. Hypertension: Pt with more relative hypotension at this point. - Continue off Losartan, Spironolactone - Decrease Torsemide as above - Continue to monitor closely 4. COPD: No O2 requirement, comfortable, no significant wheezing on exam. No evidence exacerbation. - Continue duonebs - Restart Trelegy FEN: Cardiac diet DVT ppx: Eliquis as above Code: Full Dispo: Pt medically stable for d/c, however today tells me he hasn't really been out of bed since being here. Previously had declined PT. Referral to PT placed again today. Nursing will have pt out of bed today as well. If doing well out of bed, can hopefully d/c later today. Time-Based Coding :: [TOTAL MINUTES] spent with patient and on the chart (including review of chart, obtaining history, exam, reviewing outside data, placing orders, documenting exam and treatment plan, and counseling patient) on [DATE]. 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
[2025-08-26 12:00] VITALS: BP 106/73; PULSE 98; RESP 18; TEMP 37.1; O2SAT 93
[2025-08-26] MEDS: METOCLOPRAMIDE 10 MG/2 ML INJ 5 MG IV (12:57)
[2025-08-26 13:08] VITALS: BP 96/70; PULSE 91; O2SAT 94
--- NOTE | 2025-08-26 13:10 | EKG_ITS ---
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
[2025-08-26 13:33] VITALS: PULSE 82; RESP 18; O2SAT 98
[2025-08-26] MEDS: ALBUTEROL/IPRATROPIUM 3 ML AMPUL INH (13:33)
--- NOTE | 2025-08-26 13:52 | CM.DPC ---
DCP Cont: Per MD, anticipated discharging pt home today and pt was agreeable but then stated he has not been OOB in a few days. Explained to MD that pt has continued to decline working with PT/OT while admitted and orders were cancelled. PT ordered for today just to confirm pt remains steady on his feet and then plan of discharge home with outpt f/u. No d/c needs anticipated. DMITRI Hansen
[2025-08-26 13:56] LABS: Troponin I < 0.012 ng/mL (0.01-0.034)
--- NOTE | 2025-08-26 14:50 | PT.IPRE ---
Current Diagnoses Acute on chronic diastolic (congestive) heart failure (08/19/25) Surgical History (Last Reviewed 04/11/25 @ 08:46 by Mitchell Buchanan MD) Hx of colonoscopy (10/22/22) Hx of knee surgery (10/2015) S/P cataract extraction Status post cholecystectomy Medical History (Last Updated 05/31/25 @ 12:48 by Maverick Vitale DO) Atrial fibrillation Cardiomyopathy Chronic fatigue (11/23/17) Chronic heart failure with preserved ejection fraction COPD (chronic obstructive pulmonary disease) Erectile dysfunction Essential hypertension History of COVID-19 (10/2020) Lumbar radiculopathy Lumbar stenosis with neurogenic claudication Mild persistent asthma without complication (11/22/15) Peripheral edema Postherpetic neuralgia (05/20/17) Primary osteoarthritis of both knees (11/22/15) Pulmonary nodule Rheumatoid arthritis involving multiple sites (07/28/17) Right inguinal hernia Sacroiliac joint pain Sacroiliitis Spondylolisthesis of lumbar region Testosterone deficiency in male Physical Therapy Inpatient Evaluation/Re-Eval M1 PT/OT-IP Prior Functional Status Start: 08/18/25 12:24 Freq: NEEDED Status: Active Protocol: Document 08/26/25 14:42 [facility] (Rec: 08/26/25 14:50 [facility] [id number]) Medical Review Prior Functional Status Medical History Yes Reviewed Communication able to make needs known Mobility and Gait pt stated that he was modified independent with all mobilities and ambulation using a hurrycane Social History Household Members spouse Living Arrangements House Number of Floors ( 3 or More Floors Floors) Number of Stairs To pt stays on the main level of the house Enter/Railing? no steps to enter Home Environment Standard Height Toilet,Tub/Shower,Built-In Shower Seat Home Equipment Front Wheel Walker,Four Wheel Walker,Hand Held Shower, Grab Bars In Shower Additional Social pt has a hurrycane History Comment M2 PT-IP Current Condition Start: 08/18/25 12:24 Freq: NEEDED Status: Active Protocol: Document 08/26/25 14:42 [facility] (Rec: 08/26/25 14:50 [facility] [id number]) Physical Therapy Current Condition Current Condition Evaluation Date 08/18/25 Treatment Diagnosis CHF; difficulty in walking Onset Date 08/17/25 M3 PT-IP Subjective Start: 08/18/25 12:24 Freq: NEEDED Status: Active Protocol: Document 08/26/25 14:42 [facility] (Rec: 08/26/25 14:50 [facility] [id number]) Subjective Physical Therapy Visit Type Type Re-Evaluation Visit Start Time 14:17 Visit Stop Time 14:40 Number of BED CONTROL SPECIALIST Visits 0 Physical Therapy Visit Comments Patient Comments Pt notes he wants to get home and is feeling much better. Ready to get up M4 PT-IP Mobility and Gait Start: 08/18/25 12:24 Freq: NEEDED Status: Active Protocol: Document 08/26/25 14:42 [facility] (Rec: 08/26/25 14:50 [facility] [id number]) PT-Bed Mobility Assessment Supine to Sit Supine to Sit Standby Assistance Scooting Scooting to Edge of Standby Assistance Bed PT-Transfer Assessment Sit to and From Stand Sit to and from Standby Assistance,Use of Upper Extremities Stand Equipment Transfer Assistive Gait Belt,Front Wheeled Walker Device Orthotic/Prosthetic No Devices or Brace: Comments Mobility Comments supine to sit SBA and SBA to EOB. sit to stand SBA to SPC and pt amb about 20ft CGA but felt unsteady and was reaching to wall. Sat EOB and PT got 4WW then pt stood w/cues of use of breaks to 4WW SBA and amb SBA with improved gait pattern and amb about 120ft w/min cues on break use. Sat in chair and O2 88% and quickly inc to 97%. Noted some chest pain when initially sat down but reproted went away quickly. RN was notified. Pt left with call light in reach and chair alarm on Gait Assessment Gait Gait Assistance Standby Assistance,Contact Guard Assist Required: Distance (Feet) 140 Able to Maintain Yes Weight Bearing Status During Gait Assistive Devices Assistive Device Gait Belt,Straight Cane,4 Wheeled Walker Gait Deviations General Gait Pattern Decreased Stride Length,Decreased Feet Clearance,Flexed Trunk Factors Limiting Gait Function Factors Limiting Decreased Activity Tolerance,Decreased Strength Gait Function PT-Balance Assessment Sitting Balance and Reactions Static Sitting Good Balance Ability Dynamic Sitting Good Balance Ability Standing Balance and Reactions Static Standing Fair Balance Ability Dynamic Standing Fair Balance Ability Device Used 4WW/ hurrycane M5 PT-IP Objective Assessments Start: 08/18/25 12:24 Freq: NEEDED Status: Active Protocol: Document 08/26/25 14:42 [facility] (Rec: 08/26/25 14:50 [facility] [id number]) Orientation Orientation/Cognition Level of Alertness Alert Language Function No Deficits Noted Ability Safety Awareness Understands Safety Issues Memory Description No Deficits Noted Gross Range of Motion Lower Extremity ROM Assessment Within Functional Limits Impairments was able to adjust socks indep Strength Lower Extremity Strength Assessment Within Functional Limits Coordination Assessment Gross Coordination Gross Coordination WNL Muscle Tone Muscle Tone WNL Yes M6 PT-IP Treatment Start: 08/18/25 12:24 Freq: NEEDED Status: Active Protocol: Document 08/26/25 14:42 [facility] (Rec: 08/26/25 14:50 [facility] [id number]) Physical Therapy Treatment Education Education Provided Safety M7 PT-IP Assessment and Plan Start: 08/18/25 12:24 Freq: NEEDED Status: Active Protocol: Document 08/26/25 14:42 [facility] (Rec: 08/26/25 14:50 [facility] [id number]) PT Summary Assessment and Plan Potential Rehabilitation Good Potential Status of Condition Stable at Evaluation Summary Impairments Pain,Strength,Balance,Transfers,Gait Assessment Summary Pt re-eval today w/pt feeling much better since start of hospital stay. He did well with mobilty with 4WW but wasn't safe w/SPC. Pt in agreement and does have a 4WW to use at home. He does have dec activity tolerance and was educated to take breaks and take big breaths as needed. Cont PT for safety, strength and balance. Goals Bed Mobility Goal Independent Transfer Goal Independent,Cane,Four Wheeled Walker Gait Goal Independent,Cane,Four Wheel Walker Gait Distance 150 Days to Meet Goals 10 Frequency of Treatment Frequency Of Once a Day Treatment Treatment Plan Physical Therapy Bed Mobility Training,Transfer Training,Gait Training, Treatment Plan Therapeutic Exercise,Balance Retraining,Discharge Planning,Hot or Cold Pack,Neuromuscular Re-ed, Coordination Retraining Recommendations To Nursing Amount of Assist Standby Assistance Needed Discharge Recommendations PT Discharge Home with Assistance,Home Health Recommendations Transportation Needs Private Vehicle at Discharge - PT assist 1
--- NOTE | 2025-08-26 15:31 | P.DS_ITS ---
History of Present Illness History of Present Illness Date Patient Seen: 08/27/25 Chief complaint: Having Heart issues, low O2, SOB Narrative: Came to emergency department with acute weakness shortness of breath and swelling of all extremities. Admitted with diuresis and observation he is improving this morning his arms are not as swollen but his feet are still. Breathing is controlled on DuoNeb so far complains of some back pain has been treating with steroids we will see if we can get him a pain patch and continue to diurese. Heart looks stable on monitor Discharge Providers Provider Date of admission: 08/19/25 13:09 Discharge Date: 08/26/25 Primary care physician: Mitchell Buchanan MD Consults: 08/17/25 20:40 Consult to Occupational Therapy Evaluate & Treat Comment: Physician Instructions: Evaluate and treat Consult to Physical Therapy Evaluate & Treat Comment: Physician Instructions: Evaluate and Treat 08/18/25 00:52 Consult to Pharmacy Routine Comment: Pt has several home meds 08/23/25 23:14 Consult to Pharmacy Routine Comment: Fall risk 08/26/25 10:28 Consult to Physical Therapy Evaluate & Treat Comment: Physician Instructions: Evaluate and Treat Discharge provider: Chandrika Dee MD Summary Hospital Course Discharge Diagnosis: Acute on chronic CHF with preserved ejection fraction COPD Paroxysmal atrial fibrillation HTN GERD Hospital Course: The pt was admitted with acute on chronic CHF exacerbation with severe LE edema. He was started on IV Lasix and Bumex with good diuresis. The pts potassium was replaced. The pt had an echo which was stable. His LE swelling improved gradually. The pt then went into atrial fibrillation with RVR. He was started on Digoxin, and continued in atrial fibrillation but was rate controlled. The pts BP was low range throughout the rest of his hospitalization. His IV diuretics were transitioned to PO Torsemide. His home Losartan, Spirinolactone, and ultimately Metoprolol were held. The pts swelling continued to improve and at the time of discharge was nearly absent. The day of and day prior to discharge the pt experienced substernal chest pain. EKGs and troponins were negative. It improved on both occasions with GI cocktail. The pt will be discharged home on a PPI. He will need close f/u as an outpatient regarding his blood pressure and heart rate. Status at Discharge Cognitive/behavioral status at discharge: oriented Overall status at discharge: patient is back to baseline Exam Vital Signs (past 8 hours): - 08/26/25 08:00 08/26/25 12:00 08/26/25 13:08 Temperature 98.3 F 98.7 F Pulse Rate 79 98 H 91 H Respiratory Rate 18 18 Blood Pressure 104/70 106/73 96/70 Pulse Oximetry 95 93 94 Oxygen Delivery Method 08/26/25 13:33 Temperature Pulse Rate 82 Respiratory Rate 18 Blood Pressure Pulse Oximetry 98 Oxygen Delivery Method Room Air Fraction of Inspired Oxygen 21 SaO2/FiO2 Ratio 461 Oxygen Delivery Method Room Air Oxygen Flow Rate 0 Narrative Exam Narrative: Gen: NAD, sitting comfortably in bed, speaking easily in complete sentences CV: irregularly irregular rhythm, normal rate, no murmurs Resp: clear to auscultation bilaterally, no significant wheezes or crackles Abd: soft, nontender, nondistended Ext: no significant edema, nontender Neuro: no gross deficits Objective Labs 08/26/25 05:15 08/26/25 05:15 Labs: Laboratory Results - last 24 hr 08/26/25 08/26/25 08/26/25 05:15 09:50 13:22 WBC 7.2 RBC 5.04 Hgb 12.6 L Hct 38.7 L MCV 76.7 L MCH 25.1 L MCHC 32.7 RDW 18.0 H Plt Count 312 Neut % (Auto) 49.8 L Lymph % (Auto) 32.2 [place] % (Auto) 11.6 Eos % (Auto) 5.2 H Baso % (Auto) 1.2 Neut # (Auto) 3600 Lymph # (Auto) 2300 [place] # (Auto) 800 Eos # (Auto) 400 Baso # (Auto) 100 Sodium 131 L Potassium 4.1 Chloride 92 L Carbon Dioxide 31 BUN 19 Creatinine 0.92 Estimated GFR > 60 BUN/Creatinine Ratio 20.7 Glucose 90 Calcium 8.5 Troponin I < 0.012 < 0.012 < 0.012 PFSH Medical History (Updated 08/17/25 @ 19:56 by Sanam Concepcion DO) Lumbar stenosis with neurogenic claudication Spondylolisthesis of lumbar region Sacroiliitis Sacroiliac joint pain Lumbar radiculopathy Erectile dysfunction Chronic heart failure with preserved ejection fraction History of COVID-19 (10/2020) Right inguinal hernia Peripheral edema Testosterone deficiency in male Pulmonary nodule Cardiomyopathy Essential hypertension Atrial fibrillation COPD (chronic obstructive pulmonary disease) Chronic fatigue (11/23/17) Rheumatoid arthritis involving multiple sites (07/28/17) Postherpetic neuralgia (05/20/17) Primary osteoarthritis of both knees (11/22/15) Mild persistent asthma without complication (11/22/15) Surgical History Hx of knee surgery (10/2015) Hx of colonoscopy (10/22/22) S/P cataract extraction Status post cholecystectomy Family History Father Asthma Mother Diabetes mellitus Social History marital status: household members: spouse lives independently: Yes occupational status: previously employed alcohol intake: never substance use type: does not use Discharge Plan Discharge Plan Patient Disposition: Home Discharge orders & Medications Prescriptions: New pantoprazole 20 mg Tablet,Delayed Release (Dr/Ec) 20 mg PO 0600 Qty: 30 0RF digoxin 125 mcg (0.125 mg) Tablet 0.25 mg PO DAILY@1700 Qty: 30 0RF Continued potassium chloride 20 mEq tablet extended release 20 meq PO DAILY Qty: 90 3RF albuterol sulfate 2.5 mg /3 mL (0.083 %) solution for nebulization 2.5 mg continuous nebulization Q6H PRN (Reason: Dyspnea) Qty: 90 1RF albuterol sulfate [Ventolin HFA] 90 mcg/actuation HFA aerosol inhaler 2 inh inhalation Q4-6H PRN (Reason: shortness of breath or wheezing) Qty: 8.5 10RF testosterone cypionate [Depo-Testosterone] 200 mg/mL oil 300 mg IM Q4W Qty: 10 2RF oxycodone-acetaminophen 5-325 mg tablet 1 tab PO Q8H MDD 3 tabs PRN (Reason: pain) Qty: 30 0RF apixaban 5 mg tablet 5 mg PO BID Qty: 180 1RF losartan 25 mg tablet 25 mg PO DAILY Qty: 90 1RF (DME) spacer for inhaled meds See Rx Instructions .Route .MEDSUPPLY Qty: 1 0RF Rx Instructions: As directed sotalol 80 mg tablet 80 mg PO BID gabapentin 300 mg capsule 300 - 600 mg PO TID MDD 1800 mg PRN (Reason: back pain) Qty: 360 3RF tadalafil 20 mg tablet 20 mg PO DAILY PRN (Reason: sexual activity) Qty: 30 3RF Rx Instructions: administer approximately 30min before sexual activity; do not use more than 1 dose per 24hrs prednisone 20 mg tablet 20 mg PO DAILY PRN (Reason: joint pain) Qty: 60 0RF (DME) Disabled Parking See Rx Instructions .ROUTE .MEDSUPPLY Qty: 1 0RF Rx Instructions: Patient qualifies for disabled parking as per the attached form. torsemide 20 mg tablet 40 mg PO DAILY Qty: 120 3RF magnesium oxide 500 mg tablet 400 mg PO BID nystatin 100,000 unit/gram cream 1 applic topical BID Qty: 30 1RF Rx Instructions: to pannus, under r breast and groin folds Trelegy Ellipta 200-62.5-25 mcg blister with device 1 ea inhalation DAILY Discontinued spironolactone 25 mg tablet 25 mg PO DAILY metoprolol tartrate 25 mg tablet 12.5 mg PO BID Qty: 60 12RF Follow up/Referrals: Mitchell Buchanan MD [Primary Care Provider, Internal Medicine] - 1 Week Discharge Health Status Multidrug resistant organism: No MDRO Diet/Activity/Treatments Diet: Diet as Tolerated and Low-sodium Visit Report/Discharge Packet Instructions: DI for Heart Failure Stand Alone Forms: Patient Portal/API Discharge Data Primary Care Provider: Mitchell Buchanan Discharges patient from system. Discharge Date/Time: 08/26/25 16:50 [facility] Charge Codes Discharge inpatient/observation: [id number]
--- NOTE | 2025-08-26 17:02 | PC.NURSE ---
D/c summary printed and reviewed with pt. Discussed prescriptions, which were sent to pharmacy. Discussed f/u appt with PCP. IV and tele removed. Pt left with all his belongings, exited via w/c with RN to private vehicle.
== END 2025-08-26 16:50 | disposition home or self-care (01) | DRG 291 ==
LOC: ED 19:56 → AC 20:01 → ICU 08-23 02:45 → AC 08-24 09:30
PROVIDERS: Emergency Medicine; Family Medicine; Admitting Provider Family Medicine; Emergency Provider Emergency Medicine; PCP Internal Medicine; Visit Provider Internal Medicine
DX: I11.0 Hypertensive heart disease with heart failure (principal); I50.33 Acute on chronic diastolic (congestive) heart failure; J44.9 Chronic obstructive pulmonary disease, unspecified; E88.09 Other disorders of plasma-protein metabolism, not elsewhere classified; I48.0 Paroxysmal atrial fibrillation; H10.9 Unspecified conjunctivitis; K21.9 Gastro-esophageal reflux disease without esophagitis; Z79.01 Long term (current) use of anticoagulants; Z79.52 Long term (current) use of systemic steroids; Z87.891 Personal history of nicotine dependence
CPT/HCPCS: 36415; 71045; 80048; 80053; 80162; 83605; 83735; 83880; 84484; 85025; 85610; 87633; 93005; 93010; 93306; 94640; 94762; 96365; 97116; 97161; 97162; 97530; 99232; 99233; 99238; 99284; G0378; A9270; J1160; J1938; J2405; J2765; J3475; J7040

== ENCOUNTER → 2025-09-11 16:20 | Outpatient (CLI) | payer OTHER, SELFPAY ==
[2025-08-17 20:31] VITALS: BMI 28.8
[2025-09-11 17:19] LABS: Blood Urea Nitrogen 15 mg/dL (9-20); Calcium 8.6 mg/dL (8.4-10.2); Carbon Dioxide 25 mmol/L (22-32); Chloride 100 mmol/L (98-107); Estimated Glomerular Filt Rate > 60 mL/min (>60); Glucose 115 mg/dL (70-99); HEMOLYSIS 41 (0-50); Magnesium 1.0 mg/dL (1.6-2.3); Potassium 4.0 mmol/L (3.4-5.1); Sodium 134 mmol/L (137-145)
[2025-09-11 17:23] LABS: Digoxin 0.7 ng/mL (0.8-2.0)
== END ==
PROVIDERS: PCP Internal Medicine; Referring Provider Internal Medicine; Visit Provider Internal Medicine
DX: I10 Essential (primary) hypertension (principal); I48.91 Unspecified atrial fibrillation; I50.32 Chronic diastolic (congestive) heart failure; J44.1 Chronic obstructive pulmonary disease with (acute) exacerbation
CPT/HCPCS: 36415; 80048; 80162; 83735